=== PATIENT | female | born 1970 | race Caucasian/White ===

== ENCOUNTER 2020-05-27 07:18 | Emergency (ER) | payer MEDICAID, SELFPAY ==
[2020-05-27 08:58] VITALS: BP 121/86; PULSE 76; RESP 18; TEMP 37; O2SAT 100; BMI 20.1
--- NOTE | 2020-05-27 09:01 | CT_ITS ---
EXAMINATION: CT ABDOMEN AND PELVIS WITH CONTRAST CLINICAL INFORMATION: Abdominal pain COMPARISON: Previous CT of the abdomen and pelvis most recent August 2019 abdominal ultrasound November 2017 TECHNIQUE: Multidetector volumetric images were obtained from the superior aspect of the liver through the pubic symphysis following administration 85 mL of Omnipaque 350 intravenous contrast. Sagittal and coronal reformatted images were obtained on the technologist's workstation. Oral contrast: No This CT examination was performed using dose optimization techniques as appropriate, variously including the following: *Automated exposure control *Adjustment of mA and/or kV according to patient size (this includes techniques or standardized protocols for targeted exams where dose is matched to indication/reason for exam; i.e. extremities or head) *Use of iterative reconstruction technique DLP: 371 mGy-cm FINDINGS: LUNG BASES: The visualized lung bases are unremarkable. LIVER, GALLBLADDER, AND BILIARY TREE: The liver is normal in size, shape, and attenuation. No focal hepatic lesion or biliary ductal dilatation is present. There are gallstones in the gallbladder. PANCREAS: Unremarkable. SPLEEN: Unremarkable. ADRENAL GLANDS: Unremarkable. KIDNEYS AND URETERS: The kidneys are normal in size, shape, and attenuation. No hydronephrosis, hydroureter, or calculi seen. No perinephric stranding. BLADDER: Unremarkable. GASTROINTESTINAL TRACT: There is diverticulosis of the colon. There is mild wall thickening of the splenic flexure and descending colon. This involves a long segment and is questionable for mild colitis or diverticulitis. Small and large bowel is otherwise normal. The appendix is unremarkable. ABDOMINAL WALL: No significant hernia is appreciated. LYMPH NODES: Normal. VASCULAR: There is ectasia of the splenic artery measuring up to 1.3 cm. This does not appear appreciably changed. PELVIC VISCERA: There are prominent left pelvic vessels questionable for pelvic congestion. OSSEOUS STRUCTURES: Unremarkable. CT/CT abdomen pelvis w con IMPRESSION: Diverticulosis of the colon. Wall thickening of the splenic flexure and left colon questionable for mild colitis or diverticulitis. Gallstones. Slightly dilated splenic artery measuring 1.3 cm.
--- NOTE | 2020-05-27 09:06 | ED_ITS ---
HPI - Abdominal Pain General Chief Complaint: Abdominal Pain Stated Complaint: diverticulitis Time Seen by Provider: 05/27/20 08:55 Source: patient Mode of arrival: ambulatory History of Present Illness HPI narrative: 50-year-old female with a past medical history of diverticulitis, tubal ligation, presenting to the ED complaining of left upper and lower abdominal pain since last night with associated nausea, vomiting, and bloody/mucousy stool. Admits symptoms feel similar to prior diverticulitis in August which she was admitted to [facility]. Denies fever, chills, constipation, dysuria/hematuria, urinary frequency Related Data Home Medications Medication Instructions Recorded Confirmed levothyroxine 05/27/20 Previous Rx's Medication Instructions Recorded ciprofloxacin HCl 500 mg PO Q12H 7 Days #14 tab 05/27/20 metronidazole [Flagyl] 500 mg PO Q8H 7 Days #21 tab 05/27/20 Allergies Allergy/AdvReac Type Severity Reaction Status Date / Time tramadol [TRAMADOL] Allergy Intermediate VOMITING, Unverified 01/11/20 17:04 ? nausea Review of Systems Review of Systems Constitutional: No Weight loss, No Fever, No Chills Cardiovascular: No Chest Pain, No SOB, No Dyspnea on Exertion Respiratory: No Cough, No Dyspnea Gastrointestinal: + Nausea, + Vomiting, No Diarrhea, No Constipation, + Abdominal pain,+bloody stools Genitourinary: No irregular bleeding, No Dysuria, No Urinary Frequency, No Hematuria, No Flank Pain, No Urinary Flow Changes, No Hesitancy Musculoskeletal: No joint pain, No Myalgias, No Joint Swelling Skin: No Skin Lesions, No rash Yes all other systems are reviewed and are negative Physical Exam Vital Signs: Vital Signs: Last Vital Signs Temp 98.6 F 05/27/20 08:58 Pulse 76 05/27/20 08:58 Resp 18 05/27/20 08:58 BP 121/86 05/27/20 08:58 Pulse Ox 100 05/27/20 08:58 Body Mass Index 20.1 Const: General: cooperative, healthy appearing and comfortable Orientation/consciousness: patient oriented x3 Limitations: no limitations HENMT: Head: Yes normal to inspection Ears: hearing grossly normal bilaterally General nose exam: Normal external nose present Face and s inus: Yes normal facial exam Eyes: General: appearance normal, both eyes and all related structures EOM: EOMs intact bilaterally Neck: Neck: Yes normal visual inspection Resp: Effort & Inspection: normal respiratory effort Cardio: Rate: regular rate GI: Inspection: Yes normal to inspection Palpation (GI): Soft to palpation, Tenderness to palpation present (GI) in the LLQ, in the LUQ and suprapubicly, no guarding and not rigid Rectal Exam - Female: hemorrhoids : General: Yes no CVA tenderness Back/Spine/Pelvis: Back: no CVA tenderness Skin: Rashes: no rashes Wounds: no wounds Neuro: General: patient oriented x3 Gait exam (Neuro): Normal gait present Extrem: General: Yes normal to inspection Course Course Course Narrative: * labs unremarkable CT abdomen pelvis w con IMPRESSION: Diverticulosis of the colon. Wall thickening of the splenic flexure and left colon questionable for mild colitis or diverticulitis. Gallstones. Slightly dilated splenic artery measuring 1.3 cm. >> results discussed with patient including worrisome signs and symptoms and strict return precautions. She verbalized understanding feel safe for discharge home MDM - Abdominal Pain MDM Narrative Medical decision making narrative: 50-year-old female with a past medical history of diverticulitis, tubal ligation, presenting to the ED complaining of left upper and lower abdominal pain since last night with associated nausea, vomiting, and bloody/mucousy stool. On exam VSS, NAD/nontoxic, abdomen soft diffusely tender, no rebound or guarding, no CVAT. Concern for diverticulitis vs appendicitis vs pancreatitis/gastroenteritis. Lower concern for cholecystitis/renal stone. Low concern for severe sepsis Plan: Labs, UA, CT AP, IVF/symptomatic therapy/reassess Lab Data Result diagrams: 05/27/20 09:34 05/27/20 09:34 Labs: Lab Results 05/27/20 05/27/20 05/27/20 Range/Units 09:34 09:34 09:34 WBC 10.6 (4.8-10.8) X10*3/uL RBC 4.81 (4.20-5.50) X10*6/uL Hgb 14.5 (12.0-16.0) g/dl Hct 41.9 (37-47) % MCV 87.1 (80-98) fL MCH 30.1 (27.0-33.0) pg MCHC 34.6 (31.0-35.0) g/dl RDW 12.0 (11.0-16.0) % Plt Count 396 (160-400) X10*3/uL MPV 9.3 L (9.4-12.3) fL Immature Gran % (Auto) 0.3 (0.0-0.4) % Neut % (Auto) 83.4 H (45-73) % Lymph % (Auto) 12.5 L (20-40) % [place] % (Auto) 3.5 (2-11) % Eos % (Auto) 0.1 (0-4) % Baso % (Auto) 0.2 (0-2) % Lymph # (Auto) 1.3 (1.2-4.9) X10*3/uL [place] # (Auto) 0.4 (0.1-1.2) X10*3/uL Eos # (Auto) 0.0 (0.0-0.4) X10*3/uL Baso # (Auto) 0.0 (0.0-0.2) X10*3/uL Abs Immat Gran (auto) 0.03 (0.00-0.03) X10*3/uL Absolute Neuts (auto) 8.9 H (2.0-8.3) X10*3/uL Absolute Nucleated RBC 0.000 (0.0-0.012) X10*3/uL Nucleated RBC % (auto) 0.0 (0.0-0.2) /100WBC Hold Blue Top SEE NOTE Sodium 139 (135-145) mmol/L Potassium 4.3 (3.3-5.1) mmol/L Chloride 103 (96-108) mmol/L Carbon Dioxide 28 (22-29) mmol/L Anion Gap 12 (12-20) BUN 10 (9-16) mg/dL Creatinine 0.84 (0.5-1.4) mg/dL Estim Creat Clear Calc 63.8 Estimated GFR > 60 Random Glucose 109 (60-115) mg/dL Lactic Acid (0.5-2.0) mmol/L Calcium 9.6 (8.4-10.2) mg/dL Magnesium 2.1 (1.6-2.6) mg/dL Total Bilirubin 1.3 H (0.0-1.0) mg/dL Direct Bilirubin 0.4 (0.0-0.5) mg/dL AST 14 (5-31) U/L ALT 13 (0-31) U/L Alkaline Phosphatase 46 (39-117) U/L Total Protein 7.5 (6.5-8.0) g/dL Albumin 4.4 (3.5-5.0) g/dL Lipase (8-78) U/L Stool Occult Blood (NEG) 05/27/20 05/27/20 05/27/20 Range/Units 09:34 09:35 09:36 WBC (4.8-10.8) X10*3/uL RBC (4.20-5.50) X10*6/uL Hgb (12.0-16.0) g/dl Hct (37-47) % MCV (80-98) fL MCH (27.0-33.0) pg MCHC (31.0-35.0) g/dl RDW (11.0-16.0) % Plt Count (160-400) X10*3/uL MPV (9.4-12.3) fL Immature Gran % (Auto) (0.0-0.4) % Neut % (Auto) (45-73) % Lymph % (Auto) (20-40) % [place] % (Auto) (2-11) % Eos % (Auto) (0-4) % Baso % (Auto) (0-2) % Lymph # (Auto) (1.2-4.9) X10*3/uL [place] # (Auto) (0.1-1.2) X10*3/uL Eos # (Auto) (0.0-0.4) X10*3/uL Baso # (Auto) (0.0-0.2) X10*3/uL Abs Immat Gran (auto) (0.00-0.03) X10*3/uL Absolute Neuts (auto) (2.0-8.3) X10*3/uL Absolute Nucleated RBC (0.0-0.012) X10*3/uL Nucleated RBC % (auto) (0.0-0.2) /100WBC Hold Blue Top Sodium (135-145) mmol/L Potassium (3.3-5.1) mmol/L Chloride (96-108) mmol/L Carbon Dioxide (22-29) mmol/L Anion Gap (12-20) BUN (9-16) mg/dL Creatinine (0.5-1.4) mg/dL Estim Creat Clear Calc Estimated GFR Random Glucose (60-115) mg/dL Lactic Acid 1.1 (0.5-2.0) mmol/L Calcium (8.4-10.2) mg/dL Magnesium (1.6-2.6) mg/dL Total Bilirubin (0.0-1.0) mg/dL Direct Bilirubin (0.0-0.5) mg/dL AST (5-31) U/L ALT (0-31) U/L Alkaline Phosphatase (39-117) U/L Total Protein (6.5-8.0) g/dL Albumin (3.5-5.0) g/dL Lipase 10 (8-78) U/L Stool Occult Blood NEG (NEG) Discharge Plan Discharge Clinical Impression: Diverticulitis Patient Disposition: Home, Self-Care Instructions: Diverticulitis (ED) Additional Instructions: YOUR BLOOD WORK WAS REASSURING TODAY. YOUR CT SCAN SHOWED MILD COLITIS OR DIVERTICULITIS. CIPROFLOXACIN AND FLAGYL ARE ANTIBIOTICS, TAKE PRESCRIBED. PRACTICE A CLEAR LIQUID DIET FOR THE NEXT 2-3 DAYS. THEN SLOWLY TRANSITION TO NORMAL, AVOIDING SWEET, SPICY, CAFFEINE, CHOCOLATE INITIALLY. MAKE SURE YOU ARE DRINKING PLENTY OF FLUIDS. IF HER SYMPTOMS PERSIST OR WORSEN, PAIN BECOMES UNBEARABLE, YOU ARE UNABLE TO EAT OR DRINK, OR HAVE FEVERS RETURN TO THE ED. FOLLOW UP WITH HER PRIMARY CARE DOCTOR AND GI DOCTOR Prescriptions: New ciprofloxacin HCl 500 mg tablet 500 mg PO Q12H 7 Days Qty: 14 RF: 0 metronidazole [Flagyl] 500 mg tablet 500 mg PO Q8H 7 Days Qty: 21 RF: 0 No Action levothyroxine RF: 0 Referrals: Thee Cardozo MD [Physician] - 5 days [facility] Past Medical History Attestation statement: The following information was validated with the patient. Medical History (Updated 05/27/20 @ 11:43 by HANSA Slater) Diverticulitis Hypothyroidism Surgical History (Updated 05/27/20 @ 09:05 by Travis Oreilly) H/O tubal ligation Social History Social History Advance Directives: Yes Advance Directives Information Provided: Yes Advance Directives on File: No
[2020-05-27] MEDS: 0.9 % Sodium Chloride 1,000 ML 999 ML IVCONT (09:34)
[2020-05-27 09:42] LABS: MANUAL DIFF FLAG NO
[2020-05-27 09:46] LABS: OBS Int Ctl Valid YES; OBS1 NEG (NEG)
[2020-05-27 09:47] LABS: Basophils Percent Auto 0.2 % (0-2); Eosinophils Percent Auto 0.1 % (0-4); Hematocrit 41.9 % (37-47); Hemoglobin 14.5 g/dl (12.0-16.0); Imm Gran Abs Auto 0.03 X10*3/uL (0.00-0.03); Imm Gran Pct Auto 0.3 % (0.0-0.4); Lymphocytes Absolute Auto 1.3 X10*3/uL (1.2-4.9); Lymphocytes Percent Auto 12.5 % (20-40); Mean Corpuscular HGB Conc 34.6 g/dl (31.0-35.0); Mean Corpuscular Hemoglobin 30.1 pg (27.0-33.0); Mean Corpuscular Volume 87.1 fL (80-98); Mean Platelet Volume 9.3 fL (9.4-12.3); Monocytes Absolute Auto 0.4 X10*3/uL (0.1-1.2); Monocytes Percent Auto 3.5 % (2-11); Neutrophils Absolute Auto 8.9 X10*3/uL (2.0-8.3); Neutrophils Percent Auto 83.4 % (45-73); Platelet Count 396 X10*3/uL (160-400); Red Blood Count 4.81 X10*6/uL (4.20-5.50); White Blood Count 10.6 X10*3/uL (4.8-10.8)
[2020-05-27 10:06] LABS: Lactic Acid 1.1 mmol/L (0.5-2.0)
[2020-05-27 10:11] LABS: Lipase 10 U/L (8-78)
[2020-05-27 10:12] LABS: Alanine Aminotransferase 13 U/L (0-31); Albumin Level 4.4 g/dL (3.5-5.0); Alkaline Phosphatase 46 U/L (39-117); Anion Gap 12 (12-20); Aspartate Amino Transferase 14 U/L (5-31); Bilirubin Direct 0.4 mg/dL (0.0-0.5); Bilirubin Total 1.3 mg/dL (0.0-1.0); Blood Urea Nitrogen 10 mg/dL (9-16); Calcium 9.6 mg/dL (8.4-10.2); Carbon Dioxide 28 mmol/L (22-29); Chloride 103 mmol/L (96-108); Creatinine Clr Calc Pharmacy 63.8; Estimated Glomerular Filt Rate > 60; Glucose Random 109 mg/dL (60-115); Magnesium 2.1 mg/dL (1.6-2.6); Potassium 4.3 mmol/L (3.3-5.1); Sodium 139 mmol/L (135-145); Total Protein 7.5 g/dL (6.5-8.0)
[2020-05-27] MEDS: metroNIDAZOLE 500 MG TABLET PO (11:46)
== END 2020-05-27 11:52 | disposition home or self-care (01) ==
PROVIDERS: Physician Assistant; Emergency Provider Emergency Medicine; PCP Family Medicine
DX: K57.32 Diverticulitis of large intestine without perforation or abscess without bleeding (principal)
CPT/HCPCS: 36415; 74177; 80048; 80076; 82272; 83605; 83690; 83735; 85025; 87040; 96360; 99283; 99284

== ENCOUNTER → 2020-08-05 08:16 | Outpatient (BNVA) | payer MEDICAID, SELFPAY | PROVIDERS: PCP Family Medicine; Visit Provider Nurse Practitioner Gerontology | DX: E03.8 Other specified hypothyroidism (principal); E06.3 Autoimmune thyroiditis; E04.2 Nontoxic multinodular goiter | CPT/HCPCS: 99212 ==

== ENCOUNTER 2020-11-11 07:10 | Outpatient (REF) | payer MEDICAID, SELFPAY ==
[2020-11-11 10:58] LABS: Thyroid Stimulating Hormone 0.19 uIU/mL (0.32-4.0)
== END 2020-11-11 07:11 | disposition home or self-care (01) ==
LOC: HO.10HDL 07:10
PROVIDERS: PCP Family Medicine; Visit Provider Nurse Practitioner Gerontology
DX: E03.9 Hypothyroidism, unspecified (principal); E06.3 Autoimmune thyroiditis; Z87.891 Personal history of nicotine dependence
CPT/HCPCS: 36415; 84443; 99212

== ENCOUNTER 2020-12-05 08:08 | Outpatient (REF) | payer MEDICAID, SELFPAY ==
--- NOTE | ~2020-12-05 | MM_ITS ---
EXAMINATION: MM SCREENING DIGITAL BREAST TOMOSYNTHESIS, BILATERAL CLINICAL INFORMATION: Screening. Asymptomatic. The lifetime risk of breast cancer based on the Tyrer-Cuzick Model is 10%. COMPARISON: Mammography: 12/10/2017, 03/09/2016, 02/19/2015 TECHNIQUE: Digital breast tomosynthesis is performed in both the craniocaudal and mediolateral oblique views along with computer-aided detection (CAD). Synthesized 2D images are generated from the tomosynthesis. FINDINGS: There are scattered areas of fibroglandular density (ACR BI-RADS breast composition Category b). There are no significant masses, abnormal calcifications, or other abnormalities. Parenchymal pattern is similar to prior studies. No developing density. No significant changes. MM/MM tomosynthesis screening BI IMPRESSION: No mammographic evidence of malignancy. ASSESSMENT: BI-RADS 1: Negative RECOMMENDATION: Routine annual mammography screening. This patient's information was entered into a reminder system with a target due date for their next mammogram.
== END 2020-12-05 08:09 | disposition home or self-care (01) ==
LOC: HO.MAMMO 08:08
PROVIDERS: Visit Provider Family Medicine
DX: Z12.31 Encounter for screening mammogram for malignant neoplasm of breast (principal)
CPT/HCPCS: 77063; 77067

== ENCOUNTER 2020-12-18 07:37 | Outpatient (REF) | payer MEDICAID, SELFPAY ==
[2020-12-18 11:38] LABS: Free T4 (Free Thyroxine) 0.64 ng/dL (0.71-1.85); Vitamin D 25-OH Total 16.4 ng/mL (>30)
== END 2020-12-18 07:38 | disposition home or self-care (01) ==
LOC: HO.10HDL 07:37
PROVIDERS: PCP Family Medicine; Visit Provider Internal Medicine
DX: E03.8 Other specified hypothyroidism (principal); E06.3 Autoimmune thyroiditis; E55.9 Vitamin D deficiency, unspecified; Z79.899 Other long term (current) drug therapy
CPT/HCPCS: 36415; 82306; 84439; 84443; 99212

== ENCOUNTER 2021-02-14 11:34 | Outpatient (REF) | payer MEDICAID, SELFPAY ==
[2021-02-14 14:44] LABS: Free T4 (Free Thyroxine) 1.11 ng/dL (0.71-1.85); Thyroid Stimulating Hormone 0.26 uIU/mL (0.32-4.0)
== END 2021-02-14 11:35 | disposition home or self-care (01) ==
LOC: HO.10HDL 11:34
PROVIDERS: Visit Provider Internal Medicine
DX: E03.8 Other specified hypothyroidism (principal); E06.3 Autoimmune thyroiditis
CPT/HCPCS: 36415; 84439; 84443

== ENCOUNTER → 2021-06-18 08:22 | Outpatient (BNVA) | payer MEDICAID, SELFPAY | PROVIDERS: PCP Family Medicine; Visit Provider Internal Medicine ==

== ENCOUNTER 2021-06-19 10:01 | Outpatient (REF) | payer MEDICAID, SELFPAY ==
[2021-06-19 11:54] LABS: Free T4 (Free Thyroxine) 1.04 ng/dL (0.71-1.85); Thyroid Stimulating Hormone 20.28 uIU/mL (0.32-4.0); Vitamin D 25-OH Total 11.1 ng/mL (>30)
== END 2021-06-19 10:02 | disposition home or self-care (01) ==
LOC: HO.10HDL 10:01
PROVIDERS: Visit Provider Internal Medicine
DX: E03.8 Other specified hypothyroidism (principal); E06.3 Autoimmune thyroiditis; E55.9 Vitamin D deficiency, unspecified
CPT/HCPCS: 36415; 82306; 84439; 84443

== ENCOUNTER 2021-08-20 07:43 | Outpatient (REF) | payer MEDICAID, SELFPAY ==
[2021-08-20 11:12] LABS: Free T4 (Free Thyroxine) 0.66 ng/dL (0.71-1.85); Thyroid Stimulating Hormone 23.55 uIU/mL (0.32-4.0)
== END 2021-08-20 07:44 | disposition home or self-care (01) ==
LOC: HO.10HDL 07:43
PROVIDERS: Visit Provider Internal Medicine
DX: E03.8 Other specified hypothyroidism (principal); E06.3 Autoimmune thyroiditis
CPT/HCPCS: 36415; 84439; 84443

== ENCOUNTER → 2021-08-25 07:46 | Outpatient (BNVA) | payer MEDICAID, SELFPAY | PROVIDERS: PCP Family Medicine; Visit Provider Internal Medicine | DX: Z13.89 Encounter for screening for other disorder (principal) ==

== ENCOUNTER → 2021-08-28 12:54 | Outpatient (BNVA) | payer MEDICAID, SELFPAY | PROVIDERS: PCP Family Medicine; Referring Provider Family Medicine; Visit Provider Nurse Practitioner | DX: K29.80 Duodenitis without bleeding (principal); K21.9 Gastro-esophageal reflux disease without esophagitis; K59.04 Chronic idiopathic constipation; B96.81 Helicobacter pylori [H. pylori] as the cause of diseases classified elsewhere | CPT/HCPCS: 99212 ==

== ENCOUNTER 2021-09-19 11:33 | Outpatient (REF) | payer MEDICAID, SELFPAY | END 2021-09-19 11:34 | disposition home or self-care (01) | LOC: HO.LNP 11:33 | PROVIDERS: Visit Provider Nurse Practitioner | DX: B96.81 Helicobacter pylori [H. pylori] as the cause of diseases classified elsewhere (principal); K29.80 Duodenitis without bleeding | CPT/HCPCS: 87338 ==

== ENCOUNTER → 2021-10-17 07:17 | Outpatient (BNVA) | payer MEDICAID, SELFPAY | PROVIDERS: PCP Family Medicine; Visit Provider Nurse Practitioner | DX: K59.04 Chronic idiopathic constipation (principal); K21.9 Gastro-esophageal reflux disease without esophagitis; K29.80 Duodenitis without bleeding; B96.81 Helicobacter pylori [H. pylori] as the cause of diseases classified elsewhere; Z79.899 Other long term (current) drug therapy | CPT/HCPCS: 99212 ==

== ENCOUNTER 2021-11-24 12:40 | Emergency (ER) | payer MEDICAID, SELFPAY ==
[2021-11-24 14:15] VITALS: BP 141/86; PULSE 79; RESP 14; TEMP 37.1; O2SAT 97; BMI 26.5
[2021-11-24 14:22] LABS: MANUAL DIFF FLAG NO
[2021-11-24 14:29] LABS: Basophils Percent Auto 0.2 % (0-2); Eosinophils Absolute Auto 0.2 X10*3/uL (0.0-0.4); Eosinophils Percent Auto 1.2 % (0-4); Hematocrit 41.5 % (37.0-47.0); Imm Gran Abs Auto 0.06 X10*3/uL (0.00-0.03); Imm Gran Pct Auto 0.4 % (0.0-0.4); Lymphocytes Absolute Auto 2.6 X10*3/uL (1.2-4.9); Lymphocytes Percent Auto 16.2 % (20-40); Mean Corpuscular HGB Conc 33.7 g/dl (31.0-35.0); Mean Corpuscular Hemoglobin 29.4 pg (27.0-33.0); Mean Platelet Volume 9.8 fL (9.4-12.3); Monocytes Absolute Auto 0.8 X10*3/uL (0.1-1.2); Monocytes Percent Auto 5.2 % (2-11); Neutrophils Absolute Auto 12.3 x10*3/uL (2.0-8.3); Neutrophils Percent Auto 76.8 % (45-73); Platelet Count 297 X10*3/uL (160-400); Red Blood Count 4.77 X10*6/uL (4.20-5.50); Red Cell Distribution Width 13.1 % (11.0-16.0)
[2021-11-24 14:37] LABS: Anion Gap 14 (12-20); Blood Urea Nitrogen 8 mg/dL (9-16); Calcium 9.2 mg/dL (8.4-10.2); Carbon Dioxide 25 mmol/L (22-29); Chloride 106 mmol/L (96-108); Creatinine Clr Calc Pharmacy 77.8; Estimated Glomerular Filt Rate > 60; Glucose Random 98 mg/dL (60-115); Potassium 4.4 mmol/L (3.3-5.1); Sodium 141 mmol/L (135-145)
== END 2021-11-24 20:46 | disposition left against medical advice (07) ==
LOC: HO.ED 20:41
PROVIDERS: Emergency Provider Emergency Medicine; PCP Family Medicine
DX: R11.10 Vomiting, unspecified (principal); R10.9 Unspecified abdominal pain; Z79.899 Other long term (current) drug therapy
CPT/HCPCS: 36415; 80048; 85025; 99281; 99283

== ENCOUNTER 2021-12-01 10:00 | Outpatient (REF) | payer MEDICAID, SELFPAY ==
[2021-12-01 11:24] LABS: Free T4 (Free Thyroxine) 1.73 ng/dL (0.71-1.85); Thyroid Stimulating Hormone 0.02 uIU/mL (0.32-4.0)
== END 2021-12-01 10:01 | disposition home or self-care (01) ==
LOC: HO.10HDL 10:00
PROVIDERS: Visit Provider Internal Medicine
DX: E06.3 Autoimmune thyroiditis (principal); E55.9 Vitamin D deficiency, unspecified; E03.9 Hypothyroidism, unspecified
CPT/HCPCS: 36415; 82306; 84439; 84443

== ENCOUNTER 2021-12-09 07:57 | Outpatient (REF) | payer MEDICAID, SELFPAY ==
--- NOTE | ~2021-12-09 | MM_ITS ---
EXAMINATION: MM SCREENING DIGITAL BREAST TOMOSYNTHESIS, BILATERAL CLINICAL INFORMATION: Screening. Asymptomatic. Status post previous right breast biopsy. The lifetime risk of breast cancer based on the Tyrer-Cuzick Model is 12%. COMPARISON: Mammography: December 05, 2020 and studies dating back to November 07, 2013 TECHNIQUE: Digital breast tomosynthesis is performed in both the craniocaudal and mediolateral oblique views along with computer-aided detection (CAD). Synthesized 2D images are generated from the tomosynthesis. FINDINGS: The breasts are heterogeneously dense, which may obscure small masses (ACR BI-RADS breast composition Category c). There are no significant masses, abnormal calcifications, or other abnormalities. Stable area of postsurgical changes seen about the upper outer aspect of the right breast. MM/MM tomosynthesis screening BI IMPRESSION: No mammographic evidence of malignancy. ASSESSMENT: BI-RADS 2: Benign RECOMMENDATION: Routine annual mammography screening. This patient's information was entered into a reminder system with a target due date for their next mammogram.
== END 2021-12-09 07:58 | disposition home or self-care (01) ==
LOC: HO.MAMMO 07:57
PROVIDERS: PCP Family Medicine; Visit Provider Family Medicine
DX: Z12.31 Encounter for screening mammogram for malignant neoplasm of breast (principal)
CPT/HCPCS: 77063; 77067

== ENCOUNTER → 2022-03-17 11:52 | Outpatient (BNVA) | payer MEDICAID, SELFPAY | PROVIDERS: PCP Family Medicine; Referring Provider Family Medicine; Visit Provider Nurse Practitioner | DX: K21.9 Gastro-esophageal reflux disease without esophagitis (principal); K59.04 Chronic idiopathic constipation; Z83.71 Family history of colonic polyps | CPT/HCPCS: 99212 ==

== ENCOUNTER 2022-04-24 10:39 | Emergency (ER) | payer MEDICAID, SELFPAY ==
--- NOTE | ~2022-04-24 | CT_ITS ---
EXAMINATION: CT ABDOMEN AND PELVIS WITH CONTRAST CLINICAL INFORMATION: Right upper and left lower quadrant abdominal pain with nausea vomiting and history of diverticulitis. COMPARISON: CT abdomen and pelvis 05/27/2020 TECHNIQUE: Multidetector volumetric images were obtained from the superior aspect of the liver through the pubic symphysis following administration 85 mL of Omnipaque 350 intravenous contrast. Sagittal and coronal reformatted images were obtained on the technologist's workstation. Oral contrast: No This CT examination was performed using dose optimization techniques as appropriate, variously including the following: *Automated exposure control *Adjustment of mA and/or kV according to patient size (this includes techniques or standardized protocols for targeted exams where dose is matched to indication/reason for exam; i.e. extremities or head) *Use of iterative reconstruction technique DLP: 382 mGy-cm FINDINGS: LUNG BASES: The visualized lung bases are unremarkable. LIVER, GALLBLADDER, AND BILIARY TREE: The liver is normal in size, shape, and attenuation. No focal hepatic lesion or biliary ductal dilatation is present. No calcified gallstones. No gallbladder wall thickening or pericholecystic inflammatory change. PANCREAS: Unremarkable. SPLEEN: Unremarkable. ADRENAL GLANDS: Unremarkable. KIDNEYS AND URETERS: The kidneys are normal in size, shape, and attenuation. No hydronephrosis, hydroureter, or calculi seen. No perinephric stranding. BLADDER: Unremarkable. GASTROINTESTINAL TRACT: No dilated bowel loops. No bowel wall thickening. Colonic diverticulosis. No evidence of acute diverticulitis. Normal appendix. No free air or ascites. ABDOMINAL WALL: Small fat-containing umbilical hernia. LYMPH NODES: No lymphadenopathy. VASCULAR: Normal caliber abdominal aorta. Small 0.8 cm distal splenic artery aneurysm at the splenic hilum with some peripheral calcification, unchanged. PELVIC VISCERA: Uterus is retroverted and retroflexed. Dilated left gonadal and periuterine veins. Gynecologic structures otherwise unremarkable. OSSEOUS STRUCTURES: No acute fracture or suspicious osseous lesion. CT/CT abdomen pelvis w IV con IMPRESSION: 1. Colonic diverticulosis. No evidence of acute diverticulitis or other acute intra-abdominal process. 2. Dilated left gonadal and periuterine veins. Correlate clinically with signs or symptoms of pelvic congestion syndrome.
[2022-04-24 10:41] VITALS: BP 143/101; PULSE 97; TEMP 36.3; O2SAT 98; BMI 23.8
[2022-04-24 10:55] LABS: MANUAL DIFF FLAG NO
[2022-04-24 10:56] LABS: Basophils Percent Auto 0.4 % (0-2); Eosinophils Percent Auto 0.8 % (0-4); Hematocrit 38.9 % (37.0-47.0); Hemoglobin 13.4 g/dl (12.0-16.0); Imm Gran Abs Auto 0.01 X10*3/uL (0.00-0.03); Imm Gran Pct Auto 0.2 % (0.0-0.4); Lymphocytes Absolute Auto 1.2 X10*3/uL (1.2-4.9); Lymphocytes Percent Auto 22.7 % (20-40); Mean Corpuscular HGB Conc 34.4 g/dl (31.0-35.0); Mean Corpuscular Hemoglobin 29.1 pg (27.0-33.0); Mean Corpuscular Volume 84.4 fL (80.0-98.0); Mean Platelet Volume 9.2 fL (9.4-12.3); Monocytes Absolute Auto 0.6 X10*3/uL (0.1-1.2); Monocytes Percent Auto 11.5 % (2-11); Neutrophils Absolute Auto 3.3 x10*3/uL (2.0-8.3); Neutrophils Percent Auto 64.4 % (45-73); Platelet Count 243 X10*3/uL (160-400); Red Blood Count 4.61 X10*6/uL (4.20-5.50); Red Cell Distribution Width 12.6 % (11.0-16.0); White Blood Count 5.1 X10*3/uL (4.8-10.8)
[2022-04-24 10:58] LABS: Appearance Urine Clear; Color Urine Yellow; Glucose Urine UA Negative (Negative); Leukocyte Esterase Urine Negative (Negative); Nitrite Urine Negative (Negative); Urine Blood Negative (Negative); Urine Ketones Trace mg/dL (Negative); Urine Protein Negative (Neg-Trace)
[2022-04-24 10:59] LABS: UPreg QC Valid YES; Urine Pregnancy NEGATIVE (NEGATIVE)
--- NOTE | 2022-04-24 11:26 | ED_ITS ---
HPI - Abdominal Pain General Chief Complaint: Abdominal Pain Stated Complaint: Intestinal Flu Time Seen by Provider: 04/24/22 11:18 Source: patient Mode of arrival: ambulatory Limitations: no limitations History of Present Illness HPI narrative: 52 yo female with history of GERD, diverticulitis, H. pylori, constipation, Jeevan's disease presenting to the ER with chronic right sided middle abdominal pain since December and new left sided abdominal pain for the last few days. She reports nausea but no vomiting. No fevers, no urinary symptoms. She reports history of diverticulitis that never goes away. MD elicited complaint: abdominal pain Pertinent past history: diverticulitis Onset (ago): day(s) Pain Consistency: intermittent Location: LLQ and L flank Severity: moderate Quality: stabbing and aching Radiation: none Migration to: no migration Exacerbating factors: nothing Relieving factors: nothing Context: history of similar episodes Associated symptoms: nausea Related Data Home Medications Medication Instructions Recorded Confirmed magnesium oxide 500 mg tablet 500 mg PO DAILY 08/28/21 10/09/21 nabumetone 500 mg tablet 500 mg PO BID PRN pain 08/28/21 10/09/21 ondansetron HCl 4 mg tablet 4 mg PO Q8H PRN nausea 08/28/21 10/09/21 magnesium hydroxide 400 mg/5 mL ml PO 03/17/22 oral suspension (Milk of Magnesia) topiramate 25 mg tablet 25 mg PO BEDTIME 03/17/22 Previous Rx's Medication Instructions Recorded cholecalciferol (vitamin D3) 50 50 mcg PO DAILY 30 days #30 caps 08/25/21 mcg (2,000 unit) capsule linaclotide 145 mcg capsule 145 mcg PO QAM #30 caps 10/17/21 (Linzess) Tirosint 88 mcg capsule 88 mcg PO DAILY 30 days #30 caps 12/01/21 (levothyroxine) linaclotide 72 mcg capsule 72 mcg PO QAM #30 caps 03/17/22 (Linzess) pantoprazole 40 mg tablet,delayed 40 mg PO BID 30 days #60 tabs 03/17/22 release (Protonix) ondansetron 4 mg disintegrating 4 mg PO Q8H PRN nausea and 04/24/22 tablet vomiting #7 tabs Allergies Allergy/AdvReac Type Severity Reaction Status Date / Time tramadol [TRAMADOL] Allergy Intermediate VOMITING, Verified 03/17/22 11:59 ? nausea Review of Systems Review of Systems Constitutional: No Fever, No Chills ENT/Mouth: No sore throat, No Rhinorrhea, No Swallowing Difficulty Eyes: No Eye Pain, No Swelling, No Redness Cardiovascular: No Chest Pain, No SOB, No Orthopnea, No Edema Respiratory: No Cough, No Sputum, No Wheezing, No dyspnea Gastrointestinal: + Nausea, No Vomiting, No Diarrhea, + abdominal Pain Genitourinary: No Dysuria, No Urinary Frequency, No Hematuria Musculoskeletal: No joint pain, No Myalgias Skin: No Skin Lesions, No rash Neuro: No Weakness, No Numbness, No Dizziness, No Headache Psych: No Anxiety/Panic, No Depression Heme/Lymph: No Bruising, No Lymphadenopathy PMFSH Past Medical History Medical History (Updated 04/24/22 @ 14:48 by HANSA Linda) Diverticulitis Jeevan's disease Hypothyroidism Multinodular goiter Vitamin D deficiency Surgical History (Updated 03/17/22 @ 12:31 by GEE Marshall) H/O colonoscopy H/O tubal ligation Hx of hemorrhoidectomy Hx of lumpectomy Family History Family History Father Heart disease Mother Diabetes mellitus HTN (hypertension) Brother Diabetes mellitus Sister High cholesterol Sister Jeevan's disease Social History Social History Household Members: Spouse and Children Alcohol intake: never Patient Tobacco Use Status: Former Tobacco user Tobacco use type: Cigarette Cigarettes Per Day: 3 Smoked in Last 30 Days: No Use of substances other than those prescribed or required for medical reasons: No Advance Directives: No Advance Directives Information Provided: Yes Patient : No Physical Exam ED Vital Signs: Vital Signs - 24 hr 04/24/22 14:09 04/24/22 10:41 Temperature 98.1 F 97.3 F Pulse Rate 85 97 Respiratory Rate 18 Blood Pressure 135/74 143/101 H Pulse Oximetry 98 98 Oxygen Delivery Method Room Air Room Air BMI result Body Mass Index 23.8 Appearance: Alert. Oriented X3. No acute distress. Eyes: Pupils equal, round and reactive to light. ENT: Pharynx normal. Neck: Normal inspection. Neck supple. CVS: Normal heart rate and rhythm. Pulses normal. Respiratory: No respiratory distress. Breath sounds normal. Abdomen: Soft with tenderness of the LUQ and right flank. +BS x4. No CVA tenderness Skin: Skin warm and dry. Normal skin color. Normal skin turgor. No rashes. Extremities: No lower extremity edema. Neuro: Oriented X 3. No motor deficit. No sensory deficit. Course Course Course Narrative: 52 yo female with history of GERD, constipation, hypothyroidism, diverticulitis who presents to the ER for evaluation of acute on chronic abdominal pain. Chronic abdominal pain in the right side with new left-sided upper abdominal pain and tenderness. Nauseous but not vomiting. Vital signs are stable. She does have tenderness on examination in the left abdomen and right flank. Will get CT scan for further evaluation. Labs are unremarkable, urinalysis is negative. Reevaluation(s) Reevaluation #1: CT scan showing diverticulosis without evidence diverticulitis. Patient tolerating p.o.. Pain is improved. Stable for discharge home. She will follow-up with her GI provider for further management. Return precautions discussed. Medical Decision Making Lab Data Result Diagrams: 04/24/22 10:50 04/24/22 10:50 Labs: Lab Results 04/24/22 04/24/22 04/24/22 Range/Units 10:50 10:50 10:50 WBC 5.1 (4.8-10.8) X10*3/uL RBC 4.61 (4.20-5.50) X10*6/uL Hgb 13.4 (12.0-16.0) g/dl Hct 38.9 (37.0-47.0) % MCV 84.4 (80.0-98.0) fL MCH 29.1 (27.0-33.0) pg MCHC 34.4 (31.0-35.0) g/dl RDW 12.6 (11.0-16.0) % Plt Count 243 (160-400) X10*3/uL MPV 9.2 L (9.4-12.3) fL Immature Gran % (Auto) 0.2 (0.0-0.4) % Neut % (Auto) 64.4 (45-73) % Lymph % (Auto) 22.7 (20-40) % [place] % (Auto) 11.5 H (2-11) % Eos % (Auto) 0.8 (0-4) % Baso % (Auto) 0.4 (0-2) % Lymph # (Auto) 1.2 (1.2-4.9) X10*3/uL [place] # (Auto) 0.6 (0.1-1.2) X10*3/uL Eos # (Auto) 0.0 (0.0-0.4) X10*3/uL Baso # (Auto) 0.0 (0.0-0.2) X10*3/uL Abs Immat Gran (auto) 0.01 (0.00-0.03) X10*3/uL Absolute Neuts (auto) 3.3 (2.0-8.3) x10*3/uL Absolute Nucleated RBC 0.000 (0.0-0.012) X10*3/uL Nucleated RBC % (auto) 0.0 (0.0-0.2) /100WBC Sodium 140 (135-145) mmol/L Potassium 3.3 D (3.3-5.1) mmol/L Chloride 104 (96-108) mmol/L Carbon Dioxide 27 (22-29) mmol/L Anion Gap 12 (12-20) BUN 9 (9-16) mg/dL Creatinine 0.94 (0.5-1.4) mg/dL Estim Creat Clear Calc 55.9 Estimated GFR > 60 Random Glucose 85 (60-115) mg/dL Calcium 8.9 (8.4-10.2) mg/dL Total Bilirubin 0.6 (0.0-1.0) mg/dL Direct Bilirubin 0.2 (0.0-0.5) mg/dL AST 19 (5-31) U/L ALT 13 (0-31) U/L Alkaline Phosphatase 59 D (39-117) U/L Total Protein 7.4 (6.5-8.0) g/dL Albumin 4.3 (3.5-5.0) g/dL Lipase 18 (8-78) U/L Urine Color Urine Appearance Urine pH (5.0-9.0) Ur Specific [place] (1.005-1.025) Urine Protein (Neg-Trace) mg/dL Urine Glucose (UA) (Negative) mg/dL Urine Ketones (Negative) mg/dL Urine Blood (Negative) Urine Nitrite (Negative) Ur Leukocyte Esterase (Negative) Urine Test NEGATIVE (NEGATIVE) 04/24/22 Range/Units 10:50 WBC (4.8-10.8) X10*3/uL RBC (4.20-5.50) X10*6/uL Hgb (12.0-16.0) g/dl Hct (37.0-47.0) % MCV (80.0-98.0) fL MCH (27.0-33.0) pg MCHC (31.0-35.0) g/dl RDW (11.0-16.0) % Plt Count (160-400) X10*3/uL MPV (9.4-12.3) fL Immature Gran % (Auto) (0.0-0.4) % Neut % (Auto) (45-73) % Lymph % (Auto) (20-40) % [place] % (Auto) (2-11) % Eos % (Auto) (0-4) % Baso % (Auto) (0-2) % Lymph # (Auto) (1.2-4.9) X10*3/uL [place] # (Auto) (0.1-1.2) X10*3/uL Eos # (Auto) (0.0-0.4) X10*3/uL Baso # (Auto) (0.0-0.2) X10*3/uL Abs Immat Gran (auto) (0.00-0.03) X10*3/uL Absolute Neuts (auto) (2.0-8.3) x10*3/uL Absolute Nucleated RBC (0.0-0.012) X10*3/uL Nucleated RBC % (auto) (0.0-0.2) /100WBC Sodium (135-145) mmol/L Potassium (3.3-5.1) mmol/L Chloride (96-108) mmol/L Carbon Dioxide (22-29) mmol/L Anion Gap (12-20) BUN (9-16) mg/dL Creatinine (0.5-1.4) mg/dL Estim Creat Clear Calc Estimated GFR Random Glucose (60-115) mg/dL Calcium (8.4-10.2) mg/dL Total Bilirubin (0.0-1.0) mg/dL Direct Bilirubin (0.0-0.5) mg/dL AST (5-31) U/L ALT (0-31) U/L Alkaline Phosphatase (39-117) U/L Total Protein (6.5-8.0) g/dL Albumin (3.5-5.0) g/dL Lipase (8-78) U/L Urine Color Yellow Urine Appearance Clear Urine pH 6.0 (5.0-9.0) Ur Specific [place] 1.020 (1.005-1.025) Urine Protein Negative (Neg-Trace) mg/dL Urine Glucose (UA) Negative (Negative) mg/dL Urine Ketones Trace (Negative) mg/dL Urine Blood Negative (Negative) Urine Nitrite Negative (Negative) Ur Leukocyte Esterase Negative (Negative) Urine Test (NEGATIVE) Medications Administered Discontinued Medications Generic Name Dose Route Start Last Admin Trade Name Freq PRN Reason Stop Dose Admin Iohexol 100 ml 04/24/22 12:11 04/24/22 12:11 Iohexol 350 Mg/Ml 100 Ml Infus..Btl IV 04/24/22 12:12 85 ml ONCE ONE Administration Morphine Sulfate 4 mg 04/24/22 11:29 04/24/22 11:40 Morphine Sulfate 4 Mg/Ml Cartridge IVPUSH 04/24/22 11:30 4 mg ONCE ONE Administration Protocol Ondansetron HCl 4 mg 04/24/22 11:29 04/24/22 11:40 Ondansetron Hcl 4 Mg/2 Ml Vial IVPUSH 04/24/22 11:30 4 mg ONCE ONE Administration Discharge Plan Discharge Clinical Impression: Abdominal pain Patient Disposition: Home, Self-Care Instructions: Abdominal Pain (ED) Additional Instructions: Your CT scan today was normal. Your lab workup was unremarkable. Your urine test is negative for infection. Stick to a bland diet where not feeling well. Take the prescribed nausea medication as needed. Recommend following up with your GI doctor. Follow-up with PCP as well. If you develop new or worsening symptoms call 911 or come back to the ER for further evaluation. Prescriptions: New ondansetron 4 mg tablet,disintegrating 4 mg PO Q8H PRN (Reason: nausea and vomiting) Qty: 7 0RF No Action levothyroxine [Tirosint] 88 mcg capsule 88 mcg PO DAILY 30 Days Qty: 30 3RF cholecalciferol (vitamin D3) 50 mcg (2,000 unit) capsule 50 mcg PO DAILY 30 Days Qty: 30 11RF magnesium oxide 500 mg tablet 500 mg PO DAILY ondansetron HCl 4 mg tablet 4 mg PO Q8H PRN (Reason: nausea) nabumetone 500 mg tablet 500 mg PO BID PRN (Reason: pain) Linzess 145 mcg capsule 145 mcg PO QAM Qty: 30 6RF Hold Instructions: Doctor's Order magnesium hydroxide [Milk of Magnesia] 400 mg/5 mL suspension PO topiramate 25 mg tablet 25 mg PO BEDTIME Linzess 72 mcg capsule 72 mcg PO QAM Qty: 30 3RF Hold Instructions: Doctor's Order pantoprazole [Protonix] 40 mg tablet,delayed release (DR/EC) 40 mg PO BID 30 Days Qty: 60 6RF Referrals: [facility] [facility] [Provider Group] Interventions: ED Discharge Assessment Last Done: 04/24/22 15:05 Discharge Date/Time: 04/24/22 15:08
[2022-04-24 11:32] LABS: Alanine Aminotransferase 13 U/L (0-31); Albumin Level 4.3 g/dL (3.5-5.0); Alkaline Phosphatase 59 U/L (39-117); Anion Gap 12 (12-20); Aspartate Amino Transferase 19 U/L (5-31); Bilirubin Direct 0.2 mg/dL (0.0-0.5); Bilirubin Total 0.6 mg/dL (0.0-1.0); Blood Urea Nitrogen 9 mg/dL (9-16); Calcium 8.9 mg/dL (8.4-10.2); Carbon Dioxide 27 mmol/L (22-29); Chloride 104 mmol/L (96-108); Creatinine Clr Calc Pharmacy 55.9; Estimated Glomerular Filt Rate > 60; Glucose Random 85 mg/dL (60-115); Lipase 18 U/L (8-78); Potassium 3.3 mmol/L (3.3-5.1); Sodium 140 mmol/L (135-145); Total Protein 7.4 g/dL (6.5-8.0)
[2022-04-24] MEDS: Morphine Sulfate 4 MG/ML CARTRIDGE IVPUSH (11:40)
[2022-04-24] MEDS: ondansetron HCL 4 MG/2 ML VIAL IVPUSH (11:40)
[2022-04-24] MEDS: iohexoL 350 MG/ML 100 ML INFUS..BTL IV (12:11)
[2022-04-24 14:09] VITALS: BP 135/74; PULSE 85; RESP 18; TEMP 36.7; O2SAT 98
== END 2022-04-24 15:08 | disposition home or self-care (01) ==
PROVIDERS: Emergency Provider Student in an Organized Health Care Education/Training Program; PCP Family Medicine
DX: R10.32 Left lower quadrant pain (principal); R10.13 Epigastric pain; R11.0 Nausea; Z87.891 Personal history of nicotine dependence; Z79.899 Other long term (current) drug therapy
CPT/HCPCS: 36415; 74177; 80048; 80076; 81003; 81025; 83690; 85025; 96374; 96375; 99284; J2270; J2405; Q9967

== ENCOUNTER → 2022-05-06 14:33 | Outpatient (BNVA) | payer MEDICAID, SELFPAY | PROVIDERS: PCP Family Medicine; Visit Provider Nurse Practitioner | DX: K59.04 Chronic idiopathic constipation (principal); K21.9 Gastro-esophageal reflux disease without esophagitis | CPT/HCPCS: 99212 ==

== ENCOUNTER → 2022-05-20 07:39 | Outpatient (BNVA) | payer MEDICAID, SELFPAY | PROVIDERS: PCP Family Medicine; Referring Provider Family Medicine; Visit Provider Nurse Practitioner | DX: K59.04 Chronic idiopathic constipation (principal); K21.9 Gastro-esophageal reflux disease without esophagitis | CPT/HCPCS: 99212 ==

== ENCOUNTER → 2022-08-18 07:49 | Outpatient (BNVA) | payer MEDICAID, SELFPAY | PROVIDERS: PCP Family Medicine; Referring Provider Family Medicine; Visit Provider Nurse Practitioner | DX: Z01.818 Encounter for other preprocedural examination (principal); K59.04 Chronic idiopathic constipation; K64.9 Unspecified hemorrhoids; K21.9 Gastro-esophageal reflux disease without esophagitis; Z83.71 Family history of colonic polyps | CPT/HCPCS: 99212 ==

== ENCOUNTER 2022-08-31 11:25 | Outpatient (REF) | payer MEDICAID, SELFPAY ==
[2022-08-31 13:37] LABS: MANUAL DIFF FLAG NO
[2022-08-31 13:41] LABS: Basophils Percent Auto 0.5 % (0-2); Eosinophils Absolute Auto 0.2 X10*3/uL (0.0-0.4); Eosinophils Percent Auto 2.3 % (0-4); Hematocrit 34.1 % (37.0-47.0); Hemoglobin 11.3 g/dl (12.0-16.0); Imm Gran Abs Auto 0.02 X10*3/uL (0.00-0.03); Imm Gran Pct Auto 0.3 % (0.0-0.4); Lymphocytes Percent Auto 47.1 % (20-40); Mean Corpuscular HGB Conc 33.1 g/dl (31.0-35.0); Mean Corpuscular Hemoglobin 29.2 pg (27.0-33.0); Mean Corpuscular Volume 88.1 fL (80.0-98.0); Mean Platelet Volume 9.5 fL (9.4-12.3); Monocytes Absolute Auto 0.3 X10*3/uL (0.1-1.2); Monocytes Percent Auto 4.8 % (2-11); Neutrophils Absolute Auto 2.9 x10*3/uL (2.0-8.3); Platelet Count 298 X10*3/uL (160-400); Red Blood Count 3.87 X10*6/uL (4.20-5.50); Red Cell Distribution Width 13.1 % (11.0-16.0); White Blood Count 6.4 X10*3/uL (4.8-10.8)
[2022-08-31 13:53] LABS: Alanine Aminotransferase 31 U/L (0-31); Albumin Level 4.1 g/dL (3.5-5.0); Alkaline Phosphatase 44 U/L (39-117); Anion Gap 13 (12-20); Aspartate Amino Transferase 49 U/L (5-31); Bilirubin Total 0.5 mg/dL (0.0-1.0); Blood Urea Nitrogen 12 mg/dL (9-16); Calcium 8.7 mg/dL (8.4-10.2); Carbon Dioxide 26 mmol/L (22-29); Chloride 105 mmol/L (96-108); Estimated Glomerular Filt Rate 44; Glucose Random 66 mg/dL (60-115); Sodium 140 mmol/L (135-145); Total Protein 7.1 g/dL (6.5-8.0)
== END 2022-08-31 11:26 | disposition home or self-care (01) ==
LOC: HO.10HDL 11:25
PROVIDERS: Visit Provider Nurse Practitioner
DX: Z01.818 Encounter for other preprocedural examination (principal)
CPT/HCPCS: 36415; 80053; 85025

== ENCOUNTER 2023-01-20 08:44 | Outpatient (REF) | payer MEDICAID, SELFPAY ==
[2023-01-20 10:51] LABS: Free T4 (Free Thyroxine) 0.46 ng/dL (0.71-1.85); Thyroid Stimulating Hormone > 100.00 uIU/mL (0.32-4.0)
== END 2023-01-20 08:45 | disposition home or self-care (01) ==
LOC: HO.10HDL 08:44
PROVIDERS: Visit Provider Internal Medicine Endocrinology, Diabetes & Metabolism
DX: E03.8 Other specified hypothyroidism (principal); E06.3 Autoimmune thyroiditis
CPT/HCPCS: 36415; 84439; 84443; 99212

== ENCOUNTER 2023-01-20 14:05 | Outpatient (AMB) | payer MEDICAID, SELFPAY ==
--- NOTE | 2023-01-20 14:06 | A.OFFVIS_ITS ---
Intake Vital Signs 01/20/23 14:07 Height 5 ft 2 in Weight 173 lb 15.115 oz BMI 31.8 BP 132/86 Blood Pressure Location Lt brachial Position Sitting Pulse 89 Pulse Source Pulse Oximeter Intake Visit Reasons: F/Up hypothyroidism Intake Note: Patient present today for Hypothyroidism follow up visit. 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 She was previously followed [facility] on 10/09/2021 She has a history of Jeevan's disease based on TG antibodies being elevated in the past. She remains on Tirosint 88 mcg PO daily and takes this correctly. She has consistently been poorly compliant with her medication and has wavered from overreplaced with suppressed TSH to underreplaced with elevated TSH. Most recent TSH was 23.55 08/20/2021. She does admit to poor compliance at this time. She does report fatigue, hair loss and dry skin. She had an US of the thyroid completed 09/07/2019 which revealed multiple subcentimeter nodules within the L lobe. Images of this US were independently reviewed and these represent pseudonodules and area of heterogeneity, consistent with Jeevan's disease. No true nodules identified. Thyroid US: 09/07/2019 Right Thyroid Lobe: 1.3 x 0.7 x 0.5 cm, volume 0.2 mL. Previously 1.8 x 0.3 x 0.4 cm, volume 0.1 mL. Parenchyma: The gland echotexture is homogeneous. Thyroid vascularity is normal. Left Thyroid Lobe: 2.6 x 0.6 x 1.0 cm, volume 0.8 mL. Previously 1.4 x 0.4 x 0.3 cm, volume 0.9 mL. Parenchyma: The gland echotexture is homogeneous. Thyroid vascularity is normal. Isthmus: 0.2 cm in maximum AP dimension. Previously 0.1 cm. RIGHT THYROID LOBE: No nodules. ISTHMUS: No nodules. LEFT THYROID LOBE: There are 2 tiny nodules seen. 1. Location: Upper pole medial. Size: 0.3 x 0.1 x 0.2 cm. Previous: Not documented. Nodule characteristics: Cyst 2. Location: Upper pole central. Size: 0.3 x 0.2 x 0.4 cm. Previous: Not documented. Nodule characteristics: Circumscribed, mild hypoechoic, no calcifications or color flow. NODES: No lymphadenopathy is seen in the tissue surrounding the thyroid gland. Labs: Laboratory Tests 06/19/21 08/20/21 10:05 07:45 25-OH Vitamin D To cyndi 11.1 TSH 23.55 H Free T4 0.66 L She admits to noncompliance with Tirosint for 1 year [facility] Medical History Diverticulitis Jeevan's disease Hypothyroidism Multinodular goiter Vitamin D deficiency Surgical History H/O colonoscopy Hx of hemorrhoidectomy Hx of lumpectomy H/O tubal ligation Family History Father Heart disease Mother Diabetes mellitus HTN (hypertension) Brother Diabetes mellitus Sister High cholesterol Sister Jeevan's disease Social History Household Members: Spouse and Children Alcohol intake: never Patient Tobacco Use Status: Former Tobacco user Tobacco use type: Cigarette Cigarettes Per Day: 3 Physical Exam Vital Signs: Last Vital Signs Pulse 89 01/20/23 14:07 BP 132/86 01/20/23 14:07 BMI result Body Mass Index 31.8 Const Other: Thyroid gland is normal size weighs about 15 g. There are no thyroid nodules palpated. Reflexes are slow and delayed Assessment & Plan Assessment & Plan (1) Hypothyroidism: Code(s): E03.9 - Hypothyroidism, unspecified Qualifiers: Hypothyroidism type: due to Jeevan's thyroiditis Qualified Code(s): E03.8 - Other specified hypothyroidism; E06.3 - Autoimmune thyroiditis Plan: This is a 52-year-old female followed by endocrinology for management hypothyroidism due to Jeevan's thyroiditis. She is currently on Tirosint 88 mcg appears to be clinically and biochemically hypothyroid Plan is to stress compliance with the Tirosint. Explained to patient that not taking the Tirosint can lead to myxedema coma and . Recheck TSH and free T4 in 6 weeks time. Orders: Orders Free T4 (Free Thyroxine) 6 Weeks E03.9 - Hypothyroidism, unspecified Thyroid Stimulating Hormone 6 Weeks E03.9 - Hypothyroidism, unspecified Coding Level of Care Code Est Pt Level 3 (04276) Diagnoses Hypothyroidism due to Jeevan's thyroiditis E03.8; E06.3 Hypothyroidism type: due to Jeevan's thyroiditis
[2023-01-20 14:07] VITALS: BP 132/86; PULSE 89; BMI 31.8
== END 2023-01-20 16:23 | disposition home or self-care (01) ==
PROVIDERS: PCP Family Medicine; Visit Provider Internal Medicine Endocrinology, Diabetes & Metabolism
DX: E03.8 Other specified hypothyroidism (principal); E06.3 Autoimmune thyroiditis
CPT/HCPCS: 99213

== ENCOUNTER 2023-02-17 07:53 | Outpatient (AMB) | payer MEDICAID, SELFPAY ==
--- NOTE | 2023-02-17 07:56 | MHC.OFFVIS ---
Intake Vital Signs 02/17/23 08:00 Pulse 96 Intake Visit Reasons: 6 months follow up Intake Note: Patient follow up for Diverticulosis. Patient cc: acid reflex come and go. Denies any other GI issues. 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 nausea HPI 6 months follow up HPI Details Assessment & Plan (1) Chronic idiopathic constipation: Code(s): K59.04 - Chronic idiopathic constipation Plan: She is doing well on the Linzess 290 and not taking magnesium or fiber as not needed. Having RB on the TT, no pain except occasional left sided pain/cramping. No rectal itching or pain. We will treat with hemorrhoid cream and since she is due for repeat colonoscopy in 2023; will order now. Her gerd is well controlled on pantoprazole and she only occasionally uses the zofran. There are no prior problems with anesthesia or sedation. She has seasonal asthma that well controlled and no cardiac problems. NO ID problems. FHX of colon polyps in her mother. (2) Pre-op examination: Code(s): Z01.818 - Encounter for other preprocedural examination (3) Bleeding hemorrhoids: Code(s): K64.9 - Unspecified hemorrhoids (4) Family history of polyps in the colon: Comment: mother Code(s): Z83.71 - Family history of colonic polyps (5) GERD (gastroesophageal reflux disease): Code(s): K21.9 - Gastro-esophageal reflux disease without esophagitis Orders: Orders Complete Blood Cou nt Auto Diff Today Z01.818 - Encounte r for other prepro cedural examinatio n Comprehensive Met. Panel Today Z01.818 - Encounte r for other prepro cedural examinatio n Medications: New hydrocortisone 2.5 % (Proctosol HC) BE SURE TO INCLU DE RECTAL APPICATO R!! 1 appl AR BID 30 grams 6RF hemorrho ids K64.9 - Unspecifie d hemorrhoids peg 3350-electroly susan 236-22.74-6.74 -5.86 gram (Golyt margret) until feca l effluent is anabela r; do not exceed a total volume of 2 ,000 mL 240 mL PO Q10M 1 day 4,000 mL 0RF Z12.11 - Encounter for screening for malignant neoplas m of colon Refilled linaclotide (Linze ss) 290 mcg PO QAM 30 days 30 caps 6RF K59.04 - Chronic i diopathic constipa tion pantoprazole (Prot benny) 40 mg PO BID 30 d ays 60 tabs 6RF K21.9 - Gastro-eso phageal reflux dis ease without esoph agitis s LABS: Laboratory Tests 08/31/22 08/31/22 01/20/23 11:27 11:27 08:50 WBC 6.4 Hgb 11.3 L Hct 34.1 L MCV 88.1 MCH 29.2 Plt Count 298 Estimated GFR 44 Total Bilirubin 0.5 AST 49 H ALT 31 Alkaline Phosphata se 44 TSH > 100.00 H Free T4 0.46 L Colonoscopy BIOPSY TODAYS VISIT Consider repeating renal studies if she has not seen kidney specialist. She tells me that she decided to stop taking her thyroid med and had severe swelling and was only urinating once a day. This probably explains a decreased GFR but we will repeat the labs to make sure. I did emphasize for her not to stop taking her thyroid medication as this will cause so many problems. She understands this well now. I encouraged her that if she is thinking about stopping a medication and can not get in touch with her primary she can run it by me and I can give her a better general medical opinion. Certainly if she had the time I with told her not to stop that medication under any circumstances. I understand that sometimes patients get overwhelmed with her pill birds. She says that the Linzess is working perfectly. She does have occasional episodes of tenesmus and I tell her that if this becomes more of a problem to tell me as we can fix this. We may be occasionally over driving her bowels. She is having a lot of breakthrough GERD when she eats foods like spaghetti pizza and sugar E donuts. I read educate her that these of the foods we usually tell people to avoid as they are expected to cause problems. She is try taking 3 pantoprazole when she has the trouble and has not helped. I educate her that this is because pantoprazole has a long onset of action and really will work when your in the now. Instead I will give her some famotidine to use as that takes affect within 15 minutes. After all, we are human and sometimes we adult in things that we should not in her diet. She was never contacted for the colonoscopy so I will send a note to the schedulers about this. Her hemorrhoids blood for about a week after last time she saw me but then it stopped with Proctosol cream in she has had absolutely no trouble with that since then. There are no prior problems with anesthesia or sedation. She has seasonal asthma that well controlled and no cardiac problems. NO ID problems. FHX of colon polyps in her mother. ROV 6 mos. And of course after the colonoscopy. [facility] Medical History Diverticulitis Jeevan's disease Hypothyroidism Multinodular goiter Vitamin D deficiency Surgical History H/O colonoscopy Hx of hemorrhoidectomy Hx of lumpectomy H/O tubal ligation Family History Father Heart disease Mother Diabetes mellitus HTN (hypertension) Brother Diabetes mellitus Sister High cholesterol Sister Jeevan's disease Social History Household Members: Spouse and Children Alcohol intake: never Patient Tobacco Use Status: Former Tobacco user Tobacco use type: Cigarette Cigarettes Per Day: 3 Review of Systems Const Reports fatigue, Denies fever(s), Denies night sweats, Denies poor appetite and Denies weight loss ENT Reports Normal hearing present, Denies dental pain, Denies dysphagia, Denies hearing loss, Denies mouth pain, Denies odynophagia, Denies throat swelling, Denies tongue swelling and Reports other (Dentition adequate) Card Reports no additional complaints Resp Reports no additional complaints GI Denies abdominal pain, Denies melena, Denies bloating, Reports hematochezia, Reports constipation, Denies GI cramping, Denies dysphagia, Denies excessive flatus, Denies early satiety, Reports heartburn, Denies diarrhea, Denies nausea, Denies odynophagia, Denies vomiting and Denies hematemesis Details: Decreased urination Musc Reports myalgias Skin/Breast Denies pruritus, Denies lesions, Denies rash and Denies jaundice Neuro Reports Normal hearing present and Denies Abnormal speech present Endo Details: Generalized edema Reports fatigue Aller/Immun Denies throat swelling and Denies tongue swelling Physical Exam Vital Signs: Last Vital Signs Pulse 96 02/17/23 08:00 Const General: cooperative, no acute distress, well developed and well groomed Nutritional Appearance: well nourished and overweight Orientation/consciousness: oriented to person, oriented to place and oriented to time Limitations: No language barrier HEENT Head: Yes normocephalic and Yes atraumatic Eyes General: appearance normal, both eyes and all related structures Pupils: Equal, round and reactive pupils present Neck Neck: Yes normal visual inspection and Yes no lymphadenopathy Thyroid: Thyroid normal Resp Effort & Inspection: normal respiratory effort and able to speak in complete sentences Auscultation: clear to auscultation bilaterally Cardio Rate: regular rate Rhythm: regular rhythm Heart sounds: Normal, physiologic split S2 sound present Peripheral pulses: radial pulses present and posterior tibial pulses present GI Inspection: No distended, No Abdominal panniculus present and Yes obesity Palpation (GI): Soft to palpation, nontender, no guarding, not rigid and No hepatosplenomegaly present Percussion: Yes normal to percussion Auscultation: normal bowel sounds Rectal Exam - Female: deferred Skin General skin exam: no rashes or lesions noted, turgor normal, skin not dry, no jaundice, No spider nevi and no striae Rashes: no rashes Nails: normal Neuro General: oriented to person, oriented to place and oriented to time Cranial nerves: Yes Equal, round and reactive pupils present and Yes Normal hearing present Speech: No Abnormal speech present Extrem General: Yes normal to inspection, No clubbing, No cyanosis and No edema Psych Appearance: grossly normal and well kempt Mental Status: mental status grossly normal Speech and movement: Normal speech and movement present Affect: normal affect Attitude: cooperative Thought process: Normal thought process present and not confabulating Thought content: Normal thought content present Insight: Limited insight present (Psych) Judgement: Limited judgement present (Psych) Assessment & Plan Assessment & Plan (1) Chronic idiopathic constipation: Code(s): K59.04 - Chronic idiopathic constipation Plan: Colonoscopy BIOPSY TODAYS VISIT Consider repeating renal studies if she has not seen kidney specialist. She tells me that she decided to stop taking her thyroid med and had severe swelling and was only urinating once a day. This probably explains a decreased GFR but we will repeat the labs to make sure. I did emphasize for her not to stop taking her thyroid medication as this will cause so many problems. She understands this well now. I encouraged her that if she is thinking about stopping a medication and can not get in touch with her primary she can run it by me and I can give her a better general medical opinion. Certainly if she had the time I with told her not to stop that medication under any circumstances. I understand that sometimes patients get overwhelmed with her pill birds. She says that the Linzess is working perfectly. She does have occasional episodes of tenesmus and I tell her that if this becomes more of a problem to tell me as we can fix this. We may be occasionally over driving her bowels. She is having a lot of breakthrough GERD when she eats foods like spaghetti pizza and sugar E donuts. I read educate her that these of the foods we usually tell people to avoid as they are expected to cause problems. She is try taking 3 pantoprazole when she has the trouble and has not helped. I educate her that this is because pantoprazole has a long onset of action and really will work when your in the now. Instead I will give her some famotidine to use as that takes affect within 15 minutes. After all, we are human and sometimes we adult in things that we should not in her diet. She was never contacted for the colonoscopy so I will send a note to the schedulers about this. Her hemorrhoids blood for about a week after last time she saw me but then it stopped with Proctosol cream in she has had absolutely no trouble with that since then. There are no prior problems with anesthesia or sedation. She has seasonal asthma that well controlled and no cardiac problems. NO ID problems. FHX of colon polyps in her mother. ROV 6 mos. And of course after the colonoscopy. (2) GERD (gastroesophageal reflux disease): Code(s): K21.9 - Gastro-esophageal reflux disease without esophagitis (3) Family history of polyps in the colon: Comment: mother Code(s): Z83.71 - Family history of colonic polyps (4) Decreased calculated GFR: Code(s): R94.4 - Abnormal results of kidney function studies (5) Pre-op examination: Code(s): Z01.818 - Encounter for other preprocedural examination Orders: Orders Comprehensive Met. Panel Today Z01.818 - Encounter for other preprocedural examination, Z83.71 - Family history of colonic polyps Medications: New famotidine (Pepcid) 40 mg PO DAILY PRN 30 tabs 3RF heartburn K21.9 - Gastro-esophageal reflux disease without esophagitis Refilled linaclotide (Linzess) 290 mcg PO QAM 30 days 30 caps 6RF K59.04 - Chronic idiopathic constipation pantoprazole (Protonix) 40 mg PO BID 30 days 60 tabs 6RF K21.9 - Gastro-esophageal reflux disease without esophagitis Coding Level of Care Code Est Pt Level 4 (62776) Diagnoses Chronic idiopathic constipation K59.04 GERD (gastroesophageal reflux disease) K21.9 Family history of polyps in the colon Z83.71 Decreased calculated GFR R94.4 Pre-op examination Z01.818
[2023-02-17 08:00] VITALS: PULSE 96
== END 2023-02-17 08:13 | disposition home or self-care (01) ==
PROVIDERS: Visit Provider Nurse Practitioner
DX: K59.04 Chronic idiopathic constipation (principal); K21.9 Gastro-esophageal reflux disease without esophagitis; Z83.71 Family history of colonic polyps; R94.4 Abnormal results of kidney function studies; Z01.818 Encounter for other preprocedural examination
CPT/HCPCS: 99214

== ENCOUNTER → 2023-02-17 07:53 | Outpatient (BNVA) | payer MEDICAID, SELFPAY | PROVIDERS: Visit Provider Nurse Practitioner | DX: Z01.818 Encounter for other preprocedural examination (principal); K59.04 Chronic idiopathic constipation; K21.9 Gastro-esophageal reflux disease without esophagitis; R94.4 Abnormal results of kidney function studies; Z83.719 Family history of colon polyps, unspecified | CPT/HCPCS: 36415; 80053; 99212 ==

== ENCOUNTER 2023-02-17 08:49 | Outpatient (REF) | payer MEDICAID, SELFPAY ==
[2023-02-17 10:03] LABS: Alanine Aminotransferase 44 U/L (0-31); Alkaline Phosphatase 46 U/L (39-117); Anion Gap 12 (12-20); Aspartate Amino Transferase 28 U/L (5-31); Bilirubin Total 0.5 mg/dL (0.0-1.0); Blood Urea Nitrogen 13 mg/dL (9-16); Calcium 9.1 mg/dL (8.4-10.2); Carbon Dioxide 25 mmol/L (22-29); Chloride 107 mmol/L (96-108); Estimated Glomerular Filt Rate > 60; Glucose Random 77 mg/dL (60-115); Potassium 4.4 mmol/L (3.3-5.1); Sodium 140 mmol/L (135-145); Total Protein 7.3 g/dL (6.5-8.0)
== END 2023-02-17 08:50 | disposition home or self-care (01) ==
LOC: HO.10HDL 08:49
PROVIDERS: Visit Provider Nurse Practitioner
DX: Z01.818 Encounter for other preprocedural examination (principal); Z83.719 Family history of colon polyps, unspecified
CPT/HCPCS: 36415; 80053

== ENCOUNTER 2023-04-27 09:24 | Day surgery (SDC) | payer MEDICAID, SELFPAY ==
[2023-04-22 11:36] VITALS: BMI 31.8
--- NOTE | 2023-04-23 10:20 | HO.ANESPROP2 ---
Documented by User: Ivett Holland NP 04/23/23 10:21 HPI - Anesthesia Eval Consult details Narrative: 53yo F for Colonoscopy PMFSH Active Problems Active Problems: All Active Problems (Updated 04/22/23 @ 11:30 by Melony Berry RN) Decreased calculated GFR (Acute) Bleeding hemorrhoids (Acute) Pre-op examination (Acute) Family history of polyps in the colon (Acute) Chronic idiopathic constipation (Acute) GERD (gastroesophageal reflux disease) (Acute) H. pylori duodenitis (Acute) Vitamin D deficiency (Acute) Hypothyroidism (Acute) Jeevan's disease (Acute) Multinodular goiter (Acute) Past Medical History Medical History GERD (gastroesophageal reflux disease) Vitamin D deficiency Multinodular goiter Jeevan's disease Hypothyroidism Diverticulitis Family History Family History Father Heart disease Mother Diabetes mellitus HTN (hypertension) Brother Diabetes mellitus Sister High cholesterol Sister Jeevan's disease Surgical History Surgical History History of esophagogastroduodenoscopy (EGD) H/O colonoscopy Hx of hemorrhoidectomy Hx of lumpectomy H/O tubal ligation Social History Social History Household Members: Spouse and Children Alcohol intake: never Patient Tobacco Use Status: Former Tobacco user Tobacco use type: Cigarette Cigarettes Per Day: 3 Advance Directives: No Advance Directives Information Provided: Yes Meds Allergies Allergy/AdvReac Type Severity Reaction Status Date / Time tramadol [TRAMADOL] Allergy Intermediate VOMITING, Verified 02/17/23 07:57 ? nausea Home Medications Medication Instructions Recorded Confirmed Last Taken Type nabumetone 500 mg tablet 500 mg PO BID PRN pain 08/28/21 04/22/23 Unknown History topiramate 25 mg tablet 25 mg PO BEDTIME 03/17/22 04/22/23 Unknown History valacyclovir 1 gram tablet 1,000 mg PO DAILY 05/06/22 04/22/23 Unknown History Exam Height,Weight and Vital Signs: Height 5 ft 2 in Weight 78.925 kg Pertinent Lab Results Pertinent Lab Results: Laboratory Tests 08/31/22 02/17/23 11:27 08:55 WBC 6.4 Hgb 11.3 L Hct 34.1 L Plt Count 298 Sodium 140 Potassium 4.4 Chloride 107 Carbon Dioxide 25 BUN 13 Creatinine 0.83 Assessment and Plan Assessment Anesthesia Assessment: Chart Reviewed Documented by User: Betty Taveras MD 04/27/23 09:58 [facility] Past Medical History Medical History GERD (gastroesophageal reflux disease) Vitamin D deficiency Multinodular goiter Jeevan's disease Hypothyroidism Diverticulitis Family History Family History Father Heart disease Mother Diabetes mellitus HTN (hypertension) Brother Diabetes mellitus Sister High cholesterol Sister Jeevan's disease Family history of problems with anesthesia: No Surgical History Surgical History History of esophagogastroduodenoscopy (EGD) H/O colonoscopy Hx of hemorrhoidectomy Hx of lumpectomy H/O tubal ligation History of Problems with Anesthesia: No Social History Social History Household Members: Spouse and Children Alcohol intake: never Patient Tobacco Use Status: Former Tobacco user Tobacco use type: Cigarette Cigarettes Per Day: 3 Advance Directives: No Advance Directives Information Provided: Yes Meds Allergies Allergy/AdvReac Type Severity Reaction Status Date / Time tramadol [TRAMADOL] Allergy Intermediate VOMITING, Verified 02/17/23 07:57 ? nausea Home Medications Medication Instructions Recorded Confirmed Last Taken Type nabumetone 500 mg tablet 500 mg PO BID PRN pain 08/28/21 04/22/23 Unknown History topiramate 25 mg tablet 25 mg PO BEDTIME 03/17/22 04/22/23 Unknown History valacyclovir 1 gram tablet 1,000 mg PO DAILY 05/06/22 04/22/23 Unknown History Exam Airway Mallampati Class: II TM Dist: >3cm Neck ROM: Full Heart: rrr Lungs: cta Assessment and Plan Assessment Anesthesia Assessment: Anesthesia Plan Discussed Final Anesthetic Review Family History of Problems with Anesthesia: No History of Problems with Anesthesia: No NPO: Yes ASA Class: II Final Preanesthetic Review: No Changes in Pt Med Stat, Meds/Allgs Chart Reviewed, Consent Obtained/Reviewed and Anes Risks/Benef Reviewed Patient Risk: Low Procedure Risk: Low Anesthetic Plan Anesthetic Plan: MAC: Disposition: Standard PACU
[2023-04-27 09:39] VITALS: BMI 31.5
--- NOTE | 2023-04-27 09:41 | P.HPSUR_ITS ---
Pre-Procedural Eval Section A Date of Service: 04/27/23 Section B Chief Complaint: Chronic idiopathic constipation Relevant Family History (Specify if Yes): No Relevant Social History: None Present Medications: see Short Stay Collaborative assessment Medical History: Significant History (GERD (gastroesophageal reflux disease) Vitamin D deficiency Multinodular goiter Jeevan's disease Hypothyroidism D iverticulitis) History of Previous Operations: Relevant previous surgery/procedure and date(s) (History of esophagogastroduodenoscopy (EGD) H/O colonoscopy Hx of hemorrhoidectomy Hx of lumpectomy H/O tubal ligation) Allergies: Allergies Allergy/AdvReac Type Severity Reaction Status Date / Time tramadol [TRAMADOL] Allergy Intermediate VOMITING, Verified 02/17/23 07:57 ? nausea Review of Systems Sugical H&P ROS: Negative: Constitution, Cardiovascular, Respiratory, Neurological, Psychiatric, Hem-Onc, Allergic/Immunologic, Gastrointestinal, Genitourinary, Musculoskeletal, Integumentary, Endocrine and Eyes/Ears/Nose/Throat Exam Surgical H&P Exam: Normal: HEENT, Normal: Heart, Normal: Lungs, Normal: Extremities, Normal: Abdomen, Normal: Skin and Normal: Neurological Plan Diagnosis/Plan: Unchanged I have reviewed the history and physical and performed a pertinent physical examination on my patient. No changes have occurred unless specified. Time Spent With Patient Time: Total time managing care of this patient today ____ minutes.
[2023-04-27 09:43] VITALS: BP 143/95; PULSE 82; RESP 16; TEMP 36.1; O2SAT 98
[2023-04-27] MEDS: Lactated Ringers 1,000 ML 100 ML IVCONT (09:53)
--- NOTE | 2023-04-27 10:02 | P.OP_ITS ---
Operative Note Operative Note Date of Service: 04/27/23 Narrative: Operative Information Procedure Description: Colonoscopy Indication: screening Anesthesia: MAC COLONOSCOPY Instrument: Olympus variable stiffness pediatric scope 190L Colonoscopy Monitoring: Vital signs and clinical assessment, continuous EKG monitoring, Pulse oximetry, Carbon Dioxide monitoring and blood pressure monitoring were done throughout the procedure. Colon withdrawal time was 15 minutes. Procedure: The patient was placed in the left lateral decubitis position and pre-procedure medications were administered. After a digital rectal examination of the ano-rectum, the video colonoscope was inserted into the rectum and advanced through the colon to the cecum/TI. The colonoscope was slowly withdrawn in a retrograde panoramic fashion and the colon mucosa was carefully examined including a retroflexed view of the rectum. Findings and interventions are described below. Procedure Difficulty: easy Findings: Terminal Ileum-normal Cecum:normal Ascending Colon: 4-5 mm sessile polyp removed with cold snare, not retrieved, moderate diverticulosis noted Transverse Colon -normal Descending Colon:normal Sigmoid Colon: 10-12 mm sessile polyp removed with cold snare and x 2 ultra clips applied for hemostasis, moderate diverticulosis noted Rectum: Retroflexion with small internal hemorrhoids, grade I Anorectum - normal Colon preparation: [place] Bowel Preparation Scale Right colon; 3 Transverse colon: 3 Left colon; 3 (0 = Unprepared colon segment with mucosa not seen due to solid stool that cannot be cleared. 1 = Portion of mucosa of the colon segment seen, but other areas of the colon segment not well seen due to staining, residual stool and/or opaque liquid. 2 = Minor amount of residual staining, small fragments of stool and/or opaque liquid, but mucosa of colon segment seen well. 3 = Entire mucosa of colon segment seen well with no residual staining, small fragments of stool or opaque liquid) Impression and Post Procedure Diagnosis: polyps internal hemorrhoids diverticular disease Plan: High fiber diet leaflet Avoid straining at stool, epsom salts and sitz bath, anusol supps or cream Repeat Colonoscopy in 5 years due to polyps or earlier if clinically indicated Above findings were reviewed with the patient and relevant handouts were provided if indicated.
[2023-04-27 10:35] VITALS: BP 103/65; PULSE 91; RESP 16; TEMP 36.4; O2SAT 100
[2023-04-27 10:50] VITALS: BP 125/83; PULSE 69; RESP 18; TEMP 36.1; O2SAT 99
== END 2023-04-27 11:10 | disposition home or self-care (01) ==
PROVIDERS: PCP Family Medicine; Visit Provider Internal Medicine Gastroenterology
PROC: 0DJD8ZZ Inspection of Lower Intestinal Tract, Via Natural or Artificial Opening Endoscopic (ICD-10-PCS; CPT 45378; principal; 2023-04-27 11:00)
DX: Z12.11 Encounter for screening for malignant neoplasm of colon (principal); Z83.719 Family history of colon polyps, unspecified; K63.5 Polyp of colon; K57.30 Diverticulosis of large intestine without perforation or abscess without bleeding; K64.0 First degree hemorrhoids; K59.04 Chronic idiopathic constipation; K21.9 Gastro-esophageal reflux disease without esophagitis; E06.3 Autoimmune thyroiditis; E03.9 Hypothyroidism, unspecified; E04.2 Nontoxic multinodular goiter; E55.9 Vitamin D deficiency, unspecified; J45.909 Unspecified asthma, uncomplicated; R94.4 Abnormal results of kidney function studies; Z88.8 Allergy status to other drugs, medicaments and biological substances; Z79.899 Other long term (current) drug therapy; Z87.891 Personal history of nicotine dependence
CPT/HCPCS: 45385; 88305; J2704

== ENCOUNTER → 2023-04-27 09:24 | Outpatient (BNV) | payer MEDICAID, SELFPAY | PROVIDERS: PCP Family Medicine; Visit Provider Internal Medicine Gastroenterology | DX: Z12.11 Encounter for screening for malignant neoplasm of colon (principal); K63.5 Polyp of colon; K57.90 Diverticulosis of intestine, part unspecified, without perforation or abscess without bleeding; K64.8 Other hemorrhoids | CPT/HCPCS: 45385 ==

== ENCOUNTER 2023-05-19 07:52 | Outpatient (REF) | payer MEDICAID, SELFPAY ==
[2023-05-19 12:17] LABS: Free T4 (Free Thyroxine) 0.54 ng/dL (0.71-1.85); Thyroid Stimulating Hormone > 100.00 uIU/mL (0.32-4.0)
== END 2023-05-19 07:53 | disposition home or self-care (01) ==
LOC: HO.10HDL 07:52
PROVIDERS: Visit Provider Internal Medicine Endocrinology, Diabetes & Metabolism
DX: E06.3 Autoimmune thyroiditis (principal); E03.8 Other specified hypothyroidism; Z79.899 Other long term (current) drug therapy
CPT/HCPCS: 36415; 84439; 84443; 99212

== ENCOUNTER 2023-05-19 15:03 | Outpatient (AMB) | payer MEDICAID, SELFPAY ==
[2023-05-19 15:05] VITALS: BP 132/84; PULSE 73; BMI 33.5
--- NOTE | 2023-05-19 15:05 | MHC.OFFVIS ---
Intake Vital Signs 05/19/23 15:05 Height 5 ft 2 in Weight 182 lb 15.739 oz BMI 33.5 BP 132/84 Blood Pressure Location Lt brachial Position Sitting Pulse 73 Pulse Source Pulse Oximeter Intake Visit Reasons: f/u hypothyroidism-lvm Intake Note: Patient present today for Hypothyroidism follow up visit. 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 nausea Medication List - Last Reconciled 05/19/23 by Valerio Shah MD cholecalciferol (vitamin D3) 50 mcg PO DAILY 30 days famotidine 40 mg PO DAILY PRN hydrocortisone 2.5% (Proctosol HC) 1 appl [place] BID linaclotide (Linzess) 290 mcg PO QAM 30 days nabumetone 500 mg PO BID PRN ondansetron 4 mg PO Q8H PRN pantoprazole (Protonix) 40 mg PO BID 30 days peg 3350-electrolytes 236-22.74-6.74 -5.86 gram (Golytely) 240 mL PO Q10M 1 day Tirosint (levothyroxine) 88 mcg PO DAILY NS topiramate 25 mg PO BEDTIME valacyclovir 1,000 mg PO DAILY HPI HPI Comments History of Present Illness Details 53 YO Female with a PMHx 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 She has a history of Jeevan's disease based on TG antibodies being elevated in the past. She remains on Tirosint 88 mcg PO daily and takes this correctly. She has consistently been poorly compliant with her medication and has wavered from overreplaced with suppressed TSH to underreplaced with elevated TSH. Most recent TSH was 23.55 08/20/2021. She does admit to poor compliance at this time. She does report fatigue, hair loss and dry skin. She had an US of the thyroid completed 09/07/2019 which revealed multiple subcentimeter nodules within the L lobe. Images of this US were independently reviewed and these represent pseudonodules and area of heterogeneity, consistent with Jeevan's disease. No true nodules identified. Thyroid US: 09/07/2019 Right Thyroid Lobe: 1.3 x 0.7 x 0.5 cm, volume 0.2 mL. Previously 1.8 x 0.3 x 0.4 cm, volume 0.1 mL. Parenchyma: The gland echotexture is homogeneous. Thyroid vascularity is normal. Left Thyroid Lobe: 2.6 x 0.6 x 1.0 cm, volume 0.8 mL. Previously 1.4 x 0.4 x 0.3 cm, volume 0.9 mL. Parenchyma: The gland echotexture is homogeneous. Thyroid vascularity is normal. Isthmus: 0.2 cm in maximum AP dimension. Previously 0.1 cm. RIGHT THYROID LOBE: No nodules. ISTHMUS: No nodules. LEFT THYROID LOBE: There are 2 tiny nodules seen. 1. Location: Upper pole medial. Size: 0.3 x 0.1 x 0.2 cm. Previous: Not documented. Nodule characteristics: Cyst 2. Location: Upper pole central. Size: 0.3 x 0.2 x 0.4 cm. Previous: Not documented. Nodule characteristics: Circumscribed, mild hypoechoic, no calcifications or color flow. NODES: No lymphadenopathy is seen in the tissue surrounding the thyroid gland. Labs: Laboratory Tests 06/19/21 08/20/21 10:05 07:45 25-OH Vitamin D To cyndi 11.1 TSH 23.55 H Free T4 0.66 L She admits to noncompliance with Tirosint for 2 wks . Back on for 1 wk [facility] Medical History GERD (gastroesophageal reflux disease) Vitamin D deficiency Multinodular goiter Jeevan's disease Hypothyroidism Diverticulitis Surgical History History of esophagogastroduodenoscopy (EGD) H/O colonoscopy Hx of hemorrhoidectomy Hx of lumpectomy H/O tubal ligation Family History Father Heart disease Mother Diabetes mellitus HTN (hypertension) Brother Diabetes mellitus Sister High cholesterol Sister Jeevan's disease Social History Household Members: Spouse and Children Alcohol intake: never Patient Tobacco Use Status: Former Tobacco user Tobacco use type: Cigarette Cigarettes Per Day: 3 Physical Exam Vital Signs: Last Vital Signs Pulse 73 05/19/23 15:05 BP 132/84 05/19/23 15:05 BMI result Body Mass Index 33.5 Const Other: Thyroid gland is normal size weighs about 15 g. There are no thyroid nodules palpated. Reflexes are slow and delayed Assessment & Plan Assessment & Plan (1) Hypothyroidism: Code(s): E03.9 - Hypothyroidism, unspecified Qualifiers: Hypothyroidism type: due to Jeevan's thyroiditis Qualified Code(s): E03.8 - Other specified hypothyroidism; E06.3 - Autoimmune thyroiditis Plan: This is a 53-year-old female followed by endocrinology for management hypothyroidism due to Jeevan's thyroiditis. She is currently on Tirosint 88 mcg and has a very elevated TSH Plan is to stress compliance with the Tirosint. Explained to patient that not taking the Tirosint can lead to myxedema coma and . Recheck TSH and free T4 in 6 weeks time. 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
== END 2023-05-19 16:32 | disposition home or self-care (01) ==
PROVIDERS: PCP Family Medicine; Referring Provider Family Medicine; Visit Provider Internal Medicine Endocrinology, Diabetes & Metabolism
DX: E03.8 Other specified hypothyroidism (principal); E06.3 Autoimmune thyroiditis
CPT/HCPCS: 99213

== ENCOUNTER 2023-06-18 09:37 | Emergency (ER) | payer MEDICAID, SELFPAY ==
--- NOTE | ~2023-06-18 | CT_ITS ---
EXAMINATION: CT ABDOMEN AND PELVIS WITH CONTRAST CLINICAL INFORMATION: Left-sided abdominal pain. COMPARISON: 04/24/2022 TECHNIQUE: Multidetector volumetric images were obtained from the superior aspect of the liver through the pubic symphysis following administration 85 mL of Omnipaque 350 intravenous contrast. Sagittal and coronal reformatted images were obtained on the technologist's workstation. Oral contrast: No This CT examination was performed using dose optimization techniques as appropriate, variously including the following: *Automated exposure control *Adjustment of mA and/or kV according to patient size (this includes techniques or standardized protocols for targeted exams where dose is matched to indication/reason for exam; i.e. extremities or head) *Use of iterative reconstruction technique DLP: 506 mGy-cm FINDINGS: LUNG BASES: The visualized lung bases are unremarkable. LIVER, GALLBLADDER, AND BILIARY TREE: The liver is enlarged and decreased in attenuation. No biliary ductal dilatation is present. Gallstones. PANCREAS: Unremarkable. SPLEEN: Unremarkable. ADRENAL GLANDS: Unremarkable. KIDNEYS AND URETERS: The kidneys are normal in size, shape, and attenuation. No hydronephrosis, hydroureter, or calculi seen. No perinephric stranding. BLADDER: Unremarkable. GASTROINTESTINAL TRACT: Stomach is underdistended. Wall thickening of the descending colon with an inflamed diverticulum. There is extensive underlying colonic diverticulosis. No small bowel obstruction. Appendix is within normal ABDOMINAL WALL: No significant hernia is appreciated. LYMPH NODES: No bulky lymphadenopathy. VASCULAR: 1.2 cm splenic artery aneurysm. No abdominal aortic aneurysm. PELVIC VISCERA: Retroverted uterus. Dilated left parametrial veins. OSSEOUS STRUCTURES: No destructive bone lesions. CT/CT abdomen pelvis w IV con IMPRESSION: Acute diverticulitis of the descending colon. Follow-up imaging after treatment is advised. Hepatomegaly and hepatic steatosis. Cholelithiasis. Left pelvic venous congestion. 1.2 cm splenic artery aneurysm.
[2023-06-18 09:39] VITALS: BP 152/98; PULSE 102; RESP 17; TEMP 36.6; O2SAT 97; BMI 32.4
[2023-06-18 09:54] LABS: MANUAL DIFF FLAG NO
[2023-06-18 09:57] LABS: Basophils Percent Auto 0.4 % (0-2); Eosinophils Absolute Auto 0.1 X10*3/uL (0.0-0.4); Eosinophils Percent Auto 0.8 % (0-4); Hematocrit 38.2 % (37.0-47.0); Hemoglobin 12.5 g/dl (12.0-16.0); Imm Gran Abs Auto 0.03 X10*3/uL (0.00-0.03); Imm Gran Pct Auto 0.3 % (0.0-0.4); Lymphocytes Absolute Auto 1.7 X10*3/uL (1.2-4.9); Lymphocytes Percent Auto 14.9 % (20-40); Mean Corpuscular HGB Conc 32.7 g/dl (31.0-35.0); Mean Corpuscular Hemoglobin 26.8 pg (27.0-33.0); Mean Platelet Volume 9.1 fL (9.4-12.3); Monocytes Absolute Auto 0.8 X10*3/uL (0.1-1.2); Monocytes Percent Auto 6.8 % (2-11); Neutrophils Absolute Auto 8.6 x10*3/uL (2.0-8.3); Neutrophils Percent Auto 76.8 % (45-73); Platelet Count 384 X10*3/uL (160-400); Red Blood Count 4.66 X10*6/uL (4.20-5.50); Red Cell Distribution Width 15.5 % (11.0-16.0); White Blood Count 11.1 X10*3/uL (4.8-10.8)
[2023-06-18 10:11] LABS: Alanine Aminotransferase 98 U/L (0-31); Alkaline Phosphatase 72 U/L (39-117); Anion Gap 17 (12-20); Bilirubin Direct 0.3 mg/dL (0.0-0.5); Bilirubin Total 0.5 mg/dL (0.0-1.0); Blood Urea Nitrogen 13 mg/dL (9-16); Calcium 9.9 mg/dL (8.4-10.2); Carbon Dioxide 24 mmol/L (22-29); Chloride 104 mmol/L (96-108); Creatinine Clr Calc Pharmacy 84.9; Estimated Glomerular Filt Rate > 60; Glucose Random 113 mg/dL (60-115); Lipase 21 U/L (8-78); Potassium 4.2 mmol/L (3.3-5.1); Sodium 141 mmol/L (135-145)
[2023-06-18 10:55] LABS: Aspartate Amino Transferase 61 U/L (5-31)
--- NOTE | 2023-06-18 16:13 | ED_ITS ---
HPI - General Adult General Chief complaint: Abdominal Pain Stated complaint: L Side Pain Down To Abdomen Time Seen by Provider: 06/18/23 16:07 History of Present Illness HPI narrative: 53 y/o F patient; PMH chronic idiopathic constipation, GERD, h. pylori duodenitis, hypothyroidism, deanna's disease; presents from home with report of three weeks of worsening LLQ abdominal pain associated with nausea and constipation. The patient states her last bowel movement was this morning and did have a small amount of bright red blood noted. She denies any recent other bloody bowel movements. The patient denies any vomiting, fever or chills, chest pain, SOB, cough/congestion. She states her last colonoscopy was 04/27/2023 which noted internal hemorrhoids and diverticulosis. Patient is followed by GI. Related Data Home Medications Medication Instructions Recorded Confirmed nabumetone 500 mg tablet 500 mg PO BID PRN pain 08/28/21 04/22/23 topiramate 25 mg tablet 25 mg PO BEDTIME 03/17/22 04/22/23 valacyclovir 1 gram tablet 1,000 mg PO DAILY 05/06/22 04/22/23 Previous Rx's Medication Instructions Recorded cholecalciferol (vitamin D3) 50 50 mcg PO DAILY 30 days #30 caps 08/25/21 mcg (2,000 unit) capsule ondansetron 4 mg disintegrating 4 mg PO Q8H PRN nausea and 04/24/22 tablet vomiting #7 tabs hydrocortisone 2.5 % topical cream 1 appl MA BID hemorrhoids #30 grams 08/18/22 with perineal applicator (Proctosol HC) peg 3350-electrolytes 236 240 ml PO Q10M 1 day #4,000 mL 08/18/22 gram-22.74 gram-6.74 gram-5.86 gram solution (Golytely) linaclotide 290 mcg capsule 290 mcg PO QAM 30 days #30 caps 02/17/23 (Linzess) pantoprazole 40 mg tablet,delayed 40 mg PO BID 30 days #60 tabs 02/17/23 release (Protonix) famotidine 40 mg tablet 40 mg PO DAILY PRN for heartburn 05/11/23 #30 tabs Tirosint 88 mcg capsule 88 mcg PO DAILY #30 caps 05/19/23 (levothyroxine) amoxicillin 875 mg-potassium 1 tab PO BID 10 days #20 tabs 06/18/23 clavulanate 125 mg tablet Allergies Allergy/AdvReac Type Severity Reaction Status Date / Time tramadol [TRAMADOL] Allergy Intermediate VOMITING, Verified 06/18/23 09:39 ? nausea Review of Systems 2 Review of Systems: Yes all other systems are reviewed and are negative [facility] Past Medical History Attestation statement: The following information was validated with the patient. Source: old records reviewed Medical History GERD (gastroesophageal reflux disease) Vitamin D deficiency Multinodular goiter Deanna's disease Hypothyroidism Diverticulitis Surgical History History of esophagogastroduodenoscopy (EGD) H/O colonoscopy Hx of hemorrhoidectomy Hx of lumpectomy H/O tubal ligation Family History Family History Father Heart disease Mother Diabetes mellitus HTN (hypertension) Brother Diabetes mellitus Sister High cholesterol Sister Deanna's disease Social History Social History Household Members: Spouse and Children Alcohol intake: never Patient Tobacco Use Status: Former Tobacco user Tobacco use type: Cigarette Cigarettes Per Day: 3 Advance Directives: No Advance Directives Information Provided: Yes Physical Exam ED Vital Signs: Vital Signs - 24 hr 06/18/23 09:39 06/18/23 16:21 Temperature 98 F 98.6 F Pulse Rate 102 H 102 H Respiratory Rate 17 16 Blood Pressure 152/98 H 141/88 H Pulse Oximetry 97 98 Oxygen Delivery Method Room Air Room Air BMI result Body Mass Index 32.4 Patient is afebrile, tachycardic, mildly hypertensive. Const General: cooperative HENMT Head: Yes atraumatic Eyes General: appearance normal, both eyes and all related structures Pupils: Equal, round and reactive pupils present EOM: EOMs intact bilaterally Neck Neck: Yes normal visual inspection, Yes full ROM, Yes supple and No tender Chest Chest palpation & inspection: normal inspection of the chest and normal palpation of entire chest wall Resp Effort & Inspection: normal respiratory effort, able to speak in complete sentences and no respiratory distress Auscultation: clear to auscultation bilaterally Cardio Rate: regular rate Rhythm: regular rhythm Peripheral pulses: Peripheral pulses 2+ throughout GI Other: LLQ abdominal tenderness Inspection: Yes normal to inspection, No Abdominal wall edema and No distended Palpation (GI): Soft to palpation, not firm, no guarding and not rigid General: Yes no CVA tenderness Back/Spine/Pelvis Back: no CVA tenderness Neuro Cranial nerves: Yes Equal, round and reactive pupils present Course Course Course Narrative: Patient is afebrile, tachycardic, hypertensive. Pertinent issues: 1) Abdominal pain with nausea and constipation: -Will obtain CT Abdomen/Pelvis W IV Contrast -Ordered laboratory studies including abdominal labs -Provided 1L IVF, morphine 4mg IV, Zofran 4mg IV. Reevaluation(s) Reevaluation #1: Laboratory studies notable for: Leukocytosis Normal electrolytes Mild transaminitis Negative UA Abdomen/Pelvis with evidence of acute uncomplicated diverticulitis of the descending colon. Will start the patient on Augmentin. Patient tolerating PO without difficulty. Pain well controlled. Plan: Discharge to home to follow up with PCP and GI Condition: Stable Time: 17:59 Medications Administered Generic Name Dose Route Start Last Admin Trade Name Freq PRN Reason Stop Dose Admin Sodium Chloride 1,000 mls @ 999 mls/hr 06/18/23 17:00 06/18/23 17:22 Ns IV 06/18/23 18:00 999 mls/hr .Q1H1M AGUILA Administration Discontinued Medications Generic Name Dose Route Start Last Admin Trade Name Freq PRN Reason Stop Dose Admin Iohexol 100 ml 06/18/23 17:32 06/18/23 17:32 Iohexol 350 Mg/Ml 100 Ml Infus..Btl IV 06/18/23 17:33 85 ml ONCE ONE Administration Morphine Sulfate 4 mg 06/18/23 16:47 06/18/23 17:25 Morphine Sulfate 4 Mg/Ml Cartridge IVPUSH 06/18/23 16:48 4 mg ONCE ONE Administration Protocol Ondansetron HCl 4 mg 06/18/23 16:47 06/18/23 17:25 Ondansetron Hcl 4 Mg/2 Ml Vial IVPUSH 06/18/23 16:48 4 mg ONCE ONE Administration Medical Decision Making Lab Data 06/18/23 09:50 06/18/23 09:51 Labs: Lab Results 02/06/18/23 06/18/23 Range/Units 09:50 09:51 16:46 WBC 11.1 H (4.8-10.8) X10*3/uL RBC 4.66 D (4.20-5.50) X10*6/uL Hgb 12.5 (12.0-16.0) g/dl Hct 38.2 (37.0-47.0) % MCV 82.0 (80.0-98.0) fL MCH 26.8 L (27.0-33.0) pg MCHC 32.7 (31.0-35.0) g/dl RDW 15.5 (11.0-16.0) % Plt Count 384 D (160-400) X10*3/uL MPV 9.1 L (9.4-12.3) fL Immature Gran % (Auto) 0.3 (0.0-0.4) % Neut % (Auto) 76.8 H (45-73) % Lymph % (Auto) 14.9 L (20-40) % [place] % (Auto) 6.8 (2-11) % Eos % (Auto) 0.8 (0-4) % Baso % (Auto) 0.4 (0-2) % Lymph # (Auto) 1.7 (1.2-4.9) X10*3/uL [place] # (Auto) 0.8 (0.1-1.2) X10*3/uL Eos # (Auto) 0.1 (0.0-0.4) X10*3/uL Baso # (Auto) 0.0 (0.0-0.2) X10*3/uL Abs Immat Gran (auto) 0.03 (0.00-0.03) X10*3/uL Absolute Neuts (auto) 8.6 H (2.0-8.3) x10*3/uL Absolute Nucleated RBC 0.000 (0.0-0.012) X10*3/uL Nucleated RBC % (auto) 0.0 (0.0-0.2) /100WBC Sodium 141 (135-145) mmol/L Potassium 4.2 (3.3-5.1) mmol/L Chloride 104 (96-108) mmol/L Carbon Dioxide 24 (22-29) mmol/L Anion Gap 17 (12-20) BUN 13 (9-16) mg/dL Creatinine 0.76 (0.5-1.4) mg/dL Estim Creat Clear Calc 84.9 Estimated GFR > 60 Random Glucose 113 (60-115) mg/dL Calcium 9.9 D (8.4-10.2) mg/dL Total Bilirubin 0.5 (0.0-1.0) mg/dL Direct Bilirubin 0.3 (0.0-0.5) mg/dL AST 61 H (5-31) U/L ALT 98 H (0-31) U/L Alkaline Phosphatase 72 (39-117) U/L Total Protein 8.0 (6.5-8.0) g/dL Albumin 4.0 (3.5-5.0) g/dL Lipase 21 (8-78) U/L Urine Color Yellow Urine Appearance Clear Urine pH 5.5 (5.0-9.0) Ur Specific [place] 1.015 (1.005-1.025) Urine Protein Negative (Neg-Trace) mg/dL Urine Glucose (UA) Negative (Negative) mg/dL Urine Ketones Trace (Negative) mg/dL Urine Blood Negative (Negative) Urine Nitrite Negative (Negative) Ur Leukocyte Esterase Negative (Negative) Urine Test NEGATIVE (NEGATIVE) Radiology Impression Discussion of test interpretation with radiology: I have reviewed the radiologist's reading. Radiologist Impression: EXAMINATION: CT ABDOMEN AND PELVIS WITH CONTRAST CLINICAL INFORMATION: Left-sided abdominal pain. COMPARISON: 04/24/2022 TECHNIQUE: Multidetector volumetric images were obtained from the superior aspect of the liver through the pubic symphysis following administration 85 mL of Omnipaque 350 intravenous contrast. Sagittal and coronal reformatted images were obtained on the technologist's workstation. Oral contrast: No This CT examination was performed using dose optimization techniques as appropriate, variously including the following: *Automated exposure control *Adjustment of mA and/or kV according to patient size (this includes techniques or standardized protocols for targeted exams where dose is matched to indication/reason for exam; i.e. extremities or head) *Use of iterative reconstruction technique DLP: 506 mGy-cm FINDINGS: LUNG BASES: The visualized lung bases are unremarkable. LIVER, GALLBLADDER, AND BILIARY TREE: The liver is enlarged and decreased in attenuation. No biliary ductal dilatation is present. Gallstones. PANCREAS: Unremarkable. SPLEEN: Unremarkable. ADRENAL GLANDS: Unremarkable. KIDNEYS AND URETERS: The kidneys are normal in size, shape, and attenuation. No hydronephrosis, hydroureter, or calculi seen. No perinephric stranding. BLADDER: Unremarkable. GASTROINTESTINAL TRACT: Stomach is underdistended. Wall thickening of the descending colon with an inflamed diverticulum. There is extensive underlying colonic diverticulosis. No small bowel obstruction. Appendix is within normal ABDOMINAL WALL: No significant hernia is appreciated. LYMPH NODES: No bulky lymphadenopathy. VASCULAR: 1.2 cm splenic artery aneurysm. No abdominal aortic aneurysm. PELVIC VISCERA: Retroverted uterus. Dilated left parametrial veins. OSSEOUS STRUCTURES: No destructive bone lesions. CT/CT abdomen pelvis w IV con IMPRESSION: Acute diverticulitis of the descending colon. Follow-up imaging after treatment is advised. Hepatomegaly and hepatic steatosis. Cholelithiasis. Left pelvic venous congestion. 1.2 cm splenic artery aneurysm. Discharge Plan Discharge Clinical Impression: Diverticulitis Patient Disposition: Home, Self-Care Instructions: Diverticulitis (ED), Diverticulitis Diet (ED) Additional Instructions: As we discussed, you were seen today for abdominal pain. Your CT scan showed uncomplicated diverticulitis. You will need to take an antibiotic twice a day for 10 days. You should follow up with your PCP and GI doctor within the next 1 week for re- evaluation. Return to the emergency department for: Worsening abdominal pain, not being able to eat or drink, passing out, fever Prescriptions: New amoxicillin-pot clavulanate 875-125 mg tablet 1 tab PO BID 10 Days Qty: 20 0RF No Action famotidine 40 mg tablet 40 mg PO DAILY PRN (Reason: for heartburn) Qty: 30 3RF ondansetron 4 mg tablet,disintegrating 4 mg PO Q8H PRN (Reason: nausea and vomiting) Qty: 7 0RF cholecalciferol (vitamin D3) 50 mcg (2,000 unit) capsule 50 mcg PO DAILY 30 Days Qty: 30 11RF hydrocortisone [Proctosol HC] 2.5 % cream with perineal applicator 1 appl MA BID Qty: 30 6RF Rx Instructions: BE SURE TO INCLUDE RECTAL APPICATOR!! peg 3350-electrolytes [Golytely] 236-22.74-6.74 -5.86 gram recon soln 240 ml PO Q10M 1 Days Qty: 4000 0RF Rx Instructions: until fecal effluent is clear; do not exceed a total volume of 2,000 mL nabumetone 500 mg tablet 500 mg PO BID PRN (Reason: pain) topiramate 25 mg tablet 25 mg PO BEDTIME valacyclovir 1 gram tablet 1,000 mg PO DAILY Linzess 290 mcg capsule 290 mcg PO QAM 30 Days Qty: 30 6RF pantoprazole [Protonix] 40 mg tablet,delayed release (DR/EC) 40 mg PO BID 30 Days Qty: 60 6RF levothyroxine [Tirosint] 88 mcg capsule 88 mcg PO DAILY Qty: 30 6RF Referrals: Bhargavi Llanes MD [Primary Care Provider] - 1 week
[2023-06-18 16:21] VITALS: BP 141/88; PULSE 102; RESP 16; TEMP 37; O2SAT 98
[2023-06-18 16:54] LABS: Appearance Urine Clear; Color Urine Yellow; Glucose Urine UA Negative (Negative); Leukocyte Esterase Urine Negative (Negative); Nitrite Urine Negative (Negative); PH 5.5 (5.0-9.0); Specific Gravity - Urine 1.015 (1.005-1.025); Urine Blood Negative (Negative); Urine Ketones Trace mg/dL (Negative); Urine Protein Negative (Neg-Trace)
[2023-06-18 16:55] LABS: UPreg QC Valid YES; Urine Pregnancy NEGATIVE (NEGATIVE)
[2023-06-18] MEDS: 0.9 % Sodium Chloride 1,000 ML 999 ML IV (17:22)
[2023-06-18] MEDS: ondansetron HCL 4 MG/2 ML VIAL IVPUSH (17:25)
[2023-06-18] MEDS: Morphine Sulfate 4 MG/ML CARTRIDGE IVPUSH (17:25)
--- NOTE | 2023-06-18 17:28 | PC.NURSE ---
IV established, medicated per the MAR. fluids infusing at this time. patient off to ct scan
[2023-06-18] MEDS: iohexoL 350 MG/ML 100 ML INFUS..BTL IV (17:32)
[2023-06-18] MEDS: Amoxicillin/Potassium Clav 875 MG TABLET PO (18:51)
== END 2023-06-18 18:55 | disposition home or self-care (01) ==
PROVIDERS: Emergency Provider Emergency Medicine; PCP Family Medicine
DX: K57.92 Diverticulitis of intestine, part unspecified, without perforation or abscess without bleeding (principal); R10.32 Left lower quadrant pain; R11.0 Nausea; E03.9 Hypothyroidism, unspecified; K59.00 Constipation, unspecified; Z79.899 Other long term (current) drug therapy; D72.829 Elevated white blood cell count, unspecified; R74.01 Elevation of levels of liver transaminase levels
CPT/HCPCS: 36415; 74177; 80048; 80076; 81003; 81025; 83690; 85025; 96361; 96374; 96375; 99284; J2270; J2405; Q9967

== ENCOUNTER 2023-07-08 09:43 | Outpatient (AMB) | payer MEDICAID, SELFPAY ==
--- NOTE | 2023-07-08 09:45 | A.OFFVIS_ITS ---
Intake Vital Signs 07/08/23 10:00 Height 5 ft 2 in Weight 170 lb 10.205 oz BMI 31.2 BP 158/91 H Blood Pressure Location Rt brachial Position Sitting Pulse 73 Intake Visit Reasons: Follow up CIC, GERD-pt RSD from 08/18 Intake Note: Patient in follow up of diverticulitis. CC: Patient reports she was seen in the ER on 06/18 with c/o worsening LLQ abdominal pain associated with nausea and constipation. The patient stated that her last bowel movement did have a small amount of bright red blood noted. She was placed on Abx and d/c'd. She states she was having abdominal pain until last week. She states she gets intestinal pain' every time she eats now. 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 nausea HPI Follow up CIC, GERD-pt RSD from 08/18 HPI Details Assessment & Plan (1) Chronic idiopathic constipation: Code(s): K59.04 - Chronic idiopathic constipation Plan: Consider repeating renal studies if she has not seen kidney specialist. She tells me that she decided to stop taking her thyroid med and had severe swelling and was only urinating once a day. This probably explains a decreased GFR but we will repeat the labs to make sure. I did emphasize for her not to stop taking her thyroid medication as this will cause so many problems. She understands this well now. I encouraged her that if she is thinking about stopping a medication and can not get in touch with her primary she can run it by me and I can give her a better general medical opinion. Certainly if she had the time I with told her not to stop that medication under any circumstances. I understand that sometimes patients get overwhelmed with her pill birds. She says that the Chirplys is working perfectly. She does have occasional episodes of tenesmus and I tell her that if this becomes more of a problem to tell me as we can fix this. We may be occasionally over driving her bowels. She is having a lot of breakthrough GERD when she eats foods like spaghetti pizza and sugar E donuts. I read educate her that these of the foods we usually tell people to avoid as they are expected to cause problems. She is try taking 3 pantoprazole when she has the trouble and has not helped. I educate her that this is because pantoprazole has a long onset of action and really will work when your in the now. Instead I will give her some famotidine to use as that takes affect within 15 minutes. After all, we are human and sometimes we adult in things that we should not in her diet. She was never contacted for the colonoscopy so I will send a note to the schedulers about this. Her hemorrhoids blood for about a week after last time she saw me but then it stopped with Proctosol cream in she has had absolutely no trouble with that since then. There are no prior problems with anesthesia or sedation. She has seasonal asthma that well controlled and no cardiac problems. NO ID problems. FHX of colon polyps in her mother. ROV 6 mos. And of course after the colonoscopy. (2) GERD (gastroesophageal reflux diseas e): Code(s): K21.9 - Gastro-esophageal reflux disease without esophagitis (3) Family history of polyps in the colo n: Comment: mother Code(s): Z83.71 - Family history of colonic polyps (4) Decreased calculated GFR: Code(s): R94.4 - Abnormal results of kidney function studies (5) Pre-op examination: Code(s): Z01.818 - Encounter for other preprocedural examination Orders: Orders Comprehensive Met. Panel Today Z01.818 - Encounte r for other prepro cedural examinatio n, Z83.71 - Family history of coloni c polyps Medications: New famotidine (Pepcid ) 40 mg PO DAILY WV N 30 tabs 3RF hear tburn K21.9 - Gastro-eso phageal reflux dis ease without esoph agitis Refilled linaclotide (Linze ss) 290 mcg PO QAM 30 days 30 caps 6RF K59.04 - Chronic i diopathic constipa tion pantoprazole (Prot benny) 40 mg PO BID 30 d ays 60 tabs 6RF K21.9 - Gastro-eso phageal reflux dis ease without esoph agitis LABS: Laboratory Tests 02/17/23 05/19/23 08:55 07:56 Estimated GFR > 60 AST 28 ALT 44 H Alkaline Phosphata se 46 TSH > 100.00 H Free T4 0.54 L Colonoscopy 04/27/23 Findings: Terminal Ileum-normal Cecum:normal Ascending Colon: 4-5 mm sessile polyp removed with cold snare, not retrieved, moderate diverticulosis noted Transverse Colon -normal Descending Colon:normal Sigmoid Colon: 10-12 mm sessile polyp removed with cold snare and x 2 ultra clips applied for hemostasis, moderate diverticulosis noted Rectum: Retroflexion with small internal hemorrhoids, grade I Anorectum - normal Impression and Post Procedure Diagnosis: polyps internal hemorrhoids diverticular disease Plan: High fiber diet leaflet Avoid straining at stool, epsom salts and sitz bath, anusol supps or cream Repeat Colonoscopy in 5 years due to polyps or earlier if clinically indicated BIOPSY Received: 04/27/23 Diagnosis Colon, sigmoid, polypectomy: Hyperplastic mucosal polyp TODAYS VISIT She is agreeable to a 5 year follow-up. The procedure was well tolerated. The results were explained and the patient is agreeable to the follow-up interval as stated. The bowel pattern has returned to normal. Education was provided to tell any 1st degree relatives about their findings to be sure that they are screened by age 45. Educated that they will be put on a recall list when it is time for their repeat scope but should they move out of state or away from the hospital they will need to remember along with their primary to repeat the procedure in a timely fashion to avoid any adverse complications. She developed left-sided abdominal pain with rectal bleeding shortly after the procedure. She presented to the ER and they did find an inflamed diverticulum on CT scan she was treated with Augmentin for diverticulitis. However, the pain did not immediately subside and persisted for almost a month! She was only treated with the 1 course of antibiotics. Now she is having pain postprandially in the left lower quadrant. I will re treat with flagyl/leva and write out for her to also take a probiotic and a fiber supplement. She continues on her Linzess 290 micro g, pantoprazole 40 mg twice a day and famotidine as needed for breakthrough. ROV 3 weeks. [facility] Medical History (Updated 07/08/23 @ 10:17 by GEE Marshall) GERD (gastroesophageal reflux disease) Vitamin D deficiency Multinodular goiter Jeevan's disease Hypothyroidism Diverticulitis Surgical History History of esophagogastroduodenoscopy (EGD) H/O colonoscopy Hx of hemorrhoidectomy Hx of lumpectomy H/O tubal ligation Family History Father Heart disease Mother Diabetes mellitus HTN (hypertension) Brother Diabetes mellitus Sister High cholesterol Sister Jeevan's disease Social History Household Members: Spouse and Children Alcohol intake: never Patient Tobacco Use Status: Former Tobacco user Tobacco use type: Cigarette Cigarettes Per Day: 3 Review of Systems Const Denies fatigue, Denies fever(s), Denies night sweats, Denies poor appetite and Denies weight loss ENT Reports Normal hearing present, Denies dental pain, Denies dysphagia, Denies hearing loss, Denies mouth pain, Denies odynophagia, Denies throat swelling, Denies tongue swelling and Reports other (Dentition adequate) Card Reports no additional complaints Resp Reports no additional complaints GI Details: Reports abdominal pain, Denies melena, Denies bloating, Reports hematochezia, Reports constipation, Denies GI cramping, Denies dysphagia, Denies excessive flatus, Denies early satiety, Reports heartburn, Denies diarrhea, Reports nausea, Denies odynophagia, Reports vomiting and Denies hematemesis Skin/Breast Denies pruritus, Denies lesions, Denies rash and Denies jaundice Neuro Reports Normal hearing present and Denies Abnormal speech present Endo Denies fatigue Aller/Immun Denies throat swelling and Denies tongue swelling Physical Exam Vital Signs: Last Vital Signs Pulse 73 07/08/23 10:00 BP 158/91 H 07/08/23 10:00 BMI result Body Mass Index 31.2 Const General: cooperative, no acute distress, well developed and well groomed Nutritional Appearance: well nourished and obese Orientation/consciousness: oriented to person, oriented to place and oriented to time Limitations: language barrier HEENT Head: Yes normocephalic and Yes atraumatic Eyes General: appearance normal, both eyes and all related structures Pupils: Equal, round and reactive pupils present Neck Neck: Yes normal visual inspection and Yes no lymphadenopathy Thyroid: Thyroid normal Resp Effort & Inspection: normal respiratory effort and able to speak in complete sentences Auscultation: clear to auscultation bilaterally Cardio Rate: regular rate Rhythm: regular rhythm Heart sounds: Normal, physiologic split S2 sound present Peripheral pulses: radial pulses present and posterior tibial pulses present GI Inspection: No distended, No Abdominal panniculus present and Yes obesity Palpation (GI): Soft to palpation, Tenderness to palpation present (GI) in the LLQ, no guarding, not rigid and No hepatosplenomegaly present Percussion: Yes normal to percussion Auscultation: normal bowel sounds Rectal Exam - Female: deferred Skin General skin exam: no rashes or lesions noted, turgor normal, skin not dry, no jaundice, No spider nevi and no striae Rashes: no rashes Nails: normal Neuro General: oriented to person, oriented to place and oriented to time Cranial nerves: Yes Equal, round and reactive pupils present and Yes Normal hearing present Speech: No Abnormal speech present Extrem General: Yes normal to inspection, No clubbing, No cyanosis and No edema Psych Appearance: grossly normal and well kempt Mental Status: mental status grossly normal Speech and movement: Normal speech and movement present Affect: normal affect Attitude: cooperative Thought process: Normal thought process present and not confabulating Thought content: Normal thought content present Insight: Fair insight present (Psych) Judgement: Fair judgement present (Psych) Results Reviewed Results Reviewed: Laboratory Tests 02/17/23 05/19/23 08:55 07:56 Estimated GFR > 60 AST 28 ALT 44 H Alkaline Phosphatase 46 TSH > 100.00 H Free T4 0.54 L Colonoscopy 04/27/23 Findings: Terminal Ileum-normal Cecum:normal Ascending Colon: 4-5 mm sessile polyp removed with cold snare, not retrieved, moderate diverticulosis noted Transverse Colon -normal Descending Colon:normal Sigmoid Colon: 10-12 mm sessile polyp removed with cold snare and x 2 ultra clips applied for hemostasis, moderate diverticulosis noted Rectum: Retroflexion with small internal hemorrhoids, grade I Anorectum - normal Impression and Post Procedure Diagnosis: polyps internal hemorrhoids diverticular disease Plan: High fiber diet leaflet Avoid straining at stool, epsom salts and sitz bath, anusol supps or cream Repeat Colonoscopy in 5 years due to polyps or earlier if clinically indicated BIOPSY Received: 04/27/23 Diagnosis Colon, sigmoid, polypectomy: Hyperplastic mucosal polyp Assessment & Plan Assessment & Plan (1) Family history of polyps in the colon: Comment: mother Code(s): Z83.71 - Family history of colonic polyps (2) Chronic idiopathic constipation: Code(s): K59.04 - Chronic idiopathic constipation (3) GERD (gastroesophageal reflux disease): Code(s): K21.9 - Gastro-esophageal reflux disease without esophagitis (4) Bleeding hemorrhoids: Code(s): K64.9 - Unspecified hemorrhoids (5) Diverticulitis: Code(s): K57.92 - Diverticulitis of intestine, part unspecified, without perforation or abscess without bleeding Plan She is agreeable to a 5 year follow-up. The procedure was well tolerated. The results were explained and the patient is agreeable to the follow-up interval as stated. The bowel pattern has returned to normal. Education was provided to tell any 1st degree relatives about their findings to be sure that they are screened by age 45. Educated that they will be put on a recall list when it is time for their repeat scope but should they move out of state or away from the hospital they will need to remember along with their primary to repeat the procedure in a timely fashion to avoid any adverse complications. She developed left-sided abdominal pain with rectal bleeding shortly after the procedure. She presented to the ER and they did find an inflamed diverticulum on CT scan she was treated with Augmentin for diverticulitis. However, the pain did not immediately subside and persisted for almost a month! She was only treated with the 1 course of antibiotics. Now she is having pain postprandially in the left lower quadrant. I will re treat with flagyl/leva and write out for her to also take a probiotic and a fiber supplement. She continues on her Linzess 290 micro g, pantoprazole 40 mg twice a day and famotidine as needed for breakthrough. ROV 3 weeks. Medications: New metronidazole 500 mg PO TID 14 days 42 tabs 0RF levofloxacin 500 mg PO DAILY 14 tabs 0RF K57.92 - Diverticulitis of intestine, part unspecified, without perforation or abscess without bleeding Refilled pantoprazole (Protonix) 40 mg PO BID 30 days 60 tabs 6RF K21.9 - Gastro- esophageal reflux disease without esophagitis linaclotide (Linzess) 290 mcg PO QAM 30 days 30 caps 6RF K59.04 - Chronic idiopathic constipation famotidine 40 mg PO DAILY PRN 30 tabs 3RF for heartburn K21.9 - Gastro- esophageal reflux disease without esophagitis Coding Level of Care Code Est Pt Level 4 (03942) Diagnoses Family history of polyps in the colon Z83.71 Chronic idiopathic constipation K59.04 GERD (gastroesophageal reflux disease) K21.9 Bleeding hemorrhoids K64.9 Diverticulitis K57.92
[2023-07-08 10:00] VITALS: BP 158/91; PULSE 73; BMI 31.2
== END 2023-07-08 10:21 | disposition home or self-care (01) ==
PROVIDERS: PCP Family Medicine; Visit Provider Nurse Practitioner
DX: K59.04 Chronic idiopathic constipation (principal); Z83.719 Family history of colon polyps, unspecified; K21.9 Gastro-esophageal reflux disease without esophagitis; K64.9 Unspecified hemorrhoids; K57.92 Diverticulitis of intestine, part unspecified, without perforation or abscess without bleeding
CPT/HCPCS: 99214

== ENCOUNTER → 2023-07-08 09:43 | Outpatient (BNVA) | payer MEDICAID, SELFPAY | PROVIDERS: PCP Family Medicine; Visit Provider Nurse Practitioner | DX: K21.9 Gastro-esophageal reflux disease without esophagitis (principal); K64.9 Unspecified hemorrhoids; R10.32 Left lower quadrant pain; R11.0 Nausea; R94.4 Abnormal results of kidney function studies; Z83.718 Family history of other colon polyps | CPT/HCPCS: 99212 ==

== ENCOUNTER 2024-02-01 | Outpatient (REF) | payer MEDICAID, SELFPAY | END 2024-02-01 00:01 | disposition home or self-care (01) | LOC: HO.HHCLNP | PROVIDERS: Visit Provider Family Medicine | DX: N39.0 Urinary tract infection, site not specified (principal) | CPT/HCPCS: 87086; 87088; 87186 ==

== ENCOUNTER 2024-05-30 18:08 | Outpatient (REF) | payer MEDICAID, SELFPAY ==
--- OUTSIDE RECORDS SUMMARY | 2024-05-30 18:10 | XMS_ITS | Encounter Summary ---
Author Organization [employer] Address [address] [place] [address] [address] [place] [address] Care Team Providers Care Basket Sorter Name Role Phone Bhargavi Llanes MD Primary Care Provider [phone] Reason for Referral * Imaging (Routine) - Closed Specialty Diagnoses / Procedures Referred By Contac t Referred To Contact Radiology Diagnoses Breast cancer screening by mammogram Procedures BI Mammogram Screening Tomosynthesis Bilateral Melinda Kennedy CNM [address] [place] [address] Phone: tel: fax: [address] Phone: tel: fax: Referral ID Status Reason Start Date Expiration Date Visits Re quested Visits Authorized [id number] Closed 05/30/2024 05/30/2025 1 1 * Imaging (Urgent) - Authorized Specialty Diagnoses / Procedures Referred By Contac t Referred To Contact Radiology Diagnoses Abnormal uterine bleeding (AUB) Procedures Us Pelvis complete Melinda Kennedy CNM [address] [place] [address] Phone: tel: fax: [address] Phone: tel: fax: Referral ID Status Reason Start Date Expiration Date V isits Requested Visits Authorized [id number] Authorized 05/30/2024 05/30/2025 1 1 * Imaging (Urgent) - Authorized Specialty Diagnoses / Procedures Referred By Lucie salinas Referred To Contact Radiology Diagnoses Abnormal uterine bleeding (AUB) Procedures US Pelvis Transvaginal Melinda Kennedy CNM [address] [place] [address] Phone: tel: fax: [address] Phone: tel: fax: Referral ID Status Reason Start Date Expiration Date V isits Requested Visits Authorized [id number] Authorized 05/30/2024 05/30/2025 1 1 Reason for Visit * Reason Comments Gynecologic Exam Encounter Details Date Type Department Care Team (Late st Contact Info) Description 05/30/2024 10:00 AM EST Office Visit [facility] [address] [place], [place] [phone] Melinda Kennedy CNM [address] [place], [place] [phone] Abnormal uterine bleeding (AUB) (Primary Dx); Routine cervical smear; Screening examination for venereal disease; Mixed incontinence; Cystocele, unspecified; Breast cancer screening by mammogram Social History Tobacco Use Types Packs/Day Years Used Date Smoking Tobacco: Former Tobacco Cessation:Counseling Given: Not Answered Alcohol Use Standard Drinks/Week Comments Never 0 (1 standard drink = 0.6 oz pur e alcohol) Comments No Sex and Gender Information Value Date Recorded Sex Assigned at Female 02/23/2022 10:16 AM EDT Legal Sex Female 10:16 AM EDT Gender Identity Female 02/23/2022 10:16 AM EDT Sexual Orientation Straight 02/23/2022 10 :16 AM EDT documented as of this encounter Last Filed Vital Signs Vital Sign Reading Time Taken Comments Blood Pressure 137/93 05/30/2024 10:04 AM EST Pulse 80 05/30/2024 10:04 AM EST Temperature 36.4 ??C (97.6 ??F) 05/30/2024 1 0:04 AM EST Respiratory Rate 20 05/30/2024 10:0 4 AM EST Oxygen Saturation 98% 05/30/2024 10: 04 AM EST Inhaled Oxygen Concentration - - Weight 81.1 kg (178 lb 12.8 oz) 025 10:04 AM EST Height 157.5 cm (5' 2 ) 05/30/2024 10:0 4 AM EST Body Mass Index 32.7 05/30/2024 10:04 AM EST documented in this encounter Progress Notes * Melinda Kennedy, JAMARI - 05/30/2024 10:00 AM EST Subjective Patient ID: Zari Aleman is a 54 y.o. female who presents for INFORMATION BROKER visit Notes intermittent pelvic pain and AUB for past few months. CT from 2023 with left pelvic congestion syndrome, diverticulitis, hepatomegaly and hepatic steatosis, cholelithiasis and 1.2 cm splenic artery aneurysm. Menses monthly until mid 2023, skipped 3-4 months then bled for all of 01/2024 and 03/2024. Occasional spotting since then. No other vaginal symptoms. No vasomotor symptoms. Chronic mixed incontinence, which has worsened in past few years. No other urinary symptoms. SVB x 7. 1 intermediate AMAB partner, no safety concerns. Has tubal ligation. Last pap 03/2018, HPV neg, unable to see pap result. She thinks she had one in 2020 as well, no prior abnormal. Known thyroid disease, followed by [facility] endocrinology. Was off treatment for a while after her brother in 2020. Now taking consistently. Coping okay, has support. Due for mammogram. Would like full INFORMATION BROKER exam today. Review of Systems Genitourinary: Positive for pelvic pain. Negative for dyspareunia, dysuria, frequency, genital sores, hematuria, menstrual problem, urgency, vaginal bleeding, vaginal discharge and vaginal pain. No abnormal pap, no breast pain, no breast mass, no nipple discharge Objective BP (!) 137/93 (BP Location: Left arm, Patient Position: Sitting, BP Cuff Size: Adult) Pulse 80 Temp 97.6 ??F (36.4 ??C) (Temporal) Resp 20 Ht 5' 2 (1.575 m) Wt 178 lb 12.8 oz (81.1 kg) SpO2 98% BMI 32.70 kg/m?? Physical Exam Constitutional: Appearance: Normal appearance. Chest: Breasts: Right: Normal. No swelling, bleeding, inverted nipple, mass, nipple discharge, skin change or tenderness. Left: Normal. No swelling, bleeding, inverted nipple, mass, nipple discharge, skin change or tenderness. Genitourinary: General: Normal vulva. Labia: Right: No rash, tenderness, lesion or injury. Left: No rash, tenderness, lesion or injury. Vagina: Normal. No signs of injury and foreign body. No vaginal discharge, erythema, tenderness, bleeding or lesions. Cervix: No cervical motion tenderness, discharge, friability, lesion, erythema, cervical bleeding or eversion. Uterus: Normal. Not enlarged and not tender. Adnexa: Right adnexa normal and left adnexa normal. Right: No mass, tenderness or fullness. Left: No mass, tenderness or fullness. Comments: Poor tone with Kegels, cystocele and incontinence noted with Valsalva. Lymphadenopathy: Upper Body: Right upper body: No supraclavicular or axillary adenopathy. Left upper body: No supraclavicular or axillary adenopathy. Neurological: Mental Status: She is alert. Psychiatric: Mood and Affect: Mood normal. Behavior: Behavior normal. Assessment/Plan Diagnoses and all orders for this visit: Abnormal uterine bleeding (AUB) - Pap Smear - STI testing add on (NG, CT, Trich) - US Pelvis Transvaginal; Future - Us Pelvis complete; Future Benign pelvic exam today. Pap/STI and ultrasound ordered. Will contact with results. Reviewed that she will likely need referral for Endometrial biopsy after results in. Reviewed normal vs abnormal perimenopausal bleeding. Report prolonged, frequent or heavy bleeding. Report bleeding after a year of no bleeding. Will see if recent TSH on file with outside endo. Routine cervical smear - Pap Smear Cotest today. Will contact with results. Cotest 5 years if normal/HPV negative. Screening examination for venereal disease - STI testing add on (NG, CT, Trich) Pap based STI testing send in light of AUB. Mixed incontinence Kegels taught for mixed incontinence. Let me know if not helpful in next 1-2m and I will refer to urogyn. Cystocele, unspecified Kegels taught. Let me know if not helpful in next 1-2m and I will refer to urogyn. Breast cancer screening by mammogram - BI Mammogram Screening Tomosynthesis Bilateral; Future Mammogram ordered. documented in this encounter Plan of Treatment Upcoming Encounters Date Type Department Care Team (Late st Contact Info) Description 06/20/2024 2:15 PM EST Office Visit [facility] [address] [place] [phone] Bhargavi Llanes MD [address] [place] [address] [phone] Scheduled Orders Name Type Priority Associated Diagnoses Orde r Schedule Pap Smear Pathology and Cytology Routine Abnormal uterine bleeding (AUB) Routine cervical smear Ordered: 05/30/2024 STI testing add on (NG, CT, Trich) Pathology and Cytology Routine Abnormal uterine bleeding (AUB) Screening examination for venereal disease Ordered: 05/30/2024 US Pelvis Transvaginal Imaging Urgent Abnormal uterine bleeding (AUB) Expected: 05/30/2024, Expires: 05/30/2025 Us Pelvis complete Imaging Urgent Abnormal uterine bleeding (AUB) Expected: 05/30/2024, Expires: 05/30/2025 BI Mammogram Screening Tomosynthesis Bilateral Imaging Routine Breast cancer screening by mammogram Expected: 05/30/2024, Expires: 07/28/2025 documented as of this encounter Visit Diagnoses Diagnosis Abnormal uterine bleeding (AUB)- Primary Routine cervical smear Screening for malignant neoplasm of the cervix Screening examination for venereal disease Mixed incontinence Mixed incontinence urge and stress (male)(female) Cystocele, unspecified Breast cancer screening by mammogram documented in this encounter Care Teams Basket Sorter Relationship Specialty Start Date End Date Bhargavi Llanes MD [address] [place] [address] [phone] PCP - General Family Medicine 11/21/18 documented as of this encounter
--- OUTSIDE RECORDS SUMMARY | 2024-05-30 18:10 | XMS_ITS | Encounter Summary ---
Author Organization [employer] Address [address] [place] [address] [address] [place] [address] Care Team Providers Care Liability Claims Manager Name Role Phone Bhargavi Llanes MD Primary Care Provider [phone] Encounter Details Date Type Department Care Team (Latest Contact Info) Description 05/30/2024 Travel Social History Tobacco Use Types Packs/Day Years Used Date Smoking Tobacco: Former Alcohol Use Standard Drinks/Week Comments Never 0 (1 standard drink = 0.6 oz pur e alcohol) Comments No Sex and Gender Information Value Date Recorded Sex Assigned at Female 02/23/2022 10:16 AM EDT Legal Sex Female 10:16 AM EDT Gender Identity Female 02/23/2022 10:16 AM EDT Sexual Orientation Straight 02/23/2022 10 :16 AM EDT documented as of this encounter Plan of Treatment Upcoming Encounters Date Type Department Care Team (Late st Contact Info) Description 06/20/2024 2:15 PM EST Office Visit [facility] [address] [place] [address] Bhargavi Llanes MD [address] [place] [address] documented as of this encounter Visit Diagnoses Not on filedocumented in this encounter Care Teams Liability Claims Manager Relationship Specialty Start Date End Date Bhargavi Llanes MD [address] [place] [address] PCP - General Family Medicine 11/21/18 documented as of this encounter
--- OUTSIDE RECORDS SUMMARY | 2024-05-30 18:10 | XMS_ITS | Encounter Summary ---
Author Organization [employer] [facility] Address [address] [place] [address] [address] [place] [address] Care Team Providers Care Platinumsmith Name Role Phone Bhargavi Llanes MD Primary Care Provider [phone] Encounter Details Date Type Department Care Team (Latest Contact Info) Description 05/25/2024 Travel Social History Tobacco Use Types Packs/Day Years Used Date Smoking Tobacco: Former Cigarettes 0.5 30 1 2021 Comments Unknown Sex and Gender Information Value Date Recorded Sex Assigned at Female 02/23/2022 10:16 AM EDT Legal Sex Female 10:16 AM EDT Gender Identity Female 02/23/2022 10:16 AM EDT Sexual Orientation Straight 02/23/2022 10 :16 AM EDT documented as of this encounter Plan of Treatment Upcoming Encounters Date Type Department Care Team (Late st Contact Info) Description 06/20/2024 2:15 PM EST Office Visit [facility] [address] [place] [address] Bhargavi Llanes MD [address] [place] [address] documented as of this encounter Visit Diagnoses Not on filedocumented in this encounter Care Teams Platinumsmith Relationship Specialty Start Date End Date Bhargavi Llanes MD [address] [place] [address] PCP - General Family Medicine 11/21/18 documented as of this encounter
--- OUTSIDE RECORDS SUMMARY | 2024-05-30 18:10 | XMS_ITS | Clinical Summary ---
Author Organization [employer] Address [address] [facility] 7t [place] [address] Care Team Providers Care Upsetter Name Role Phone Bhargavi Llanes MD Primary Care Provider Allergies Active Allergy Reactions Criticality Noted Date Comments Levofloxacin Low 07/22/2023 insomnia Metronidazole Nausea Medium 07/22/2023 Tramadol 05/30/2024 Medications D3 Super Strength 50 MCG (1999 UT) capsule Take 50 mcg by mouth in the morning. 06/10/19 23 Active folic acid (Folvite) 800 MCG tablet Take 1 tablet by mouth at bed time. 05/03/19 21 Active hydrocortisone (Anusol-HC) 2.5 % rectal cream APPLY RECTALLY DIRECTED TWICE DAILY FOR HEMORRHOIDS 08/19/19 23 Active Tirosint 88 MCG capsule Take 88 mcg by mouth in the morning. 06/10/19 23 Active Linzess 290 MCG capsule Take 290 mcg by mouth in the morning. 08/19/19 23 Active pantoprazole (ProtoNix) 40 MG EC tablet Take 40 mg by mouth 2 times daily. 06/10/19 23 Active albuterol 108 (90 Base) MCG/ACT inhaler Inhale 2 puffs every 4 (four) hours if needed for wheezing or shortness of breath. Maximum 8 puffs per day 18 g 3 07/22/19 24 025 Active hydrocortisone (Anusol-HC) 25 MG suppository Insert 1 suppository (25 mg) into the rectum 2 times daily. 24 suppository 07/22/19 24 Active Mometasone Furoate (Asmanex HFA) 100 MCG/ACT aerosol Inhale 1 puff 2 times daily. 13 g 11 07/22/19 24 Active Active Problems Problem Noted Date Diagnosed Date Acute UTI (urinary tract infection) 02/01/2024 Assessment & Plan (02/01/2024 6:39 PM EDT): -Urinalysis showed positive blood and nitrites with moderate leukocytes. Urine culture sent to the lab. -Empiric antibiotics started, Bactrim. -Potential adverse effects of the medication reviewed -Discussed strategies to prevent future infections: Increase fluids. Urinate after sex. Avoid bladder irritants. -Report fever, chills, worsening symptoms or abdominal/flank pain -Advised to seek medical attention if no improvement or worsening of symptoms -ER precautions reviewed. GERD (gastroesophageal reflux disease) Assessment & Plan (07/22/2023 7:23 PM EDT): - continue pantoprazole 40 mg bid and famotidine 40 mg daily prn IBS (irritable bowel syndrome) 07/22/2023 Assessment & Plan (07/22/2023 7:23 PM EDT): - following with [facility] - s/p colonoscopy in April 2023 hyperplastic polyp - continue linaclotide 290 mcg daily - low FODMAP diet Hemorrhoids 07/22/2023 Assessment & Plan (07/22/2023 7:21 PM EDT): - h/o hemorrhoidectomy - avoid prolonged sitting - prevent constipation - trial of hydrocortisone suppository Family history of coronary artery disease 2023 Assessment & Plan (07/22/2023 7:26 PM EDT): - focus on risk factor management - patient quit smoking; encouraged to continue - check lipid profile - continue working on lifestyle modifications Diverticulitis 10/28/2022 Migraine 10/28/2022 Acquired hypothyroidism 01/06/2018 Assessment & Plan (07/22/2023 7:24 PM EDT): - current replacement levothyroxine 88 mcg daily - emphasized the importance of adherence Asthma 09/16/2011 Assessment & Plan (07/22/2023 7:21 PM EDT): - switch fluticasone (Flovent) to mometasone (Asmanex) - continue albuterol HFA prn - continue remaining non-smoker Depression 09/16/2011 Resolved Problems Problem Noted Date Diagnosed Date Resolved Date Breast lump 10/28/2022 07/22/2023 Anterior cervical lymphadenopathy 01/06/2018 07/22/2023 Encounters Date Type Department Care Team Description 05/30/2024 10:00 AM EST Office Visit [facility] [address] [place] [phone] Melinda Kennedy CNM Abnormal uterine bleeding (AUB) (Primary Dx); Routine cervical smear; Screening examination for venereal disease; Mixed incontinence; Cystocele, unspecified; Breast cancer screening by mammogram 05/30/2024 Travel 05/27/2024 Telephone [facility] [address] [place] [address] [phone] Melinda Kennedy CNM Provider Out 05/25/2024 Travel 05/24/2024 Telephone [facility] [address] [place] [phone] Bhargavi Llanes MD Referral from Last 3 Months Immunizations Name Administration Dates Next Due Hep A, Adult 11/26/2017 Hep A, ped/adol, 2 dose 07/29/2004 Hep B, Adolescent or Pediatric 09/02/2004,2004 Hep B, adult 11/26/2017 Influenza injectable quadriv alent IIV4 with preservative 03/09/2016,02/13/2015 Influenza injectable quadrivalent preservative f ree 03/02/2019 Influenza, IIV3, injectable 02/08/2014, 1 Influenza, Split (incl. purified surface antigen ) 01/06/2012 Pneumococcal Conjugate PCV 20 07/22/2023 Pneumococcal Polysaccharide PPSV23 08/06/2014 TD (adult), 2 Lf tetanus tox oid, preservative free, adsorbed 07/22/2004 Tdap 08/23/2018,10/06/2011 Family History Medical History Relation Name Comments Coronary artery disease Brother Diabetes type II Brother Hypertension Brother Coronary artery disease Father Diabetes type II Maternal Grandmother Endometrial cancer Maternal Grandmother Asthma Mother Diabetes type II Mother Hypertension Mother Stroke Mother Uterine cancer Mother's Sister Endometrial cancer Sister 1 dyslipidemia Sister 1 Hyperlipidemia Sister 2 Hyperlipidemia Sister 3 Diabetes type I Son 1 Autism Son 2 Relation Name Status Comments Brother Father Maternal Grandmother Mother Mother's Sister Unknown Sister 1 Sister 2 Alive Sister 3 Alive Son 1 Son 2 Alive Social History Tobacco Use Types Packs/Day Years [...] Orientation Straight 02/23/2022 10 :16 AM EDT Last Filed Vital Signs Vital Sign Reading [...] Mass Index 32.7 05/30/2024 10:04 AM EST Plan of Treatment Upcoming Encounters Date Type Department Care Team (Late st Contact Info) Description 06/20/2024 2:15 PM EST Office Visit [facility] [address] [place] [address] Bhargavi Llanes MD [address] [place] [address] Health Maintenance Due Date Last Done Comments CT Colonography 1971 Colonoscopy 1971 Colorectal Cancer Screening 1971 Depression Screening 1971 FIT DNA/Cologuard 1971 FIT 1971 FOBT 1971 Lipid Panel 1971 SDOH Screening 1971 Sigmoidoscopy 1971 Alcohol/Substance Use Screening 1983 Pap Smear 1992 Hepatitis B Vaccines (2 of 3 - 19+ 3-dose series) 12/24/2017 11/26/2017, 09/02/2004, 07/29/2004 Zoster Vaccines (1 of 2) 2021 Cervical Cancer Screening 03/30/2023 HPV/Cotest 03/30/2023 03/30/2018 Mammogram 12/10/2023 12/09/2021, 11/24, 12/13/2017 COVID-19 Vaccine ( season) 2023 Influenza Vaccine (#1) 2023 9, 03/09/2016, 02/13/2015, Additional history exists Tobacco Screening 05/30/2025 05/30/2024 DTaP/Tdap/Td Vaccines (3 - Td or Tdap) 08/23/2028 08/23/2018, 10/06/2011, 07/22/2004 RSV Patients and Patients Aged 60 years or older (1 - 1-dose 75+ series) 2046 Hepatitis A Vaccines Aged Out 11/26/2017, 07/30/19 05 No longer eligible based on patient's age to complete this topic HIV Screening Completed 05/02/2020 Hepatitis C Screening Completed 05/02/2020 Pneumococcal Vaccine: 50+ Years Completed 07/22/2023, 08/06/2014 HIB Vaccines Aged Out No longer eligi ble based on patient's age to complete this topic HPV Vaccines Aged Out No longer eligi ble based on patient's age to complete this topic IPV Vaccines Aged Out No longer eligi ble based on patient's age to complete this topic Meningococcal Vaccine Aged Out No ruby yissel eligible based on patient's age to complete this topic RSV under 20 months Aged Out No longe r eligible based on patient's age to complete this topic Rotavirus Vaccines Aged Out No longer eligible based on patient's age to complete this topic Procedures Procedure Name Priority Date/Time Associated Diagnosis Comments MAMMOGRAM GENERIC Routine 12/09/2021 8:2 0 AM EDT [facility] HISTORICAL HEPATITIS C AB W/REFL TO HCV RNA, QN, PCR Routine 05/02/2020 9:36 AM EST HIV 1/2 ANTIGEN/ANTIBODY, FOURTH GENERATION W/RFL Routine 05/02/2020 9:36 AM EST [facility] HISTORICAL HPV MRNA E6/E7 Routine 03/30/2018 9:00 AM EST from Last 3 Months or Most Recently Relevant to Health Maintenance Results * Mammography Report 1 (12/09/2021 8:20 AM EDT) Anatomical Region Laterality Modality Breast Bilateral Mammography 12/09/2021 8:20 AM EDT Narrative 12/10/2021 9:49 AM EDT Refer to the Notes tab for result details [facility] Procedure: Mammography Report 1 Procedure Note ProviderBrooke MD - 07/19/2022 Refer to the Notes tab for result details [facility] Procedure: Mammography Report 1 Bhargavi Llanes MD IMG BI PROCEDURES Final Result * HEPATITIS C AB W/REFL TO HCV RNA, QN, PCR (05/02/2020 9:36 AM EST) HEPATITIS C ANTIBODY NON-REACT STEVE NON-REACT STEVE [facility] INDEX 0.01 <1.00 [facility] Comment: ?? HCV antibody was non-reactive. There is no laboratory ?? evidence of HCV infection. ?? In most cases, no further action is required. However, if recent HCV exposure is suspected, a test for HCV RNA (test code 95740) is suggested. ?? For additional information please refer to http://education.[employer].fflick/faq/RJK13a3 (This link is being provided for informational/ educational purposes only.) ?? 05/02/2020 9:36 AM EST Bhargavi Llanes MD HISTORICAL/NON ORDERABLE LABS Fi nal Result [facility] [address] [place] [address], * HIV 1/2 ANTIGEN/ANTIBODY,FOURTH GENERATION W/RFL (05/02/2020 9:36 AM EST) Pathologist [facility] HIV-1/2 ANTIGEN AND ANTIBODIES, 4TH GENERATION W/ REFLEX NON-REACT STEVE NON-REACT STEVE [facility] Comment: HIV-1 antigen and HIV-1/HIV-2 antibodies were not detected. There is no laboratory evidence of HIV infection. ?? PLEASE NOTE: This information has been disclosed to you from records whose confidentiality may be protected by state law. ??If your state requires such protection, then the state law prohibits you from making any further disclosure of the information without the specific written consent of the person to whom it pertains, or as otherwise permitted by law. A general authorization for the release of medical or other information is NOT sufficient for this purpose. ? For additional information please refer to http://[employer].H-art ([employer])/faq/FLP412 (This link is being provided for informational/ educational purposes only.) ? The performance of this assay has not been clinically validated in patients less than 2 years old. ?? 05/02/2020 9:36 AM EST Bhargavi Llanes MD LAB BLOOD ORDERABLES Final Resul t [facility] [address] [place] [address], * HPV mRNA E6/E7 (03/30/2018 9:00 AM EST) Pathologist [facility] HPV mRNA E6/E7 Not Detected NOT DETECTED [facility] Comment: This test was performed using the APTIMA(R) HPV Assay ([employer] This assay detects E6/E7 viral messenger RNA (mRNA) from 14 high-risk HPV types (16,18,31,33,35,39,45,51, 52,56,58,59,66,68). For additional information please refer to: http://HealthyRoad.H-art (WPP)/faq/BSD661s7 (This link is being provided for informational/ educational purposes only.) The analytical performance characteristics of this assay have been determined by [facility] [place], [place]. The modifications have not been cleared or approved by the FDA. This assay has been validated pursuant to the CLIA regulations and is used for clinical purposes. Test Performed by [facility], [facility] [place], [address] [place] [address] Diony Vargas M.D., Ph.D., Director of Laboratories , CLIA [id number] Please note: ??Effective 01/06/2016, HPV testing will be performed using [employer]'s APTIMA test which targets mRNA. Detecting mRNA instead of DNA, as in older methods, offers significant improvements in specificity. 03/30/2018 9:00 AM EST Melinda Kennedy CNM HISTORICAL/NON ORDERABLE LABS Final Result [facility] [address] from Last 3 Months or Most Recently Relevant to Health Maintenance Insurance Care Teams Upsetter Relationship Specialty Start Date End Date Bhargavi Llanes MD [address] [facility] [place] [address] PCP - General Family Medicine 11/21/18
--- OUTSIDE RECORDS SUMMARY | 2024-05-30 18:10 | XMS_ITS | Encounter Summary ---
Author Organization [employer] Address [address] [facility] 7t [place] [address] Care Team Providers Care Data Analysis Manager Name Role Phone Bhargavi Llanes MD Primary Care Provider [phone] Reason for Visit * Reason Onset Date Comments Provider Out 05/27/2024 Encounter Details Date Type Department Care Team (Late st Contact Info) Description 05/27/2024 Telephone [facility] [address] [place] [address] Melinda Kennedy CN [address] [place] [address] Provider Out Social History Tobacco Use Types Packs/Day Years Used Date Smoking Tobacco: Former Cigarettes 0.5 30 1 2021 Comments Unknown Sex and Gender Information Value Date Recorded Sex Assigned at Female 02/23/2022 10:16 AM EDT Legal Sex Female 10:16 AM EDT Gender Identity Female 02/23/2022 10:16 AM EDT Sexual Orientation Straight 02/23/2022 10 :16 AM EDT documented as of this encounter Miscellaneous Notes * Telephone Encounter - Hudson Wetzel - 05/27/2024 12:45 PM EST Pt needs appointment r/s from 05/29/24 due to PCP being out. documented in this encounter Plan of Treatment Upcoming Encounters Date Type Department Care Team (Late st Contact Info) Description 06/20/2024 2:15 PM EST Office Visit [facility] [address] [place] [address] Bhargavi Llanes MD [address] [place] [address] documented as of this encounter Visit Diagnoses Not on filedocumented in this encounter Care Teams Data Analysis Manager Relationship Specialty Start Date End Date Bhargavi Llanes MD [address] [place] [address] PCP - General Family Medicine 11/21/18 documented as of this encounter
--- OUTSIDE RECORDS SUMMARY | 2024-05-30 18:10 | XMS_ITS | Encounter Summary ---
Author Organization [employer] [facility] Address [address] [place] [address] [address] [place] [address] Care Team Providers Care Table Cut Off Saw Operator Name Role Phone Bhargavi Llanes MD Primary Care Provider [phone] Encounter Details Date Type Department Care Team (Late st Contact Info) Description 07/28/2023 Orders Only [facility] [address] [place] [address] Bhargavi Llanes MD [address] [place] [address] [phone] Social History Tobacco Use Types Packs/Day Years [...] Description 06/20/2024 2:15 PM EST Office Visit [facility] [address] [place] [phone] Bhargavi Llanes MD [address] [place] [address] [phone] documented as of this encounter Visit Diagnoses Not on filedocumented in this encounter Care Teams Table Cut Off Saw Operator Relationship Specialty Start Date End Date Bhargavi Llanes MD [address] [place] [phone] PCP - General Family Medicine 11/21/18 documented as of this encounter
[2024-06-04 20:03] LABS: C. trachomatis RNA TMA Not Detected (Not Detected); N. gonorrhoeae RNA TMA Not Detected (Not Detected); Trichomonas (NAAT) Not Detected (Not Detected)
[2024-06-12 08:58] LABS: HPV Genotype 16 Negative (Negative); HPV Genotype 18 Negative (Negative); HPV High Risk Negative (Negative)
== END 2024-05-30 18:09 | disposition home or self-care (01) ==
LOC: HO.HHCLNP 18:08
PROVIDERS: Visit Provider Advanced Practice Midwife
DX: N93.9 Abnormal uterine and vaginal bleeding, unspecified (principal); Z12.4 Encounter for screening for malignant neoplasm of cervix; Z11.3 Encounter for screening for infections with a predominantly sexual mode of transmission
CPT/HCPCS: 87491; 87591; 87626; 87661; 88175

== ENCOUNTER 2024-06-27 15:22 | Outpatient (REF) | payer MEDICAID, SELFPAY ==
--- NOTE | ~2024-06-27 | US_ITS ---
EXAMINATION: US PELVIS CLINICAL INFORMATION: AUB. COMPARISON: CT abdomen pelvis 06/15/2023 TECHNIQUE: Ultrasound of the pelvis is performed using both transabdominal and transvaginal transducers along with Doppler. Transvaginal imaging is performed due to inadequate visualization transabdominally. FINDINGS: Uterus: The uterus is retroverted, retroflexed and measures 8.9 x 4.9 x 5.4 cm. The double wall endometrial is heterogenous with cystic areas within. The thickness measures 1.4 cm. The uterus is smooth in contour and has normal myometrial echogenicity. No visible fibroid. There are small nabothian cysts visualized in the cervix. Adnexa: Both ovaries are visualized. There is normal color flow to the adnexa. There is no ovarian torsion. There is no pelvic ascites or fluid collection. Right ovary measures 2.1 x 1.9 x 1.9 cm and volume 1.3 mL. There are small follicles with a dominant follicle noted. Small calcifications are noted. Left ovary measures 2.7 x 1.9 x 1.7 cm in volume 4.5 mL. There is 2 anechoic cysts adjacent to each other versus on cyst with septation or hydrosalpinx. The lesions measure 1.2 x 1.1 x 1.0 cm and 1.3 x 1.3 x 1.1 cm. There is adjacent calcification. Prominent vasculature seen in the left adnexa question pelvic venous congestion. There is no free fluid in the cul-de-sac. US/US pelvic and transvaginal IMPRESSION: Small nabothian cysts. The uterus is unremarkable. The endometrium is slightly heterogeneous with cystic areas within. Bilateral ovarian calcifications with left ovarian to cyst versus one cyst with septation or hydrosalpinx. Suspect left pelvic venous congestion. Electronically signed by: Jose Schwartz MD 06/27/2024 04:27 PM EST
--- OUTSIDE RECORDS SUMMARY | 2024-06-27 19:28 | XMS_ITS | Encounter Summary ---
Author Organization [employer] Address [address] [facility] 7t [place] [address] Care Team Providers Care Marketing Performance Analyst Name Role Phone Bhargavi Llanes MD Primary Care Provider [phone] Reason for Visit * Reason Onset Date Comments Chart Prep 06/14/2024 Encounter Details Date Type Department Care Team ([facility] st Contact Info) Description 06/14/2024 Telephone [facility] [address] [place] [address] Bhargavi Llanes MD [address] [place] [address] Chart Prep Social History Tobacco Use Types Packs/Day Years Used Date Smoking Tobacco: Former Alcohol Use Standard Drinks/Week Comments Never 0 (1 standard drink = 0.6 oz pur e alcohol) Housing Stability Answer Date Recorded What is your housing situation today? I have yasmin zhong 06/07/[address] you li ve. Do you have problems with any of the following? None of the above 06/07/2024 Food Insecurity Answer Date Recorded Within the past 12 months, y ou worried that your food would run out before you got money to buy more: Never True 06/07/2024 Within the past 12 months,th e food you bought just didn't last and you didn't have enough money to get more: Never True 03/2025 Transportation Answer Date Recorded In the past 12 months, has l ack of transportation kept you from medical appts, meetings, work or from getting things needed for daily living? No 06/07/2024 Utilities Answer Date Recorded In the past 12 months, has t he [employer], [employer], oil or water company threatened to shut off services in your home? No 06/07/2024 Internet Access Answer Date Recorded Internet Access Q1 Yes 06/07/2024 Internet Access Q2 Not on file 06/07/2024 Comments No Sex and Gender Information Value Date Recorded Sex Assigned at Female 02/23/2022 10:16 AM EDT Legal Sex Female 10:16 AM EDT Gender Identity Female 02/23/2022 10:16 AM EDT Sexual Orientation Straight 02/23/2022 10 :16 AM EDT documented as of this encounter Miscellaneous Notes * Telephone Encounter - Natalya Wiley MA - 06/14/2024 1:03 PM EST Chart Prep Labs: not done Images: not applicable ; US Pelvis Transvaginal appt was r/s to 06/27/2024 @4PM and Mammo was scheduled for 07/13/2024 @11:15AM Vaccines due: Covid Due, Flu Due, and Shingles in pharmacy Due Referrals: Optometry Pending appointment on n/a Screenings: Colonoscopy Overdue care gaps: Sbirt and PHQ-9 documented in this encounter Plan of Treatment Upcoming Encounters Date Type Department Care Team (Late st Contact Info) Description 07/24/2024 3:00 PM EDT Office Visit [facility] [address] [place] [address] Bhargavi Llanes MD [address] [place] [address] 10/19/2024 1:30 PM EDT Office Visit [facility] OPTOMETRY [address] [place] [address] Marlene Oconnor, OD [address] [place] [address] documented as of this encounter Visit Diagnoses Not on filedocumented in this encounter Care Teams Marketing Performance Analyst Relationship Specialty Start Date End Date Bhargavi Llanes MD [address] [place] [address] PCP - General Family Medicine 11/21/18 documented as of this encounter
--- OUTSIDE RECORDS SUMMARY | 2024-06-27 19:28 | XMS_ITS | Encounter Summary ---
Author Organization [employer] Address [address] [facility] 7t [place] [address] Care Team Providers Care Mobile Home Servicer Name Role Phone Bhargavi Llanes MD Primary Care Provider [phone] Reason for Visit * Reason Comments Pre-visit Planning SDOH Screening negat jimmy and Tobacco screening negative Encounter Details Date Type Department Care Team ([facility] st Contact Info) Description 06/07/2024 Patient Outreach [facility] [address] [place] [address] Bhargavi Llanes MD [address] [place] [address] Pre-visit Planning (SDOH Screening negative and Tobacco screening negative) Social History Tobacco Use Types Packs/Day Years [...] the past 12 months, has t he electric, gas, oil or water company threatened to shut [...] AM EDT documented as of this encounter Progress Notes * Marilee Garcia - 06/07/2024 12:09 PM EST CELENA Kay placed successful outbound call to patient for pre-visit planning. Patient name and confirmed. Patient confirms appt date and time, and has transportation arrangements. Biggest concern for appointment at this time is no concerns. Patient advised to bring to appointment a photo id and insurance card. Appropriate screenings completed in anticipation of appointment. documented in this encounter Plan of Treatment Upcoming Encounters Date Type Department Care Team (Late st Contact Info) Description 07/24/2024 3:00 PM EDT Office Visit [facility] [address] [place] [address] Bhargavi Llanes MD [address] [place] [address] 10/19/2024 1:30 PM EDT Office Visit [facility] OPTOMETRY [address] [place] [address] Elvin, Marlene, OD [address] [place] [address] documented as of this encounter Visit Diagnoses Not on filedocumented in this encounter Care Teams Mobile Home Servicer Relationship Specialty Start Date End Date Bhargavi Llanes MD [address] [place] [address] PCP - General Family Medicine 11/21/18 documented as of this encounter
--- OUTSIDE RECORDS SUMMARY | 2024-06-27 19:28 | XMS_ITS | Clinical Summary ---
Author Organization [employer] Address [address] [facility] 7t [place] [address] Care Team Providers Care Ambulance Mechanic Name Role Phone Bhargavi Llanes MD Primary Care Provider [phone] Allergies Active Allergy Reactions Criticality Noted Date [...] (07/22/2023 7:23 PM EDT): - following with [facility] - s/p colonoscopy in April 2023 [...] Encounters Date Type Department Care Team Description 06/27/2024 Orders Only [address] [address] Natasha Horowitz CNM Abnormal endometrial ultrasound (Primary Dx); Abnormal uterine bleeding (AUB); Cyst of left ovary 06/14/[address] [address] Bhargavi Llanes MD Chart Prep 06/13/2024 Travel 06/08/2024 Orders Only [address] [address] Natasha Horowitz CNM Abnormal uterine bleeding (AUB) (Primary Dx); Acquired hypothyroidism 06/07/2024 Patient Outreach [address] [address] Bhargavi Llanes MD Pre-visit Planning (SDOH Screening negative and Tobacco screening negative) 05/30/2024 10:00 AM EST Office Visit [address] [address] Natasha Horowitz CNM Abnormal uterine bleeding (AUB) (Primary Dx); Routine cervical smear; Screening examination for venereal disease; Mixed incontinence; Cystocele, unspecified; Breast cancer screening by mammogram 05/30/2024 Orders Only [address] [address] Natasha Horowitz CNM 05/30/2024 Travel 05/27/2024 Telephone [facility] [address] [place] [address] Natasha Horowitz CNM Provider Out 05/25/2024 Travel 05/24/[address] [address] Bhargavi Llanes MD Referral from Last 3 Months Immunizations Name Administration Dates Next Due Hep A, Adult 11/26/2017,07/29/2004 Hep B, adult 11/26/2017,09/02/2004,07/29/2004 Influenza injectable quadriv alent IIV4 with preservative 03/09/2016,02/13/2015 Influenza injectable quadriv alent preservative free 03/02/2019 Influenza, IIV3, injectable 02/08/2014, 1 Influenza, Split (incl. jonah fied surface antigen) 01/06/2012 Pneumococcal Conjugate PCV 20 07/22/2023 Pneumococcal [...] Description 07/24/2024 3:00 PM EDT Office Visit [facility] [address] [place] [address] Bhargavi Llanes MD [address] [place] [address] 10/19/2024 1:30 PM EDT Office Visit [facility] [address] [place] [address] Marlene Oconnor, OD [address] [place] [address] Health Maintenance Due Date Last Done Comments CT Colonography 1971 Colonoscopy 1971 Colorectal Cancer Screening 1971 Depression Screening 1971 FIT DNA/Cologuard 1971 FIT 1971 FOBT 1971 Lipid Panel 1971 Sigmoidoscopy 1971 Alcohol/Substance Use Screening 1983 Zoster Vaccines (1 of 2) 2021 Mammogram 12/10/2023 12/09/2021, 11/24, 12/13/2017 COVID-19 Vaccine (1 - season) 2023 Influenza Vaccine (#1) 2023 9, 03/09/2016, 02/13/2015, Additional history exists Tobacco Screening 05/30/2025 05/30/2024 SDOH Screening 06/07/2025 06/07/2024 DTaP/Tdap/Td Vaccines (3 - Td or Tdap) 08/23/2028 08/23/2018, 10/06/2011, 07/22/2004 Cervical Cancer Screening 05/30/2029 HPV/Cotest 05/30/2029 05/30/2024, 03/30/2018 Pap Smear 05/30/2029 05/30/2024 RSV Patients and Patients Aged 60 years or older (1 - 1-dose 75+ series) 2046 Hepatitis A Vaccines Aged Out 11/26/2017, 07/30/19 05 No longer eligible based on patient's age to complete this topic Hepatitis B Vaccines Completed 11/26/2017, 09/02/2004, 07/29/2004 HIV Screening Completed 05/02/2020 Hepatitis C Screening [...] topic Meningococcal Vaccine Aged Out No ruby iyssel eligible based on patient's age to complete this topic RSV under 20 months Aged Out No longe r eligible based on patient's age to complete this topic Rotavirus Vaccines Aged Out No longer eligible based on patient's age to complete this topic Procedures Procedure Name Priority Date/Time Associated Diagnosis Comments US PELVIS TRANSVAGINAL Urgent 06/27/2024 3:38 PM EST Abnormal uterine bleeding (AUB) CHLAMYDIA/N. GONORRHOEAE AND T. VAGINALIS RNA, QUAL,TMA Routine 05/30/2024 10:25 AM EST Abnormal uterine bleeding (AUB) Screening examination for venereal disease PAP SMEAR Routine 05/30/2024 10:25 AM EST Abnormal uterine bleeding (AUB) Routine cervical smear HPV DNA, LOW/HIGH RISK Routine 05/30/2024 10:25 AM EST MAMMOGRAM GENERIC Routine 12/09/2021 8:2 0 AM EDT ZZZ HISTORICAL HEPATITIS C AB W/REFL TO HCV RNA, QN, PCR Routine 05/02/2020 9:36 AM EST HIV 1/2 ANTIGEN/ANTIBODY, FOURTH GENERATION W/RFL Routine 05/02/2020 9:36 AM EST from Last 3 Months or Most Recently Relevant to Health Maintenance Results * US Pelvis Transvaginal (06/27/2024 3:38 PM EST) Anatomical Region Laterality Modality Pelvis Ultrasound 06/27/2024 3:38 PM EST Narrative 06/27/2024 4:30 PM EST ? [facility] ?[address] ?[place] [address] ? Ultrasound Report ? Signed ? Patient: Love,Zari ?MR#: [id number] ?? [id number] ? : 1970 ?Acct:[id number] ? Age/Sex: 54 / F ?ADM Date: 03/04/25 ? Loc: HO.US ? Attending Dr: Natasha Horowitz CNM ? Ordering Physician: NATASHA HOROWITZ CNM ?? Date of Service: 06/27/24 ?? Procedure(s): US pelvic and transvaginal ?? Accession Number(s): [id number] ? cc: NATASHA HOROWITZ CNM; Bhargavi Llanes MD ? EXAMINATION: ? US PELVIS ? CLINICAL INFORMATION: ? AUB. ? COMPARISON: ?? CT abdomen pelvis 06/15/2023 ? TECHNIQUE: ?? Ultrasound of the pelvis is performed using both transabdominal and ?? transvaginal transducers along with Doppler. Transvaginal imaging is ?? performed due to inadequate visualization transabdominally. ? FINDINGS: ?? Uterus: The ??uterus is retroverted, retroflexed and measures 8.9 x 4.9 ?? x 5.4 cm. ? The double wall endometrial is heterogenous with cystic areas within. ?? The thickness ??measures 1.4 cm. ? The uterus is smooth in contour and has normal myometrial echogenicity. ?No visible fibroid. ? There are small nabothian cysts visualized in the cervix. ? Adnexa: ?? Both ovaries are visualized. There is normal color flow to the adnexa. ?? There is no ovarian torsion. ??There is no pelvic ascites or fluid ?? collection. ? Right ovary measures 2.1 x 1.9 x 1.9 cm and volume 1.3 mL. There are ?? small follicles with a dominant follicle noted. Small calcifications ?? are noted. ? Left ovary measures 2.7 x 1.9 x 1.7 cm in volume 4.5 mL. There is 2 ?? anechoic cysts adjacent to each other versus on cyst with septation or ?? hydrosalpinx. The lesions measure 1.2 x 1.1 x 1.0 cm and 1.3 x 1.3 x ?? 1.1 cm. There is adjacent calcification. ? Prominent vasculature seen in the left adnexa question pelvic venous ?? congestion. ? There is no free fluid in the cul-de-sac. ? US/US pelvic and transvaginal ?? IMPRESSION: ?? Small nabothian cysts. The uterus is unremarkable. ? The endometrium is slightly heterogeneous with cystic areas within. ? Bilateral ovarian calcifications with left ovarian to cyst versus one ?? cyst with septation or hydrosalpinx. ? Suspect left pelvic venous congestion. ? Electronically signed by: ??Jose Schwartz MD ??06/27/2024 04:27 PM EST RP ? Dictated By: ?Lana,Jose Wood MD ? Signed By: ?<Electronically signed by Jose Schwartz MD in OV> ?06/27/24 1627 ? DD/ 1538 ? TD/TT: 06/27/24 1556 ? Kettle Hand: MSM ? Procedure Note Donbritton, Image - 06/27/[address] [address] Ultrasound Report Signed Patient: Zari AlemanMR#: [id number] : 1970Acct:[id number] Age/Sex: 54 / FADM Date: 06/27/24 Loc: HO.US Attending Dr: Natasha Horowitz CNM Ordering Physician: NATASHA HOROWITZ CNM Date of Service: 06/27/24 Procedure(s): US pelvic and transvaginal Accession Number(s): [id number] cc: NATASHA HOROWITZ CNM; Bhargavi Llanes MD EXAMINATION: US PELVIS CLINICAL INFORMATION: AUB. COMPARISON: CT abdomen pelvis 06/15/2023 TECHNIQUE: Ultrasound of the pelvis is performed using both transabdominal and transvaginal transducers along with Doppler. Transvaginal imaging is performed due to inadequate visualization transabdominally. FINDINGS: Uterus: The uterus is retroverted, retroflexed and measures 8.9 x 4.9 x 5.4 cm. The double wall endometrial is heterogenous with cystic areas within. The thickness measures 1.4 cm. The uterus is smooth in contour and has normal myometrial echogenicity. No visible fibroid. There are small nabothian cysts visualized in the cervix. Adnexa: Both ovaries are visualized. There is normal color flow to the adnexa. There is no ovarian torsion. There is no pelvic ascites or fluid collection. Right ovary measures 2.1 x 1.9 x 1.9 cm and volume 1.3 mL. There are small follicles with a dominant follicle noted. Small calcifications are noted. Left ovary measures 2.7 x 1.9 x 1.7 cm in volume 4.5 mL. There is 2 anechoic cysts adjacent to each other versus on cyst with septation or hydrosalpinx. The lesions measure 1.2 x 1.1 x 1.0 cm and 1.3 x 1.3 x 1.1 cm. There is adjacent calcification. Prominent vasculature seen in the left adnexa question pelvic venous congestion. There is no free fluid in the cul-de-sac. US/US pelvic and transvaginal IMPRESSION: Small nabothian cysts. The uterus is unremarkable. The endometrium is slightly heterogeneous with cystic areas within. Bilateral ovarian calcifications with left ovarian to cyst versus one cyst with septation or hydrosalpinx. Suspect left pelvic venous congestion. Electronically signed by: Jose Schwartz MD 06/27/2024 04:27 PM EST RP Dictated By: Jose Schwartz MD Signed By: <Electronically signed by Jose Schwartz MD in OV> 06/27/24 1627 DD/ 1538 TD/TT: 06/27/24 1556 Kettle Hand: [facility] us Natasha Horowitz [facility] IMG US PROCEDURES Final R esult * STI testing add on (NG, CT, Trich) (05/30/2024 10:25 AM EST) Trichomonas (NAAT) Not Detected Not Detected [facility] Comment:Methodology: Transcr iption Mediated Amplification(TMA)The analytical performance characteristics of thisassay have been determined by [employer], [place], [place]. The modificationshave not been cleared or approved by the FDA. Thisassay has been validated pursuant to the CLIAregulations and is used for clinical purposes.For additional information, please refer tohttp://education.Schmoozer/faq/Trichomonastma (This link is being providedfor information/educational purposes only).THIS TEST WAS PERFORMED AT:[employer]/[id number] [place] [address]IDZJAJJANNA HUITRON MD,PHD CTNG Ref Lab Not Detected Not Detected [facility] NG Ref Lab Not Detected Not Detected [facility] Comment:Methodology: Transcr iption Mediated Amplification(TMA) to detect RNA.The analytical performance characteristics of thisassay, when used to test [facility] specimens havebeen determined by [employer]. The modificationshave not been cleared or approved by the FDA.This assay has been validated pursuant to the CLIAregulations and is used for clinical purposes.For additional information, please refer tohttps://education.Schmoozer/faq/SQE749(This link is being provided for information/educational purposes only).THIS TEST WAS PERFORMED AT:[employer] [id number] [place] [address]FHVLRQPANNA HUITRON MD,PHD ThinPrep?? vial Cervix uteri structure / Unknown 05/30/2024 10:25 AM EST 05/31/2024 9:15 AM EST Narrative [facility] - 06/04/2024 8:03 PM EST Collection Date: [id number] by: LORRIE Orona: Cervix us Natasha Horowitz [facility] LAB CYTOLOGY ORDERABLES F inal Result [facility] [address] [place] [phone] * HPV DNA, Low/High Risk (05/30/2024 10:25 AM EST) HPV High Risk Negative Negative [facility] HPV Genotype 16 Negative Negative [facility] HPV Genotype 18 Negative Negative [facility] Comment:HPV testing performe d at [facility] (CLIA#[id number]), [address] [place] [address].Testing for HPV was performed using the Bill GERI 6800system. The presence of HPV in the female genital tract isassociated with a number of diseases, including cervicalcarcinoma. The HPV DNA high risk pool tests for HPV 31, 33,35, 39, 45, 51, 52, 56, 58, 59, 66 and 68. The testing forHPV 16 and 18 genotypes has also been performed. A positiveresult indicates detection of nucleic acid sequences fromone or more subtypes, whereas a negative result indicatessuch sequences were not detected. 05/30/2024 10:2 5 AM EST 05/31/2024 9:15 AM EST us Natasha Horowitz CNM LAB BLOOD ORDERABLES Lidya letha Result [facility] [address] [place] [phone] * Pap Smear (05/30/2024 10:25 AM EST) Swab Cervix uteri structure / Unknown 05/30/2024 10:25 AM EST 05/31/2024 9:15 AM EST Narrative [facility] - 06/08/2024 1:10 PM EST ----- ------- Name: Zari Aleman ?Age/Sex: 54/F ? : 1970 Unit#: [id number] ?? Attend Dr: NATASHA HOROWITZ CNM ?Re05/30/24 ?Status: DEP REF ? Location: HO[facility] ? Disch: ? ----- ------- SPEC : [id number] ? RECD: 05/31/24 ? STATUS: ??SOUT ? REQ NUM: [id number] ? MUNIRA: 05/30/24 ? SUBM DR: NATASHA HOROWITZ CNM ? ENTERED: ??05/31/24 ?SP TYPE: Pap Smr ?OTHR : ? ORDERED: ??Pap Smear ? Interpretation ?? Satisfactory for evaluation. ?? Negative for intraepithelial lesion or malignancy. ?? No endocervical cells seen. ? HPV High Risk: ??Negative ? HPV Genotyping 16: ??Negative ?? HPV Genotyping 18: ??Negative ?Clinical Information LMP: Unknown date Previous PAP test: 2018, Unknown findings ? Material Received ?? ThinPrep-Cervical ----- ------- Signed (signature on file) ABDIRAHMAN Vaughan ([facility]) 06/08/24 1310 ? ----- ------- ? END OF REPORT ? us Natasha Horowitz [facility] LAB CYTOLOGY ORDERABLES F inal Result [facility] [address] [place] [phone] * Mammography Report 1 (12/09/2021 8:20 AM EDT) Anatomical Region Laterality Modality Breast Bilateral Mammography 12/09/2021 8:20 AM EDT Narrative 12/10/2021 9:49 AM EDT Refer to the Notes tab for result details [facility] Procedure: Mammography Report 1 Procedure Note Provider, MD Brooke - 07/19/2022 Refer to the Notes tab for result details [facility] Procedure: Mammography Report 1 Bhargavi Llanes MD IMG BI PROCEDURES Final Result * HEPATITIS C AB W/REFL TO HCV RNA, QN, PCR (05/02/2020 9:36 AM EST) HEPATITIS C ANTIBODY NON-REACT STEVE NON-REACT STEVE [facility] INDEX 0.01 <1.00 [facility] Comment: ?? HCV antibody was non-reactive. There is no laboratory ?? evidence of HCV infection. ?? In most cases, no further action is required. However, if recent HCV exposure is suspected, a test for HCV RNA (test code 32101) is suggested. ?? For additional information please refer to http://Salezeo.Schmoozer/faq/MPL42k6 (This link is being provided for informational/ educational purposes only.) ?? 05/02/2020 9:36 AM EST Bhargavi Llanes MD HISTORICAL/NON ORDERABLE LABS Fi nal Result Performing Organization Address [facility] Phone Number [facility] [address] * HIV 1/2 ANTIGEN/ANTIBODY,FOURTH GENERATION W/RFL (05/02/2020 9:36 AM EST) [facility] HIV-1/2 ANTIGEN AND ANTIBODIES, 4TH GENERATION W/ REFLEX NON-REACT STEVE NON-REACT STEVE [facility] Comment: HIV-1 antigen and HIV-1/HIV-2 [...] ? For additional information please refer to http://Salezeo.Schmoozer/faq/ACR691 (This link is being provided for informational/ educational purposes only.) ? The performance of this assay has not been clinically validated in patients less than 2 years old. ?? 05/02/2020 9:36 AM EST us Bhargavi Llanes MD LAB BLOOD ORDERABLES Final Resul t Performing Organization Address [facility] Phone [facility] [address] from Last 3 Months or Most Recently Relevant to Health Maintenance Insurance [address] [place] Care Teams Ambulance Mechanic Relationship Specialty Start Date End Date Bhargavi Llanes MD [address] [place] [phone] PCP - General Family Medicine 11/21/18
--- OUTSIDE RECORDS SUMMARY | 2024-06-27 19:28 | XMS_ITS | Encounter Summary ---
Author Organization [employer] [facility] Address [address] [facility] [address] [place] [address] Care Team Providers Care Out Patient Therapist Name Role Phone Bhargavi Llanes MD Primary Care Provider [phone] Encounter Details Date Type Department Care Team [...] Description 07/24/2024 3:00 PM EDT Office Visit [facility] [address] [place] [address] Bhargavi Llanes MD 230 [place] [address] 10/19/2024 1:30 PM EDT Office Visit [facility] OPT[facility] [address] [place] [address] Marlene Oconnor OD [address] [place] [address] documented as of this encounter Visit Diagnoses Not on filedocumented in this encounter Care Teams Out Patient Therapist Relationship Specialty Start Date End Date Bhargavi Llanes MD [address] [place] [phone] PCP - General Family Medicine 11/21/18 documented as of this encounter
--- OUTSIDE RECORDS SUMMARY | 2024-06-27 19:28 | XMS_ITS | Encounter Summary ---
Author Organization [employer] Address [address] [facility] 7t [place] [address] Care Team Providers Care Laboratory Worker Name Role Phone Bhargavi Llanes MD Primary Care Provider [phone] Reason for Referral * Consultation (Routine) - Pending Review Specialty Diagnoses / Procedures Referred By Lucie salinas Referred To Contact Obstetrics and Gynecology Diagnoses Abnormal endometrial ultrasound Abnormal uterine bleeding (AUB) Cyst of left ovary Melinda Kennedy CNM [address] [place] [address] Phone: tel: fax: Referral ID Status Reason Start Date Expiration Date Visits Requested Visits Authorized [id number] Pending Review Specialty Services Required 06/27/2024 06/27/2025 1 1 Encounter Details Date Type Department Care Team (Late st Contact Info) Description 06/27/2024 Orders Only [facility] [address] [place], [place] [phone] Melinda Kennedy CNM [address] [place], [place] [phone] Abnormal endometrial ultrasound (Primary Dx); Abnormal uterine bleeding (AUB); Cyst of left ovary Social History Tobacco Use Types Packs/Day Years [...] Description 07/24/2024 3:00 PM EDT Office Visit [facility] [address] [place] [address] Bhargavi Llanes MD [address] [place] [address] 10/19/2024 1:30 PM EDT Office Visit [facility] OPT[facility]ETRY [address] [place] [address] Marlene Oconnor, OD [address] [place] [address] Scheduled Referrals Name Type Priority Associated Diagnoses Orde r Schedule Referral to Obstetrics / Gynecology Outpatient Referral Routine Abnormal endometrial ultrasound Abnormal uterine bleeding (AUB) Cyst of left ovary Expected: 06/27/2024 (Approximate), Expires: 06/27/2025 documented as of this encounter Visit Diagnoses Diagnosis Abnormal endometrial ultrasound- Primary Abnormal uterine bleeding (AUB) Cyst of left ovary Other and unspecified ovarian cyst documented in this encounter Care Teams Laboratory Worker Relationship Specialty Start Date End Date Bhargavi Llanes MD [address] [place] [phone] PCP - General Family Medicine 11/21/18 documented as of this encounter
--- OUTSIDE RECORDS SUMMARY | 2024-06-27 19:28 | XMS_ITS | Encounter Summary ---
Author Organization [employer] Address [address] [facility] [address] 7t [place] [address] Care Team Providers Care Orchestra Musician Name Role Phone Bhargavi Llanes MD Primary Care Provider Encounter Details Date Type Department Care Team (Latest Contact Info) Description 06/13/2024 Travel Social History Tobacco Use Types Packs/Day [...] Office Visit [facility] [address] [place] [address] Bhargavi Llanes MD [address] [place] [address] 10/19/2024 1:30 PM EDT Office Visit [facility] OPT[facility]ETRY [address] [place] [address] Marlene Oconnor, OD [address] [place] [address] documented as of this encounter Visit Diagnoses Not on filedocumented in this encounter Care Teams Orchestra Musician Relationship Specialty Start Date End Date Bhargavi Llanes MD [address] [place] [address] PCP - General Family Medicine 11/21/18 documented as of this encounter
--- OUTSIDE RECORDS SUMMARY | 2024-06-27 19:28 | XMS_ITS | Encounter Summary ---
Author Organization [employer] Address [address] [place] [address] [address] [place] [address] Care Team Providers Care Dobie Man Name Role Phone Bhargavi Llanes MD Primary Care Provider [phone] Encounter Details Date Type Department Care Team (Late st Contact Info) Description 07/28/2023 Orders Only [facility] [address] [place] [address] Bhargavi Llanes MD [address] [place] [address] Social History Tobacco Use Types Packs/Day Years [...] Description 07/24/2024 3:00 PM EDT Office Visit [facility] MED[facility] [address] [place] [address] Bhargavi Llanes MD [address] [place] [address] 10/19/2024 1:30 PM EDT Office Visit [facility] OPTOMETRY [address] [place] [address] Marlene Oconnor, OD [address] [place] [address] documented as of this encounter Visit Diagnoses Not on filedocumented in this encounter Care Teams Dobie Man Relationship Specialty Start Date End Date Bhargavi Llanes MD [address] [place] [address] PCP - General Family Medicine 11/21/18 documented as of this encounter
--- OUTSIDE RECORDS SUMMARY | 2024-06-27 19:28 | XMS_ITS | Encounter Summary ---
Author Organization [employer] Address [address] [facility] 7t [place] [address] Care Team Providers Care Concrete Products Machine Operator Name Role Phone Bhargavi Llanes MD Primary Care Provider Encounter Details Date Type Department Care Team (Late st Contact Info) Description 06/08/2024 Orders Only [facility] MED[facility]INE [address] [place] [address] Melinda Kennedy CN [address] [place] [address] Abnormal uterine bleeding (AUB) (Primary Dx); Acquired hypothyroidism Social History Tobacco Use Types Packs/Day Years [...] the past 12 months, has t he enosiX, gas, oil or water [employer] threatened to shut off services in your [...] Description 07/24/2024 3:00 PM EDT Office Visit [facility] MED[facility]INE [address] [place] [address] Bhargavi Llanes MD [address] [place] [address] 10/19/2024 1:30 PM EDT Office Visit [facility] OPTOMETRY [address] [place] [address] Elvin, Marlene, OD [address] [place] [address] Scheduled Orders Name Type Priority Associated Diagnoses Orde r Schedule TSH W/Reflex to FT4 Lab Routine Abnormal uterine bleeding (AUB) Acquired hypothyroidism Expected: 06/08/2024 (Approximate), Expires: 06/08/2025 documented as of this encounter Visit Diagnoses Diagnosis Abnormal uterine bleeding (AUB)- Primary Acquired hypothyroidism Unspecified hypothyroidism documented in this encounter Care Teams Concrete Products Machine Operator Relationship Specialty Start Date End Date Bhargavi Llanes MD [address] [place] [address] PCP - General Family Medicine 11/21/18 documented as of this encounter
--- OUTSIDE RECORDS SUMMARY | 2024-06-27 19:28 | XMS_ITS | Encounter Summary ---
Author Organization [employer] Address [address] [place] [address] 7t [place] [address] Care Team Providers Care Crepe Maker Name Role Phone Bhargavi Llanes MD Primary Care Provider [phone] Reason for Referral * Imaging (Routine) - Closed Specialty Diagnoses / Procedures Referred By Contac t Referred To Contact Radiology Diagnoses Breast cancer screening by mammogram Procedures BI Mammogram Screening Tomosynthesis Bilateral Melinda Horowitz CNM [address] [place] [address] Phone: tel: fax: [address] Phone: tel: fax: Referral ID Status Reason Start Date Expiration Date Visits Re quested Visits Authorized [id number] Closed 05/30/2024 05/30/2025 1 1 * Imaging (Urgent) - Authorized Specialty Diagnoses / Procedures Referred By Contac t Referred To Contact Radiology Diagnoses Abnormal uterine bleeding (AUB) Procedures Us Pelvis complete Melinda Horowitz CNM [address] [place] [address] Phone: tel: fax: [address] Phone: tel: fax: Referral ID Status Reason Start Date Expiration Date V isits Requested Visits Authorized [id number] Authorized 05/30/2024 05/30/2025 1 1 * Imaging (Urgent) - Authorized Specialty Diagnoses / Procedures Referred By Lucie salinas Referred To Contact Radiology Diagnoses Abnormal uterine bleeding (AUB) Procedures US Pelvis Transvaginal Melinda Horowitz CNM [address] [place] [address] Phone: tel: fax: [address] Phone: tel: fax: Referral ID Status Reason Start Date Expiration Date V isits Requested Visits Authorized [id number] Authorized 05/30/2024 05/30/2025 1 1 Reason for Visit * Reason Comments Gynecologic Exam Encounter Details Date Type Department Care Team (Late st Contact Info) Description 05/30/2024 10:00 AM EST Office Visit [facility] [address] [place], [place] [phone] Melinda Horowitz CNM [address] [place], [place] [phone] Abnormal uterine bleeding (AUB) (Primary Dx); Routine [...] in this encounter Progress Notes * Melinda Horowitz, JAMARI - 05/30/2024 10:00 AM EST Subjective Patient ID: Zari Aleman is a 54 y.o. 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 SVB x 7. 1 fci AMAB partner, no safety concerns. Has tubal ligation. Last pap 03/2018, HPV neg, unable to see pap result. She thinks she had one in 2020 as well, no prior abnormal. Known thyroid disease, followed by [facility] endocrinology. Was off treatment for a while after her brother in 2020. Now taking consistently. Coping okay, has support. Due for mammogram. Would like full ASSISTANT FOOD SERVICE DIRECTOR exam today. Review of Systems Genitourinary: Positive [...] Description 07/24/2024 3:00 PM EDT Office Visit [facility] [address] [place] [address] Bhargavi Llanes MD [address] [place] [address] 10/19/2024 1:30 PM EDT Office Visit [facility] [address] [place] [address] Elvin, Marlene, OD [address] [place] [address] Scheduled Orders Name Type Priority Associated Diagnoses Orde r Schedule Us Pelvis complete Imaging Urgent Abnormal uterine bleeding (AUB) Expected: 05/30/2024, Expires: 05/30/2025 BI Mammogram Screening Tomosynthesis Bilateral Imaging Routine Breast cancer screening by mammogram Expected: 05/30/2024, Expires: 07/28/2025 documented as of this encounter Procedures Procedure Name Priority Date/Time Associated Diagnosis Comments US PELVIS TRANSVAGINAL Urgent 06/27/2024 3:38 PM EST Abnormal uterine bleeding (AUB) CHLAMYDIA/N. GONORRHOEAE AND T. VAGINALIS RNA, QUAL,TMA Routine 05/30/2024 10:25 AM EST Abnormal uterine bleeding (AUB) Screening examination for venereal disease PAP SMEAR Routine 05/30/2024 10:25 AM EST Abnormal uterine bleeding (AUB) Routine cervical smear documented in this encounter Results * US Pelvis Transvaginal (06/27/2024 3:38 PM EST) Anatomical Region Laterality Modality Pelvis Ultrasound 06/27/2024 3:38 PM EST Narrative 06/27/2024 4:30 PM EST ? [facility] ?[address] ?[place] [address] ? Ultrasound Report ? Signed ? Patient: Love,Zari ?MR#: [id number] ?? [id number] ? : 1970 ?Acct:[id number] ? Age/Sex: 54 / F ?ADM Date: 06/27/24 ? Loc: HO.US ? Attending Dr: Melinda Horowitz CNM ? Ordering Physician: MELINDA HOROWITZ CNM ?? Date of Service: 06/27/24 ?? Procedure(s): US pelvic and transvaginal ?? Accession Number(s): [id number] ? cc: MELINDA HOROWITZ CNM; Bhargavi Llanes MD ? EXAMINATION: [...] 04:27 PM EST RP ? Dictated By: ?Jose Schwartz MD ? Signed By: ?<Electronically signed by Jose Schwartz MD in OV> ?06/27/24 1627 ? DD/ 1538 ? TD/TT: 06/27/24 1556 ? Test Deck Supervisor: MSM ? Procedure Note Geni, Image - 06/27/2024 [place] [address] Ultrasound Report Signed Patient: Zari AlemanMR#: [id number] : 1970Acct:[id number] Age/Sex: 54 / FADM Date: 06/27/24 Loc: HO.US Attending Dr: Melinda Horowitz CNM Ordering Physician: MELINDA HOROWITZ CNM Date of Service: 06/27/24 Procedure(s): US pelvic and transvaginal Accession Number(s): [id number] cc: MELINDA HOROWITZ CNM; Bhargavi Llanes MD EXAMINATION: US [...] Jose Schwartz MD 06/27/2024 04:27 PM EST Dictated By: Jose Schwartz MD Signed By: <Electronically signed by Jose Schwartz MD in OV> 06/27/24 1627 DD/ 1538 TD/TT: 06/27/24 1556 Test Deck Supervisor: MSM us Melinda Horowitz CNM IMG US PROCEDURES Final R esult * STI testing add on (NG, CT, Trich) (05/30/2024 10:25 AM EST) Trichomonas (NAAT) Not Detected Not Detected [facility] Comment:Methodology: Transcr iption Mediated Amplification(TMA)The analytical performance characteristics of thisassay have been determined by [employer]. The modificationshave not been cleared or approved by the FDA. Thisassay has been validated pursuant to the CLIAregulations and is used for clinical purposes.For additional information, please refer tohttp://education.[employer]/faq/Trichomonastma (This link is being providedfor information/educational purposes only).THIS TEST WAS PERFORMED AT:[employer] [address] [id number] HUITRON MD,PHD CTNG Ref Lab Not Detected Not Detected [facility] NG Ref Lab Not Detected Not Detected [facility] Comment:Methodology: Transcr iption Mediated Amplification(TMA) to detect RNA.The analytical performance characteristics of thisassay, when used to test SurePath specimens havebeen determined by [employer]. The modificationshave not been cleared or approved by the FDA.This assay has been validated pursuant to the CLIAregulations and is used for clinical purposes.For additional information, please refer tohttps://education.[employer]/faq/NMG071(This link is being provided for information/educational purposes only).THIS TEST WAS PERFORMED AT:[employer] [address] [place] [id number] HUITRON MD,PHD ThinPrep?? vial Cervix uteri structure / Unknown 05/30/2024 10:25 AM EST 05/31/2024 9:15 AM EST Narrative [facility] - 06/04/2024 8:03 PM EST Collection Date: [id number] by: LORRIE Oron[place]: Cervix Melinda Horowitz [facility] CYTOLOGY ORDERABLES F inal Result [facility] [address] [place] [address] [phone] * Pap Smear (05/30/2024 10:25 AM EST) Swab Cervix uteri structure / Unknown 05/30/2024 10:25 AM EST 05/31/2024 9:15 AM EST Narrative [facility] - 06/08/2024 1:10 PM EST ----- ------- Name: Zari Aleman ?Age/Sex: 54/F ? : 1970 Unit#: [id number] ?? Attend Dr: MELINDA HOROWITZ ?Re05/30/24 ?Status: DEP REF ? Location: HO.HHCLNP ? Disch: ? ----- ------- SPEC : [id number] ? RECD: 05/31/24-914 ? STATUS: ??SOUT ? REQ NUM: [id number] ? MUNIRA: 05/30/24-1024 ? SUBM DR: MELINDA HOROWITZ CNM ? ENTERED: ??05/31/24 ?SP TYPE: [...] ------- Signed (signature on file) ABDIRAHMAN Vaughan (ASCP) 06/08/24 1310 ? ----- ------- ? END OF REPORT ? us Melinda Horowitz [facility] CYTOLOGY ORDERABLES F inal Result Performing Organization Address City/State/[facility] Co de Phone Number [facility] [address] [place] [address] [phone] documented in this encounter Visit Diagnoses Diagnosis Abnormal uterine bleeding (AUB)- Primary Routine cervical smear Screening for malignant neoplasm of the cervix Screening examination for venereal disease Mixed incontinence Mixed incontinence urge and stress (male)(female) Cystocele, unspecified Breast cancer screening by mammogram documented in this encounter Care Teams Crepe Maker Relationship Specialty Start Date End Date Bhargavi Llanes MD [address] [place] [phone] PCP - General Family Medicine 11/21/18 documented as of this encounter
--- OUTSIDE RECORDS SUMMARY | 2024-06-27 19:28 | XMS_ITS | Encounter Summary ---
Author Organization [employer] Address [address] [facility] 7t [place] [address] Care Team Providers Care Inside Sales Account Representative Name Role Phone Bhargavi Llanes MD Primary Care Provider [phone] Encounter Details Date Type Department Care Team (Late st Contact Info) Description 05/30/2024 Orders Only [facility] [address] [place] [address] Melinda Kennedy CN [address] [place] [address] Social History Tobacco Use Types Packs/Day Years [...] Description 07/24/2024 3:00 PM EDT Office Visit [facility] [address] [place] [address] Bhargavi Llanes MD [address] [place] [address] 10/19/2024 1:30 PM EDT Office Visit [facility]OM[facility] [address] [place] [address] Marlene Oconnor, OD [address] [place] [address] documented as of this encounter Procedures Procedure Name Priority Date/Time Associated Diagnosis Comments HPV DNA, LOW/HIGH RISK Routine 05/30/2024 10:25 AM EST documented in this encounter Results * HPV DNA, Low/High Risk (05/30/2024 10:25 AM EST) HPV High Risk Negative Negative [facility] HPV Genotype 16 Negative Negative [facility] HPV Genotype 18 Negative Negative [facility] Comment:HPV testing performe d at [facility] (CLIA#[id number]), [address] [place] [address].Testing for HPV was performed using the [employer] GERI 6800system. The presence of HPV in [...] AM EST 05/31/2024 9:15 AM EST us Melinda Kennedy CNM LAB BLOOD ORDERABLES Lidya l Result [facility] [address] [place] [address] [phone] documented in this encounter Visit Diagnoses Not on filedocumented in this encounter Care Teams Inside Sales Account Representative Relationship Specialty Start Date End Date Bhargavi Llanes MD [address] [place] [phone] PCP - General Family Medicine 11/21/18 documented as of this encounter
== END 2024-06-27 15:23 | disposition home or self-care (01) ==
LOC: HO.US 15:22
PROVIDERS: PCP Family Medicine; Visit Provider Advanced Practice Midwife
DX: N93.9 Abnormal uterine and vaginal bleeding, unspecified (principal)
CPT/HCPCS: 76830; 76856

== ENCOUNTER → 2024-06-27 15:25 | Outpatient (BNV) | payer MEDICAID, SELFPAY | PROVIDERS: PCP Family Medicine; Visit Provider Radiology Diagnostic Radiology | DX: N93.9 Abnormal uterine and vaginal bleeding, unspecified (principal) | CPT/HCPCS: 76830; 76856 ==

== ENCOUNTER 2024-07-10 09:59 | Outpatient (REF) | payer MEDICAID, SELFPAY ==
[2024-07-10 14:04] LABS: Free T4 (Free Thyroxine) < 0.42 ng/dL (0.71-1.85); TSH reflex Free T4 71.73 uIU/mL (0.32-4.0); Thyroid Stimulating Hormone 70.15 uIU/mL (0.32-4.0)
== END 2024-07-10 10:00 | disposition home or self-care (01) ==
LOC: HO.10HDL 09:59
PROVIDERS: Advanced Practice Midwife; Visit Provider Internal Medicine Endocrinology, Diabetes & Metabolism
DX: E03.8 Other specified hypothyroidism (principal); E06.3 Autoimmune thyroiditis; N93.9 Abnormal uterine and vaginal bleeding, unspecified; E03.9 Hypothyroidism, unspecified
CPT/HCPCS: 36415; 84439; 84443

== ENCOUNTER 2024-07-11 07:50 | Outpatient (AMB) | payer MEDICAID, SELFPAY ==
--- OUTSIDE RECORDS SUMMARY | 2024-07-11 07:54 | XMS_ITS | Encounter Summary ---
Author Organization [employer] Address [address] [facility] 7t [place] [address] Care Team Providers Care Insulator Cutter And Former Name Role Phone Bhargavi Llanes MD Primary Care Provider [phone] Encounter Details Date Type Department Care Team [...] Visit [facility] [address] [place] [address] Bhargavi Llanes MD [address] [place] [address] 10/19/2024 1:30 PM EDT Office Visit [facility] [address] [place] [address] Marlene Oconnor, OD [address] [place] [address] documented as of this encounter Visit Diagnoses Not on filedocumented in this encounter Care Teams Insulator Cutter And Former Relationship Specialty Start Date End Date Bhargavi Llanes MD [address] [place] [address] PCP - General Family Medicine 11/21/18 documented as of this encounter
--- OUTSIDE RECORDS SUMMARY | 2024-07-11 07:54 | XMS_ITS | Encounter Summary ---
Author Organization [employer] Address [address] [facility] 7t [place] [address] Care Team Providers Care Silvering Department Supervisor Name Role Phone Bhargavi Llanes MD Primary Care Provider Reason for Referral * Consultation (Routine) - Authorized Specialty Diagnoses / Procedures Referred By Lucie salinas Referred To Contact Obstetrics and Gynecology Diagnoses Abnormal endometrial ultrasound Abnormal uterine bleeding (AUB) Cyst of left ovary Melinda Kennedy CNM [address] [place] [address] Phone: tel: fax: [facility] [address] 5[address] (Main Hospital Entrance) [place], [place] Phone: tel: fax: Referral ID Status Reason Start Date Expiration Date Visits Requested Visits Authorized [id number] Authorized Specialty Services Required 06/29/2024 06/29/2025 9 9 Encounter Details Date Type Department Care Team (Late st Contact Info) Description 06/27/2024 Orders Only [facility] [address] [place], [place] [phone] Melinda Kennedy CNM [address] [place], [place] [phone] Abnormal endometrial ultrasound (Primary Dx); Abnormal uterine [...] Description 07/24/2024 3:00 PM EDT Office Visit [facility] [address] [place] [address] Bhargavi Llanes MD [address] [place] [address] 10/19/2024 1:30 PM EDT Office Visit [facility] OPT[facility] [address] [place] [address] Marlene Oconnor, OD [address] [place] [address] Scheduled Referrals Name Type Priority Associated Diagnoses [...] cyst documented in this encounter Care Teams Silvering Department Supervisor Relationship Specialty Start Date End Date Bhargavi Llanes MD [address] [place] [address] PCP - General Family Medicine 11/21/18 documented as of this encounter
--- OUTSIDE RECORDS SUMMARY | 2024-07-11 07:54 | XMS_ITS | Encounter Summary ---
Author Organization [employer] Address [address] [facility] 7t [place] [address] Care Team Providers Care Legal Librarian Name Role Phone Bhargavi Llanes MD Primary Care Provider [phone] Encounter Details Date Type Department Care Team (Late st Contact Info) Description 05/30/2024 Orders Only [facility] [address] [place] [address] Melinda Kennedy CN [address] [place] [address] Social History Tobacco Use Types Packs/Day Years [...] Description 07/24/2024 3:00 PM EDT Office Visit [facility] [address] [place] [address] Bhargavi Llanes MD [address] [place] [address] 10/19/2024 1:30 PM EDT Office Visit [facility] OPTOMETRY [address] [place] [address] Marlene Oconnor, OD [address] [place] [address] documented as of this encounter Procedures Procedure Name Priority Date/Time Associated Diagnosis Comments HPV DNA, LOW/HIGH RISK Routine 05/30/2024 10:25 AM EST documented in this encounter Results * HPV DNA, Low/High Risk (05/30/2024 10:25 AM EST) HPV High Risk Negative Negative [facility] HPV Genotype 16 Negative Negative [facility] HPV Genotype 18 Negative Negative [facility] Comment:HPV testing performe d at [facility] (CLIA#[id number]), [address] [place] [address].Testing for HPV was performed using the [employer] GERI 6800system. The presence of HPV in [...] CNM LAB BLOOD ORDERABLES Lidya l Result [facility] [address] [place] [address] [phone] documented in this encounter Visit Diagnoses Not on filedocumented in this encounter Care Teams Legal Librarian Relationship Specialty Start Date End Date Bhargavi Llanes MD [address] [place] [address] PCP - General Family Medicine 11/21/18 documented as of this encounter
--- OUTSIDE RECORDS SUMMARY | 2024-07-11 07:54 | XMS_ITS | Encounter Summary ---
Author Organization [employer] Address [address] [facility] 7t [place] [address] Care Team Providers Care Gas Plant Operator Name Role Phone Bhargavi Llanes MD Primary Care Provider [phone] Reason for Visit * Reason Onset Date Comments Chart Prep 06/14/2024 Encounter Details Date Type Department Care Team ([facility] st Contact Info) Description 06/14/2024 Telephone [facility] [address] [place] [address] Bhargavi Llanes MD [address] [place] [address] Chart Prep Social History Tobacco Use Types [...] the past 12 months, has t he [employer] oil or [employer] company threatened to shut [...] Miscellaneous Notes * Telephone Encounter - Natalya iWley [place] - 06/14/2024 1:03 PM EST Chart [...] Description 07/24/2024 3:00 PM EDT Office Visit [facility] [address] [place] [address] Bhargavi Llanes MD [address] [place] [address] 10/19/2024 1:30 PM EDT Office Visit [facility] [address] [place] [address] Marlene Oconnor, OD [address] [place] [address] documented as of this encounter Visit Diagnoses Not on filedocumented in this encounter Care Teams Gas Plant Operator Relationship Specialty Start Date End Date Bhargavi Llanes MD [address] [place] [address] PCP - General Family Medicine 11/21/18 documented as of this encounter
--- OUTSIDE RECORDS SUMMARY | 2024-07-11 07:54 | XMS_ITS | Encounter Summary ---
Author Organization [employer] Address [address] [facility] [address] [address] 7t [place] [address] Care Team Providers Care Stereotype Caster Name Role Phone Bhargavi Llanes MD Primary Care Provider Encounter Details Date Type Department Care Team (Late st Contact Info) Description 07/07/2024 Orders Only [facility] [address] [place], [place] [phone] Provider, MD Brooke Social History Tobacco Use Types Packs/Day Years [...] Description 07/24/2024 3:00 PM EDT Office Visit [facility] [address] [place] [address] Bhargavi Llanes MD [address] [place] [address] 10/19/2024 1:30 PM EDT Office Visit [facility] OPTOMETRY [address] [place] [address] Elvin, Marlene, OD [address] [place] [address] documented as of this encounter Procedures Procedure Name Priority Date/Time Associated Diagnosis Comments COLONOSCOPY Routine 04/27/2023 10:30 AM EST documented in this encounter Results * Colonoscopy (04/27/2023 10:30 AM EST) Colonoscopy Normal Normal Narrative Ana Burgess - 04/27/2023 10:30 AM EST See external hospital admission note on 04/27/2023 Historical Provider HEALTH MAINTENANCE Edited Result - Final documented in this encounter Visit Diagnoses Not on filedocumented in this encounter Care Teams Stereotype Caster Relationship Specialty Start Date End Date Bhargavi Llanes MD [address] [place], [place] [phone] PCP - General Family Medicine 11/21/18 documented as of this encounter
--- OUTSIDE RECORDS SUMMARY | 2024-07-11 07:54 | XMS_ITS | Encounter Summary ---
Author Organization [employer] Address [address] [facility] 7t [place] [address] Care Team Providers Care Tamale Maker Name Role Phone Bhargavi Llanes MD Primary Care Provider [phone] Encounter Details Date Type Department Care Team ([facility] st Contact Info) Description 07/07/2024 Population Health Risk Score [facility] (C3) Department [address] [facility] [address] [place] [phone] Provider, Population Health Generic Social History Tobacco Use Types Packs/Day Years [...] Description 07/24/2024 3:00 PM EDT Office Visit [facility] [address] [place] [address] Bhargavi Llanes MD [address] [place] [address] 10/19/2024 1:30 PM EDT Office Visit [facility] OPT[facility] [address] [place] [address] Elvin, Marlene, OD [address] [place] [address] documented as of this encounter Visit Diagnoses Not on filedocumented in this encounter Care Teams Tamale Maker Relationship Specialty Start Date End Date Bhargavi Llanes MD [address] [place] [address] PCP - General Family Medicine 11/21/18 documented as of this encounter
--- OUTSIDE RECORDS SUMMARY | 2024-07-11 07:54 | XMS_ITS | Encounter Summary ---
Author Organization [employer] Address [address] [place] [address] [address] [place] [address] Care Team Providers Care Dermatologist And Dermatopathologist Name Role Phone Bhargavi Llanes MD Primary Care Provider [phone] Encounter Details Date Type Department Care Team (Late st Contact Info) Description 07/28/2023 Orders Only [facility] [address] [place] [address] Bhargavi Llanes MD [address] [place] [address] Social History Tobacco Use Types Packs/Day Years [...] Description 07/24/2024 3:00 PM EDT Office Visit [facility] [address] [place] [address] Bhargavi Llanes MD [address] [place] [address] 10/19/2024 1:30 PM EDT Office Visit [facility] OPTOMETRY [address] [place] [address] Marlene Oconnor, OD [address] [place] [address] documented as of this encounter Visit Diagnoses Not on filedocumented in this encounter Care Teams Dermatologist And Dermatopathologist Relationship Specialty Start Date End Date Bhargavi Llanes MD [address] [place] [address] PCP - General Family Medicine 11/21/18 documented as of this encounter
--- OUTSIDE RECORDS SUMMARY | 2024-07-11 07:54 | XMS_ITS | Clinical Summary ---
Author Organization [employer] Address [address] [facility] [address] [place] [address] Care Team Providers Care Automatic Operator Name Role Phone Bhargavi Llanes MD Primary Care Provider [phone] Allergies Active Allergy Reactions Criticality Noted Date [...] (07/22/2023 7:23 PM EDT): - following with [facility] - s/p colonoscopy in April 2023 [...] Encounters Date Type Department Care Team Description 07/07/2024 Orders Only [facility] [address] [place] [address] Provider, MD Brooke 07/07/2024 Population Health Risk Score [facility] () Department [address] [phone] Provider, Population Health Generic 06/27/2024 Orders Only [address] [address] Natasha Horowitz CNM Abnormal endometrial ultrasound (Primary Dx); Abnormal uterine bleeding (AUB); Cyst of left ovary 06/14/[address] [address] Bhargavi Llanes MD Chart Prep 06/13/2024 Travel 06/08/2024 Orders Only [address] [address] Natasha Horowitz CNM Abnormal uterine bleeding (AUB) (Primary Dx); Acquired hypothyroidism 06/07/2024 Patient Outreach [address] [address] Bhargavi Llanes MD Pre-visit Planning (SDOH Screening negative and Tobacco screening negative) 05/30/2024 10:00 AM EST Office Visit [address] [address] Natasha Horowitz CNM Abnormal uterine bleeding (AUB) (Primary Dx); Routine cervical smear; Screening examination for venereal disease; Mixed incontinence; Cystocele, unspecified; Breast cancer screening by mammogram 05/30/2024 Orders Only [address] [address] Natasha Horowitz CNM 05/30/2024 Travel 05/27/2024 Telephone [facility] [address] [place] [address] Natasha Horowitz CNM Provider Out 05/25/2024 Travel 05/24/2024 Telephone [facility] [address] [place] [address] Bhargavi Llanes MD Referral from Last 3 [...] Description 07/24/2024 3:00 PM EDT Office Visit [facility] [address] [place] [address] Bhargavi Llanes MD [address] [place] [address] 10/19/2024 1:30 PM EDT Office Visit [facility] [address] [place] [address] Marlene Oconnor, OD [address] [place] [address] Health Maintenance Due Date Last Done Comments CT Colonography 1970 Depression Screening 1971 FIT DNA/Cologuard 1971 FIT 1970 FOBT 1970 Lipid Panel 1970 Sigmoidoscopy 1971 Alcohol/Substance Use Screening 1983 Zoster Vaccines (1 of 2) 2021 Mammogram 12/10/2023 12/09/2021, 11/24, 12/13/2017 COVID-19 Vaccine ( season) 2023 Influenza Vaccine (#1) 2023 9, 03/09/2016, 02/13/2015, Additional history exists Tobacco Screening 05/30/2025 05/30/2024 SDOH Screening 06/07/2025 06/07/2024 Colonoscopy 04/27/2028 04/27/2023 Colorectal Cancer Screening 04/27/2028 DTaP/Tdap/Td Vaccines (3 - Td or Tdap) [...] Procedure Name Priority Date/Time Associated Diagnosis Comments TSH W/REFLEX TO FT4 Routine 07/10/2024 1 0:10 AM EDT Abnormal uterine bleeding (AUB) Acquired hypothyroidism US PELVIS TRANSVAGINAL Urgent 06/27/2024 3:38 PM EST Abnormal uterine bleeding (AUB) CHLAMYDIA/N. GONORRHOEAE AND T. VAGINALIS RNA, QUAL,TMA Routine 05/30/2024 10:25 AM EST Abnormal uterine bleeding (AUB) Screening examination for venereal disease PAP SMEAR Routine 05/30/2024 10:25 AM EST Abnormal uterine bleeding (AUB) Routine cervical smear HPV DNA, LOW/HIGH RISK Routine 05/30/2024 10:25 AM EST HM COLONOSCOPY Routine 04/27/2023 10:30 AM EST MAMMOGRAM GENERIC Routine 12/09/2021 8:2 0 AM EDT ZZZ HISTORICAL HEPATITIS C AB W/REFL TO HCV RNA, QN, PCR Routine 05/02/2020 9:36 AM EST HIV 1/2 ANTIGEN/ANTIBODY, FOURTH GENERATION W/RFL Routine 05/02/2020 9:36 AM EST from Last 3 Months or Most Recently Relevant to Health Maintenance Results * (ABNORMAL) TSH W/Reflex to FT4 (07/10/2024 10:10 AM EDT) TSH reflex Free T4 71.73(H) 0.32 - 4.0 uIU/mL [facility] Blood Venous blood specimen / Unknown 07/10/2024 10:10 AM EDT 07/10/2024 12:59 PM EDT us Natasha Dangeloquincydar CNM LAB BLOOD ORDERABLES Lidya l Result [facility] [address] [place] [address] [phone] * US Pelvis Transvaginal (06/27/2024 3:38 PM EST) Anatomical Region Laterality Modality Pelvis Ultrasound 06/27/2024 3:38 PM EST Narrative 06/27/2024 4:30 PM EST ? [facility] ?[address] ?[place] [address] ? Ultrasound Report ? Signed ? Patient: Love,Zari ?MR#: [id number] ?? [id number] ? : 1970 ?Acct:[id number] ? Age/Sex: 54 / F ?ADM Date: 06/27/24 ? Loc: HO.US ? Attending Dr: Natasha Horowitz CNM ? Ordering Physician: NATASHA HOROWITZ CNM ?? Date of Service: 06/27/24 ?? Procedure(s): US pelvic and transvaginal ?? Accession Number(s): [id number] ? cc: NATASHA HOROWITZ CNM; Bhargavi Llanes [...] PM EST RP ? Dictated By: ?Lana,Jose S MD ? Signed By: ?<Electronically signed by Jose S Lana, MD in OV> ?06/27/24 1627 ? DD/ 1538 ? TD/TT: 06/27/24 1556 ? Disease Intervention Specialist: MSM ? Procedure Note Meryl Arechiga - 06/27/[address] [address] Ultrasound Report Signed Patient: Zari AlemanMR#: [id number] : 1970Acct:[id number] Age/Sex: 54 / FADM Date: 06/27/24 Loc: HO.US Attending Dr: Natasha Horowitz CNM Ordering Physician: NATASHA HOROWITZ CNM Date of Service: 06/27/24 Procedure(s): US pelvic and transvaginal Accession Number(s): [id number] cc: NATASHA HOROWITZ CNM; Bhargavi Llanes MD [...] 06/27/24 1627 DD/ 1538 TD/TT: 06/27/24 1556 Disease Intervention Specialist: MSM us Natasha Horowitz [facility] US PROCEDURES Final R esult * STI testing add on (NG, CT, Trich) (05/30/2024 10:25 AM EST) Trichomonas (NAAT) Not Detected Not Detected [facility] Comment:Methodology: Transcr iption Mediated Amplification(TMA)The analytical performance characteristics of thisassay have been determined by [place]. The modificationshave not been cleared or approved by the FDA. Thisassay has been validated pursuant to the CLIAregulations and is used for clinical purposes.For additional information, please refer tohttp://Mocapay.FoxyP2/faq/Trichomonastma (This link is being providedfor information/educational purposes only).THIS TEST WAS PERFORMED AT:[employer] [id number] [place] [address]ZRQOYVLANNA HUITRON MD,PHD CTNG Ref Lab Not Detected Not Detected [facility] NG Ref Lab Not Detected Not Detected [facility] Comment:Methodology: Transcr iption Mediated Amplification(TMA) to detect RNA.The analytical performance characteristics of thisassay, when used to test [facility] specimens havebeen determined by [employer]. The modificationshave not been cleared or approved by the FDA.This assay has been validated pursuant to the CLIAregulations and is used for clinical purposes.For additional information, please refer tohttps://Mocapay.FoxyP2/faq/IJA565(This link is being provided for information/educational purposes only).THIS TEST WAS PERFORMED AT:[employer] [id number] [place] [address]NFHOVNHANNA HUITRON MD,PHD ThinPrep?? vial Cervix uteri structure / Unknown 05/30/2024 10:25 AM EST 05/31/2024 9:15 AM EST Narrative [facility] - 06/04/2024 8:03 PM EST Collection Date: [id number] by: LORRIE FRANCISClarijoviyosef: Cervix Natasha Horowitz [facility] CYTOLOGY ORDERABLES F inal Result Performing Organization Address [facility] Co de Phone Number [facility] [address] [place] [phone] * HPV DNA, Low/High Risk (05/30/2024 10:25 AM EST) HPV High Risk Negative Negative [facility] HPV Genotype 16 Negative Negative [facility] HPV Genotype 18 Negative Negative [facility] Comment:HPV testing performe d at [facility] (CLIA#[id number]), [address] [place] [address].Testing for HPV was performed using the Bill [...] 5 AM EST 05/31/2024 9:15 AM EST Natasha Horowitz [facility] LAB BLOOD ORDERABLES Lidya l Result Performing Organization Address [facility]/ZIP Co de Phone Number [facility] [address] [place] [phone] * Pap Smear (05/30/2024 10:25 AM EST) Swab Cervix uteri structure / Unknown 05/30/2024 10:25 AM EST 05/31/2024 9:15 AM EST Narrative [facility] - 06/08/2024 1:10 PM EST ----- ------- Name: LoveZari ?Age/Sex: 54/F ? : 1970 Unit#: [id number] ?? Attend Dr: NATASHA HOROWITZ CNM ?Re05/30/24 ?Status: DEP REF ? [facility] ? Disch: ? ----- ------- SPEC : [id number] ? RECD: 05/31/24-914 ? STATUS: ??SOUT ? REQ NUM: [id number] ? MUNIRA: 05/30/24-1024 ? SUBM DR: NATASHA HOROWITZ CNM ? [...] ----- ------- ? END OF REPORT ? Natasha Horowitz CNM LAB CYTOLOGY ORDERABLES F inal Result [facility] [address] [place] [address] [phone] * Hm Colonoscopy (04/27/2023 10:30 AM EST) Colonoscopy Normal Normal Narrative Ana Burgess - 04/27/2023 10:30 AM EST See external hospital admission note on 04/27/2023 Historical Provider [facility] Edited Result - Final * Mammography Report 1 (12/09/2021 8:20 AM EDT) Anatomical Region Laterality Modality Breast Bilateral Mammography 12/09/2021 8:20 AM EDT Narrative 12/10/2021 9:49 AM EDT Refer to the Notes tab for result details [facility] Procedure: Mammography Report 1 Procedure Note Provider, Brooke, - 07/19/2022 Refer to the Notes tab for result details [facility] Procedure: Mammography Report 1 Bhargavi Llanes MD IMG BI PROCEDURES Final Result * HEPATITIS C AB W/REFL TO HCV RNA, QN, PCR (05/02/2020 9:36 AM EST) HEPATITIS C ANTIBODY NON-REACT STEVE NON-REACT STEVE [facility] INDEX 0.01 <1.00 [facility] Comment: ?? HCV antibody was non-reactive. There is no laboratory ?? evidence of HCV infection. ?? In most cases, no further action is required. However, if recent HCV exposure is suspected, a test for HCV RNA (test code 92389) is suggested. ?? For additional information please refer to http://education.FoxyP2/faq/WJR43d5 (This link is being provided for informational/ educational purposes only.) ?? 05/02/2020 9:36 AM EST Bhargavi Llanes MD HISTORICAL/NON ORDERABLE LABS Fi nal Result Performing Organization Address [facility] Phone Number [facility] [address] * HIV 1/2 ANTIGEN/ANTIBODY,FOURTH GENERATION W/RFL (05/02/2020 9:36 AM EST) HIV-1/2 ANTIGEN AND ANTIBODIES, 4TH GENERATION W/ REFLEX NON-REACT STEVE NON-REACT STEVE [facility] Comment: HIV-1 antigen and HIV-1/HIV-2 [...] ? For additional information please refer to http://education.Bionomics.Ubitexx/faq/RLL697 (This link is being provided for informational/ educational purposes only.) ? The performance of this assay has not been clinically validated in patients less than 2 years old. ?? 05/02/2020 9:36 AM EST Bhargavi Llanes MD LAB BLOOD ORDERABLES Final Resul t Performing Organization Address [facility] Phone Number [facility] [address] from Last 3 Months or Most Recently Relevant to Health Maintenance Insurance [facility] C3 Care Teams Automatic Operator Relationship Specialty Start Date End Date Bhargavi Llanes MD [address] [place] [phone] PCP - General Family Medicine 11/21/18
--- NOTE | 2024-07-11 07:55 | MHC.OFFVIS ---
Vital Signs 07/11/24 07:56 Height 5 ft 2 in Weight 182 lb 12.211 oz BMI 33.4 BP 110/74 Blood Pressure Location Rt brachial Position Sitting Pulse 79 Pulse Source Pulse Oximeter Pulse Oximetry (%) 96 Oxygen Delivery Method Room Air Intake Visit Reasons: hyperthyroidism Intake Note: Patient present today for Hypothyroidism follow up visit. 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 nausea Medication List - Last Reconciled 07/11/24 by Valerio Shah MD albuterol sulfate 90 mcg/actuation (Ventolin HFA) 2 puffs inhalation Q4H PRN cholecalciferol (vitamin D3) 50 mcg PO DAILY 30 days famotidine 40 mg PO DAILY PRN hydrocortisone 2.5% (Proctosol HC) 1 appl SC BID levofloxacin 500 mg PO DAILY linaclotide (Linzess) 290 mcg PO QAM 30 days metronidazole 500 mg PO TID 14 days nabumetone 500 mg PO BID PRN ondansetron 4 mg PO Q8H PRN pantoprazole (Protonix) 40 mg PO BID 30 days Tirosint (levothyroxine) 88 mcg PO DAILY NS topiramate 25 mg PO BEDTIME valacyclovir 1,000 mg PO DAILY HPI Comments Details: 54 YO Female with a PMHx 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 She has a history of Jeevan's disease based on TG antibodies being elevated in the past. She remains on Tirosint 88 mcg PO daily and takes this correctly. She has consistently been poorly compliant with her medication and has wavered from overreplaced with suppressed TSH to underreplaced with elevated TSH. Most recent TSH was 23.55 08/20/2021. She does admit to poor compliance at this time. She does report fatigue, hair loss and dry skin. She had an US of the thyroid completed 09/07/2019 which revealed multiple subcentimeter nodules within the L lobe. Images of this US were independently reviewed and these represent pseudonodules and area of heterogeneity, consistent with Jeevan's disease. No true nodules identified. Thyroid US: 09/07/2019 Right Thyroid Lobe: 1.3 x 0.7 x 0.5 cm, volume 0.2 mL. Previously 1.8 x 0.3 x 0.4 cm, volume 0.1 mL. Parenchyma: The gland echotexture is homogeneous. Thyroid vascularity is normal. Left Thyroid Lobe: 2.6 x 0.6 x 1.0 cm, volume 0.8 mL. Previously 1.4 x 0.4 x 0.3 cm, volume 0.9 mL. Parenchyma: The gland echotexture is homogeneous. Thyroid vascularity is normal. Isthmus: 0.2 cm in maximum AP dimension. Previously 0.1 cm. RIGHT THYROID LOBE: No nodules. ISTHMUS: No nodules. LEFT THYROID LOBE: There are 2 tiny nodules seen. 1. Location: Upper pole medial. Size: 0.3 x 0.1 x 0.2 cm. Previous: Not documented. Nodule characteristics: Cyst 2. Location: Upper pole central. Size: 0.3 x 0.2 x 0.4 cm. Previous: Not documented. Nodule characteristics: Circumscribed, mild hypoechoic, no calcifications or color flow. NODES: No lymphadenopathy is seen in the tissue surrounding the thyroid gland. Labs: Laboratory Tests 06/19/21 08/20/21 10:05 07:45 25-OH Vitamin D Total 11.1 TSH 23.55 H Free T4 0.66 L The patient is a 54-year-old female presenting with hypothyroidism. She has a history of elevated TSH levels, previously recorded as greater than 100 mU/L, and currently at 71 mU/L, indicative of poorly controlled hypothyroidism. Symptoms include chronic fatigue, weight gain, and constipation. The patient has experienced issues with medication compliance, contributing to her current state of poorly managed hypothyroidism. The elevation in TSH levels puts her at risk for serious complications, underscoring the importance of regular medication adherence. She is supposed to be on Tirosint 88 ug but has not taken the medication for 2 weeks. [facility] Medical History (Updated 07/08/23 @ 10:17 by GEE Marshall) GERD (gastroesophageal reflux disease) Vitamin D deficiency Multinodular goiter Jeevan's disease Hypothyroidism Diverticulitis Surgical History History of esophagogastroduodenoscopy (EGD) H/O colonoscopy Hx of hemorrhoidectomy Hx of lumpectomy H/O tubal ligation Family History Father Heart disease Mother Diabetes mellitus HTN (hypertension) Brother Diabetes mellitus Sister High cholesterol Sister Jeevan's disease Social History Household Members: Spouse and Children Alcohol intake: never Patient Tobacco Use Status: Former Tobacco user Tobacco use type: Cigarette Cigarettes Per Day: 3 Physical Exam Vital Signs: Last Vital Signs Pulse 79 07/11/24 07:56 BP 110/74 07/11/24 07:56 Pulse Ox 96 07/11/24 07:56 Oxygen Delivery Method Room Air 07/11/24 07:56 BMI result Body Mass Index 33.4 Const Other: Thyroid gland is normal size weighs about 15 g. There are no thyroid nodules palpated. Reflexes are slow and delayed Assessment & Plan Assessment & Plan (1) Hypothyroidism: Code(s): E03.9 - Hypothyroidism, unspecified Category: Medical Qualifiers: Hypothyroidism type: due to Jeevan's thyroiditis Qualified Code(s): E03.8 - Other specified hypothyroidism; E06.3 - Autoimmune thyroiditis Plan: This is a 53-year-old female followed by endocrinology for management hypothyroidism due to Jeevan's thyroiditis. She is currently on Tirosint 88 mcg and has a very elevated TSH due to noncompliance for 2 months .1. Hypothyroidism: The patient's TSH level remains elevated due to non-compliance with levothyroxine. Resuming consistent use of levothyroxine 88 mcg is imperative to prevent serious outcomes such as myxedema coma. TSH levels will be re-evaluated in six weeks to monitor response to resumed therapy. The patient has been advised on proper medication intake routine. The patient had an opportunity to ask questions regarding treatment plan. The patient expressed understanding and agreement with the above treatment plan. Patient was informed and verbally consented to the use of an ambient scribe for clinic note documentation during this visit. Recheck TSH and free T4 in 6 weeks time. Orders: Orders Thyroid Stimulating Hormone 6 Weeks E03.8 - Other specified hypothyroidism, E06.3 - Autoimmune thyroiditis Free T4 (Free Thyroxine) 6 Weeks E03.8 - Other specified hypothyroidism, E06.3 - Autoimmune thyroiditis Medications: Refilled Tirosint (levothyroxine) 88 mcg PO DAILY 30 caps 6RF NS Coding Level of Care Code Est Pt Level 3 (41084) Diagnoses Hypothyroidism due to Jeevan's thyroiditis E03.8; E06.3 Hypothyroidism type: due to Jeevan's thyroiditis
[2024-07-11 07:56] VITALS: BP 110/74; PULSE 79; O2SAT 96; BMI 33.4
== END 2024-07-11 08:23 | disposition home or self-care (01) ==
LOC: HO.ENCR 07:51
PROVIDERS: PCP Family Medicine; Visit Provider Internal Medicine Endocrinology, Diabetes & Metabolism
DX: E03.8 Other specified hypothyroidism (principal); E06.3 Autoimmune thyroiditis
CPT/HCPCS: 99213

== ENCOUNTER → 2024-07-11 07:50 | Outpatient (BNVA) | payer MEDICAID, SELFPAY | PROVIDERS: PCP Family Medicine; Visit Provider Internal Medicine Endocrinology, Diabetes & Metabolism | DX: E06.3 Autoimmune thyroiditis (principal); E03.8 Other specified hypothyroidism | CPT/HCPCS: 99212 ==

== ENCOUNTER 2024-08-04 08:33 | Emergency (ER) | payer MEDICAID, SELFPAY ==
--- NOTE | ~2024-08-04 | CT_ITS ---
EXAMINATION: CT ABDOMEN AND PELVIS WITH CONTRAST CLINICAL INFORMATION: Right lower quadrant pain, right upper quadrant pain. COMPARISON: Numerous prior CTs, most recently 06/18/2023. TECHNIQUE: Multidetector volumetric images were obtained from the superior aspect of the liver through the pubic symphysis following administration 85 mL of Omnipaque 350 intravenous contrast. Sagittal and coronal reformatted images were obtained on the technologist's workstation. Oral contrast: No This CT examination was performed using dose optimization techniques as appropriate, variously including the following: *Automated exposure control *Adjustment of mA and/or kV according to patient size (this includes techniques or standardized protocols for targeted exams where dose is matched to indication/reason for exam; i.e. extremities or head) *Use of iterative reconstruction technique FINDINGS: LUNG BASES: Lung bases are clear. The heart size is normal. Normal GE junction. LIVER, GALLBLADDER, AND BILIARY TREE: The liver is enlarged, and there is diffuse fatty infiltration. Normal contour. No suspicious focal lesion identified. The gallbladder is distended, with dependent calcified intraluminal gallstones. No wall thickening, pericholecystic fluid, or pericholecystic inflammatory change. PANCREAS: Unremarkable. SPLEEN: Unremarkable. ADRENAL GLANDS: Unremarkable. KIDNEYS AND URETERS: The kidneys are normal in size, shape, and attenuation. No hydronephrosis, hydroureter, or calculi seen. No perinephric stranding. BLADDER: Unremarkable. GASTROINTESTINAL TRACT: There is inflammation and short segment colonic wall thickening of the proximal transverse colon just subjacent to the liver in the hepatic flexure region. There is an enhancing prominent diverticulum. Findings are consistent with acute diverticulitis. There is no complication. There is extensive diverticulosis of the entire colon. No additional regions of inflammation or wall thickening. No rectal abnormality. Normal appendix is visualized. Small bowel is normal in caliber and course. No small bowel abnormalities. Stomach, and duodenum have a normal appearance. ABDOMINAL WALL: No significant hernia is appreciated. LYMPH NODES: Normal. VASCULAR: 1.2 x 1.2 cm peripherally calcified splenic artery aneurysm in the hilum of the spleen, stable. There is a smaller abutting 1.0 cm splenic artery aneurysm. Mild calcific atheromatous disease without additional aneurysm seen. No evidence of venous thrombosis. PELVIC VISCERA: Retroverted uterus. Thickening of the endometrium, measuring up to 2.1 cm, abnormal in a postmenopausal patient. There are small bilateral ovarian cysts, larger on the right measuring 2.3 cm. There are cervical nabothian cysts. OSSEOUS STRUCTURES: Unremarkable. CT/CT abdomen pelvis w IV con IMPRESSION: 1. Acute uncomplicated diverticulitis of the proximal transverse colon at the level of the splenic flexure. 2. Cholelithiasis. 3. Enlargement diffuse fatty infiltration of the liver. No suspicious liver lesion. 4. Thickened endometrial stripe at 2.1 cm, abnormal in a postmenopausal patient. 5. Stable 1.2 cm splenic artery aneurysm. 6. Additional ancillary findings as discussed in the body of the report. Electronically signed by: Roger Galeana MD 08/04/2024 12:57 PM EDT
[2024-08-04 08:34] VITALS: BP 139/81; PULSE 124; RESP 18; TEMP 37; O2SAT 98; BMI 27.0
[2024-08-04 08:48] LABS: MANUAL DIFF FLAG NO
[2024-08-04 08:55] LABS: Basophils Percent Auto 0.2 % (0-2); Eosinophils Absolute Auto 0.1 X10*3/uL (0.0-0.4); Eosinophils Percent Auto 0.4 % (0-4); Hematocrit 37.8 % (37.0-47.0); Hemoglobin 12.7 g/dl (12.0-16.0); Imm Gran Abs Auto 0.04 X10*3/uL (0.00-0.03); Imm Gran Pct Auto 0.3 % (0.0-0.4); Lymphocytes Absolute Auto 2.3 X10*3/uL (1.2-4.9); Lymphocytes Percent Auto 19.3 % (20-40); Mean Corpuscular HGB Conc 33.6 g/dl (31.0-35.0); Mean Corpuscular Hemoglobin 27.3 pg (27.0-33.0); Mean Corpuscular Volume 81.1 fL (80.0-98.0); Mean Platelet Volume 9.5 fL (9.4-12.3); Monocytes Absolute Auto 0.6 X10*3/uL (0.1-1.2); Monocytes Percent Auto 4.7 % (2-11); Neutrophils Absolute Auto 9.1 x10*3/uL (2.0-8.3); Neutrophils Percent Auto 75.1 % (45-73); Platelet Count 308 X10*3/uL (160-400); Red Blood Count 4.66 X10*6/uL (4.20-5.50); Red Cell Distribution Width 15.2 % (11.0-16.0); White Blood Count 12.1 X10*3/uL (4.8-10.8)
[2024-08-04 09:03] LABS: Alanine Aminotransferase 79 U/L (0-31); Albumin Level 4.1 g/dL (3.5-5.0); Alkaline Phosphatase 93 U/L (39-117); Anion Gap 11 (12-20); Aspartate Amino Transferase 40 U/L (5-31); Bilirubin Total 1.2 mg/dL (0.0-1.0); Blood Urea Nitrogen 12 mg/dL (9-16); Calcium 9.7 mg/dL (8.4-10.2); Carbon Dioxide 25 mmol/L (22-29); Chloride 106 mmol/L (96-108); Creatinine Clr Calc Pharmacy 91.6; Estimated Glomerular Filt Rate > 60; Glucose Random 175 mg/dL (60-115); Lipase 20 U/L (8-78); Potassium 3.7 mmol/L (3.3-5.1); Sodium 138 mmol/L (135-145)
--- NOTE | 2024-08-04 11:00 | PC.NURSE ---
Recieved report from LUCY Ramirez. Taken over care at this time.
--- NOTE | 2024-08-04 11:05 | ED_ITS ---
HPI - Abdominal Pain General Chief Complaint: Abdominal Pain Stated Complaint: r side pain Time Seen by Provider: 08/04/24 11:04 Source: patient Mode of arrival: ambulatory Limitations: no limitations History of Present Illness ED Provider: Dr. Adeel Olmos HPI narrative: 54-year-old female with a history of GERD, diverticulitis/diverticulosis, hypothyroidism, bilateral tubal ligation 2014 who presents emergency department for evaluation of right-sided abdominal pain times 2-3 days. Patient states that the day before her pain started (3 days prior) she felt bloated and took a naproxen with no relief for pain. She states that 2 days prior to arrival she woke up at around midnight with right-sided pain. The patient states the pain is located in her right upper quadrant and right lower quadrant area. She had difficulty describing the character the pain but the pain has been constant, worse with movement in his 8/10 at its worst. This is a 1st episode of this type of pain. She states that her diverticulitis pain usually usually located in the left lower quadrant. Patient states that she was had no appetite and has had no food to eat since 18:00. She states she was only drinking minimal amounts of fluid. At the time my evaluation she states that her pain is 8/10. Related Data Home Medications ?Medication ?Instructions ?Recorded ?Confirmed nabumetone 500 mg tablet 500 mg PO BID PRN pain 08/28/21 04/22/23 topiramate 25 mg tablet 25 mg PO BEDTIME 03/17/22 04/22/23 valacyclovir 1 gram tablet 1,000 mg PO DAILY 05/06/22 07/11/24 albuterol sulfate 90 mcg/actuation 2 puff inhalation Q4H PRN wheezing 07/11/24 07/11/24 aerosol inhaler (Ventolin HFA) Previous Rx's ?Medication ?Instructions ?Recorded cholecalciferol (vitamin D3) 50 50 mcg PO DAILY 30 days #30 caps 08/25/21 mcg (2,000 unit) capsule ondansetron 4 mg disintegrating 4 mg PO Q8H PRN nausea and 04/24/22 tablet vomiting #7 tabs hydrocortisone 2.5 % topical cream 1 appl DE BID hemorrhoids #30 grams 08/18/22 with perineal applicator (Proctosol HC) levofloxacin 500 mg tablet 500 mg PO DAILY #14 tabs 07/08/23 metronidazole 500 mg tablet 500 mg PO TID 14 days #42 tabs 07/08/23 pantoprazole 40 mg tablet,delayed 40 mg PO BID 30 days #60 tabs 07/08/23 release (Protonix) famotidine 40 mg tablet 40 mg PO DAILY PRN for heartburn 05/29/24 #30 tabs levothyroxine 88 mcg tablet 88 mcg PO DAILY #30 tabs 07/12/24 linaclotide 290 mcg capsule 290 mcg PO QAM #30 caps 07/12/24 (Linzess) acetaminophen 500 mg tablet 1,000 mg (2 x 500 mg) PO Q6H PRN 08/04/24 (Tylenol Extra Strength) fever or pain #20 tabs ibuprofen 400 mg tablet 400 mg PO TID PRN fever or pain 08/04/24 #30 tabs levofloxacin 500 mg tablet 500 mg PO DAILY 7 days #7 tabs 08/04/24 metronidazole 500 mg tablet 500 mg PO TID 7 days #21 tabs 08/04/24 morphine 15 mg immediate release 15 mg PO Q8H PRN pain #10 tabs 08/04/24 tablet ondansetron 4 mg disintegrating 4 mg PO Q6-8H PRN nausea and 08/04/24 tablet vomiting #14 tabs Allergies Allergy/AdvReac Type Severity Reaction Status Date / Time tramadol [TRAMADOL] Allergy Intermediate VOMITING, Verified 08/04/24 08:38 ? nausea Review of Systems Review of Systems Yes all other systems are reviewed and are negative [facility] Past Medical History [facility] Narrative: Social history: Patient denies tobacco, alcohol and drug use. Medical History (Updated 08/04/24 @ 14:08 by Adeel Olmos MD) GERD (gastroesophageal reflux disease) Vitamin D deficiency Multinodular goiter Jeevan's disease Hypothyroidism Diverticulitis Surgical History History of esophagogastroduodenoscopy (EGD) H/O colonoscopy Hx of hemorrhoidectomy Hx of lumpectomy H/O tubal ligation Family History Family History Father Heart disease Mother Diabetes mellitus HTN (hypertension) Brother Diabetes mellitus Sister High cholesterol Sister Jeevan's disease Social History Social History Household Members: Spouse and Children Alcohol intake: never Patient Tobacco Use Status: Former Tobacco user Tobacco use type: Cigarette Cigarettes Per Day: 3 Smoked in Last 30 Days: No Use of substances other than those prescribed or required for medical reasons: No Advance Directives: No Advance Directives Information Provided: Yes Patient : No Physical Exam ED Vital Signs: Vital Signs - 24 hr 08/04/24 08:34 08/04/24 11:56 08/04/24 12:47 Temperature 98.6 F Pulse Rate 124 H 93 941 H Respiratory Rate 18 18 18 Blood Pressure 139/81 136/81 117/78 Pulse Oximetry 98 97 100 Oxygen Delivery Method Room Air Room Air Room Air 08/04/24 14:00 08/04/24 14:59 Temperature Pulse Rate 87 Respiratory Rate 18 18 Blood Pressure 139/80 Pulse Oximetry 98 Oxygen Delivery Method Room Air BMI result Body Mass Index 27.0 Initial vital signs revealed elevated heart rate of 124 and elevated blood pressure 139/81 Exam: General: Awake, alert in no distress Head: Normocephalic, atraumatic EENT: PERRL, Lids normal, sclera normal, conjunctiva normal, nose normal , ears normal, throat without erythema or exudates Neck: Supple, no adenopathy Lung: breath sounds symmetric, no wheezing, rales or rhonchi Chest: symmetric movement, nontender Heart: regular rate and rhythm, normal S1, S2 no murmurs or rubs Abdomen: soft, mild to moderate right upper quadrant tenderness with negative Navarro sign, moderate to severe left lower quadrant tenderness, nondistended, normal bowel sounds Back: no vertebral tenderness, no CVAT Extremities: no deformities, moves all extremities symmetrically Neuro: Awake, alert, oriented, normal speech, cranial nerves intact, moves all extremities symmetrically Psych: Pleasant, cooperative Medical Decision Making Medical Decision Making MDM Narrative: 54-year-old female with a history of GERD, diverticulitis/diverticulosis, hypothyroidism, bilateral tubal ligation 2014 who presents emergency department for evaluation of right-sided abdominal pain times 2-3 days associated with nausea, loss of appetite decreased oral food and fluid intake. Pain was 8/10 and different from her diverticulitis pain. Vital signs revealed an elevated heart rate and an elevated blood pressure. Physical exam revealed moderate to severe right lower quadrant tenderness and mild to moderate left upper quadrant tenderness with a negative Navarro sign. Differential diagnosis: ?Includes but is not limited to biliary disease appendicitis pancreatitis, diverticulitis, ovarian torsion Course: 11:35 My independent interpretation of the patient's laboratory evaluation is as follows: WBC elevated 12,100. Glucose elevated 175. Bilirubin elevated 1.2 13:[address] scan of the abdomen pelvis with IV contrast is consistent with proximal transverse colon diverticulitis. Patient had several incidental findings and I did discuss with the patient as well. Patient was treated with levofloxacin 500 mg IV, metronidazole 50 mg orally. The patient states that her pain did improve but she was still having significant pain is well as right upper quadrant tenderness. The patient was right lower quadrant tenderness has resolved. Patient was given morphine 4 mg IV. Patient will be discharged home with prescriptions for levofloxacin 500 mg once a day for 7 days, metronidazole 500 mg 3 times a day for 7 days, ibuprofen, Tylenol and for pain not relieved by these medications morphine. She was also given prescription for ondansetron 4 mg ODT every 6-8 hours as needed. Patient was given printed and verbal instructions and discharged home. Patient states that she does have a follow-up appointment with her business risk analyst on 08/29/2024 for abnormalities seen on an ultrasound. I did tell her to call her business risk analyst provider to inform them that she has uterine wall thickening and that she may need an endometrial biopsy for possible endometrial cancer. Admission/Observation Consideration of admission/observation: Escalation of care including admission/observation considered (Yes) Lab Data MDM Lab Attestation statement: I reviewed the patient's lab results. 08/04/24 08:43 08/04/24 08:43 Labs: Lab Results 08/04/24 Range/Units 08:43 WBC 12.1 H (4.8-10.8) X10*3/uL RBC 4.66 (4.20-5.50) X10*6/uL Hgb 12.7 (12.0-16.0) g/dl Hct 37.8 (37.0-47.0) % MCV 81.1 (80.0-98.0) fL MCH 27.3 (27.0-33.0) pg MCHC 33.6 (31.0-35.0) g/dl RDW 15.2 (11.0-16.0) % Plt Count 308 (160-400) X10*3/uL MPV 9.5 (9.4-12.3) fL Immature Gran % (Auto) 0.3 (0.0-0.4) % Neut % (Auto) 75.1 H (45-73) % Lymph % (Auto) 19.3 L (20-40) % [place] % (Auto) 4.7 (2-11) % Eos % (Auto) 0.4 (0-4) % Baso % (Auto) 0.2 (0-2) % Lymph # (Auto) 2.3 (1.2-4.9) X10*3/uL [place] # (Auto) 0.6 (0.1-1.2) X10*3/uL Eos # (Auto) 0.1 (0.0-0.4) X10*3/uL Baso # (Auto) 0.0 (0.0-0.2) X10*3/uL Abs Immat Gran (auto) 0.04 H (0.00-0.03) X10*3/uL Absolute Neuts (auto) 9.1 H (2.0-8.3) x10*3/uL Absolute Nucleated RBC 0.000 (0.0-0.012) X10*3/uL Nucleated RBC % (auto) 0.0 (0.0-0.2) /100WBC Sodium 138 (135-145) mmol/L Potassium 3.7 (3.3-5.1) mmol/L Chloride 106 (96-108) mmol/L Carbon Dioxide 25 (22-29) mmol/L Anion Gap 11 L (12-20) BUN 12 (9-16) mg/dL Creatinine 0.79 (0.5-1.4) mg/dL Estim Creat Clear Calc 91.6 Estimated GFR > 60 Random Glucose 175 H (60-115) mg/dL Calcium 9.7 (8.4-10.2) mg/dL Total Bilirubin 1.2 H (0.0-1.0) mg/dL Direct Bilirubin 0.3 (0.0-0.5) mg/dL AST 40 H (5-31) U/L ALT 79 H (0-31) U/L Alkaline Phosphatase 93 (39-117) U/L Total Protein 8.0 (6.5-8.0) g/dL Albumin 4.1 (3.5-5.0) g/dL Lipase 20 (8-78) U/L TSH 11.92 H (0.32-4.0) uIU/mL Free T4 0.96 (0.71-1.85) ng/dL Beta HCG, Quant < 2 mIU/mL Radiology Impression Discussion of test interpretation with radiology: I have reviewed the radiologist's reading. Radiologist Impression: CT abdomen pelvis w IV con IMPRESSION: 1. Acute uncomplicated diverticulitis of the proximal transverse colon at the level of the splenic flexure. 2. Cholelithiasis. 3. Enlargement diffuse fatty infiltration of the liver. No suspicious liver lesion. 4. Thickened endometrial stripe at 2.1 cm, abnormal in a postmenopausal patient. 5. Stable 1.2 cm splenic artery aneurysm. 6. Additional ancillary findings as discussed in the body of the report. Electronically signed by: Roger Galeana MD 08/04/2024 12:57 PM EDT Prescription Management I considered prescription management with: Pain Medication (Ibuprofen, Tylenol, morphine), Antibiotic (Levofloxacin, metronidazole) and Other (Antiemetic: Ondansetron ODT) Chronic Conditions Patient?s care impacted by: Other (Diverticulitis) Medications Administered Discontinued Medications Generic Name Dose Route Start Last Admin Trade Name Freq PRN Reason Stop Dose Admin Sodium Chloride 1,000 mls @ 999 mls/hr 08/04/24 11:19 08/04/24 13:40 Ns IV 08/04/24 12:19 Infused .Q1H1M STA Infusion Levofloxacin 500 mg in 100 mls @ 100 mls/hr 08/04/24 14:00 08/04/24 14:43 Levaquin IV 08/04/24 14:59 100 mls/hr ONCE ONE Administration Iohexol 85 ml 08/04/24 12:31 08/04/24 12:35 Iohexol 350 Mg/Ml 100 Ml Infus..Btl IV 08/04/24 12:32 85 ml ONCE ONE Administration Ketorolac Tromethamine 15 mg 08/04/24 11:19 08/04/24 11:56 Ketorolac Tromethamine 15 Mg/Ml Vial IVPUSH 08/04/24 11:20 15 mg ONCE STA Administration Metronidazole 500 mg 08/04/24 14:00 08/04/24 14:25 Metronidazole 500 Mg Tablet PO 08/04/24 14:01 500 mg ONCE ONE Administration Morphine Sulfate 4 mg 08/04/24 14:51 08/04/24 14:59 Morphine Sulfate 4 Mg/Ml Cartridge IVPUSH 08/04/24 14:52 4 mg ONCE STA Administration Protocol Ondansetron HCl 4 mg 08/04/24 11:19 08/04/24 11:56 Ondansetron Hcl 4 Mg/2 Ml Vial IVPUSH 08/04/24 11:20 4 mg ONCE ONE Administration Discharge Plan Discharge Clinical Impression: Diverticulitis large intestine, Thickened endometrium, Gallstones Patient Disposition: Home, Self-Care Additional Instructions: The CT scan of your abdomen revealed diverticulitis of the transverse colon (the large intestine that goes across the top of your belly). This explains your pain. You were given levofloxacin 500 mg IV and metronidazole 500 mg orally here in the emergency department. Take levofloxacin 500 mg once a day for 7 days. Take your next dose tomorrow morning and then once a day in the morning to you complete the prescription Take metronidazole 500 mg pills, 1 pill 3 times a day for 7 days. Take 1 more dose before you go to bed tonight and then take a 3 times a day starting tomorrow morning. Take ibuprofen 400 mg pills, 1 pills every 6 hours as needed for pain. Take Tylenol (acetaminophen) 2 pills every 6 hours as needed for pain. For pain not relieved by ibuprofen or Tylenol take morphine 15 mg pills, 1 pill every 6 hours as needed for pain. This medication will make you sleepy, do not drive or work while taking this medication. Morphine is a narcotic medication and can be addicting. If you are concerned about addiction you can ask the pharmacist for less pills or do not get this prescription filled. Follow-up with your doctor in 5 days. Please return to the emergency department if your symptoms get worse or if you develop any symptoms that are concerning to you. The CAT scan of your abdomen pelvis with IV contrast did reveal several incidental findings. Please see the radiologist's impression below. The most significant finding is thickening of the endometrium (the lining of the uterus/womb). This is concerning and could be caused by uterine cancer. I want you to call your safety engineer pressure vessels tomorrow and tell them about this finding and make sure that when you follow up with them and may they address this issue. If uterine cancer is caught early it is curable. CT abdomen pelvis w IV con IMPRESSION: 1. Acute uncomplicated diverticulitis of the proximal transverse colon at the level of the splenic flexure. 2. Cholelithiasis. 3. Enlargement diffuse fatty infiltration of the liver. No suspicious liver lesion. 4. Thickened endometrial stripe at 2.1 cm, abnormal in a postmenopausal patient. 5. Stable 1.2 cm splenic artery aneurysm. 6. Additional ancillary findings as discussed in the body of the report. Electronically signed by: Roger Galeana MD 08/04/2024 12:57 PM EDT Prescriptions: New acetaminophen [Tylenol Extra Strength] 500 mg tablet 1,000 mg PO Q6H PRN (Reason: fever or pain) Qty: 20 0RF ibuprofen 400 mg tablet 400 mg PO TID PRN (Reason: fever or pain) Qty: 30 0RF morphine 15 mg tablet 15 mg PO Q8H PRN (Reason: pain) Qty: 10 0RF Rx Instructions: Partial Fill upon patient request. ondansetron 4 mg tablet,disintegrating 4 mg PO Q6-8H PRN (Reason: nausea and vomiting) Qty: 14 0RF levofloxacin 500 mg tablet 500 mg PO DAILY 7 Days Qty: 7 0RF metronidazole 500 mg tablet 500 mg PO TID 7 Days Qty: 21 0RF No Action famotidine 40 mg tablet 40 mg PO DAILY PRN (Reason: for heartburn) Qty: 30 3RF levothyroxine 88 mcg tablet 88 mcg PO DAILY Qty: 30 5RF Linzess 290 mcg capsule 290 mcg PO QAM Qty: 30 6RF ondansetron 4 mg tablet,disintegrating 4 mg PO Q8H PRN (Reason: nausea and vomiting) Qty: 7 0RF cholecalciferol (vitamin D3) 50 mcg (2,000 unit) capsule 50 mcg PO DAILY 30 Days Qty: 30 11RF hydrocortisone [Proctosol HC] 2.5 % cream with perineal applicator 1 appl DE BID Qty: 30 6RF Rx Instructions: BE SURE TO INCLUDE RECTAL APPICATOR!! nabumetone 500 mg tablet 500 mg PO BID PRN (Reason: pain) topiramate 25 mg tablet 25 mg PO BEDTIME valacyclovir 1 gram tablet 1,000 mg PO DAILY metronidazole 500 mg tablet 500 mg PO TID 14 Days Qty: 42 0RF levofloxacin 500 mg tablet 500 mg PO DAILY Qty: 14 0RF pantoprazole [Protonix] 40 mg tablet,delayed release (DR/EC) 40 mg PO BID 30 Days Qty: 60 6RF albuterol sulfate [Ventolin HFA] 90 mcg/actuation HFA aerosol inhaler 2 puff inhalation Q4H PRN (Reason: wheezing) Print Language: Setswana
[2024-08-04 11:52] LABS: Bilirubin Direct 0.3 mg/dL (0.0-0.5)
[2024-08-04 11:56] VITALS: BP 136/81; PULSE 93; RESP 18; O2SAT 97
[2024-08-04] MEDS: 0.9 % Sodium Chloride 1,000 ML 999 ML IV (11:56)
[2024-08-04] MEDS: Ketorolac Tromethamine 15 MG/ML VIAL IVPUSH (11:56)
[2024-08-04] MEDS: ondansetron HCL 4 MG/2 ML VIAL IVPUSH (11:56)
[2024-08-04 12:07] LABS: HCG Quantitative < 2 mIU/mL; TSH reflex Free T4 11.92 uIU/mL (0.32-4.0)
[2024-08-04] MEDS: iohexoL 350 MG/ML 100 ML INFUS..BTL 85 ML IV (12:35)
[2024-08-04 12:47] VITALS: BP 117/78; PULSE 941; RESP 18; O2SAT 100
[2024-08-04 12:47] LABS: Free T4 (Free Thyroxine) 0.96 ng/dL (0.71-1.85)
[2024-08-04 14:00] VITALS: BP 139/80; PULSE 87; RESP 18; O2SAT 98
--- NOTE | 2024-08-04 14:23 | PC.NURSE ---
Pharm to send medication IV abx.
[2024-08-04] MEDS: metroNIDAZOLE 500 MG TABLET PO (14:25)
[2024-08-04] MEDS: levoFLOXacin/D5W 500 MG/100 ML PIGGYBACK 100 MG IV (14:43)
[2024-08-04 14:59] VITALS: RESP 18
[2024-08-04] MEDS: Morphine Sulfate 4 MG/ML CARTRIDGE IVPUSH (14:59)
[2024-08-04 15:47] VITALS: BP 124/70; PULSE 80; RESP 18; TEMP 36.8; O2SAT 96
== END 2024-08-04 15:49 | disposition home or self-care (01) ==
PROVIDERS: Emergency Provider Emergency Medicine Emergency Medical Services; PCP Family Medicine
DX: K57.32 Diverticulitis of large intestine without perforation or abscess without bleeding (principal); K80.20 Calculus of gallbladder without cholecystitis without obstruction; R11.2 Nausea with vomiting, unspecified; R10.31 Right lower quadrant pain; Z79.899 Other long term (current) drug therapy
CPT/HCPCS: 36415; 74177; 80053; 82248; 83690; 84439; 84443; 84702; 85025; 96361; 96365; 96375; 99285; J1885; J1956; J2270; J2405; Q9967

== ENCOUNTER → 2024-08-04 11:21 | Outpatient (BNV) | payer MEDICAID, SELFPAY | PROVIDERS: Emergency Provider Emergency Medicine Emergency Medical Services; PCP Family Medicine; Visit Provider Radiology Diagnostic Radiology | DX: K80.20 Calculus of gallbladder without cholecystitis without obstruction (principal); K57.32 Diverticulitis of large intestine without perforation or abscess without bleeding; K76.0 Fatty (change of) liver, not elsewhere classified; I72.8 Aneurysm of other specified arteries | CPT/HCPCS: 74177 ==

== ENCOUNTER 2024-08-29 10:08 | Outpatient (REF) | payer MEDICAID, SELFPAY ==
--- OUTSIDE RECORDS SUMMARY | 2024-08-29 13:11 | XMS_ITS | Encounter Summary ---
Author Organization [employer] Address 75 [facility] 7t [place] [address] Care Team Providers Care Billing Clinician Name Role Phone Bhargavi Llanes MD Primary Care Provider [phone] Encounter Details Date Type Department Care Team (Late st Contact Info) Description 07/28/2023 Orders Only [facility] MEDICINE [address] [place] [phone] Bhargavi Llanes MD [address] [place] [address] [phone] Social History Tobacco Use Types Packs/Day Years [...] 11:15 AM EDT Office Visit [facility] MEDICINE [address] [place] [address] [phone] Bhargavi Llanes MD [address] [place], [place] [phone] 10/19/2024 1:30 PM EDT Office Visit [facility] OPTOMETRY [address] [place], [place] [phone] Marlene Oconnor, OD [address] [place] [address] documented as of this encounter Visit Diagnoses Not on filedocumented in this encounter Care Teams Billing Clinician Relationship Specialty Start Date End Date Bhargavi Llanes MD [address] [place] [phone] PCP - General Family Medicine 11/21/18 documented as of this encounter
--- OUTSIDE RECORDS SUMMARY | 2024-08-29 13:11 | XMS_ITS | Clinical Summary ---
Author Organization [employer] Address [address] [facility] [address] 7t [place] [address] Care Team Providers Care Tail Dogger Name Role Phone Bhargavi Llanes MD Primary Care Provider [phone] Allergies Active Allergy Reactions Criticality Noted Date [...] (07/22/2023 7:23 PM EDT): - following with [facility] - s/p colonoscopy in April 2023 [...] Care Team Description 08/24/2024 Travel 08/07/[address] [address] Louise Carrero RN Pt status Check 08/04/2024 Orders Only GENERIC EXTERNAL DATA DEPARTMENT Provider, [facility] External Data 07/23/2024 Travel 07/19/[address] [address] Bhargavi Llanes MD chart prep 07/17/2024 Patient Outreach [address] [address] Bhargavi Llanes MD Pre-visit Planning (SDOH screening was completed on 06/07/2024) 07/07/2024 Orders Only [facility] [address] [place] [address] ProviderBrooke MD 07/07/2024 Population Health Risk Score [facility] (C3) Department [address] [place] [phone] Provider, Population Health Generic 06/27/2024 Orders Only [address] [address] Natasha Horowitz CNM Abnormal endometrial ultrasound (Primary Dx); Abnormal uterine bleeding (AUB); Cyst of left ovary 06/14/[address] [address] Bhargavi Llanes MD Chart Prep 06/13/2024 Travel 06/08/2024 Orders Only [address] [address] Natasha Horowitz CNM Abnormal uterine bleeding (AUB) (Primary Dx); Acquired hypothyroidism 06/07/2024 Patient Outreach [facility] MEDICINE [address] [place] [phone] Bhargavi Llanes MD Pre-visit Planning (SDOH Screening [...] Description 08/31/2024 11:15 AM EDT Office Visit [facility] MEDICINE [address] [place] [address] Bhargavi Llanes MD 230 [place] [address] 10/19/2024 1:30 PM EDT Office Visit [facility] OPTOMETRY [address] [place] [address] Marlene Oconnor, OD [address] [place] [address] Health Maintenance Due Date Last Done Comments [...] EDT Narrative 08/04/2024 1:00 PM EDT ? [facility] ?[address] ?[place], [place] [address] ? CT Scan Report ? Signed ? Patient: Love,Zari ?MR#: [id number] ?? [id number] ? : 1970 ?Acct:[id number] ? Age/Sex: 54 / F ?ADM Date: 08/04/24 ? Loc: HO.ED ? Attending Dr: ? Ordering Physician: Adeel Olmos MD ?? Date of Service: 08/04/24 ?? Procedure(s): CT abdomen pelvis w IV con ?? Accession Number(s): [id number] ? cc: Bhargavi Llanes MD; Adeel Olmos MD ? Report Number: ?? [id number]: Total DLP = ??546.00 mGy-cm ?? EXAMINATION: [...] DD/ 1227 ? TD/TT: 08/04/24 1240 ? Field Application Engineer: ? Procedure Note Don[place]itton, Image - 08/04/[address] [address] [address] Scan Report Signed Patient: Zari AlemanMR#: [id number] : 1970Acct:[id number] Age/Sex: 54 / FADM Date: 08/04/24 Loc: HO.ED Attending Dr: Ordering Physician: Adeel Olmos MD Date of Service: 08/04/24 Procedure(s): CT abdomen pelvis w IV con Accession Number(s): [id number] cc: Bhargavi Llanes MD; Adeel Olmos MD Report Number: [id number]: Total DLP = 546.00 mGy-cm EXAMINATION: CT [...] 08/04/24 1257 DD/ 1227 TD/TT: 08/04/24 1240 Field Application Engineer: [facility] External Provider IMG CT PROCEDURES Final Result * (ABNORMAL) CBC auto differential (08/04/2024 8:43 AM EDT) White Blood Count 12.1(H) 4.8 - 10.8 X10*3/uL [facility] Red Blood Count 4.66 4.20 - 5.50 X10*6/uL [facility] Hemoglobin 12.7 12.0 - 16.0 g/dl [facility] Hematocrit 37.8 37.0 - 47.0 % [facility] Mean Corpuscular Volume 81.1 80.0 - 98.0 fL [facility] Mean Corpuscular Hemoglobin 27.3 27.0 - 33.0 pg [facility] Mean Corpuscular HGB Conc 33.6 31.0 - 35.0 g/dl [facility] Red Cell Distribution Width 15.2 11.0 - 16.0 % [facility] Platelet Count 308 160 - 400 X10*3/uL [facility] Mean Platelet Volume 9.5 9.4 - 12.3 fL [facility] Neutrophils Percent Auto 75.1(H) 45 - 73 % [facility] Imm Gran Pct Auto 0.3 0.0 - 0.4 % [facility] Lymphocytes Percent Auto 19.3(L) 20 - 40 % [facility] Monocytes Percent Auto 4.7 2 - 11 % [facility] Eosinophils Percent Auto 0.4 0 - 4 % [facility] Basophils Percent Auto 0.2 0 - 2 % [facility] NRBC Pct Auto 0.0 0.0 - 0.2 /100WBC [facility] Neutrophils Absolute Auto 9.1(H) 2.0 - 8.3 x10*3/uL [facility] Imm Gran Abs Auto 0.04(H) 0.00 - 0.03 X10*3/uL [facility] Lymphocytes Absolute Auto 2.3 1.2 - 4.9 X10*3/uL [facility] Monocytes Absolute Auto 0.6 0.1 - 1.2 X10*3/uL [facility] Eosinophils Absolute Auto 0.1 0.0 - 0.4 X10*3/uL [facility] Basophils Absolute Auto 0.0 0.0 - 0.2 X10*3/uL [facility] NRBC Abs Auto 0.000 0.0 - 0.012 X10*3/uL [facility] 08/04/2024 8:43 AM EDT 08/04/2024 8:47 AM EDT us Generic External Data Provider LAB BLOOD ORDERAB LES Final Result Performing Organization Address [facility]/ZIP Co de Phone Number [facility] [address] [place] [phone] * Lipase (08/04/2024 8:43 AM EDT) Pathologist [facility] Lipase 20 8 - 78 U/L [facility] 08/04/2024 8:43 AM EDT 08/04/2024 8:47 AM EDT Generic External Data Provider LAB BLOOD ORDERAB LES Final Result Performing Organization Address [facility] de Phone Number [facility] [address] [place] [phone] * (ABNORMAL) Comprehensive Metabolic Panel (08/04/2024 8:43 AM EDT) Sodium 138 135 - 145 mmol/L [facility] Potassium 3.7 3.3 - 5.1 mmol/L [facility] Chloride 106 96 - 108 mmol/L [facility] Carbon Dioxide 25 22 - 29 mmol/L [facility] Anion Gap 11(L) 12 - 20 [facility] Urea Nitrogen (BUN) 12 9 - 16 mg/dL [facility] Creatinine, Serum 0.79 0.5 - 1.4 mg/dL [facility] Creatinine Clr Calc Pharmacy 91.6 [facility] Comment:Provided height and weight: 172.72 cm,80.5 kg.eGFR (calculated from the MDRD study equation) and eCrCl(calculated from the Cockcroft-Gault equation) are based ondifferent parameters and may not yield comparable results.If eCrCl result is absurd, please check patient'sheight/weight. Estimated Glomerular Filt Rate >60 [facility] Comment:Chronic Kidney Disea se: Estimated GFR < 60 mL/min/1.34e6Ofhbil Kidney Disease: Estimated GFR < 15 mL/min/1.73m2 Glucose 175(H) 60 - 115 mg/dL [facility] Calcium 9.7 8.4 - 10.2 mg/dL [facility] Bilirubin, Total 1.2(H) 0.0 - 1.0 mg/dL [facility] Aspartate Amino Transferase 40(H) 5 - 31 U/L [facility] Alanine Aminotransferase 79(H) 0 - 31 U/L [facility] Total Protein 8.0 6.5 - 8.0 g/dL [facility] Albumin Level 4.1 3.5 - 5.0 g/dL [facility] Alkaline Phosphatase 93 39 - 117 U/L [facility] 08/04/2024 8:43 AM EDT 08/04/2024 8:47 AM EDT us Generic External Data Provider LAB BLOOD ORDERAB LES Final Result [facility] [address] [place] [address] [phone] * (ABNORMAL) TSH W/Reflex to FT4 (07/10/2024 10:10 AM EDT) TSH reflex Free T4 71.73(H) 0.32 - 4.0 uIU/mL [facility] Blood Venous blood specimen / Unknown 07/10/2024 10:10 AM EDT 07/10/2024 12:59 PM EDT us Natasha Dangeloquincydar CNM LAB BLOOD ORDERABLES Lidya l Result [facility] [address] [facility] [address] [phone] * US Pelvis Transvaginal (06/27/2024 3:38 PM EST) Anatomical Region Laterality Modality Pelvis Ultrasound 06/27/2024 3:38 PM EST Narrative 06/27/2024 4:30 PM EST ? [facility] ?[address] ?[place] [address] ? Ultrasound Report ? Signed ? Patient: Love,Zari ?MR#: [id number] ?? [id number] ? : 1970 ?Acct:[id number] ? Age/Sex: 54 / F ?ADM Date: 06/27/24 ? Loc: HO.US ? Attending Dr: Natasha Horowitz CNM ? Ordering Physician: NATASHA HOROWITZ CNM ?? Date of Service: 06/27/24 ?? Procedure(s): US pelvic and transvaginal ?? Accession Number(s): [id number] ? cc: NATASHA HOROWITZ CNM; Bhargavi Llanes [...] DD/ 1538 ? TD/TT: 06/27/24 1556 ? Field Application Engineer: MSM ? Procedure Note Meryl Arechiga - 06/27/[address] [address] Ultrasound Report Signed Patient: Zari AlemanMR#: [id number] : 1970Acct:[id number] Age/Sex: 54 / FADM Date: 06/27/24 Loc: HO.US Attending Dr: Natasha Horowitz CNM Ordering Physician: NATASHA HOROWITZ CNM Date of Service: 06/27/24 Procedure(s): US pelvic and transvaginal Accession Number(s): [id number] cc: NATASHA HOROWITZ CNM; Bhargavi Llanes MD [...] 06/27/24 1627 DD/ 1538 TD/TT: 06/27/24 1556 Field Application Engineer: MIKE Natasha Horowitz CNM IMG US PROCEDURES Final R esult * HPV DNA, Low/High Risk (05/30/2024 10:25 AM EST) HPV High Risk Negative Negative [facility] HPV Genotype 16 Negative Negative [facility] HPV Genotype 18 Negative Negative [facility] Comment:HPV testing performe d at [facility] (CLIA#[id number]), [address] [place] [address].Testing for HPV was performed using the Bill [...] CNM LAB BLOOD ORDERABLES Lidya l Result [facility] [address] [place] [phone] * Pap Smear (05/30/2024 10:25 AM EST) Swab Cervix uteri structure / Unknown 05/30/2024 10:25 AM EST 05/31/2024 9:15 AM EST Narrative [facility] - 06/08/2024 1:10 PM EST ----- ------- Name: Love,Zari ?Age/Sex: 54/F ? : 1970 Unit#: [id number] ?? Attend Dr: NATASHA HOROWITZ CNM ?Re05/30/24 ?Status: DEP REF ? Location: [facility] ? Disch: ? ----- ------- SPEC : [id number] ? RECD: 05/31/24 ? STATUS: ??SOUT ? REQ NUM: [id number] ? MUNIRA: 05/30/24-1024 ? SUBM DR: NATASHA [...] CNM LAB CYTOLOGY ORDERABLES F inal Result [facility] [address] [place] [address] [phone] * Hm Colonoscopy (04/27/2023 10:30 AM EST) Colonoscopy Normal Normal Narrative Ana Burgess - 04/27/2023 10:30 AM EST See external hospital admission note on 04/27/2023 Historical Provider [facility] Edited Result - Final * [...] [facility] INDEX 0.01 <1.00 [facility] Comment: ?? HCV antibody was non-reactive. There is no laboratory ?? evidence of HCV infection. ?? In most cases, no further action is required. However, if recent HCV exposure is suspected, a test for HCV RNA (test code 85271) is suggested. ?? For additional information please refer to http://education.[employer]/faq/LXI09h6 (This link is being provided for informational/ educational purposes only.) ?? 05/02/2020 9:36 AM EST Bhargavi Llanes MD HISTORICAL/NON ORDERABLE LABS Fi nal Result [facility] [address] * HIV 1/2 ANTIGEN/ANTIBODY,FOURTH GENERATION W/RFL (05/02/2020 9:36 AM EST) HIV-1/2 ANTIGEN AND ANTIBODIES, 4TH GENERATION W/ REFLEX NON-REACT STEVE NON-REACT STEVE [facility] Comment: HIV-1 antigen and HIV-1/HIV-2 [...] ? For additional information please refer to http://education.[employer]/faq/ZNZ302 (This link is being provided for informational/ educational purposes only.) ? The performance of this assay has not been clinically validated in patients less than 2 years old. ?? 05/02/2020 9:36 AM EST us Bhargavi Llanes MD LAB BLOOD ORDERABLES Final Resul t [facility] [address] from Last 3 Months or Most Recently Relevant to Health Maintenance Insurance [facility] C3 Care Teams Tail Dogger Relationship Specialty Start Date End Date Bhargavi Llanes MD [address] [place] [address] [place] [address] PCP - General Family Medicine 11/21/18
--- OUTSIDE RECORDS SUMMARY | 2024-08-29 13:11 | XMS_ITS | Encounter Summary ---
Author Organization [employer] Address [address] [facility] [address] 7t [place] [address] Care Team Providers Care Stove Mechanic Name Role Phone Bhargavi Llanes MD Primary Care Provider [phone] Encounter Details Date Type Department Care Team [...] Description 08/31/2024 11:15 AM EDT Office Visit [facility] MEDICINE [address] [place] [address] Bhargavi Llanes MD [address] [place] [address] 10/19/2024 1:30 PM EDT Office Visit [facility] OPTOMETRY [address] [place] [address] Marlene Oconnor, OD [address] [place] [address] documented as of this encounter Visit Diagnoses Not on filedocumented in this encounter Care Teams Stove Mechanic Relationship Specialty Start Date End Date Bhargavi Llanes MD [address] [place] [address] PCP - General Family Medicine 11/21/18 documented as of this encounter
--- OUTSIDE RECORDS SUMMARY | 2024-08-29 13:11 | XMS_ITS | Encounter Summary ---
Author Organization [employer] Address [address] [facility] [address] [place] [address] Care Team Providers Care Insurance Account Manager Name Role Phone Bhargavi Llanes MD Primary Care Provider [phone] Encounter Details Date Type Department Care Team (Late st Contact Info) Description 07/07/2024 Orders Only [facility] [address] [place], [place] [phone] Provider, MD Brooke Social History Tobacco Use [...] Description 08/31/2024 11:15 AM EDT Office Visit [facility] MEDICINE [address] [place] [address] Bhargavi Llanes MD [address] [place] [address] 10/19/2024 1:30 PM EDT Office Visit [facility] OPTOMETRY [address] [place], [place] [phone] Elvin, Marlene, OD [address] [place] [address] documented as of this encounter Procedures Procedure Name Priority Date/Time Associated Diagnosis Comments COLONOSCOPY Routine 04/27/2023 10:30 AM EST documented in this encounter Results * Colonoscopy (04/27/2023 10:30 AM EST) Colonoscopy Normal Normal Narrative Ana Burgess - 04/27/2023 10:30 AM EST See external hospital admission note on 04/27/2023 Historical Provider [facility] Edited Result - Final documented in this encounter Visit Diagnoses Not on filedocumented in this encounter Care Teams Insurance Account Manager Relationship Specialty Start Date End Date Bhargavi Llanes MD [address] [place], [place] [phone] PCP - General Family Medicine 11/21/18 documented as of this encounter
[2024-08-29 16:33] LABS: CT PCR NOT DETECTED (Not Detect.); NG PCR NOT DETECTED (Not Detect.)
== END 2024-08-29 10:09 | disposition home or self-care (01) ==
LOC: HO.LNP 10:08
PROVIDERS: PCP Family Medicine; Visit Provider Obstetrics & Gynecology
DX: N83.299 Other ovarian cyst, unspecified side (principal); N93.9 Abnormal uterine and vaginal bleeding, unspecified
CPT/HCPCS: 58100; 81025; 87491; 87591; 88305; 99202

== ENCOUNTER 2024-08-29 10:08 | Outpatient (AMB) | payer MEDICAID, SELFPAY ==
--- NOTE | 2024-08-29 10:31 | A.OFFVIS_ITS ---
Vital Signs 08/29/24 10:32 Height 5 ft 2 in Weight 175 lb BMI 32.0 BP 126/70 Intake Visit Reasons: Abnormal ultrasound Insurance Claim Representative Required: No Information Interpreted: non-clinical & clinical Accompanied by: Self / Same As Patient Allergies tramadol [TRAMADOL] Allergy (Intermediate, Verified 08/29/24 10:43) VOMITING, ? nausea Post menopausal: Yes HPI Comments Details: Presenting referred from [facility] regarding abnormal uterine bleeding and abnormal finding on pelvic ultrasound done in 07/18 which showed the following: Uterus: The uterus is retroverted, retroflexed and measures 8.9 x 4.9 x 5.4 cm. The double wall endometrial is heterogenous with cystic areas within. The thickness measures 1.4 cm. The uterus is smooth in contour and has normal myometrial echogenicity. No visible fibroid. There are small nabothian cysts visualized in the cervix. Adnexa: Both ovaries are visualized. There is normal color flow to the adnexa. There is no ovarian torsion. There is no pelvic ascites or fluid collection. Right ovary measures 2.1 x 1.9 x 1.9 cm and volume 1.3 mL. There are small follicles with a dominant follicle noted. Small calcifications are noted. Left ovary measures 2.7 x 1.9 x 1.7 cm in volume 4.5 mL. There is 2 anechoic cysts adjacent to each other versus on cyst with septation or hydrosalpinx. The lesions measure 1.2 x 1.1 x 1.0 cm and 1.3 x 1.3 x 1.1 cm. There is adjacent calcification. Prominent vasculature seen in the left adnexa question pelvic venous congestion. There is no free fluid in the cul-de-sac. The workup included the following: H&H 12.7/37.8 TSH elevated, the patient thyroid medication was increased and is scheduled for another TSH soon Last co testing in 06/20 was negative Mammogram is scheduled within few weeks [facility] Medical History (Updated 08/29/24 @ 11:02 by Nick Higgins MD) GERD (gastroesophageal reflux disease) Vitamin D deficiency Multinodular goiter Jeevan's disease Hypothyroidism Diverticulitis Surgical History History of esophagogastroduodenoscopy (EGD) H/O colonoscopy Hx of hemorrhoidectomy Hx of lumpectomy H/O tubal ligation Family History Father Heart disease Mother Diabetes mellitus HTN (hypertension) Brother Diabetes mellitus Sister High cholesterol Sister Jeevan's disease Social History Household Members: Spouse and Children Alcohol intake: never Patient Tobacco Use Status: Former Tobacco user Tobacco use type: Cigarette Cigarettes Per Day: 3 Review of Systems Const All systems reviewed & are unremarkable except as noted in HPI and below Physical Exam Vital Signs: Last Vital Signs BP 126/70 08/29/24 10:32 BMI result Body Mass Index 32.0 General: Yes no CVA tenderness External Female Exam: normal external appearance and normal appearance of the urethra Speculum Exam - Vagina: normal appearance of the vagina, normal palpation, no lesions and no masses Speculum Exam - Cervix: normal appearance of the cervix, normal palpation, no lesions, no masses and nontender Bimanual exam- vagina & uterus: normal bimanual exam, normal palpation, uterine size normal, normal palpation, uterine shape normal, No Cervical tenderness present and non-tender Bimanual Exam- Adnexa, other: normal adnexae Back/Spine/Pelvis Back: no CVA tenderness Office Procedures Endometrial Biopsy Details: The patient was counseled regarding the indication and benefits of endometrial sampling to rule out endometrial pathology including not limited to endometrial hyperplasia or endometrial cancer and others; The alternatives (Either do nothing vs. hysteroscopy D&C) & the risks were discussed with the patient including but not limited: pain, uterine perforation, bleeding, infection, possible injury to bladder, bowel, ureter, possible need for blood transfusion with all its possible risks. The patient verbalized understanding all questions answered and signed consent. Urine test done in the office was negative The patient was placed into the dorsal lithotomy position; a speculum was inserted in the vagina. Using aseptic technique for the procedure, the cervix was cleansed with Betadine. The anterior lip of the cervix was grasped with a single tooth tenaculum. The uterus was sounded to 7 cm with a 4 mm Pipelle was used. Tissues samples were obtained and placed in formalin, in a patient labeled container and sent to the pathology department. At the end of the procedure, there was minimal bleeding noted The patient tolerated the procedure well and was discharged in good condition with the following instructions: Nothing in the vagina until the bleeding stops. No sex until the bleeding stops, to call if any of the following occurs: fever (>100.4), flu-like symptoms, abdominal pain, heavy bleeding, four smelling vaginal discharge. The patient was instructed to schedule a Follow up appointment in 2 weeks to discuss pathology results of the biopsy and treatment options. This note was generated with a voice recognition program. Some errors may have been overlooked during the review of this note. Sometimes these errors may affect the content or meaning of a given sentence. [id number] Biopsy Results AMB Test Urine AMB Test Urine Negative Last Edit by Lexis Will CMA on 11:03 Assessment & Plan Assessment & Plan (1) Complex ovarian cyst: Code(s): N83.299 - Other ovarian cyst, unspecified side Category: Medical Plan: Discussed with the patient the complex ovarian cyst by ultrasound. Discussed with the patient the Ultrasound findings, the main limitation of transvaginal ultrasonography alone as a diagnostic tool to distinguish benign from malignant masses relates to its lack of specificity and low positive predictive value for cancer. The differential diagnosis discussed with the patient includes the following but not limited to: benign and malignant gynecological and non-gynecological causes. Since it has been 8 weeks since last ultrasound, recommended repeat pelvic ultrasound manuel. Instructions given the patient to schedule an ultrasound follow-up appointment within 1-2 weeks (2) Abnormal uterine bleeding (AUB): Comment: Abnormal endometrium by ultrasound Code(s): N93.9 - Abnormal uterine and vaginal bleeding, unspecified Category: Medical Plan: GC and chlamydia taken, and pelvic ultrasound ordered. Discussed with the patient the different causes of abnormal bleeding including thyroid disorders, uterine and ovarian pathology, endometrial hyperplasia, carcinoma and other potential causes. Recommended to the patient that the next step is an endomet rial sampling via hysteroscopy D&C possible polypectomy versus endometrial biopsy to r/o endometrial pathology including hyperplasia or cancer. All the pros and cons risks and benefits of each approach were discussed with the patient, endometrial biopsy being less invasive, office procedure with less sensitivity and inability diagnose a polyp and removal versus hysteroscopy done under anesthesia more invasive more sensitive to endometrial cancer and possibility of diagnosing and endometrial polyp with the possibility of polypectomy. All questions were answered pt verbalized understanding and decided to proceed with endometrial biopsy. EMB done, see procedure note Orders: Orders AMB HCG Urine Test Today Z32.02 - Encounter for test, result negative US pelvic and transvaginal Today N83.299 - Other ovarian cyst, unspecified side AMB Endometrial Biopsy Today N93.9 - Abnormal uterine and vaginal bleeding, unspecified US pelvic and transvaginal Today N83.299 - Other ovarian cyst, unspecified side Coding Level of Care Code New Pt Level 3 (88030) Procedure Only Diagnoses Complex ovarian cyst N83.299 Abnormal uterine bleeding (AUB) N93.9 CPT Codes Endometrial Biopsy - CPT: 04860-[id number] Biopsy ([id number])
[2024-08-29 10:32] VITALS: BP 126/70; BMI 32.0
--- OUTSIDE RECORDS SUMMARY | 2024-08-29 11:36 | XMS_ITS | Encounter Summary ---
Author Organization [employer] Address [address] [place] [address] Care Team Providers Care Quality Systems Engineer Name Role Phone Bhargavi Llanes MD Primary Care Provider [phone] Encounter Details Date Type Department Care Team (Late st Contact Info) Description 07/07/2024 Orders Only [facility] [address] [place], [place] [phone] Provider, MD Brooke Social History Tobacco Use Types Packs/Day Years Used Date Smoking Tobacco: Former Alcohol Use Standard Drinks/Week Comments Never 0 (1 standard drink = 0.6 oz pur e alcohol) Housing Stability Answer Date Recorded What is your housing situation today? I have yasminpina zhong 06/07/[address] you [...] Care Team (Late st Contact Info) Description 08/31/2024 11:15 AM EDT Office Visit [facility] [address] [place] [address] Bhargavi Llanes MD [address] [place] [address] 10/19/2024 1:30 PM EDT Office Visit [facility] OPTOM[facility]RY [address], [place] [id number] Elvin, Marlene, OD [address] [place] [address] documented as of this encounter Procedures Procedure Name Priority Date/Time Associated Diagnosis Comments COLONOSCOPY Routine 04/27/2023 10:30 AM EST documented in this encounter Results * Colonoscopy (04/27/2023 10:30 AM EST) Colonoscopy Normal Normal Narrative Ana Burgess - 04/27/2023 10:30 AM EST See external hospital admission note on 04/27/2023 Historical Provider [facility] Edited Result - Final documented in this encounter Visit Diagnoses Not on filedocumented in this encounter Care Teams Quality Systems Engineer Relationship Specialty Start Date End Date Bhargavi Llanes MD [address] [place], [place] [id number] PCP - General Family Medicine 11/21/18 documented as of this encounter
--- OUTSIDE RECORDS SUMMARY | 2024-08-29 11:36 | XMS_ITS | Clinical Summary ---
Author Organization [employer] Address [address] [place] [address] Care Team Providers Care Food Preservation Scientist Name Role Phone Bhargavi Llanes MD Primary Care Provider [phone] Allergies Active Allergy Reactions Criticality Noted Date [...] per day 18 g 3 07/22/19 24 Active hydrocortisone (Anusol-HC) 25 MG suppository Insert 1 suppository (25 mg) into the rectum 2 times daily. 24 suppository 07/22/19 24 Active Mometasone Furoate (Asmanex HFA) 100 MCG/ACT aerosol Inhale 1 puff 2 times daily. 13 g 11 07/22/19 24 Active Active Problems Problem Noted Date Diagnosed Date Prolapse of female pelvic organs 07/23/2024 Abnormal uterine bleeding (AUB) 07/23/2024 GERD (gastroesophageal reflux disease) Assessment & Plan (07/22/2023 7:23 PM EDT): - continue pantoprazole 40 mg bid and famotidine 40 mg daily prn IBS (irritable bowel syndrome) 07/22/2023 Assessment & Plan (07/22/2023 7:23 PM EDT): - following with [facility] - s/p colonoscopy in April 2023 [...] Problem Noted Date Diagnosed Date Resolved Date Acute UTI (urinary tract infection) 02/01/2024 07/23/2024 Assessment & Plan (02/01/2024 6:39 PM EDT): [...] or worsening of symptoms -ER precautions reviewed. Breast lump 10/28/2022 07/22/2023 Anterior cervical lymphadenopathy 01/06/2018 07/22/2023 Encounters Date Type Department Care Team Description 08/24/2024 Travel 08/07/[address] [address] Louise Carrero RN Pt status Check 08/04/2024 Orders Only GENERIC EXTERNAL DATA DEPARTMENT Provider, [facility] External Data 07/23/2024 Travel 07/19/[address] [address] Bhargavi Llanes MD chart prep 07/17/2024 Patient Outreach [address] [address] Bhargavi Llanes MD Pre-visit Planning (SDOH screening was completed on 06/07/2024) 07/07/2024 Orders Only [facility] [address] [place] [address] ProviderBrooke MD 07/07/2024 Population Health Risk Score [facility] (C3) Department [address] [place] [phone] Provider, Population Health Generic 06/27/2024 Orders Only [address] [address] Natasha Horowitz CNM Abnormal endometrial ultrasound (Primary Dx); Abnormal uterine bleeding (AUB); Cyst of left ovary 06/14/[address] [address] Bhragavi Llanes MD Chart Prep 06/13/2024 Travel 06/08/2024 Orders Only [address] [address] Natasha Horowitz CNM Abnormal uterine bleeding (AUB) (Primary Dx); Acquired hypothyroidism 06/07/2024 Patient Outreach [facility] [address] [place] [phone] Bhargavi Llanes MD Pre-visit Planning (SDOH Screening negative and Tobacco screening negative) from Last 3 Months Immunizations Name Administration [...] Description 08/31/2024 11:15 AM EDT Office Visit [facility] [address] [place] [address] Bhargavi Llanes MD [address] [place] [address] 10/19/2024 1:30 PM EDT Office Visit [facility] [address] [place] [address] Marlene Oconnor, OD [address] [place] [address] Health Maintenance Due Date Last Done Comments [...] Procedure Name Priority Date/Time Associated Diagnosis Comments CT ABDOMEN PELVIS W CONTRAST Routine 08/04/2024 12:27 PM EDT LIPASE Routine 08/04/2024 8:43 AM EDT COMPREHENSIVE METABOLIC PANEL Routine 08/04/2024 8:43 AM EDT CBC WITH AUTO DIFFERENTIAL Routine 08/04/2024 8:43 AM EDT TSH W/REFLEX TO FT4 Routine 07/10/2024 1 0:10 AM EDT Abnormal uterine bleeding (AUB) Acquired hypothyroidism US PELVIS TRANSVAGINAL Urgent 06/27/2024 3:38 PM EST Abnormal uterine bleeding (AUB) HPV DNA, LOW/HIGH RISK Routine 05/30/2024 10:25 AM EST PAP SMEAR Routine 05/30/2024 10:25 AM EST Abnormal uterine bleeding (AUB) Routine cervical smear HM COLONOSCOPY Routine 04/27/2023 10:30 AM EST MAMMOGRAM GENERIC Routine 12/09/2021 8:2 0 AM EDT ZZZ HISTORICAL HEPATITIS C AB W/REFL TO HCV RNA, QN, PCR Routine 05/02/2020 9:36 AM EST HIV 1/2 ANTIGEN/ANTIBODY, FOURTH GENERATION W/RFL Routine 05/02/2020 9:36 AM EST from Last 3 Months or Most Recently Relevant to Health Maintenance Results * CT Abdomen Pelvis w/ Contrast (08/04/2024 12:27 PM EDT) Anatomical Region Laterality Modality Body, Pelvis, Abdomen Computed T omography 08/04/2024 12:2 7 PM EDT Narrative 08/04/2024 1:00 PM EDT ? [facility] ?[address] ?[place], [place] [address] ? CT Scan Report ? Signed ? Patient: Love,Zari ?MR#: [id number] ?? [id number] ? : 1970 ?Acct:[id number] ? Age/Sex: 54 / F ?ADM Date: 08/04/24 ? Loc: HO.ED ? Attending Dr: ? Ordering Physician: Adeel Olmos MD ?? Date of Service: 08/04/24 ?? Procedure(s): CT abdomen pelvis w IV con ?? Accession Number(s): [id number] ? cc: Bhargavi Llanes MD; Adeel Olmos MD ? Report Number: ?? [id number]: Total DLP = ??546.00 mGy-cm ?? EXAMINATION: ?? CT ABDOMEN AND PELVIS WITH CONTRAST ? CLINICAL INFORMATION: ?? Right lower quadrant pain, right upper quadrant pain. ? COMPARISON: ?? Numerous prior CTs, most recently 06/18/2023. ? TECHNIQUE: ?? Multidetector volumetric images were obtained from the superior aspect ?? of the liver through the pubic symphysis following administration 85 mL ?? of Omnipaque 350 intravenous contrast. Sagittal and coronal reformatted ?? images were obtained on the technologist's workstation. ? Oral contrast: No ? This CT examination was performed using dose optimization techniques as ?? appropriate, variously including the following: ?? *Automated exposure control ?? *Adjustment of mA and/or kV according to patient size (this includes ?? techniques or standardized protocols for targeted exams where dose is ?? matched to indication/reason for exam; i.e. extremities or head) ?? *Use of iterative reconstruction technique ? FINDINGS: ?? LUNG BASES: ?? Lung bases are clear. The heart size is normal. ?? Normal GE junction. ? LIVER, GALLBLADDER, AND BILIARY TREE: The liver is enlarged, and there ?? is diffuse fatty infiltration. Normal contour. No suspicious focal ?? lesion identified. ?? The gallbladder is distended, with dependent calcified intraluminal ?? gallstones. No wall thickening, pericholecystic fluid, or ?? pericholecystic inflammatory change. ? PANCREAS: Unremarkable. ? SPLEEN: Unremarkable. ? ADRENAL GLANDS: Unremarkable. ? KIDNEYS AND URETERS: The kidneys are normal in size, shape, and ?? attenuation. No hydronephrosis, hydroureter, or calculi seen. No ?? perinephric stranding. ? BLADDER: Unremarkable. ? GASTROINTESTINAL TRACT: ?? There is inflammation and short segment colonic wall thickening of the ?? proximal transverse colon just subjacent to the liver in the hepatic ?? flexure region. There is an enhancing prominent diverticulum. Findings ?? are consistent with acute diverticulitis. There is no complication. ?? There is extensive diverticulosis of the entire colon. No additional ?? regions of inflammation or wall thickening. ?? No rectal abnormality. ?? Normal appendix is visualized. ?? Small bowel is normal in caliber and course. No small bowel ?? abnormalities. ?? Stomach, and duodenum have a normal appearance. ? ABDOMINAL WALL: No significant hernia is appreciated. ? LYMPH NODES: Normal. ? VASCULAR: ?? 1.2 x 1.2 cm peripherally calcified splenic artery aneurysm in the ?? hilum of the spleen, stable. There is a smaller abutting 1.0 cm splenic ?? artery aneurysm. ?? Mild calcific atheromatous disease without additional aneurysm seen. ?? No evidence of venous thrombosis. ? PELVIC VISCERA: Retroverted uterus. Thickening of the endometrium, ?? measuring up to 2.1 cm, abnormal in a postmenopausal patient. ?? There are small bilateral ovarian cysts, larger on the right measuring ?? 2.3 cm. There are cervical nabothian cysts. ? OSSEOUS STRUCTURES: Unremarkable. ? CT/CT abdomen pelvis w IV con ?? IMPRESSION: ?? 1. Acute uncomplicated diverticulitis of the proximal transverse colon ?? at the level of the splenic flexure. ?? 2. Cholelithiasis. ?? 3. Enlargement diffuse fatty infiltration of the liver. No suspicious ?? liver lesion. ?? 4. Thickened endometrial stripe at 2.1 cm, abnormal in a postmenopausal ?? patient. ?? 5. Stable 1.2 cm splenic artery aneurysm. ?? 6. Additional ancillary findings as discussed in the body of the report. ? Electronically signed by: ??Roger Galeana MD ??08/04/2024 12:57 PM EDT RP ? Dictated By: ?Roger Galeana MD ? Signed By: ?<Electronically signed by Roger Galeana MD in OV> ?08/04/24 1257 ? DD/ 1227 ? TD/TT: 08/04/24 1240 ? Pharmacist Technician: ? Procedure Note Donbritton, Image - 08/04/[address] [address] [address] Scan Report Signed Patient: Zari AlemanMR#: [id number] : 1970Acct:[id number] Age/Sex: 54 / FADM Date: 08/04/24 Loc: HO.ED Attending Dr: Ordering Physician: Adeel Olmos MD Date of Service: 08/04/24 Procedure(s): CT abdomen pelvis w IV con Accession Number(s): [id number] cc: Bhargavi Llanes MD; Adeel Olmos MD Report Number: [id number]: Total DLP = 546.00 mGy-cm EXAMINATION: CT ABDOMEN AND PELVIS WITH CONTRAST CLINICAL INFORMATION: Right lower quadrant pain, right upper quadrant pain. COMPARISON: Numerous prior CTs, most recently 06/18/2023. TECHNIQUE: Multidetector volumetric images were obtained from the superior aspect of the liver through the pubic symphysis following administration 85 mL of Omnipaque 350 intravenous contrast. Sagittal and coronal reformatted images were obtained on the technologist's workstation. Oral contrast: No This CT examination was performed using dose optimization techniques as appropriate, variously including the following: *Automated exposure control *Adjustment of mA and/or kV according to patient size (this includes techniques or standardized protocols for targeted exams where dose is matched to indication/reason for exam; i.e. extremities or head) *Use of iterative reconstruction technique FINDINGS: LUNG BASES: Lung bases are clear. The heart size is normal. Normal GE junction. LIVER, GALLBLADDER, AND BILIARY TREE: The liver is enlarged, and there is diffuse fatty infiltration. Normal contour. No suspicious focal lesion identified. The gallbladder is distended, with dependent calcified intraluminal gallstones. No wall thickening, pericholecystic fluid, or pericholecystic inflammatory change. PANCREAS: Unremarkable. SPLEEN: Unremarkable. ADRENAL GLANDS: Unremarkable. KIDNEYS AND URETERS: The kidneys are normal in size, shape, and attenuation. No hydronephrosis, hydroureter, or calculi seen. No perinephric stranding. BLADDER: Unremarkable. GASTROINTESTINAL TRACT: There is inflammation and short segment colonic wall thickening of the proximal transverse colon just subjacent to the liver in the hepatic flexure region. There is an enhancing prominent diverticulum. Findings are consistent with acute diverticulitis. There is no complication. There is extensive diverticulosis of the entire colon. No additional regions of inflammation or wall thickening. No rectal abnormality. Normal appendix is visualized. Small bowel is normal in caliber and course. No small bowel abnormalities. Stomach, and duodenum have a normal appearance. ABDOMINAL WALL: No significant hernia is appreciated. LYMPH NODES: Normal. VASCULAR: 1.2 x 1.2 cm peripherally calcified splenic artery aneurysm in the hilum of the spleen, stable. There is a smaller abutting 1.0 cm splenic artery aneurysm. Mild calcific atheromatous disease without additional aneurysm seen. No evidence of venous thrombosis. PELVIC VISCERA: Retroverted uterus. Thickening of the endometrium, measuring up to 2.1 cm, abnormal in a postmenopausal patient. There are small bilateral ovarian cysts, larger on the right measuring 2.3 cm. There are cervical nabothian cysts. OSSEOUS STRUCTURES: Unremarkable. CT/CT abdomen pelvis w IV con IMPRESSION: 1. Acute uncomplicated diverticulitis of the proximal transverse colon at the level of the splenic flexure. 2. Cholelithiasis. 3. Enlargement diffuse fatty infiltration of the liver. No suspicious liver lesion. 4. Thickened endometrial stripe at 2.1 cm, abnormal in a postmenopausal patient. 5. Stable 1.2 cm splenic artery aneurysm. 6. Additional ancillary findings as discussed in the body of the report. Electronically signed by: Roger Galeana MD 08/04/2024 12:57 PM EDT Dictated By: Roger Galeana MD Signed By: <Electronically signed by Roger Galeana MD in OV> 08/04/24 1257 DD/ 1227 TD/TT: 08/04/24 1240 Pharmacist Technician: [facility] External Provider IMG CT PROCEDURES Final Result * (ABNORMAL) CBC auto differential (08/04/2024 8:43 AM EDT) White Blood Count 12.1(H) 4.8 - 10.8 X10*3/uL [facility] Red Blood Count 4.66 4.20 - 5.50 X10*6/uL [facility] Hemoglobin 12.7 12.0 - 16.0 g/dl [facility] Hematocrit 37.8 37.0 - 47.0 % [facility] Mean Corpuscular Volume 81.1 80.0 - 98.0 fL [facility] Mean Corpuscular Hemoglobin 27.3 27.0 - 33.0 pg [facility] Mean Corpuscular HGB Conc 33.6 31.0 - 35.0 g/dl [facility] Red Cell Distribution Width 15.2 11.0 - 16.0 % [facility] Platelet Count 308 160 - 400 X10*3/uL [facility] Mean Platelet Volume 9.5 9.4 - 12.3 fL [facility] Neutrophils Percent Auto 75.1(H) 45 - 73 % [facility] Imm Gran Pct Auto 0.3 0.0 - 0.4 % [facility] Lymphocytes Percent Auto 19.3(L) 20 - 40 % [facility] Monocytes Percent Auto 4.7 2 - 11 % [facility] Eosinophils Percent Auto 0.4 0 - 4 % [facility] Basophils Percent Auto 0.2 0 - 2 % [facility] NRBC Pct Auto 0.0 0.0 - 0.2 /100WBC [facility] Neutrophils Absolute Auto 9.1(H) 2.0 - 8.3 x10*3/uL [facility] Imm Gran Abs Auto 0.04(H) 0.00 - 0.03 X10*3/uL [facility] Lymphocytes Absolute Auto 2.3 1.2 - 4.9 X10*3/uL [facility] Monocytes Absolute Auto 0.6 0.1 - 1.2 X10*3/uL [facility] Eosinophils Absolute Auto 0.1 0.0 - 0.4 X10*3/uL [facility] Basophils Absolute Auto 0.0 0.0 - 0.2 X10*3/uL [facility] NRBC Abs Auto 0.000 0.0 - 0.012 X10*3/uL [facility] 08/04/2024 8:43 AM EDT 08/04/2024 8:47 AM EDT us Generic External Data Provider LAB BLOOD ORDERAB LES Final Result Performing Organization Address [facility]/ZIP Co de Phone Number [facility] [address] [place] [phone] * Lipase (08/04/2024 8:43 AM EDT) Pathologist [facility] Lipase 20 8 - 78 U/L [facility] 08/04/2024 8:43 AM EDT 08/04/2024 8:47 AM EDT Generic External Data Provider LAB BLOOD ORDERAB LES Final Result Performing Organization Address [facility] de Phone Number [facility] [address] [place] [phone] * (ABNORMAL) Comprehensive Metabolic Panel (08/04/2024 8:43 AM EDT) Sodium 138 135 - 145 mmol/L [facility] Potassium 3.7 3.3 - 5.1 mmol/L [facility] Chloride 106 96 - 108 mmol/L [facility] Carbon Dioxide 25 22 - 29 mmol/L [facility] Anion Gap 11(L) 12 - 20 [facility] Urea Nitrogen (BUN) 12 9 - 16 mg/dL [facility] Creatinine, Serum 0.79 0.5 - 1.4 mg/dL [facility] Creatinine Clr Calc Pharmacy 91.6 [facility] Comment:Provided height and weight: 172.72 cm,80.5 kg.eGFR (calculated from the MDRD study equation) and eCrCl(calculated from the Cockcroft-Gault equation) are based ondifferent parameters and may not yield comparable results.If eCrCl result is absurd, please check patient'sheight/weight. Estimated Glomerular Filt Rate >60 [facility] Comment:Chronic Kidney Disea se: Estimated GFR < 60 mL/min/1.74j1Ayefyh Kidney Disease: Estimated GFR < 15 mL/min/1.73m2 Glucose 175(H) 60 - 115 mg/dL [facility] Calcium 9.7 8.4 - 10.2 mg/dL [facility] Bilirubin, Total 1.2(H) 0.0 - 1.0 mg/dL [facility] Aspartate Amino Transferase 40(H) 5 - 31 U/L [facility] Alanine Aminotransferase 79(H) 0 - 31 U/L [facility] Total Protein 8.0 6.5 - 8.0 g/dL [facility] Albumin Level 4.1 3.5 - 5.0 g/dL [facility] Alkaline Phosphatase 93 39 - 117 U/L [facility] 08/04/2024 8:43 AM EDT 08/04/2024 8:47 AM EDT us Generic External Data Provider LAB BLOOD ORDERAB LES Final Result [facility] [address] [place] [address] [phone] * (ABNORMAL) TSH W/Reflex to FT4 (07/10/2024 10:10 AM EDT) TSH reflex Free T4 71.73(H) 0.32 - 4.0 uIU/mL [facility] Blood Venous blood specimen / Unknown 07/10/2024 10:10 AM EDT 07/10/2024 12:59 PM EDT us Natasha Dangeloquincydar CNM LAB BLOOD ORDERABLES Lidya l Result [facility] [address] [facility] [place] [address] [phone] * US Pelvis Transvaginal (06/27/2024 3:38 PM EST) Anatomical Region Laterality Modality Pelvis Ultrasound 06/27/2024 3:38 PM EST Narrative 06/27/2024 4:30 PM EST ? [facility] ?[address] ?[place] [address] ? Ultrasound Report ? Signed ? Patient: Love,Zari ?MR#: [id number] ?? [id number] ? : 1970 ?Acct:[id number] ? Age/Sex: 54 / F ?ADM Date: 06/27/24 ? Loc: HO.US ? Attending Dr: Natasha Horowitz CNM ? Ordering Physician: NATASHA HOROWITZ CNM ?? Date of Service: 06/27/24 ?? Procedure(s): US pelvic and transvaginal ?? Accession Number(s): [id number] ? cc: NATASHA HOROWITZ CNM; Bhargavi Llanes [...] Signed By: ?<Electronically signed by Jose S MD Lana in OV> ?06/27/24 1627 ? DD/ 1538 ? TD/TT: 06/27/24 1556 ? Pharmacist Technician: MSM ? Procedure Note Meryl Arechiga - 06/27/[address] [address] Ultrasound Report Signed Patient: Zari AlemanMR#: [id number] : 1970Acct:[id number] Age/Sex: 54 / FADM Date: 06/27/24 Loc: HO.US Attending Dr: Natasha Horowitz CNM Ordering Physician: NATASHA HOROWITZ CNM Date of Service: 06/27/24 Procedure(s): US pelvic and transvaginal Accession Number(s): [id number] cc: NATASHA HOROWITZ CNM; Bhargavi Llanes MD [...] 06/27/24 1627 DD/ 1538 TD/TT: 06/27/24 1556 Pharmacist Technician: MIKE Natasha Horowitz CNM IMG US PROCEDURES Final R esult * HPV DNA, Low/High Risk (05/30/2024 10:25 AM EST) HPV High Risk Negative Negative [facility] HPV Genotype 16 Negative Negative [facility] HPV Genotype 18 Negative Negative [facility] Comment:HPV testing performe d at [facility] (CLIA#[id number]), [address] [place] [address].Testing for HPV was performed using the Bill [...] Natasha Horowitz CNM LAB BLOOD ORDERABLES Lidya l Result [facility] [address] [place] [phone] * Pap Smear (05/30/2024 10:25 AM EST) Swab Cervix uteri structure / Unknown 05/30/2024 10:25 AM EST 05/31/2024 9:15 AM EST Narrative [facility] - 06/08/2024 1:10 PM EST ----- ------- Name: Love,Zari ?Age/Sex: 54/F ? : 1970 Unit#: [id number] ?? Attend Dr: NATASHA HOROWITZ CNM ?Re05/30/24 ?Status: DEP REF ? Location: [facility] ? Disch: ? ----- ------- SPEC : [id number] ? RECD: 05/31/24 ? STATUS: ??SOUT ? REQ NUM: [id number] ? MUNIRA: 05/30/24-1024 ? SUBM DR: NATASHA HOROWITZ CNM ? ENTERED: ??05/31/24 ?SP TYPE: Pap Smr ?OTHR DR: ? ORDERED: ??Pap Smear ? Interpretation ?? [...] END OF REPORT ? us Natasha Horowitz CNM LAB CYTOLOGY ORDERABLES F inal Result [facility] [address] [place] [address] [phone] * Hm Colonoscopy (04/27/2023 10:30 AM EST) Colonoscopy Normal Normal Narrative Ana Burgess - 04/27/2023 10:30 AM EST See external hospital admission note on 04/27/2023 Historical Provider [facility] Edited Result - Final * [...] [facility] INDEX 0.01 <1.00 [facility] Comment: ?? HCV antibody was non-reactive. There is no laboratory ?? evidence of HCV infection. ?? In most cases, no further action is required. However, if recent HCV exposure is suspected, a test for HCV RNA (test code 38039) is suggested. ?? For additional information please refer to http://education.[employer]/faq/IZP31h0 (This link is being provided for informational/ educational purposes only.) ?? 05/02/2020 9:36 AM EST Bhargavi Llanes MD HISTORICAL/NON ORDERABLE LABS Fi nal Result [facility] [address] * HIV 1/2 ANTIGEN/ANTIBODY,FOURTH GENERATION W/RFL (05/02/2020 9:36 AM EST) HIV-1/2 ANTIGEN AND ANTIBODIES, 4TH GENERATION W/ REFLEX NON-REACT STEVE NON-REACT STEVE [facility] Comment: HIV-1 antigen and HIV-1/HIV-2 [...] ? For additional information please refer to http://education.[employer]/faq/JCV386 (This link is being provided for informational/ educational purposes only.) ? The performance of this assay has not been clinically validated in patients less than 2 years old. ?? 05/02/2020 9:36 AM EST us Bhargavi Llanes MD LAB BLOOD ORDERABLES Final Resul t [facility] [address] from Last 3 Months or Most Recently Relevant to Health Maintenance Insurance [facility] C3 Care Teams Food Preservation Scientist Relationship Specialty Start Date End Date Bhargavi Llanes MD [address] [place] [address] [place] [address] PCP - General Family Medicine 11/21/18
--- OUTSIDE RECORDS SUMMARY | 2024-08-29 11:36 | XMS_ITS | Encounter Summary ---
Author Organization [employer] Address [address] [place] [address] Care Team Providers Care Assembler Handbags Name Role Phone Bhargavi Llanes MD Primary Care Provider [phone] Encounter Details Date Type Department Care Team (Latest Contact Info) Description 08/24/2024 Travel Social History Tobacco Use Types Packs/Day [...] Description 08/31/2024 11:15 AM EDT Office Visit [facility] [address] [place] [address] Bhargavi Llanes MD [address] [place] [address] 10/19/2024 1:30 PM EDT Office Visit [facility] [address] [place] [address] Marlene Oconnor, OD [address] [place] [address] documented as of this encounter Visit Diagnoses Not on filedocumented in this encounter Care Teams Assembler Handbags Relationship Specialty Start Date End Date Bhargavi Llanes MD [address] [place] [address] PCP - General Family Medicine 11/21/18 documented as of this encounter
--- OUTSIDE RECORDS SUMMARY | 2024-08-29 11:36 | XMS_ITS | Encounter Summary ---
Author Organization [employer] Address 75 [facility] 7t [place] [address] Care Team Providers Care Batting Machine Operator Insulation Name Role Phone Bhargavi Llanes MD Primary Care Provider [phone] Encounter Details Date Type Department Care Team (Late st Contact Info) Description 07/28/2023 Orders Only [facility] MEDICINE [address] [place] [phone] Bhargavi Llanes MD [address] [place] [address] [phone] Social History Tobacco Use Types Packs/Day Years [...] Description 08/31/2024 11:15 AM EDT Office Visit [facility] MEDICINE [address] [place] [address] [phone] Bhargavi Llanes MD [address] [place], [place] [phone] 10/19/2024 1:30 PM EDT Office Visit [facility] OPTOMETRY [address] [place], [place] [phone] Marlene Oconnor, OD [address] [place] [address] documented as of this encounter Visit Diagnoses Not on filedocumented in this encounter Care Teams Batting Machine Operator Insulation Relationship Specialty Start Date End Date Bhargavi Llanes MD [address] [place] [phone] PCP - General Family Medicine 11/21/18 documented as of this encounter
== END 2024-08-29 11:47 | disposition home or self-care (01) ==
LOC: HO.HWS 10:08
PROVIDERS: PCP Family Medicine; Visit Provider Obstetrics & Gynecology
DX: N83.292 Other ovarian cyst, left side (principal); N93.9 Abnormal uterine and vaginal bleeding, unspecified; Z32.02 Encounter for pregnancy test, result negative
CPT/HCPCS: 58100; 99203

== ENCOUNTER 2024-08-31 07:07 | Outpatient (REF) | payer MEDICAID, SELFPAY ==
--- NOTE | ~2024-08-31 | US_ITS ---
CLINICAL HISTORY: N83.299 - Other ovarian cyst, unspecified side US pelvis transabdominal and transvaginal with color Doppler Comparison: US/SR - US PELVIC AND TRANSVAGINAL - 06/27/24 15:37 EST [place] - CT ABDOMEN PELVIS W IV CON - 06/18/23 17:27 EST Findings: Transabdominal scanning performed for overall anatomy. Transvaginal scanning performed for additional detail. LMP: Unknown Retroverted uterus, normal size and echotexture, measuring 8.6 x 4.3 x 6.3 cm. Well defined endometrium, measuring 16 mm in thickness. Abnormally thickened endometrium with cystic changes. The right ovary measures, 2.6 x 1.5 x 1.8 cm. Hypoechoic avascular lesion probable dermoid measuring 7 x 5 x 4 mm. The left ovary measures, 3.4 x 2.6 x 3.2 cm. Probable functional cyst measuring 2.7 x 1.7 x 1.5 No adnexal masses or fluid collections. Dilated left pelvic vessels consider pelvic venous congestion syndrome. No free fluid Impression: 1. Retroverted uterus . 2. Thickened endometrium with cystic changes differentials include endometrial polyp, hyperplasia or metaplasia/dysplasia 3. Suspect ovarian dermoid or atypical hemorrhagic cyst on the right and functional cyst on the left. 4. Consider pelvic venous congestion syndrome on the left in the appropriate clinical setting This document has been electronically signed by: Duc Chavira MD on 08/31/2024 16:00:39
--- OUTSIDE RECORDS SUMMARY | 2024-08-31 07:09 | XMS_ITS | Clinical Summary ---
Author Organization [employer] Address [address] 7t [place] [address] Care Team Providers Care Service Plumber Name Role Phone Bhargavi Llanes MD Primary Care Provider [phone] Allergies Active Allergy Reactions Criticality Noted Date [...] Active Problems Problem Noted Date Diagnosed Date Ovarian cyst 08/31/2024 Prolapse of female pelvic organs 07/23/2024 Abnormal uterine bleeding (AUB) 07/23/2024 GERD (gastroesophageal reflux disease) Assessment & Plan (07/22/2023 7:23 PM EDT): - continue pantoprazole 40 mg bid and famotidine 40 mg daily prn IBS (irritable bowel syndrome) 07/22/2023 Assessment & Plan (07/22/2023 7:23 PM EDT): - following with [facility] - s/p colonoscopy in April 2023 [...] Encounters Date Type Department Care Team Description 08/30/[address] [address] Bhargavi Llanes MD Chart Prep 08/29/2024 Orders Only [facility] EXTERNAL DATA DEPARTMENT Provider, [facility] Data 08/24/2024 Travel 08/07/[address] [address] Louise Carrero RN Pt status Check 08/04/2024 Orders Only [facility] EXTERNAL DATA DEPARTMENT Provider, [facility] Data 07/23/2024 Travel 07/19/[address] [address] Bhargavi Llanes MD chart prep 07/17/2024 Patient Outreach [address] [address] Bhargavi Llanes MD Pre-visit Planning (SDOH screening was completed on 06/07/2024) 07/07/2024 Orders Only [facility] [address] [place] [address] ProviderBrooke MD 07/07/2024 Population Health Risk Score Community Care [facility] (C3) Department [address] [phone] Provider, Population Health Generic 06/27/2024 Orders Only [address] [address] Natasha Horowitz CNM Abnormal endometrial ultrasound (Primary Dx); Abnormal uterine bleeding (AUB); Cyst of left ovary 06/14/[address] [address] Bhargavi Llanes MD Chart Prep 06/13/2024 Travel 06/08/2024 Orders Only [facility] [address] [place] [address] Natasha Horowitz CNM Abnormal uterine bleeding (AUB) (Primary Dx); Acquired hypothyroidism 06/07/2024 Patient Outreach [facility] [address] [place] [address] Bhargavi Llanes MD Pre-visit Planning (SDOH Screening [...] Description 08/31/2024 11:15 AM EDT Office Visit [facility] [address] [place] [address] Bhargavi Llanes MD [address] [place] [address] 10/19/2024 1:30 PM EDT Office Visit [facility] [address] [place] [address] Marlene Oconnor, OD [address] [place] [address] Health Maintenance Due Date Last Done Comments [...] Procedure Name Priority Date/Time Associated Diagnosis Comments HEMATOXYLIN AND EOSIN STAIN Routine 08/29/2024 11:16 AM EDT CHLAMYDIA/N. GONORRHOEAE RNA, TMA, UROGENITAL Routine 08/29/2024 10:[address] ABDOMEN PELVIS W CONTRAST Routine 08/04/2024 [...] GENERIC Routine 12/09/2021 8:2 0 AM EDT JUAN HISTORICAL HEPATITIS C AB W/REFL TO HCV RNA, QN, PCR Routine 05/02/2020 9:36 AM EST HIV 1/2 ANTIGEN/ANTIBODY, FOURTH GENERATION W/RFL Routine 05/02/2020 9:36 AM EST from Last 3 Months or Most Recently Relevant to Health Maintenance Results * Hematoxylin and Eosin Stain (08/29/2024 11:16 AM EDT) 08/29/2024 11:1 6 AM EDT 08/29/2024 1:52 PM EDT [facility] - 08/30/2024 12:24 PM EDT ----- ------- Name: Zari Aleman ?Age/Sex: 54/F ? : 1970 Unit#: [id number] ?? Attend Dr: Nick Higgins MD ?Re08/29/24 ?Status: DEP REF ? Location: HO.LNP ?Disch: ? ----- ------- SPEC : [id number] ? RECD: 08/29/24 ? STATUS: ??SOUT ? REQ NUM: [id number] ? MUNIRA: 08/29/246 ? SUBM DR: Nick Higgins MD ? ENTERED: ??08/29/24 ?SP TYPE: Surgical ? OTHR DR: Bhargavi Llanes MD ? ORDERED: ??HE Stain/2, Gross Micro L4 ? Diagnosis ?? Endometrium, biopsy: ??Benign disordered proliferative endometrium with ectatic vessels ?? and focal breakdown; no atypia or carcinoma. ?Clinical History AUB ?Microscopic Description Microscopic sections reviewed. ? Material Received ?? EMB ? Gross Description Received in formalin labeled ?EMB? is a 1.5 x 1.2 x 0.45 cm aggregate of multiple keys-pink irregular tissue fragments with scant mucus, submitted in toto in a cassette labeled A. CEDS Copies To: ?? Bhargavi Llanes MD ?? [facility] ?? [address] ?? [place] [address] ?? [phone] ?? Nick Higgins MD ?? [facility] Women's Services ?? [address] [facility] [address] ?? [place] [address] ?? [phone] ----- ------- Signed (signature on file) Sonal Leonore 08/30/24 1224 ? ----- ------- ? END OF REPORT ? us Generic External Data Provider LAB BLOOD ORDERAB LES Final Result [facility] [address] [place] [phone] * Chlamydia/N. Gonorrhoeae RNA, TMA, Urogenitial (08/29/2024 10:08 AM EDT) [facility] CT PCR NOT DETECTED Not Detect. [facility] Comment:A not detected test result does not exclude the possibilityof infection because test results can be affected byimproper specimen collection, concurrent antibiotic therapy,or the number of organisms in the specimen which may bebelow the sensitivity of the test. As with many diagnostictests, results from the Xpert CT/NG assay should beinterpreted in conjunction with other laboratory andclinical data available to the clinician.Xpert CT/NG performance has not been evaluated in patientsless than 14 years of age. The assay should not be used forthe evaluationof suspected sexual abuse or for other medico-legalindications. Additional testing is recommended in anycircumstance when false positive or false negative resultscould lead to adverse medical, social or psychologicalconsequences. NG PCR NOT DETECTED Not Detect. [facility] Comment:A not detected test result does not exclude the possibilityof infection because test results can be affected byimproper specimen collection, concurrent antibiotic therapy,or the number of organisms in the specimen which may bebelow the sensitivity of the test. As with many diagnostictests, results from the Xpert CT/NG assay should beinterpreted in conjunction with other laboratory andclinical data available to the clinician.Xpert CT/NG performance has not been evaluated in patientsless than 14 years of age. The assay should not be used forthe evaluationof suspected sexual abuse or for other medico-legalindications. Additional testing is recommended in anycircumstance when false positive or false negative resultscould lead to adverse medical, social or psychologicalconsequences. 08/29/2024 10:0 8 AM EDT 08/29/2024 2:07 PM EDT Narrative [facility] - 08/29/2024 4:33 PM EDT Vaginal us Generic External Data Provider LAB MICROBIOLOGY - GENERAL ORDERABLES Final Result Performing Organization Address City/State/[facility] Co de Phone Number [facility] [address] [place] [phone] * CT Abdomen Pelvis w/ Contrast (08/04/2024 12:27 PM EDT) Anatomical Region Laterality Modality Body, Pelvis, Abdomen Computed T omography 08/04/2024 12:2 7 PM EDT Narrative 08/04/2024 1:00 PM EDT ? [facility] ?[address] ?[place] [address] ? CT Scan Report ? Signed ? Patient: Love,Zari ?MR#: [id number] ?? [id number] ? : 1970 ?Acct:[id number] ? Age/Sex: 54 / F ?ADM Date: 04/11/25 ? Loc: HO.ED ? Attending Dr: ? Ordering Physician: Adeel Olmos MD ?? Date of Service: 08/04/24 ?? Procedure(s): CT abdomen pelvis w IV con ?? Accession Number(s): [id number] ? cc: Bhargavi Llanes MD; Adeel Olmos MD ? Report Number: ?? [id number]: Total DLP = ??546.00 mGy-cm ?? EXAMINATION: [...] DD/ 1227 ? TD/TT: 08/04/24 1240 ? Strike Warfare/Missile Systems Officer: ? Procedure Note Donotuseinterpreter, Image - 08/04/[address] [address] [address] Scan Report Signed Patient: Sheng Aleman#: [id number] : 1970Acct:[id number] Age/Sex: 54 / FADM Date: 08/04/24 Loc: HO.ED Attending Dr: Ordering Physician: Adeel Olmos MD Date of Service: 08/04/24 Procedure(s): CT abdomen pelvis w IV con Accession Number(s): [id number] cc: Bhargavi Llanes MD; Adeel lOmos MD Report Number: [id number]: Total DLP = 546.00 mGy-cm EXAMINATION: CT [...] 08/04/24 1257 DD/ 1227 TD/TT: 08/04/24 1240 Strike Warfare/Missile Systems Officer: [facility] External Provider IMG CT PROCEDURES Final Result * (ABNORMAL) CBC auto differential (08/04/2024 8:43 AM EDT) White Blood Count 12.1(H) 4.8 - 10.8 X10*3/uL [facility] Red Blood Count 4.66 4.20 - 5.50 X10*6/uL [facility] Hemoglobin 12.7 12.0 - 16.0 g/dl [facility] Hematocrit 37.8 37.0 - 47.0 % [facility] Mean Corpuscular Volume 81.1 80.0 - 98.0 fL [facility] Mean Corpuscular Hemoglobin 27.3 27.0 - 33.0 pg [facility] Mean Corpuscular HGB Conc 33.6 31.0 - 35.0 g/dl [facility] Red Cell Distribution Width 15.2 11.0 - 16.0 % [facility] Platelet Count 308 160 - 400 X10*3/uL [facility] Mean Platelet Volume 9.5 9.4 - 12.3 fL [facility] Neutrophils Percent Auto 75.1(H) 45 - 73 % [facility] Imm Gran Pct Auto 0.3 0.0 - 0.4 % [facility] Lymphocytes Percent Auto 19.3(L) 20 - 40 % [facility] Monocytes Percent Auto 4.7 2 - 11 % [facility] Eosinophils Percent Auto 0.4 0 - 4 % [facility] Basophils Percent Auto 0.2 0 - 2 % [facility] NRBC Pct Auto 0.0 0.0 - 0.2 /100WBC [facility] Neutrophils Absolute Auto 9.1(H) 2.0 - 8.3 x10*3/uL [facility] Imm Gran Abs Auto 0.04(H) 0.00 - 0.03 X10*3/uL [facility] Lymphocytes Absolute Auto 2.3 1.2 - 4.9 X10*3/uL [facility] Monocytes Absolute Auto 0.6 0.1 - 1.2 X10*3/uL [facility] Eosinophils Absolute Auto 0.1 0.0 - 0.4 X10*3/uL [facility] Basophils Absolute Auto 0.0 0.0 - 0.2 X10*3/uL [facility] NRBC Abs Auto 0.000 0.0 - 0.012 X10*3/uL [facility] 08/04/2024 8:43 AM EDT 08/04/2024 8:47 AM EDT us Generic External Data Provider LAB BLOOD ORDERAB LES Final Result [facility] [address] [place] [address] [phone] * Lipase (08/04/2024 8:43 AM EDT) Lipase 20 8 - 78 U/L [facility] 08/04/2024 8:43 AM EDT 08/04/2024 8:47 AM EDT us Generic External Data Provider LAB BLOOD ORDERAB LES Final Result Performing Organization Address City/[facility]/ZIP Co de Phone Number [facility] [address] [place] [address] [phone] * (ABNORMAL) Comprehensive Metabolic Panel (08/04/2024 8:43 AM EDT) Sodium 138 135 - 145 mmol/L [facility] Potassium 3.7 3.3 - 5.1 mmol/L [facility] Chloride 106 96 - 108 mmol/L [facility] Carbon Dioxide 25 22 - 29 mmol/L [facility] Anion Gap 11(L) 12 - 20 [facility] Urea Nitrogen (BUN) 12 9 - 16 mg/dL [facility] Creatinine, Serum 0.79 0.5 - 1.4 mg/dL [facility] Creatinine Clr Calc Pharmacy 91.6 [facility] Comment:Provided height and weight: 172.72 cm,80.5 kg.eGFR (calculated from the MDRD study equation) and eCrCl(calculated from the Cockcroft-Gault equation) are based ondifferent parameters and may not yield comparable results.If eCrCl result is absurd, please check patient'sheight/weight. Estimated Glomerular Filt Rate >60 [facility] Comment:Chronic Kidney Disea se: Estimated GFR < 60 mL/min/1.56q9Bkpmbc Kidney Disease: Estimated GFR < 15 mL/min/1.73m2 Glucose 175(H) 60 - 115 mg/dL [facility] Calcium 9.7 8.4 - 10.2 mg/dL [facility] Bilirubin, Total 1.2(H) 0.0 - 1.0 mg/dL [facility] Aspartate Amino Transferase 40(H) 5 - 31 U/L [facility] Alanine Aminotransferase 79(H) 0 - 31 U/L [facility] Total Protein 8.0 6.5 - 8.0 g/dL [facility] Albumin Level 4.1 3.5 - 5.0 g/dL [facility] Alkaline Phosphatase 93 39 - 117 U/L [facility] 08/04/2024 8:43 AM EDT 08/04/2024 8:47 AM EDT us Generic External Data Provider LAB BLOOD ORDERAB LES Final Result Performing Organization Address [facility]/ZIP Co de Phone Number [facility] [address] [place] [address] [phone] * (ABNORMAL) TSH W/Reflex to FT4 (07/10/2024 10:10 AM EDT) TSH reflex Free T4 71.73(H) 0.32 - 4.0 uIU/mL [facility] Blood Venous blood specimen / Unknown 07/10/2024 10:10 AM EDT 07/10/2024 12:59 PM EDT us Natasha STEVE LAB BLOOD ORDERABLES Lidya l Result Performing Organization Address City/[facility]/ZIP Co de Phone Number [facility] [address] [place] [phone] [phone] * US Pelvis Transvaginal (06/27/2024 3:38 PM EST) Anatomical Region Laterality Modality Pelvis Ultrasound 06/27/2024 3:38 PM EST Narrative 06/27/2024 4:30 PM EST ? [facility] ?[address] ?[place] [address] ? Ultrasound Report ? Signed ? Patient: Love,Zari ?MR#: [id number] ?? [id number] ? : 1970 ?Acct:[id number] ? Age/Sex: 54 / F ?ADM Date: 06/27/24 ? Loc: HO.US ? Attending Dr: Natasha Horowitz CNM ? Ordering Physician: NATASHA HOROWITZ CNM ?? Date of Service: 06/27/24 ?? Procedure(s): US pelvic and transvaginal ?? Accession Number(s): [id number] ? cc: NATASHA HOROWITZ CNM; Bhargavi Llanes [...] signed by Jose Schwartz MD in OV> ?06/27/247 ? DD/ 1538 ? TD/TT: 06/27/24 1556 ? Strike Warfare/Missile Systems Officer: MSM ? Procedure Note Meryl Arechiga - 06/27/2024 [place] [address] Ultrasound Report Signed Patient: Zari AlemanMR#: [id number] : 1970Acct:[id number] Age/Sex: 54 / FADM Date: 06/27/24 Loc: HO.US Attending Dr: Natasha Horowitz CNM Ordering Physician: NATASHA HOROWITZ CNM Date of Service: 06/27/24 Procedure(s): US pelvic and transvaginal Accession Number(s): [id number] cc: NATASHA HOORWITZ CNM; Bhargavi Llanes MD EXAMINATION: US PELVIS [...] 06/27/24 1627 DD/ 1538 TD/TT: 06/27/24 1556 Strike Warfare/Missile Systems Officer: MIKE Natasha STEVE IM US PROCEDURES Final R esult * HPV DNA, Low/High Risk (05/30/2024 10:25 AM EST) HPV High Risk Negative Negative [facility] HPV Genotype 16 Negative Negative [facility] HPV Genotype 18 Negative Negative [facility] Comment:HPV testing performe d at [facility] (CLIA#[id number]), [address] [place] [phone].Testing for HPV was performed using the Bill [...] 05/31/2024 9:15 AM EST us Natasha Horowitz [facility] LAB BLOOD ORDERABLES Lidya letha Result [facility] [address] [place] [phone] * Pap Smear (05/30/2024 10:25 AM EST) Swab Cervix uteri structure / Unknown 05/30/2024 10:25 AM EST 05/31/2024 9:15 AM EST Narrative [facility] - 06/08/2024 1:10 PM EST ----- ------- Name: Zari Aleman ?Age/Sex: 54/F ? : 1970 Unit#: [id number] ?? Attend Dr: NATASHA HOROWITZ CNM ?Re05/30/24 ?Status: DEP REF ? Location: HO.HHCLNP ? Disch: ? ----- ------- SPEC : [id number] ? RECD: 05/31/24 ? STATUS: ??SOUT ? REQ NUM: [id number] ? MUNIRA: 05/30/24 ? SUBM DR: NATASHA [...] ------- ? END OF REPORT ? Natasha STEVE LAB CYTOLOGY ORDERABLES F inal Result [facility] [address] [place] [phone] * Hm Colonoscopy (04/27/2023 10:30 AM EST) Colonoscopy Normal Normal Narrative Ana Burgess - 04/27/2023 10:30 AM EST See external hospital admission note on 04/27/2023 Historical Provider HEALTH MAINTENANCE Edited Result - Final * Mammography [...] HEPATITIS C ANTIBODY NON-REACT STEVE NON-REACT STEVE [facility] INDEX 0.01 <1.00 [facility] Comment: ?? HCV antibody was non-reactive. There is no laboratory ?? evidence of HCV infection. ?? In most cases, no further action is required. However, if recent HCV exposure is suspected, a test for HCV RNA (test code 79522) is suggested. ?? For additional information please refer to http://education.Plex/faq/JTS05z6 (This link is being provided for informational/ educational purposes only.) ?? 05/02/2020 9:36 AM EST Bhargavi Llanes MD HISTORICAL/NON ORDERABLE LABS Fi nal Result [facility] [address] * HIV 1/2 ANTIGEN/ANTIBODY,FOURTH GENERATION W/RFL (05/02/2020 9:36 AM EST) HIV-1/2 ANTIGEN AND ANTIBODIES, 4TH GENERATION W/ REFLEX NON-REACT STEVE NON-REACT STEVE [facility] Comment: HIV-1 antigen and HIV-1/HIV-2 [...] ? For additional information please refer to http://Moviecom.tv.Plex/faq/JBZ727 (This link is being provided for informational/ educational purposes only.) ? The performance of this assay has not been clinically validated in patients less than 2 years old. ?? 05/02/2020 9:36 AM EST us Bhargavi Llanes MD LAB BLOOD ORDERABLES Final Resul t Performing Organization Address City/State/ZIP Co ca Phone Number [facility] [address] from Last 3 Months or Most Recently Relevant to Health Maintenance Insurance [facility] STANDARD Care Teams Service Plumber Relationship Specialty Start Date End Date Bhargavi Llanes MD [address] [place] [address] PCP - General Family Medicine 11/21/18
--- OUTSIDE RECORDS SUMMARY | 2024-08-31 07:09 | XMS_ITS | Encounter Summary ---
Author Organization [employer] Address [address] [place] [address] Care Team Providers Care Semiconductor Wafers Tester Name Role Phone Bhargavi Llanes MD Primary Care Provider [phone] Encounter Details Date Type Department Care Team (Late st Contact Info) Description 08/29/2024 Orders Only GENERIC EXTERNAL DATA DEPARTMENT Provider, Generic External Data Social History Tobacco Use Types Packs/Day Years [...] Description 08/31/2024 11:15 AM EDT Office Visit [facility] [address] [place] [address] Bhargavi Llanes MD [address] [place] [address] 10/19/2024 1:30 PM EDT Office Visit [facility] [address] [place] [address] Marlene Oconnor, OD [address] [place] [address] documented as of this encounter Procedures Procedure Name Priority Date/Time Associated Diagnosis Comments HEMATOXYLIN AND EOSIN STAIN Routine 08/29/2024 11:16 AM EDT CHLAMYDIA/N. GONORRHOEAE RNA, TMA, UROGENITAL Routine 08/29/2024 10:08 AM EDT documented in this encounter Results * Hematoxylin and Eosin Stain (08/29/2024 11:16 AM EDT) 08/29/2024 11:1 6 AM EDT 08/29/2024 1:52 PM EDT [facility] - 08/30/2024 12:24 PM EDT ----- ------- Name: Zari Aleman ?Age/Sex: 54/F ? : 1970 Unit#: [id number] ?? Attend Dr: Nick Higgins MD ?Re08/29/24 ?Status: DEP REF ? Location: HO.LNP ?Disch: ? ----- ------- SPEC : [id number] ? RECD: 08/29/24 ? STATUS: ??SOUT ? REQ NUM: [id number] ? MUNIRA: 08/29/24-4992 ? SUBM DR: Nick Higgins MD ? [...] Copies To: ?? Bhargavi Llanes MD ?? [facility] ?? [address] ?? [place] [address] ?? [phone] ?? Nick Higgins MD ?? [facility] Women's Services ?? [address] [facility] [address] ?? [place] [address] ?? [phone] ----- ------- Signed (signature on file) Sonal Chung 08/30/24 1224 ? ----- ------- ? END OF REPORT ? us Generic External Data Provider LAB BLOOD ORDERAB LES Final Result [facility] [address] [place] [phone] * Chlamydia/N. Gonorrhoeae RNA, TMA, Urogenitial (08/29/2024 10:08 AM EDT) CT PCR NOT DETECTED Not Detect. [facility] Comment:A not detected test result does [...] psychologicalconsequences. NG PCR NOT DETECTED Not Detect. [facility] Comment:A not detected test result does [...] AM EDT 08/29/2024 2:07 PM EDT Narrative [facility] - 08/29/2024 4:33 PM EDT Vaginal us Generic External Data Provider LAB MICROBIOLOGY - GENERAL ORDERABLES Final Result [facility] [address] [place] [address] [phone] documented in this encounter Visit Diagnoses Not on filedocumented in this encounter Care Teams Semiconductor Wafers Tester Relationship Specialty Start Date End Date Bhargavi Llanes MD [address] [place] [address] PCP - General Family Medicine 11/21/18 documented as of this encounter
--- OUTSIDE RECORDS SUMMARY | 2024-08-31 07:09 | XMS_ITS | Encounter Summary ---
Author Organization [employer] Address [address] [facility] 7t [place] [address] Care Team Providers Care Esol Teacher Name Role Phone Bhargavi Llanes MD Primary Care Provider [phone] Encounter Details Date Type Department Care Team (Late st Contact Info) Description 07/28/2023 Orders Only [facility] [address] [place] [phone] Bhargavi Llanes MD [address] [place] [address] [phone] Social History Tobacco Use Types Packs/Day Years [...] Description 08/31/2024 11:15 AM EDT Office Visit [facility] [address] [place] [address] [phone] Bhargavi Llanes MD [address] [place], [place] [phone] 10/19/2024 1:30 PM EDT Office Visit [facility] OPTOMETRY [address] [place], [place] [phone] Marlene Oconnor, OD [address] [place] [address] documented as of this encounter Visit Diagnoses Not on filedocumented in this encounter Care Teams Esol Teacher Relationship Specialty Start Date End Date Bhargavi Llanes MD [address] [place] [phone] PCP - General Family Medicine 11/21/18 documented as of this encounter
--- OUTSIDE RECORDS SUMMARY | 2024-08-31 07:09 | XMS_ITS | Encounter Summary ---
Author Organization [employer] Address [address] 7[address] [place] [address] Care Team Providers Care Extractor Filler Name Role Phone Bhargavi Llanes MD Primary Care Provider [phone] Reason for Visit * Reason Onset Date Comments Chart Prep 08/30/2024 Encounter Details Date Type Department Care Team ([facility] st Contact Info) Description 08/30/2024 Telephone [facility] MEDICINE [address] [place], [place] [phone] Bhargavi Llanes MD [address] [place], [place] [phone] Chart Prep Social History Tobacco Use Types [...] t he electric, gas, oil or water [email or web address] threatened to shut off services in your [...] Telephone Encounter - Natalya Wiley MA - 08/30/2024 3:27 PM EDT Chart Prep Labs: not done Images: not applicable Vaccines due: Covid Due, Flu Due, and Shingles in pharmacy Due Referrals: Optometry Pending appointment on 10/19/2024 @1:30PM and Radiology Completed;except BI Mammo Screenings: Not Applicable Overdue care gaps: Sbirt, PQ9, GAD7, and Disability documented in this encounter Plan of Treatment Upcoming Encounters Date Type Department Care Team (Late st Contact Info) Description 08/31/2024 11:15 AM EDT Office Visit [facility] MEDICINE [address] [place] [address] Bhargavi Llanes MD [address] [place] [address] 10/19/2024 1:30 PM EDT Office Visit [facility] OPTOMETRY [address] [place] [address] Elvin, Marlene, OD [address] [place] [address] documented as of this encounter Visit Diagnoses Not on filedocumented in this encounter Care Teams Extractor Filler Relationship Specialty Start Date End Date Bhargavi Llanes MD [address] [place] [address] PCP - General Family Medicine 11/21/18 documented as of this encounter
== END 2024-08-31 07:08 | disposition home or self-care (01) ==
LOC: HO.US 07:07
PROVIDERS: PCP Family Medicine; Visit Provider Obstetrics & Gynecology
DX: N83.299 Other ovarian cyst, unspecified side (principal)
CPT/HCPCS: 76830; 76856

== ENCOUNTER → 2024-08-31 07:08 | Outpatient (BNV) | payer MEDICAID, SELFPAY | PROVIDERS: PCP Family Medicine; Visit Provider Radiology Diagnostic Radiology | DX: N85.00 Endometrial hyperplasia, unspecified (principal) | CPT/HCPCS: 76830; 76856 ==

== ENCOUNTER 2024-08-31 07:50 | Outpatient (REF) | payer MEDICAID, SELFPAY ==
--- OUTSIDE RECORDS SUMMARY | 2024-08-31 07:52 | XMS_ITS | Encounter Summary ---
Author Organization [employer] Address [address] 7t [place] [address] Care Team Providers Care Climatology Professor Name Role Phone Bhargavi Llanes MD Primary Care Provider [phone] Reason for Visit * Reason Onset Date Comments Chart Prep 08/30/2024 Encounter Details Date Type Department Care Team ([facility] st Contact Info) Description 08/30/2024 Telephone [facility] MEDICINE [address] [place], [place] [phone] Bhargavi Llanes MD [address] [place], [place] [phone] Chart Prep Social History Tobacco Use Types Packs/Day Years Used Date Smoking Tobacco: Former Alcohol Use Standard Drinks/Week Comments Never 0 (1 standard drink = 0.6 oz pur e alcohol) Housing Stability Answer Date Recorded What is your housing situation today? I have aysmin zhong 06/07/[address] you [...] t he electric, gas, oil or water [employer] threatened to shut off services in your [...] Description 08/31/2024 11:15 AM EDT Office Visit [facility] MEDICINE [address] [place] [address] Bhargavi Llanes MD [address] [place] [address] 10/19/2024 1:30 PM EDT Office Visit [facility] OPTOMETRY [address] [place] [address] Elvin, Marlene, OD [address] [place] [address] documented as of this encounter Visit Diagnoses Not on filedocumented in this encounter Care Teams Climatology Professor Relationship Specialty Start Date End Date Bhargavi Llanes MD [address] [place] [address] PCP - General Family Medicine 11/21/18 documented as of this encounter
--- OUTSIDE RECORDS SUMMARY | 2024-08-31 07:52 | XMS_ITS | Clinical Summary ---
Author Organization [employer] Address [address] 7t [place] [address] Care Team Providers Care Online Publisher Name Role Phone Bhargavi Llanes MD Primary Care Provider [phone] Allergies Active Allergy Reactions Criticality Noted Date [...] (07/22/2023 7:23 PM EDT): - [place] [facility] [place] s/p colonoscopy in April 2023 [...] Type Department Care Team Description 08/30/[address] [address] Bhargavi Llanes MD Chart Prep 08/29/2024 Orders Only [facility] EXTERNAL DATA DEPARTMENT Provider, [facility] [employer] 08/24/2024 Travel 08/07/[address] [address] Louise Carrero RN Pt status Check 08/04/2024 Orders Only [facility] EXTERNAL DATA DEPARTMENT Provider, [facility] [employer] 07/23/2024 Travel 07/19/[address] [address] Bhargavi Llanes MD chart prep 07/17/2024 Patient Outreach [address] [address] Bhargavi Llanes MD Pre-visit Planning (SDOH screening was completed on 06/07/2024) 07/07/2024 Orders Only [facility] MED & PEDS [address] [place] [address] ProviderBrooke MD 07/07/2024 Population Health Risk Score Community [facility] (C3) Department [address] [phone] Provider, Population Health Generic 06/27/2024 Orders Only [address] [address] Natasha Horowitz CNM Abnormal endometrial ultrasound (Primary Dx); Abnormal uterine bleeding (AUB); Cyst of left ovary 06/14/[address] [address] Bhargavi Llanes MD Chart Prep 06/13/2024 Travel 06/08/2024 Orders Only [facility] MEDICINE [address] [place] [address] Natasha Horowitz CNM Abnormal uterine bleeding (AUB) (Primary Dx); Acquired hypothyroidism 06/07/2024 Patient Outreach [facility] MEDICINE [address] [place] [address] Bhargavi Llanes MD Pre-visit Planning (SDOH Screening [...] Description 08/31/2024 11:15 AM EDT Office Visit [facility] MEDICINE [address] [place] [address] Bhargavi Llanes MD 230 [place] [address] 10/19/2024 1:30 PM EDT Office Visit [facility] OPTOMETRY [address] [place] [address] Marlene Oconnor, OD [address] [place] [address] Health Maintenance Due Date Last Done Comments [...] 6 AM EDT 08/29/2024 1:52 PM EDT [facility] LABS - 08/30/2024 12:24 PM EDT ----- ------- Name: Zari Aleman ?Age/Sex: 54/F ? : 1970 Unit#: [id number] ?? Attend Dr: Nick Higgins MD ?Re08/29/24 ?Status: DEP REF ? Location: HO.LNP ?Disch: ? ----- ------- SPEC : [id number] ? RECD: 08/29/24 ? STATUS: ??SOUT ? REQ NUM: [id number] ? MUNIRA: 08/29/246 ? SUBM DR: Nick [...] Copies To: ?? Bhargavi Llanes MD ?? [facility] ?? [address] ?? [place] [address] ?? [phone] ?? Nick Higgins MD ?? [facility] [place] [facility] ?? [address] ?? [place] [address] ?? [phone] ----- ------- Signed (signature on file) Sonal Bruce 08/30/24 1224 ? ----- ------- ? END OF REPORT ? us Generic External Data Provider LAB BLOOD ORDERAB LES Final Result [facility] [address] [place] [phone] * Chlamydia/N. Gonorrhoeae RNA, TMA, Urogenitial (08/29/2024 10:08 AM EDT) [facility] CT PCR NOT DETECTED Not Detect. [facility] Comment:A not detected test result [...] psychologicalconsequences. NG PCR NOT DETECTED Not Detect. [facility] Comment:A not detected test result [...] AM EDT 08/29/2024 2:07 PM EDT Narrative [facility] - 08/29/2024 4:33 PM EDT Vaginal us Generic External Data Provider LAB MICROBIOLOGY - GENERAL ORDERABLES Final Result Performing Organization Address City/State/[facility] Co de Phone Number [facility] [address] [place] [phone] * CT Abdomen Pelvis w/ Contrast (08/04/2024 12:27 PM EDT) Anatomical Region Laterality Modality Body, Pelvis, Abdomen Computed T omography 08/04/2024 12:2 7 PM EDT Narrative 08/04/2024 1:00 PM EDT ? [facility] ?[address] ?[place] [address] ? CT Scan Report ? Signed ? Patient: Love,Zari ?MR#: [id number] ?? [id number] ? : 1970 ?Acct:[id number] ? Age/Sex: 54 / F ?ADM Date: 04/11/25 ? Loc: HO.ED ? Attending Dr: ? Ordering Physician: Adeel Olmos MD ?? Date of Service: 08/04/24 ?? Procedure(s): CT abdomen pelvis w IV con ?? Accession Number(s): [id number] ? cc: Bhargavi Llanes MD; Adeel Olmos MD ? Report Number: ?? [id number]: Total DLP = ??546.00 mGy-cm ?? EXAMINATION: [...] DD/ 1227 ? TD/TT: 08/04/24 1240 ? Noc Technician: ? Procedure Note Donotuseinterpreter, Image - 08/04/[address] [address] [address] Scan Report Signed Patient: Sheng Aleman#: [id number] : 1970Acct:[id number] Age/Sex: 54 / FADM Date: 08/04/24 Loc: HO.ED Attending Dr: Ordering Physician: Adeel Olmos MD Date of Service: 08/04/24 Procedure(s): CT abdomen pelvis w IV con Accession Number(s): [id number] cc: Bhargavi Llanes MD; Adeel Olmos MD Report Number: [id number]: Total DLP = 546.00 mGy-cm EXAMINATION: CT [...] 08/04/24 1257 DD/ 1227 TD/TT: 08/04/24 1240 Noc Technician: [facility] External Provider IMG CT PROCEDURES Final Result * (ABNORMAL) CBC auto differential (08/04/2024 8:43 AM EDT) White Blood Count 12.1(H) 4.8 - 10.8 X10*3/uL [facility] Red Blood Count 4.66 4.20 - 5.50 X10*6/uL [facility] Hemoglobin 12.7 12.0 - 16.0 g/dl [facility] Hematocrit 37.8 37.0 - 47.0 % [facility] Mean Corpuscular Volume 81.1 80.0 - 98.0 fL [facility] Mean Corpuscular Hemoglobin 27.3 27.0 - 33.0 pg [facility] Mean Corpuscular HGB Conc 33.6 31.0 - 35.0 g/dl [facility] Red Cell Distribution Width 15.2 11.0 - 16.0 % [facility] Platelet Count 308 160 - 400 X10*3/uL [facility] Mean Platelet Volume 9.5 9.4 - 12.3 fL [facility] Neutrophils Percent Auto 75.1(H) 45 - 73 % [facility] Imm Gran Pct Auto 0.3 0.0 - 0.4 % [facility] Lymphocytes Percent Auto 19.3(L) 20 - 40 % [facility] Monocytes Percent Auto 4.7 2 - 11 % [facility] Eosinophils Percent Auto 0.4 0 - 4 % [facility] Basophils Percent Auto 0.2 0 - 2 % [facility] NRBC Pct Auto 0.0 0.0 - 0.2 /100WBC [facility] Neutrophils Absolute Auto 9.1(H) 2.0 - 8.3 x10*3/uL [facility] Imm Gran Abs Auto 0.04(H) 0.00 - 0.03 X10*3/uL [facility] Lymphocytes Absolute Auto 2.3 1.2 - 4.9 X10*3/uL [facility] Monocytes Absolute Auto 0.6 0.1 - 1.2 X10*3/uL [facility] Eosinophils Absolute Auto 0.1 0.0 - 0.4 X10*3/uL [facility] Basophils Absolute Auto 0.0 0.0 - 0.2 X10*3/uL [facility] NRBC Abs Auto 0.000 0.0 - 0.012 X10*3/uL [facility] 08/04/2024 8:43 AM EDT 08/04/2024 8:47 AM EDT us Generic External Data Provider LAB BLOOD ORDERAB LES Final Result [facility] [address] [place] [address] [phone] * Lipase (08/04/2024 8:43 AM EDT) Lipase 20 8 - 78 U/L [facility] 08/04/2024 8:43 AM EDT 08/04/2024 8:47 AM EDT us Generic External Data Provider LAB BLOOD ORDERAB LES Final Result Performing Organization Address City/[facility]/ZIP Co de Phone Number [facility] [address] [place] [address] [phone] * (ABNORMAL) Comprehensive Metabolic Panel (08/04/2024 8:43 AM EDT) Sodium 138 135 - 145 mmol/L [facility] Potassium 3.7 3.3 - 5.1 mmol/L [facility] Chloride 106 96 - 108 mmol/L [facility] Carbon Dioxide 25 22 - 29 mmol/L [facility] Anion Gap 11(L) 12 - 20 [facility] Urea Nitrogen (BUN) 12 9 - 16 mg/dL [facility] Creatinine, Serum 0.79 0.5 - 1.4 mg/dL [facility] Creatinine Clr Calc Pharmacy 91.6 [facility] Comment:Provided height and weight: 172.72 cm,80.5 kg.eGFR (calculated from the MDRD study equation) and eCrCl(calculated from the Cockcroft-Gault equation) are based ondifferent parameters and may not yield comparable results.If eCrCl result is absurd, please check patient'sheight/weight. Estimated Glomerular Filt Rate >60 [facility] Comment:Chronic Kidney Disea se: Estimated GFR < 60 mL/min/1.57b6Mpqlod Kidney Disease: Estimated GFR < 15 mL/min/1.73m2 Glucose 175(H) 60 - 115 mg/dL [facility] Calcium 9.7 8.4 - 10.2 mg/dL [facility] Bilirubin, Total 1.2(H) 0.0 - 1.0 mg/dL [facility] Aspartate Amino Transferase 40(H) 5 - 31 U/L [facility] Alanine Aminotransferase 79(H) 0 - 31 U/L [facility] Total Protein 8.0 6.5 - 8.0 g/dL [facility] Albumin Level 4.1 3.5 - 5.0 g/dL [facility] Alkaline Phosphatase 93 39 - 117 U/L [facility] 08/04/2024 8:43 AM EDT 08/04/2024 8:47 AM EDT us Generic External Data Provider LAB BLOOD ORDERAB LES Final Result Performing Organization Address [facility]/ZIP Co de Phone Number [facility] [address] [place] [phone] * (ABNORMAL) TSH W/Reflex to FT4 (07/10/2024 10:10 AM EDT) TSH reflex Free T4 71.73(H) 0.32 - 4.0 uIU/mL [facility] Blood Venous blood specimen / Unknown 07/10/2024 10:10 AM EDT 07/10/2024 12:59 PM EDT us Natasha STEVE LAB BLOOD ORDERABLES Lidya l Result Performing Organization Address City/[facility]/ZIP Co de Phone Number [facility] [address] [place] [address] [phone] * US Pelvis Transvaginal (06/27/2024 3:38 PM EST) Anatomical Region Laterality Modality Pelvis Ultrasound 06/27/2024 3:38 PM EST Narrative 06/27/2024 4:30 PM EST ? [facility] ?[address] ?[place] [address] ? Ultrasound Report ? Signed ? Patient: Love,Zari ?MR#: [id number] ?? [id number] ? : 1970 ?Acct:[id number] ? Age/Sex: 54 / F ?ADM Date: 06/27/24 ? Loc: HO.US ? Attending Dr: Natasha Horowitz CNM ? Ordering Physician: NATASHA HOROWITZ CNM ?? Date of Service: 06/27/24 ?? Procedure(s): US pelvic and transvaginal ?? Accession Number(s): [id number] ? cc: NATASHA HOROWITZ CNM; Bhargavi Llanes [...] DD/ 1538 ? TD/TT: 06/27/24 1556 ? Noc Technician: MSM ? Procedure Note Meryl Arechiga - 06/27/2024 [place] [address] Ultrasound Report Signed Patient: Zari AlemanMR#: [id number] : 1970Acct:[id number] Age/Sex: 54 / FADM Date: 06/27/24 Loc: HO.US Attending Dr: Natasha Horowitz CNM Ordering Physician: NATASHA HOROWITZ CNM Date of Service: 06/27/24 Procedure(s): US pelvic and transvaginal Accession Number(s): [id number] cc: NATASHA HOROWITZ CNM; Bhargavi Llanes MD [...] 06/27/24 1627 DD/ 1538 TD/TT: 06/27/24 1556 Noc Technician: MIKE Natasha STEVE IM US PROCEDURES Final R esult * HPV DNA, Low/High Risk (05/30/2024 10:25 AM EST) HPV High Risk Negative Negative [facility] HPV Genotype 16 Negative Negative [facility] HPV Genotype 18 Negative Negative [facility] Comment:HPV testing performe d at [facility] (CLIA#[id number]), [address] [place] [address].Testing for HPV was performed using the Bill [...] 05/31/2024 9:15 AM EST us Natasha Horowitz [facility] LAB BLOOD ORDERABLES Lidya letha Result [facility] [address] [place] [phone] * Pap Smear (05/30/2024 10:25 AM EST) Swab Cervix uteri structure / Unknown 05/30/2024 10:25 AM EST 05/31/2024 9:15 AM EST Narrative [facility] - 06/08/2024 1:10 PM EST ----- ------- Name: Zari Aleman ?Age/Sex: 54/F ? : 1970 Unit#: [id number] ?? Attend Dr: NATASHA HOROWITZ CNM ?Re05/30/24 ?Status: DEP REF ? Location: HO.HHCLNP ? Disch: ? ----- ------- SPEC : [id number] ? RECD: 05/31/24 ? STATUS: ??SOUT ? REQ NUM: [id number] ? MUNIRA: 05/30/24 ? SUBM DR: NATASHA [...] STEVE LAB CYTOLOGY ORDERABLES F inal Result [facility] [address] [place] [phone] * Hm Colonoscopy (04/27/2023 10:30 [...] HEPATITIS C ANTIBODY NON-REACT STEVE NON-REACT STEVE [facility] INDEX 0.01 <1.00 [facility] Comment: ?? HCV antibody was non-reactive. There is no laboratory ?? evidence of HCV infection. ?? In most cases, no further action is required. However, if recent HCV exposure is suspected, a test for HCV RNA (test code 44281) is suggested. ?? For additional information please refer to http://education.Synthego/faq/QBR10a4 (This link is being provided for informational/ educational purposes only.) ?? 05/02/2020 9:36 AM EST Bhargavi Llanes MD HISTORICAL/NON ORDERABLE LABS Fi nal Result [facility] [address] * HIV 1/2 ANTIGEN/ANTIBODY,FOURTH GENERATION W/RFL (05/02/2020 9:36 AM EST) HIV-1/2 ANTIGEN AND ANTIBODIES, 4TH GENERATION W/ REFLEX NON-REACT STEVE NON-REACT STEVE [facility] Comment: HIV-1 antigen and HIV-1/HIV-2 [...] ? For additional information please refer to http://TryLife.Synthego/faq/AYD820 (This link is being provided for informational/ educational purposes only.) ? The performance of this assay has not been clinically validated in patients less than 2 years old. ?? 05/02/2020 9:36 AM EST us Bhargavi Llanes MD LAB BLOOD ORDERABLES Final Resul t Performing Organization Address City/State/ZIP Co mt Phone Number [facility] Any[address] from Last 3 Months or Most Recently Relevant to Health Maintenance Insurance [facility] Care Teams Online Publisher Relationship Specialty Start Date End Date Bhargavi Llanes MD [address] [place] [address] PCP - General Family Medicine 11/21/18
--- OUTSIDE RECORDS SUMMARY | 2024-08-31 07:52 | XMS_ITS | Encounter Summary ---
Author Organization [employer] Address [address] [place] [address] Care Team Providers Care Fish Hatchery Supervisor Name Role Phone Bhargavi Llanes MD Primary Care Provider [phone] Encounter Details Date Type Department Care Team [...] Description 08/31/2024 11:15 AM EDT Office Visit [facility] MEDICINE [address] [place] [address] Bhargavi Llanes MD [address] [place] [address] 10/19/2024 1:30 PM EDT Office Visit [facility] OPTOMETRY [address] [place] [address] Marlene Oconnor, OD [address] [place] [address] documented as of this encounter Procedures Procedure Name Priority Date/Time Associated Diagnosis Comments HEMATOXYLIN AND EOSIN STAIN Routine 08/29/2024 11:16 AM EDT CHLAMYDIA/N. GONORRHOEAE RNA, TMA, UROGENITAL Routine 08/29/2024 10:08 AM EDT documented in this encounter Results * Hematoxylin and Eosin Stain (08/29/2024 11:16 AM EDT) 08/29/2024 11:1 6 AM EDT 08/29/2024 1:52 PM EDT [facility] - 08/30/2024 12:24 PM EDT ----- ------- Name: Zari Aleman ?Age/Sex: 54/F ? : 1970 Unit#: [id number] ?? Attend Dr: Nick Higgins MD ?Re08/29/24 ?Status: DEP REF ? Location: HO.LNP ?Disch: ? ----- ------- SPEC : [id number] ? RECD: 08/29/24 ? STATUS: ??SOUT ? REQ NUM: [id number] ? MUNIRA: 08/29/24-6570 ? SUBM DR: Nick Higgins MD ? [...] Copies To: ?? Bhargavi Llanes MD ?? [facility] ?? [address] [facility] [facility] ?? [place] [address] ?? [phone] ?? Nick Higgins MD ?? [facility] ?? [address] ?? [place] [address] ?? [phone] ----- ------- Signed (signature on file) Sonal Chung 08/30/24 1224 ? ----- ------- ? END OF REPORT ? us Generic External Data Provider LAB BLOOD ORDERAB LES Final Result [facility] [address] [place] [phone] * Chlamydia/N. Gonorrhoeae RNA, TMA, Urogenitial (08/29/2024 10:08 AM EDT) CT PCR NOT DETECTED Not Detect. [facility] Comment:A not detected test result does [...] psychologicalconsequences. NG PCR NOT DETECTED Not Detect. [facility] Comment:A not detected test result does [...] AM EDT 08/29/2024 2:07 PM EDT Narrative [facility] - 08/29/2024 4:33 PM EDT Vaginal us Generic External Data Provider LAB MICROBIOLOGY - GENERAL ORDERABLES Final Result [facility] [address] [place] [address] [phone] documented in this encounter Visit Diagnoses Not on filedocumented in this encounter Care Teams Fish Hatchery Supervisor Relationship Specialty Start Date End Date Bhargavi Llanes MD [address] [place] [address] PCP - General Family Medicine 11/21/18 documented as of this encounter
--- OUTSIDE RECORDS SUMMARY | 2024-08-31 07:52 | XMS_ITS | Encounter Summary ---
Author Organization [employer] Address [address] [place] [address] Care Team Providers Care Arch Cushion Press Operator Name Role Phone Bhargavi Llanes MD Primary Care Provider [phone] Encounter Details Date Type Department Care Team (Late st Contact Info) Description 07/07/2024 Orders Only [facility] PEDS [address] [place], [place] [phone] Provider, MD Brooke Social History Tobacco Use [...] 08/31/2024 11:15 AM EDT Office Visit [facility] MEDICINE [address] [place] [address] Bhargavi Llanes MD [address] [place] [address] 10/19/2024 1:30 PM EDT Office Visit [facility] OPTOMETRY [address] [place], [place] [phone] Elvin, Marlene, OD [address] [place] [address] documented as of this encounter Procedures Procedure Name Priority Date/Time Associated Diagnosis Comments COLONOSCOPY Routine 04/27/2023 10:30 AM EST documented in this encounter Results * Colonoscopy (04/27/2023 10:30 AM EST) Colonoscopy Normal Normal Narrative Ana Burgess - 04/27/2023 10:30 AM EST See external hospital admission note on 04/27/[address] [facility] Edited Result - Final documented in this encounter Visit Diagnoses Not on filedocumented in this encounter Care Teams Arch Cushion Press Operator Relationship Specialty Start Date End Date Bhargavi Llanes MD [address] [place], [place] [phone] PCP - General Family Medicine 11/21/18 documented as of this encounter
--- OUTSIDE RECORDS SUMMARY | 2024-08-31 07:52 | XMS_ITS | Encounter Summary ---
Author Organization [employer] Address [address] [facility] 7t [place] [address] Care Team Providers Care Breaster Name Role Phone Bhargavi Llanes MD Primary Care Provider Encounter Details Date Type Department Care Team (Late st Contact Info) Description 07/28/2023 Orders Only [facility] MED[facility] [address] [place] [phone] Bhargavi Llanes MD [address] [place] [address] [phone] Social History Tobacco Use Types Packs/Day Years [...] Description 08/31/2024 11:15 AM EDT Office Visit [facility] MED[facility] [address] [place] [address] [phone] Bhargavi Llanes MD [address] [place], [place] [phone] 10/19/2024 1:30 PM EDT Office Visit [facility] OPTOMETRY [address] [place], [place] [phone] Marlene Oconnor, OD [address] [place] [address] documented as of this encounter Visit Diagnoses Not on filedocumented in this encounter Care Teams Breaster Relationship Specialty Start Date End Date Bhargavi Llanes MD [address] [place] [phone] PCP - General Family Medicine 11/21/18 documented as of this encounter
[2024-08-31 10:48] LABS: Free T4 (Free Thyroxine) 1.15 ng/dL (0.71-1.85); Thyroid Stimulating Hormone 0.44 uIU/mL (0.32-4.0)
[2024-08-31 13:32] LABS: Estimated Average Glucose 114 mg/dL; Hemoglobin A1C 126.6506 umol/L; Hemoglobin A1c % 5.6 % (<6.0); Total Hemoglobin (HGBA1C) 3344.6533 umol/L
[2024-08-31 13:38] LABS: Alanine Aminotransferase 104 U/L (0-31); Alkaline Phosphatase 80 U/L (39-117); Anion Gap 14 (12-20); Aspartate Amino Transferase 95 U/L (5-31); Bilirubin Total 0.5 mg/dL (0.0-1.0); Blood Urea Nitrogen 12 mg/dL (9-16); Calcium 9.3 mg/dL (8.4-10.2); Carbon Dioxide 25 mmol/L (22-29); Chloride 105 mmol/L (96-108); Cholesterol 234 mg/dL (<200); Estimated Glomerular Filt Rate > 60; Glucose Random 77 mg/dL (60-115); HDL Cholesterol 43 mg/dL (>40); LDL Cholesterol Calculated 137 mg/dL (<100); Potassium 4.6 mmol/L (3.3-5.1); Sodium 139 mmol/L (135-145); Total Protein 7.4 g/dL (6.5-8.0); Triglycerides 271 mg/dL (<150)
[2024-08-31 14:09] LABS: Reflex LDLD? No
== END 2024-08-31 07:51 | disposition home or self-care (01) ==
LOC: HO.10HDL 07:50
PROVIDERS: Family Medicine; Visit Provider Internal Medicine Endocrinology, Diabetes & Metabolism
DX: E03.8 Other specified hypothyroidism (principal); E06.3 Autoimmune thyroiditis; Z13.220 Encounter for screening for lipoid disorders; Z13.1 Encounter for screening for diabetes mellitus
CPT/HCPCS: 36415; 80053; 80061; 83036; 84439; 84443

== ENCOUNTER 2024-08-31 12:18 | Outpatient (REF) | payer MEDICAID, SELFPAY ==
--- OUTSIDE RECORDS SUMMARY | 2024-08-31 13:38 | XMS_ITS | Encounter Summary ---
Author Organization [employer] Address [address] [facility] 7t [place] [address] Care Team Providers Care Operations Management Professionals Name Role Phone Bhargavi Llanes MD Primary Care Provider [phone] Encounter Details Date Type Department Care Team (Late st Contact Info) Description 07/28/2023 Orders Only [facility] [address] [place] [address] Bhargavi Llanes MD [address] [place] [address] Social History Tobacco Use Types Packs/Day Years [...] Care Team (Late st Contact Info) Description 10/19/2024 1:30 PM EDT Office Visit [facility] OPTOMETRY [address] [place] [address] Marlene Oconnor, OD [address] [place] [address] documented as of this encounter Visit Diagnoses Not on filedocumented in this encounter Care Teams Operations Management Professionals Relationship Specialty Start Date End Date Bhargavi Llanes MD [address] [place] [address] PCP - General Family Medicine 11/21/18 documented as of this encounter
--- OUTSIDE RECORDS SUMMARY | 2024-08-31 13:38 | XMS_ITS | Clinical Summary ---
Author Organization [employer] Address [address] [facility] [facility] [address] 7[address] [place] [address] Care Team Providers Care Health Information Tech Name Role Phone Bhargavi Llanes MD Primary Care Provider [phone] Allergies Active Allergy Reactions Criticality Noted Date [...] daily. 13 g 11 07/22/19 24 Active phentermine 15 MG capsule Take 1 capsule (15 mg) by mouth before breakfast. 30 capsule 09/01/19 25 025 Active Active Problems Problem Noted Date Diagnosed Date Ovarian cyst 08/31/2024 Assessment & Plan (08/31/2024 6:32 AM EDT): - left complex ovarian cyst - repeat US ordered by WORK OVER RIG OPERATOR Prolapse of female pelvic organs 07/23/2024 Abnormal uterine bleeding (AUB) 07/23/2024 GERD (gastroesophageal reflux disease) Assessment & Plan (07/22/2023 7:23 PM EDT): - continue pantoprazole 40 mg bid and famotidine 40 mg daily prn IBS (irritable bowel syndrome) 07/22/2023 Assessment & Plan (07/22/2023 7:23 PM EDT): - following with [facility] - s/p colonoscopy in April 2023 [...] Encounters Date Type Department Care Team Description 08/31/2024 11:15 AM EDT Office Visit [address] [address] Bhargavi Llanes MD Diverticulitis (Primary Dx); Abnormal uterine bleeding (AUB); Cyst of left ovary; Class 1 obesity due to excess calories with serious comorbidity and body mass index (BMI) of 32.0 to 32.9 in adult; Screening for lipid disorders; Screening for diabetes mellitus 08/31/2024 Travel 08/30/[address] [address] Bhargavi Llanes MD Chart Prep 08/29/2024 Orders Only GENERIC EXTERNAL DATA DEPARTMENT Provider, Generic External Data 08/24/2024 Travel 08/07/[address] [address] Louise Carrero RN Pt status Check 08/04/2024 Orders Only GENERIC EXTERNAL DATA DEPARTMENT Provider, Generic External Data 07/23/2024 Travel 07/19/[address] [address] Bhargavi Llanes MD chart prep 07/17/2024 Patient Outreach [address] [phone] Bhargavi Llanes MD Pre-visit Planning (SDOH screening was completed on 06/07/2024) 07/07/2024 Orders Only [facility] [address] [place] [address] Brooke Jett MD 07/07/2024 Population Health Risk Score [facility] [address] [phone] Provider Population Health Generic 06/27/2024 Orders Only [address] [address] Natasha Horowitz CNM Abnormal endometrial ultrasound (Primary Dx); Abnormal uterine bleeding (AUB); Cyst of left ovary 06/14/[address] [address] Bhargavi Llanes MD Chart Prep 06/13/2024 Travel 06/08/2024 Orders Only [address] [address] Natasha Horowitz CNM Abnormal uterine bleeding (AUB) (Primary Dx); Acquired hypothyroidism 06/07/2024 Patient Outreach [address] [address] Bhargavi Llanes MD Pre-visit Planning (SDOH Screening [...] Packs/Day Years Used Date Smoking Tobacco: Former Passive Smoke Exposure: Past Tobacco Cessation:Counseling Given: Not Answered Alcohol Use Standard Drinks/Week Comments Never 0 (1 standard drink = 0.6 oz pur e alcohol) Depression Answer Date Recorded Patient Health Questionnaire-9 Score 0 08/31/2024 Patient Health Questionnaire-9 Score 0 08/31/2024 Last PHQ-9: Questionnaire Data Not on file 0 08/31/2024 Housing Stability Answer Date Recorded What is [...] t he electric, gas, oil or water [employer] threatened to shut off services in your home? No 06/07/2024 Depression Answer Date Recorded Patient Health Questionnaire-2 Score 0 08/31/2024 Internet Access Answer Date Recorded Internet Access [...] Sign Reading Time Taken Comments Blood Pressure 130/88 08/31/2024 11:11 AM EDT Pulse 90 08/31/2024 11:11 AM EDT Temperature 36.3 ??C (97.3 ??F) 08/31/2024 11:11 AM E DT Respiratory Rate 20 08/31/2024 11:11 AM EDT Oxygen Saturation 95% 08/31/2024 11:11 AM EDT Inhaled Oxygen Concentration - - Weight 81.2 kg (179 lb) 08/31/2024 11:11 AM EDT Height 157.5 cm (5' 2 ) 08/31/2024 11:11 AM EDT Body Mass Index 32.74 08/31/2024 11:11 AM EDT Plan of Treatment Upcoming Encounters Date Type Department Care Team (Late st Contact Info) Description 10/19/2024 1:30 PM EDT Office Visit [facility] OPTOMETRY [address] [place] [address] Elvin, Marlene, OD [address] [place] [address] Health Maintenance Due Date Last Done Comments CT Colonography 1971 FIT DNA/Cologuard 1970 FIT 1970 FOBT 1970 Lipid Panel 1970 Sigmoidoscopy 1970 Zoster Vaccines (1 of 2) 2021 Mammogram 12/10/2023 12/09/2021, 11/24, 12/13/2017 COVID-19 Vaccine ( season) 2023 Influenza Vaccine (#1) 2023 9, 03/09/2016, 02/13/2015, Additional history exists SDOH Screening 06/07/2025 06/07/2024 Alcohol/Substance Use Screening 08/31/2025 08/31/2024 Depression Screening 08/31/2025 08/31/2024, 09/01/19 Tobacco Screening 08/31/2025 08/31/2024 Colonoscopy 04/27/2028 04/27/2023 Colorectal Cancer Screening 04/27/2028 [...] Procedure Name Priority Date/Time Associated Diagnosis Comments HEMOGLOBIN A1C Routine 08/31/2024 12:21 PM EDT Screening for diabetes mellitus HEMATOXYLIN AND EOSIN STAIN Routine 08/29/2024 11:16 [...] Recently Relevant to Health Maintenance Results * Hemoglobin A1c (08/31/2024 12:21 PM EDT) Hemoglobin A1c 5.6 <6.0 % [facility] Comment:Hemoglobin A1C Refer ence Range Adults: 4.8 - 6.0 % Non diabetic: < 6.0 % Goal: < 7.0 %Additional Action Suggested: > 8.0 %Note: Hemoglobin A1c results are invalid for patients with abnormal amounts of HbF. Blood transfusions may impact the HbA1c concentration in the patient sample. Estimated Average Glucose 114 mg/dL [facility] Comment:eAG = Estimated ave rage glucose which is %A1C expressed asaverage glucose, using the formula of the Q4M-ZmaoxnhVjazfyj Glucose study (ADAG), Diabetes Care, Vol.31,#8,Nov. 2007 Blood Venous blood specimen / Unknown 08/31/2024 12:21 PM EDT 08/31/2024 12:58 PM EDT us Bhargavi Llanes MD LAB BLOOD ORDERABLES Final Resul t [facility] [address] [place] [phone] * Hematoxylin and Eosin Stain (08/29/2024 11:16 AM EDT) 08/29/2024 11:1 6 AM EDT 08/29/2024 1:52 PM EDT Narrative [facility] - 08/30/2024 12:24 PM EDT ----- ------- Name: LoveZari escudero ?Age/Sex: 54/F ? : 1970 Unit#: [id number] ?? Attend Dr: Nick Higgins MD ?Re08/29/24 ?Status: DEP REF ? Location: HO.LNP ?Disch: ? ----- ------- SPEC : [id number] ? RECD: 08/29/24 ? STATUS: ??SOUT ? REQ NUM: [id number] ? MUNIRA: 08/29/24 ? SUBM DR: Nick Higgins MD ? [...] Copies To: ?? Bhargavi Llanes MD ?? [facility] ?? [address] ?? [place] [address] ?? [phone] ?? Nick Higgins MD ?? [facility] Women's Services ?? [address] [facility] [address] ?? [place] [address] ?? [phone] ----- ------- Signed (signature on file) Sonal Juliet 08/30/24 1224 ? ----- ------- ? END OF REPORT ? us Generic External Data Provider LAB BLOOD ORDERAB LES Final Result [facility] [address] [place] [phone] * Chlamydia/N. Gonorrhoeae RNA, TMA, Urogenitial (08/29/2024 10:08 AM EDT) [facility] CT PCR NOT DETECTED Not Detect. [facility] Comment:A not detected test result [...] psychologicalconsequences. NG PCR NOT DETECTED Not Detect. [facility] Comment:A not detected test result [...] AM EDT 08/29/2024 2:07 PM EDT Narrative [facility] - 08/29/2024 4:33 PM EDT Vaginal us Generic External Data Provider LAB MICROBIOLOGY - GENERAL ORDERABLES Final Result Performing Organization Address [facility]/State/[facility] Co de Phone Number [facility] [address] [place] [phone] * CT Abdomen Pelvis w/ Contrast (08/04/2024 12:27 PM EDT) Anatomical Region Laterality Modality Body, Pelvis, Abdomen Computed T omography 08/04/2024 12:2 7 PM EDT Narrative 08/04/2024 1:00 PM EDT ? [facility] ?[address] ?[place] [address] ? CT Scan Report ? Signed ? Patient: Love,Zari ?MR#: [id number] ?? [id number] ? : 1970 ?Acct:[id number] ? Age/Sex: 54 / F ?ADM Date: 04//25 ? Loc: HO.ED ? Attending Dr: ? Ordering Physician: Adeel Olmos MD ?? Date of Service: 08/04/24 ?? Procedure(s): CT abdomen pelvis w IV con ?? Accession Number(s): [id number] ? cc: Bhargavi Llanes MD; Adeel Olmos MD ? Report Number: ?? [id number]: Total DLP = ??546.00 mGy-cm ?? EXAMINATION: [...] DD/ 1227 ? TD/TT: 08/04/24 1240 ? Work Over Rig Operator: ? Procedure Note Donotcarlinterpreter, Image - 08/04/[address] [address] [address] Scan Report Signed Patient: Zari AlemanMR#: [id number] : 1970Acct:[id number] Age/Sex: 54 / FADM Date: 08/04/24 Loc: HO.ED Attending Dr: Ordering Physician: Adeel Olmos MD Date of Service: 08/04/24 Procedure(s): CT abdomen pelvis w IV con Accession Number(s): [id number] cc: Bhargavi Llanes MD; Adeel Olmos MD Report Number: [id number]: Total DLP = 546.00 mGy-cm EXAMINATION: CT [...] 08/04/24 1257 DD/ 1227 TD/TT: 08/04/24 1240 Work Over Rig Operator: [facility] External Provider IMG CT PROCEDURES Final Result * (ABNORMAL) CBC auto differential (08/04/2024 8:43 AM EDT) White Blood Count 12.1(H) 4.8 - 10.8 X10*3/uL [facility] Red Blood Count 4.66 4.20 - 5.50 X10*6/uL [facility] Hemoglobin 12.7 12.0 - 16.0 g/dl [facility] Hematocrit 37.8 37.0 - 47.0 % [facility] Mean Corpuscular Volume 81.1 80.0 - 98.0 fL [facility] Mean Corpuscular Hemoglobin 27.3 27.0 - 33.0 pg [facility] Mean Corpuscular HGB Conc 33.6 31.0 - 35.0 g/dl [facility] Red Cell Distribution Width 15.2 11.0 - 16.0 % [facility] Platelet Count 308 160 - 400 X10*3/uL [facility] Mean Platelet Volume 9.5 9.4 - 12.3 fL [facility] Neutrophils Percent Auto 75.1(H) 45 - 73 % [facility] Imm Gran Pct Auto 0.3 0.0 - 0.4 % [facility] Lymphocytes Percent Auto 19.3(L) 20 - 40 % [facility] Monocytes Percent Auto 4.7 2 - 11 % [facility] Eosinophils Percent Auto 0.4 0 - 4 % [facility] Basophils Percent Auto 0.2 0 - 2 % [facility] NRBC Pct Auto 0.0 0.0 - 0.2 /100WBC [facility] Neutrophils Absolute Auto 9.1(H) 2.0 - 8.3 x10*3/uL [facility] Imm Gran Abs Auto 0.04(H) 0.00 - 0.03 X10*3/uL [facility] Lymphocytes Absolute Auto 2.3 1.2 - 4.9 X10*3/uL [facility] Monocytes Absolute Auto 0.6 0.1 - 1.2 X10*3/uL [facility] Eosinophils Absolute Auto 0.1 0.0 - 0.4 X10*3/uL [facility] Basophils Absolute Auto 0.0 0.0 - 0.2 X10*3/uL [facility] NRBC Abs Auto 0.000 0.0 - 0.012 X10*3/uL [facility] 08/04/2024 8:43 AM EDT 08/04/2024 8:47 AM EDT us Generic External Data Provider LAB BLOOD ORDERAB LES Final Result Performing Organization Address City/[facility]/ZIP Co de Phone Number [facility] [address] [place] [phone] * Lipase (08/04/2024 8:43 AM EDT) Lipase 20 8 - 78 U/L [facility] 08/04/2024 8:43 AM EDT 08/04/2024 8:47 AM EDT Generic External Data Provider LAB BLOOD ORDERAB LES Final Result Performing Organization Address [facility]/ZIP Co de Phone Number [facility] [address] [place] [phone] * (ABNORMAL) Comprehensive Metabolic Panel (08/04/2024 8:43 AM EDT) Sodium 138 135 - 145 mmol/L [facility] Potassium 3.7 3.3 - 5.1 mmol/L [facility] Chloride 106 96 - 108 mmol/L [facility] Carbon Dioxide 25 22 - 29 mmol/L [facility] Anion Gap 11(L) 12 - 20 [facility] Urea Nitrogen (BUN) 12 9 - 16 mg/dL [facility] Creatinine, Serum 0.79 0.5 - 1.4 mg/dL [facility] Creatinine Clr Calc Pharmacy 91.6 [facility] Comment:Provided height and weight: 172.72 cm,80.5 kg.eGFR (calculated from the MDRD study equation) and eCrCl(calculated from the Cockcroft-Gault equation) are based ondifferent parameters and may not yield comparable results.If eCrCl result is absurd, please check patient'sheight/weight. Estimated Glomerular Filt Rate >60 [facility] Comment:Chronic Kidney Disea se: Estimated GFR < 60 mL/min/1.83o9Lueyor Kidney Disease: Estimated GFR < 15 mL/min/1.73m2 Glucose 175(H) 60 - 115 mg/dL [facility] Calcium 9.7 8.4 - 10.2 mg/dL [facility] Bilirubin, Total 1.2(H) 0.0 - 1.0 mg/dL [facility] Aspartate Amino Transferase 40(H) 5 - 31 U/L [facility] Alanine Aminotransferase 79(H) 0 - 31 U/L [facility] Total Protein 8.0 6.5 - 8.0 g/dL [facility] Albumin Level 4.1 3.5 - 5.0 g/dL [facility] Alkaline Phosphatase 93 39 - 117 U/L [facility] 08/04/2024 8:43 AM EDT 08/04/2024 8:47 AM EDT us Generic External Data Provider LAB BLOOD ORDERAB LES Final Result Performing Organization Address [facility]/ZIP Co de Phone Number [facility] [address] [place] [phone] * (ABNORMAL) TSH W/Reflex to FT4 (07/10/2024 10:10 AM EDT) TSH reflex Free T4 71.73(H) 0.32 - 4.0 uIU/mL [facility] Blood Venous blood specimen / Unknown 07/10/2024 10:10 AM EDT 07/10/2024 12:59 PM EDT us Natasha STEVE LAB BLOOD ORDERABLES Lidya l Result [facility] [address] [place] [phone] * US Pelvis Transvaginal (06/27/2024 3:38 PM EST) Anatomical Region Laterality Modality Pelvis Ultrasound 06/27/2024 3:38 PM EST Narrative 06/27/2024 4:30 PM EST ? [facility] ?[address] ?[place] [address] ? Ultrasound Report ? Signed ? Patient: Love,Zari ?MR#: [id number] ?? [id number] ? : 1970 ?Acct:[id number] ? Age/Sex: 54 / F ?ADM Date: 06/27/24 ? Loc: HO.US ? Attending Dr: Natasha Horowitz CNM ? Ordering Physician: NATASHA HOROWITZ CNM ?? Date of Service: 06/27/24 ?? Procedure(s): US pelvic and transvaginal ?? Accession Number(s): [id number] ? cc: NATASHA HOROWITZ CNM; Bhargavi Llanes [...] signed by Jose Schwartz MD in OV> ?03/04/25 1627 ? DD/ 1538 ? TD/TT: 06/27/24 1556 ? Work Over Rig Operator: MSM ? Procedure Note Meryl Arechiga - 06/27/2024 [place] [address] Ultrasound Report Signed Patient: Zari AlemanMR#: [id number] : 1970Acct:[id number] Age/Sex: 54 / FADM Date: 06/27/24 Loc: HO.US Attending Dr: Natasha Horowitz CNM Ordering Physician: NATASHA HOROWITZ CNM Date of Service: 06/27/24 Procedure(s): US pelvic and transvaginal Accession Number(s): [id number] cc: NATASHA HOROWITZ CNM; Bhargavi Llanes MD [...] 06/27/24 1627 DD/ 1538 TD/TT: 06/27/24 1556 Work Over Rig Operator: MIKE Natasha Horowitz CNM IMG US PROCEDURES Final R esult * HPV DNA, Low/High Risk (05/30/2024 10:25 AM EST) HPV High Risk Negative Negative [facility] HPV Genotype 16 Negative Negative [facility] HPV Genotype 18 Negative Negative [facility] Comment:HPV testing performe d at [facility] (CLIA#[id number]), [address] [place] [phone].Testing for HPV was performed using the Bill [...] 05/31/2024 9:15 AM EST us Natasha Horowitz [facility] LAB BLOOD ORDERABLES Lidya monae Result [facility] [address] [place] [phone] * Pap Smear (05/30/2024 10:25 AM EST) Swab Cervix uteri structure / Unknown 05/30/2024 10:25 AM EST 05/31/2024 9:15 AM EST Narrative [facility] - 06/08/2024 1:10 PM EST ----- ------- Name: Zari Aleman ?Age/Sex: 54/F ? : 1970 Unit#: [id number] ?? Attend Dr: NATASHA HOROWITZ CNM ?Re05/30/24 ?Status: DEP REF ? Location: HO.HHCLNP ? Disch: ? ----- ------- SPEC : [id number] ? RECD: 05/31/24 ? STATUS: ??SOUT ? REQ NUM: [id number] ? MUNIRA: 05/30/24 ? SUBM DR: NATASHA [...] STEVE LAB CYTOLOGY ORDERABLES F inal Result [facility] [address] [place] [phone] * Hm Colonoscopy (04/27/2023 10:30 AM EST) Colonoscopy Normal Normal Narrative Jenifer, Ana - 04/27/2023 10:30 AM EST See external [...] C ANTIBODY NON-REACT STEVE NON-REACT STEVE [facility] INDEX 0.01 <1.00 [facility] Comment: ?? HCV antibody was non-reactive. There is no laboratory ?? evidence of HCV infection. ?? In most cases, no further action is required. However, if recent HCV exposure is suspected, a test for HCV RNA (test code 70778) is suggested. ?? For additional information please refer to http://education.Kippt.Kewego/faq/KEM17d6 (This link is being provided for informational/ educational purposes only.) ?? 05/02/2020 9:36 AM EST Bhargavi Llanes MD HISTORICAL/NON ORDERABLE LABS Fi nal Result [facility] [address] * HIV 1/2 ANTIGEN/ANTIBODY,FOURTH GENERATION W/RFL (05/02/2020 9:36 AM EST) HIV-1/2 ANTIGEN AND ANTIBODIES, 4TH GENERATION W/ REFLEX NON-REACT STEVE NON-REACT STEVE [facility] Comment: HIV-1 antigen and [...] ? For additional information please refer to http://Gozent.ReTargeter/faq/QTB995 (This link is being provided for informational/ educational purposes only.) ? The performance of this assay has not been clinically validated in patients less than 2 years old. ?? 05/02/2020 9:36 AM EST Bhargavi Llanes MD LAB BLOOD ORDERABLES Final Resul t Performing Organization Address City/State/ZIP Co mi Phone Number [facility] [address] from Last 3 Months or Most Recently Relevant to Health Maintenance Insurance [facility] ST[facility] Care Teams Health Information Tech Relationship Specialty Start Date End Date Bhargavi Llanes MD [address] [place] [address] PCP - General Family Medicine 11/21/18
--- OUTSIDE RECORDS SUMMARY | 2024-08-31 13:38 | XMS_ITS | Encounter Summary ---
Author Organization [employer] Address [address] [place] [address] Care Team Providers Care Skin Care Consultant Name Role Phone Bhargavi Llanes MD Primary Care Provider [phone] Encounter Details Date Type Department Care Team (Latest Contact Info) Description 08/31/2024 Travel Social History Tobacco Use Types Packs/Day Years Used Date Smoking Tobacco: Former Passive Smoke Exposure: Past Alcohol Use Standard Drinks/Week Comments Never 0 [...] Description 10/19/2024 1:30 PM EDT Office Visit [facility] [address] [place] [address] Marlene Oconnor, OD [address] [place] [address] documented as of this encounter Visit Diagnoses Not on filedocumented in this encounter Additional Health Concerns Assessment Noted Time PHQ-9 Depression Total Score: 0 09/01/19 25 11:14 AM EDT documented as of this encounter Care Teams Skin Care Consultant Relationship Specialty Start Date End Date Bhargavi Llanes MD [address] [place] [address] PCP - General Family Medicine 11/21/18 documented as of this encounter
--- OUTSIDE RECORDS SUMMARY | 2024-08-31 13:38 | XMS_ITS | Encounter Summary ---
Author Organization [employer] Address [address] [place] [address] Care Team Providers Care Gis Software Developer Name Role Phone Bhargavi Llanes MD Primary Care Provider [phone] Reason for Visit * Reason Comments Sick Onsite [facility] F/U DX: Diverticulitis large intestine, Thickened endometrium, Gallstones. Pt scheduled to have a follow up with [facility] DIVIDER OPERATOR on 08/29 Encounter Details Date Type Department Care Team (Latest Contact Info) Description 08/31/2024 11:15 AM EDT Office Visit [facility] [address] [place], [place] [phone] Bhargavi Llanes MD [address] [place], [place] [phone] Diverticulitis (Primary Dx); Abnormal uterine bleeding (AUB); Cyst of left ovary; Class 1 obesity due to excess calories with serious comorbidity and body mass index (BMI) of 32.0 to 32.9 in adult; Screening for lipid disorders; Screening for diabetes mellitus Social History Tobacco Use Types Packs/Day Years [...] Mass Index 32.74 08/31/2024 11:11 AM EDT documented in this encounter Miscellaneous Notes * Assessment & Plan Note - Bhargavi Llanes MD - 08/31/2024 6:32 AM EDTAssociated Problem(s): Ovarian cyst - left complex ovarian cyst - repeat US ordered by DIVIDER OPERATOR documented in this encounter Plan of Treatment Upcoming Encounters Date Type Department Care Team (Late st Contact Info) Description 10/19/2024 1:30 PM EDT Office Visit [facility] OPTOMETRY [address] [place], [place] [phone] Elvin, Marlene, OD [address] [place] [address] Scheduled Orders Name Type Priority Associated Diagnoses Orde r Schedule Comprehensive Metabolic Panel Lab Routine Screening for lipid disorders Expected: 08/31/2024 (Approximate), Expires: 08/31/2025 Lipid Panel with Reflex to Direct LDL Lab Routine Screening for lipid disorders Expected: 08/31/2024 (Approximate), Expires: 08/31/2025 documented as of this encounter Procedures Procedure Name Priority Date/Time Associated Diagnosis Comments HEMOGLOBIN A1C Routine 08/31/2024 12:21 PM EDT Screening for diabetes mellitus documented in this encounter Results * Hemoglobin A1c (08/31/2024 12:21 PM EDT) Hemoglobin A1c 5.6 <6.0 % [facility] Comment:Hemoglobin A1C Refer ence Range Adults: 4.8 - 6.0 % Non diabetic: < 6.0 % Goal: < 7.0 %Additional Action Suggested: > 8.0 %Note: Hemoglobin A1c results are invalid for patients with abnormal amounts of HbF. Blood transfusions may impact the HbA1c concentration in the patient sample. Estimated Average Glucose 114 mg/dL [facility] Comment:eAG = Estimated ave rage glucose which is %A1C expressed asaverage glucose, using the formula of the T6N-HyeapzaRubqmtq Glucose study (ADAG), Diabetes Care, Vol.31,#8,Nov. 2007 Blood Venous blood specimen / Unknown 08/31/2024 12:21 PM EDT 08/31/2024 12:58 PM EDT us Bhargavi Llanes MD LAB BLOOD ORDERABLES Final Resul t [facility] [address] [place] [phone] [phone] documented in this encounter Visit Diagnoses Diagnosis Diverticulitis- Primary Diverticulitis of colon (without mention of hemorrhage) Abnormal uterine bleeding (AUB) Cyst of left ovary Other and unspecified ovarian cyst Class 1 obesity due to excess calories with serious comorbidity and body mass index (BMI) of 32.0 to 32.9 in adult Screening for lipid disorders Screening for diabetes mellitus documented in this encounter Additional Health Concerns Assessment Noted Time PHQ-9 Depression Total Score: 0 09/01/19 25 11:14 AM EDT documented as of this encounter Care Teams Gis Software Developer Relationship Specialty Start Date End Date Bhargavi Llanes MD [address] [place] [phone] PCP - General Family Medicine 11/21/18 documented as of this encounter
--- OUTSIDE RECORDS SUMMARY | 2024-08-31 13:38 | XMS_ITS | Encounter Summary ---
Author Organization [employer] Address [address] [place] [address] Care Team Providers Care Highway Patrol Pilot Name Role Phone Bhargavi Llanes MD Primary Care Provider [phone] Encounter Details Date Type Department Care Team (Late st Contact Info) Description 07/07/2024 Orders Only [facility] PEDS [address] [place], [place] [phone] Provider, MD Brooke Social History Tobacco Use [...] Description 10/19/2024 1:30 PM EDT Office Visit [facility] OPTOMETRY [address] [place], [place] [phone] Elvin, Marlene, OD [address] [place] [address] documented as of this encounter Procedures Procedure Name Priority Date/Time Associated Diagnosis Comments HM COLONOSCOPY Routine 04/27/2023 10:30 AM EST documented in this encounter Results * Hm Colonoscopy (04/27/2023 10:30 AM EST) Colonoscopy Normal Normal Narrative Jenifer, Ana - 04/27/2023 10:30 AM EST See external hospital admission note on 04/27/2023 Historical Provider [facility] MAINTENA[facility]CE Edited Result - Final documented in this encounter Visit Diagnoses Not on filedocumented in this encounter Care Teams Highway Patrol Pilot Relationship Specialty Start Date End Date Bhargavi Llanes MD [address] [place], [place] [phone] PCP - General Family Medicine 11/21/18 documented as of this encounter
--- OUTSIDE RECORDS SUMMARY | 2024-08-31 13:38 | XMS_ITS | Encounter Summary ---
Author Organization [employer] Address [address] [place] [address] Care Team Providers Care Business Development Engineer Name Role Phone Bhargavi Llanes MD Primary Care Provider [phone] Reason for Visit * Reason Onset Date Comments Chart Prep 08/30/2024 Encounter Details Date Type Department Care Team ([facility] st Contact Info) Description 08/30/2024 Telephone [facility] MEDICINE [address] [place], [place] [phone] Bhargavi Llanes MD [address] [place], [place] [phone] Chart Prep Social History Tobacco Use Types [...] Description 10/19/2024 1:30 PM EDT Office Visit [facility] OPTOMETRY [address] [place] [address] Elvin, Marlene, OD [address] [place] [address] documented as of this encounter Visit Diagnoses Not on filedocumented in this encounter Care Teams Business Development Engineer Relationship Specialty Start Date End Date Bhargavi Llanes MD [address] [place] [address] PCP - General Family Medicine 11/21/18 documented as of this encounter
--- OUTSIDE RECORDS SUMMARY | 2024-08-31 13:38 | XMS_ITS | Encounter Summary ---
Author Organization [employer] Address [address] [place] [address] Care Team Providers Care Mechanical Technician Name Role Phone Bhargavi Llanes MD Primary Care Provider [phone] Encounter Details Date Type Department Care Team [...] Description 10/19/2024 1:30 PM EDT Office Visit [facility] OPTOMETRY [address] [place] [address] Elvin, Marlene, OD [address] [place] [address] documented as of this encounter Procedures Procedure Name Priority Date/Time Associated Diagnosis Comments HEMATOXYLIN AND EOSIN STAIN Routine 08/29/2024 11:16 AM EDT CHLAMYDIA/N. GONORRHOEAE RNA, TMA, UROGENITAL Routine 08/29/2024 10:08 AM EDT documented in this encounter Results * Hematoxylin and Eosin Stain (08/29/2024 11:16 AM EDT) 08/29/2024 11:1 6 AM EDT 08/29/2024 1:52 PM EDT [facility] - 08/30/2024 12:24 PM EDT ----- ------- Name: Zari Aleman ?Age/Sex: 54/F ? : 1970 Unit#: [id number] ?? Attend Dr: Nick Higgins MD ?Re08/29/24 ?Status: DEP REF ? Location: HO.LNP ?Disch: ? ----- ------- SPEC : [id number] ? RECD: 08/29/24 ? STATUS: ??SOUT ? REQ NUM: [id number] ? MUNIRA: 08/29/246 ? SUBM DR: Nick [...] Copies To: ?? Bhargavi Llanes MD ?? [facility] ?? [address] ?? [place] [id number] ?? [phone] ?? Nick Higgins MD ?? [facility] [place] [facility] ?? [address] ?? [place] [address] ?? [phone] ----- ------- Signed (signature on file) Sonal [place] 08/30/24 1224 ? ----- ------- ? END OF REPORT ? us Generic External Data Provider LAB BLOOD ORDERAB LES Final Result [facility] [address] [place] [address] [phone] * Chlamydia/N. Gonorrhoeae RNA, TMA, Urogenitial (08/29/2024 10:08 AM EDT) CT PCR NOT DETECTED Not Detect. [facility] Comment:A not detected test result [...] psychologicalconsequences. NG PCR NOT DETECTED Not Detect. [facility] Comment:A not detected test result [...] AM EDT 08/29/2024 2:07 PM EDT Narrative [facility] - 08/29/2024 4:33 PM EDT Vaginal us Generic External Data Provider LAB MICROBIOLOGY - GENERAL ORDERABLES Final Result [facility] [address] [place] [address] [phone] documented in this encounter Visit Diagnoses Not on filedocumented in this encounter Care Teams Mechanical Technician Relationship Specialty Start Date End Date Bhargavi Llanes MD [address] [place] [id number] PCP - General Family Medicine 11/21/18 documented as of this encounter
== END 2024-08-31 12:19 | disposition home or self-care (01) ==
LOC: HO.HHCL 12:18
PROVIDERS: Visit Provider Family Medicine
DX: Z13.89 Encounter for screening for other disorder (principal)

== ENCOUNTER 2024-09-01 08:06 | Outpatient (REF) | payer MEDICAID, SELFPAY ==
--- OUTSIDE RECORDS SUMMARY | 2024-09-01 08:11 | XMS_ITS | Encounter Summary ---
Author Organization [employer] Address [address] [place] [address] Care Team Providers Care Snack Bar Cashier Name Role Phone Bhargavi Llanes MD Primary Care Provider [phone] Encounter Details Date Type Department Care Team [...] Description 10/19/2024 1:30 PM EDT Office Visit [facility] OPTOMETRY [address] [place] [address] Marlene Oconnor, OD [address] [place] [address] documented as of this encounter Visit Diagnoses Not on filedocumented in this encounter Additional Health Concerns Assessment Noted Time PHQ-9 Depression Total Score: 0 09/01/19 25 11:14 AM EDT documented as of this encounter Care Teams Snack Bar Cashier Relationship Specialty Start Date End Date Bhargavi Llanes MD [address] [place] [address] PCP - General Family Medicine 11/21/18 documented as of this encounter
--- OUTSIDE RECORDS SUMMARY | 2024-09-01 08:11 | XMS_ITS | Encounter Summary ---
Author Organization [email or web address] Address [address] [place] [address] Care Team Providers Care Tile Power Shear Operator Name Role Phone Bhargavi Llanes MD Primary Care Provider [phone] Reason for Visit * Reason Comments Sick Onsite [facility] DX: Diverticulitis large intestine, Thickened endometrium, Gallstones. Pt scheduled to have a follow up with [facility] on 08/29 Encounter Details Date Type Department Care Team (Latest Contact Info) Description 08/31/2024 11:15 AM EDT Office Visit [facility] [address], [place] [phone] Bhargavi Llanes MD [address], [place] [phone] Diverticulitis (Primary Dx); Abnormal uterine bleeding (AUB); Cyst of left ovary; Class 1 obesity due to excess calories with serious comorbidity and body mass index (BMI) of 32.0 to 32.9 in adult; Screening for lipid disorders; Screening for diabetes mellitus; Dietary counseling; Exercise counseling; Irritable bowel syndrome, unspecified type; Chronic idiopathic constipation; 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 She was grieving due to loss of her brother. Background: Our last encounter was 07/22/2023. She was recovering from diverticulitis, which is recurrent. She stated she had been following with [facility]. She had not been adherent to thyroid replacement. Interval history: Seen in the walk-in clinic for malodorous urine. Hx previous UTI. Rx TMP/SMX. Urine culture grew E.coli, hernandez-sensitive. Seen by Melinda Kennedy CNM, on 05/30/24 for naturopathic oncology provider visit. She reported pelvic pain and AUB. Mammo ordered. Cotest done. Referred to Urogyn for cystocele. Cotest double negative. Seen by Dr. Shah, [facility] for hypothyroidism. TSH 71.73 on 07/07/24. Poor adherence. Advised to improve adherence to levothyroxine 88 mcg daily. She has been concerned about weight gain. Pelvic US on 05/29/24 Small nabothian cysts. The uterus is unremarkable. The endometrium is slightly heterogeneous with cystic areas within. Bilateral ovarian calcifications with left ovarian to cyst versus one cyst with septation or hydrosalpinx. Suspect left pelvic venous congestion. Seen in [facility] ED on 08/04/24. CT abdomen pelvis for right lower quadrant pain. Impression: Diverticulitis, cholelithiasis, fatty liver, thickened endometrial stripe, stable 1.2 cm splenic artery aneurysm. Dx diverticulitis. Rx levofloxacin, metronidazole, morphine, ibuprofen, APAP, ondansetron. Seen by Dr. Higgins, [facility] on 08/29/24. Endometrial biopsy done for AUB. Repeat US ordered for complex ovarian cyst. 08/29/24 Endometrial biopsy - benign disordered proliferative endometrium with ectatic vessels and focal breakdown; no atypia or carcinoma. Today: She states her abdominal pain has resolved. She is taking Linaclotide and having regular BM. She has an upcoming GI appointment on 09/22/24. She states she had pelvic US today. Result pending. In regards to AUB, she is only spotting. Mammography tomorrow. Follow up with [facility] next week. She has improved adherence to thyroid replacement. She is going to see her offal baler on 09/20/24. Her major concern is her weight. She has gained significant amount of weight. She gained 13 lb since our last encounter. Her weight was 116 in 2019, despite her non-adherence to levothyroxine with high TSH. She quit smoking, and it accelerated weight gain. Her most recent TSH is therapeutic range. She is not used to carry the extra weight on her body. She is concerned because many of her family members had obesity, metabolic derangement, and cardiovascular diseases. She would like to try weightloss medications. Asthma is stable after she stopped smoking. Her depression is better. She states she is engaged in her temple and her son with autism has become more independent. Her is in remission from opioid addiction and working. She wants Shigrix. Review of Systems Constitutional: Negative for activity change, appetite change and fever. Respiratory: Negative for shortness of breath. Cardiovascular: Negative for chest pain. Objective Vitals: 08/31/24 1111 BP: 130/88 BP Location: Left arm Patient Position: Sitting BP Cuff Size: Adult Pulse: 90 Resp: 20 Temp: 97.3 ??F (36.3 ??C) TempSrc: Temporal SpO2: 95% Weight: 179 lb (81.2 kg) Height: 5' 2 (1.575 m) Physical Exam Constitutional: General: She is not in acute distress. Appearance: Normal appearance. She is not ill-appearing. HENT: Head: Normocephalic and atraumatic. Mouth/Throat: Mouth: Mucous membranes are moist. Eyes: Extraocular Movements: Extraocular movements intact. Pupils: Pupils are equal, round, and reactive to light. Cardiovascular: Rate and Rhythm: Normal rate and regular rhythm. Heart sounds: No murmur heard. Pulmonary: Effort: Pulmonary effort is normal. No respiratory distress. Breath sounds: Normal breath sounds. No wheezing or rhonchi. Skin: General: Skin is warm. Neurological: Mental Status: She is alert. Mental status is at baseline. Psychiatric: Mood and Affect: Mood normal. Results: Lab Results Component Value Date NA 139 08/31/2024 K 4.6 08/31/2024 CL 105 08/31/2024 CO2 25 08/31/2024 BUN 12 08/31/2024 CREATININE 0.70 08/31/2024 CRCLCALCPH 91.6 08/04/2024 EGFR >60 08/31/2024 GLUCOSE 77 08/31/2024 TOTALBILIRUB 0.5 08/31/2024 AST 95 (H) 08/31/2024 ALT 104 (H) 08/31/2024 TOTPROTEIN 7.4 08/31/2024 ALB 4.0 08/31/2024 ALP 80 08/31/2024 Lab Results Component Value Date WBC 12.1 (H) 08/04/2024 HGB 12.7 08/04/2024 HCT 37.8 08/04/2024 PLT 308 08/04/2024 MCV 81.1 08/04/2024 FIB-4 Calculation: 0.77 at 08/04/2024 8:43 AM Calculated from: SGOT/AST: 40 U/L at 08/04/2024 8:43 AM SGPT/ALT: 79 U/L at 08/04/2024 8:43 AM Platelets: 308 X10*3/uL at 08/04/2024 8:43 AM Age: 54 years Screenings: PHQ-2/9 Score: Patient Health Questionnaire-9 Score: 0 (08/31/2024 11:14 AM) Patient Health Questionnaire-2 Score: 0 (08/31/2024 11:14 AM) Thoughts that you would be better off or hurting yourself in some way: Not at all (08/31/2024 11:14 AM) KAR-7 Score: No data recorded Assessment/Plan Problem List Items Addressed This Visit 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 Free T4 1.15. Ordered by offal baler. - emphasized the importance of medication adherence Diverticulitis - Primary - recurrent - most recently in July 2024, less frequent for last 3 years - following with [facility], last seen in June 2023, upcoming appointment - last colonoscopy in Apr [address] Sanford. Hyperplastic polyps. Diverticular disease. Hemorrhoids. Recommended to repeat in 5 years. IBS (irritable bowel syndrome) - following with [facility] - s/p colonoscopy in April 2023 hyperplastic polyp - continue linaclotide 290 mcg daily - low FODMAP diet Prolapse of female pelvic organs - referred to UroGYN by Melinda Abnormal uterine bleeding (AUB) - following with [facility] - Pelvic US in May 2024, repeated today. Report pending. - Benign endometrial biopsy report on 08/29/24 Ovarian cyst - left complex ovarian cyst - repeat US ordered by COAL [facility] Chronic idiopathic constipation - continue Linaclotide - continue fiber-rich diet - continue thyroid replacement as prescribed Obesity - Continue working on lifestyle modifications. - Will try medication-assisted weight loss - Will try phentermine, then GLP1RA. - Generic advice as below. Tailor for your unique body, character, and specific condition. Dietary Recommendations: Fruits, vegetables, whole grains, protein foods, and fat-free or low-fat dairy products are healthychoices. Eat different types of protein foods in your diet. This can include seafood, lean meats, poultry, beans, peas, lentils, nuts, seeds, soy products, and eggs. Limit foods and beverages higher in added sugars, saturated fat, and sodium. Exercise Recommendations: At least 150 minutes of moderate-intensity physical activity per week, or an equivalent combinationof moderate- and vigorous-intensity activity Transaminitis - likely MASLD - check lab - Hep A and B immune - last CT scan in July 2024 showed hepatomegaly and cholelithiasis - evaluate with US Other Visit Diagnoses Screening for lipid disorders Relevant Orders Comprehensive Metabolic Panel (Completed) Lipid Panel with Reflex to Direct LDL (Completed) Screening for diabetes mellitus Relevant Orders Hemoglobin A1c (Completed) Dietary counseling Exercise counseling Allergies Allergen Reactions Metronidazole Nausea Tramadol Levofloxacin insomnia Current Outpatient Medications Medication Instructions albuterol 108 (90 Base) MCG/ACT inhaler 2 puffs, Inhalation, Every 4 hours PRN, Maximum 8 puffs perday D3 Super Strength 50 mcg, Oral, Daily famotidine (Pepcid) 40 MG tablet TAKE 1 TABLET BY MOUTH EVERY DAY NEEDED FOR HEARTBURN folic acid (Folvite) 800 MCG tablet 1 tablet, Oral, Nightly hydrocortisone (Anusol-HC) 2.5 % rectal cream APPLY RECTALLY DIRECTED TWICE DAILY FOR HEMORRHOIDS hydrocortisone (ANUSOL-HC) 25 mg, Rectal, 2 times daily Linzess 290 mcg, Oral, Every morning Mometasone Furoate (Asmanex HFA) 100 MCG/ACT aerosol 1 puff, Inhalation, 2 times daily pantoprazole (PROTONIX) 40 mg, Oral, 2 times daily phentermine 15 mg, Oral, Daily before breakfast Tirosint 88 mcg, Oral, Daily Follow-up: 2-3 mo or sooner if any problem arises. documented in this encounter Miscellaneous Notes * Assessment & Plan Note - Bhargavi Llanes MD - 09/01/2024 6:13 AM EDTAssociated Problem(s): Transaminitis - likely MASLD - check lab - Hep A and B immune - last CT scan in July 2024 showed hepatomegaly and cholelithiasis - evaluate with US * Assessment & Plan Note - Bhargavi Llanes MD - 09/01/2024 6:12 AM EDTAssociated Problem(s): Obesity - Continue working on lifestyle modifications. - Will try medication-assisted weight loss - Will try phentermine, then GLP1RA. - Generic advice as below. Tailor for your unique body, character, and specific condition. Dietary Recommendations: Fruits, vegetables, whole grains, protein foods, and fat-free or low-fat dairy products are healthychoices. Eat different types of protein foods in your diet. This can include seafood, lean meats, poultry, beans, peas, lentils, nuts, seeds, soy products, and eggs. Limit foods and beverages higher in added sugars, saturated fat, and sodium. Exercise Recommendations: At least 150 minutes of moderate-intensity physical activity per week, or an equivalent combinationof moderate- and vigorous-intensity activity * Assessment & Plan Note - Bhargavi Llanes MD - 09/01/2024 6:10 AM EDTAssociated Problem(s): IBS (irritable bowel syndrome) - following with [facility] - s/p colonoscopy in April 2023 hyperplastic polyp - continue linaclotide 290 mcg daily - low FODMAP diet * Assessment & Plan Note - Bhargavi Llanes MD - 09/01/2024 6:10 AM EDTAssociated Problem(s): Chronic idiopathic constipation - continue Linaclotide - continue fiber-rich diet - continue thyroid replacement as prescribed * Assessment & Plan Note - Bhargavi Llanes MD - 09/01/2024 6:09 AM EDTAssociated Problem(s): Prolapse of female pelvic organs - referred to UroGYN by Melinda * Assessment & Plan Note - Bhargavi Llanes MD - 09/01/2024 6:09 AM EDTAssociated Problem(s): Abnormal uterine bleeding (AUB) - following with [facility] - Pelvic US in May 2024, repeated today. Report pending. 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 Free T4 1.15. Ordered by offal baler. - emphasized the importance of medication adherence * Assessment & Plan Note - Bhargavi Llanes MD - 09/01/2024 6:04 AM EDTAssociated Problem(s): Diverticulitis - recurrent - most recently in July 2024, less frequent for last 3 years - following with [facility], last seen in June 2023, upcoming appointment - last colonoscopy in Apr [address] Sanford. Hyperplastic polyps. Diverticular disease. Hemorrhoids. Recommended to repeat in 5 years. * Assessment & Plan Note - Bhargavi Llanes MD - 08/31/2024 6:32 AM EDTAssociated Problem(s): Ovarian cyst - left complex ovarian cyst - repeat US ordered by [facility] documented in this encounter Plan of Treatment Upcoming Encounters Date Type Department Care Team (Late st Contact Info) Description 10/19/2024 1:30 PM EDT Office Visit [facility] [address] [place] [address] ElvinMarlene, OD [address] [place] [address] documented as of this encounter Procedures Procedure Name Priority Date/Time Associated Diagnosis Comments LIPID PANEL WITH REFLEX TO DIRECT LDL Routine 08/31/2024 12:21 PM EDT Screening for lipid disorders HEMOGLOBIN A1C Routine 08/31/2024 12:21 PM EDT Screening for diabetes mellitus COMPREHENSIVE METABOLIC PANEL Routine 08/31/2024 12:21 PM EDT Screening for lipid disorders documented in this encounter Results * Hemoglobin A1c (08/31/2024 12:21 PM EDT) Hemoglobin A1c 5.6 <6.0 % [facility] Comment:Hemoglobin A1C Refer ence Range Adults: 4.8 - 6.0 % Non diabetic: < 6.0 % Goal: < 7.0 %Additional Action Suggested: > 8.0 %Note: Hemoglobin A1c results are invalid for patients with abnormal amounts of HbF. Blood transfusions may impact the HbA1c concentration in the patient sample. Estimated Average Glucose 114 mg/dL [facility] Comment:eAG = Estimated ave rage glucose which is %A1C expressed asaverage glucose, using the formula of the N6V-MicxihlTlvdpyw Glucose study (ADAG), Diabetes Care, Vol.31,#8,Nov. 2007 Blood Venous blood specimen / Unknown 08/31/2024 12:21 PM EDT 08/31/2024 12:58 PM EDT Bhargavi Llanes MD LAB BLOOD ORDERABLES Final Resul t [facility] [address] [place] [phone] * (ABNORMAL) Lipid Panel with Reflex to Direct LDL (08/31/2024 12:21 PM EDT) Triglycerides 271(H) <150 mg/dL [facility] Comment:Desirable Triglyceri de: less than 150 mg/dLBorderline High Triglyceride 150-199 mg/dLHigh Triglyceride: 200-499 mg/dLVery High Triglyceride: greater than or equal to 5OO mg/dL Cholesterol 234(H) <200 mg/dL [facility] Comment:Desirable Cholestero l: less than 200 mg/dLBorderline High Cholesterol: 200-239 mg/dLHigh Cholesterol: greater than 239 mg/dL LDL Cholesterol Calculated 137(H) <100 mg/dL [facility] Comment:Desirable LDL: less than 100 mg/dLNear Optimal/Above Optimal LDL: 110- 129 mg/dLBorderline High LDL: 130-159 mg/dLHigh LDL: 160-189 mg/dLVery High LDL: greater than or equal to 190 mg/dL HDL Cholesterol 43 >40 mg/dL [facility] Comment:Desirable HDL: great er than 40 mg/dL Note: This HDL assay may give artificially low results in patients with liver disease. Blood 08/31/2024 12:2 1 PM EDT 08/31/2024 12:58 PM EDT Bhargavi Llanes MD LAB BLOOD ORDERABLES Final Resul t Performing Organization Address City/[facility] [address]/ZIP Co de Phone Number [facility] [address] [place] [phone] * (ABNORMAL) Comprehensive Metabolic Panel (08/31/2024 12:21 PM EDT) Sodium 139 135 - 145 mmol/L [facility] Potassium 4.6 3.3 - 5.1 mmol/L [facility] Chloride 105 96 - 108 mmol/L [facility] Carbon Dioxide 25 22 - 29 mmol/L [facility] Anion Gap 14 12 - 20 [facility] Urea Nitrogen (BUN) 12 9 - 16 mg/dL [facility] Creatinine, Serum 0.70 0.5 - 1.4 mg/dL [facility] Estimated Glomerular Filt Rate >60 [facility] Comment:Chronic Kidney Disea se: Estimated GFR < 60 mL/min/[id number] Kidney Disease: Estimated GFR < 15 mL/min/1.73m2 Glucose 77 60 - 115 mg/dL [facility] Calcium 9.3 8.4 - 10.2 mg/dL [facility] Bilirubin, Total 0.5 0.0 - 1.0 mg/dL [facility] Aspartate Amino Transferase 95(H) 5 - 31 U/L [facility] Alanine Aminotransferase 104(H) 0 - 31 U/L [facility] Total Protein 7.4 6.5 - 8.0 g/dL [facility] Albumin Level 4.0 3.5 - 5.0 g/dL [facility] Alkaline Phosphatase 80 39 - 117 U/L [facility] Blood Venous blood specimen / Unknown 08/31/2024 12:21 PM EDT 08/31/2024 12:58 PM EDT us Bhargavi Llanes MD LAB BLOOD ORDERABLES Final Resul t Performing Organization Address City/[facility] [address]/ZIP Co de Phone Number [facility] [address] [place] [address] [phone] documented in this encounter Visit Diagnoses Diagnosis Diverticulitis- Primary Diverticulitis of colon (without mention of hemorrhage) Abnormal uterine bleeding (AUB) Cyst of left ovary Other and unspecified ovarian cyst Class 1 obesity due to excess calories with serious comorbidity and body mass index (BMI) of 32.0 to 32.9 in adult Screening for lipid disorders Screening for diabetes mellitus Dietary counseling Dietary surveillance and counseling Exercise counseling Irritable bowel syndrome, unspecified type Chronic idiopathic constipation Unspecified constipation 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
--- OUTSIDE RECORDS SUMMARY | 2024-09-01 08:11 | XMS_ITS | Clinical Summary ---
Author Organization [employer] Address [address] [place] [address] Care Team Providers Care Airline Pilot/First Officer Name Role Phone Bhargavi Llanes MD Primary Care Provider [phone] Allergies Active Allergy Reactions Criticality Noted Date [...] breakfast. 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 - Will try medication-assisted weight loss - Will try phentermine, then GLP1RA. - Generic advice as below. Tailor for your unique body, character, and specific condition. Dietary Recommendations: Fruits, vegetables, whole grains, protein foods, and fat-free or low-fat dairy products are healthy choices. Eat different types of protein foods in your diet. This can include seafood, lean meats, poultry, beans, peas, lentils, nuts, seeds, soy products, and eggs. Limit foods and beverages higher in added sugars, saturated fat, and sodium. Exercise Recommendations: At least 150 minutes of moderate-intensity physical activity per week, or an equivalent combination of moderate- and vigorous-intensity activity Transaminitis 09/01/2024 Assessment & Plan (09/01/2024 6:14 AM EDT): - likely MASLD - check lab - Hep A and B immune - last CT scan in July 2024 showed hepatomegaly and cholelithiasis - evaluate with US Ovarian cyst 08/31/2024 Assessment & Plan (08/31/2024 6:32 AM EDT): - left complex ovarian cyst - repeat US ordered by REGIONAL SALES ENGINEER Prolapse of female pelvic organs 07/23/2024 Assessment & Plan (09/01/2024 6:09 AM EDT): - referred to UroGYN by Natasha Abnormal uterine bleeding (AUB) 07/23/2024 Assessment & Plan (09/01/2024 6:09 AM EDT): - following with [facility] - Pelvic US in May 2024, repeated today. Report pending. - Benign endometrial biopsy report on 08/29/24 GERD (gastroesophageal reflux disease) Assessment & Plan (07/22/2023 7:23 PM EDT): - continue pantoprazole 40 mg bid and famotidine 40 mg daily prn IBS (irritable bowel syndrome) 07/22/2023 Assessment & Plan (09/01/2024 6:10 AM EDT): - following with [facility] - s/p colonoscopy in April 2023 hyperplastic polyp - continue linaclotide 290 mcg daily - low FODMAP diet Assessment & Plan (07/22/2023 7:23 PM EDT): - following with [facility] - s/p colonoscopy [...] continue working on lifestyle modifications Diverticulitis 10/28/2022 Assessment & Plan (09/01/2024 6:04 AM EDT): - recurrent - most recently in July 2024, less frequent for last 3 years - following with [facility], last seen in June 2023, upcoming appointment - last colonoscopy in Apr [address] Sanford. Hyperplastic polyps. Diverticular disease. Hemorrhoids. Recommended to repeat in 5 years. 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 Free T4 1.15. Ordered by studio set up worker. - emphasized the importance of medication adherence Assessment & Plan (07/22/2023 7:24 PM EDT): [...] 08/31/2024 11:15 AM EDT Office Visit [facility] [address] [place] [phone] Bhargavi Llanes MD Diverticulitis (Primary Dx); Abnormal uterine bleeding (AUB); Cyst of left ovary; Class 1 obesity due to excess calories with serious comorbidity and body mass index (BMI) of 32.0 to 32.9 in adult; Screening for lipid disorders; Screening for diabetes mellitus; Dietary counseling; Exercise counseling; Irritable bowel syndrome, unspecified type; Chronic idiopathic constipation; 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; Midline cystocele; Transaminitis 08/31/2024 Orders Only [address] [address] Bhargavi Llanes MD Transaminitis (Primary Dx); Fatty liver; Hepatomegaly; Calculus of gallbladder without cholecystitis without obstruction 08/31/2024 Orders Only [facility] External Provider, [facility] 08/31/2024 Travel 08/30/[address] [address] Bhargavi Llanes MD Chart Prep 08/29/2024 Orders Only GENERIC EXTERNAL DATA DEPARTMENT Provider, [facility] External Data 08/24/2024 Travel 08/07/[address] [address] Louise Carrero RN Pt status Check 08/04/2024 Orders Only GENERIC EXTERNAL DATA DEPARTMENT Provider, [facility] External Data 07/23/2024 Travel 07/19/[address] [address] Bhargavi Llanes MD chart prep 07/17/2024 Patient Outreach [address] [address] Bhargavi Llanes MD Pre-visit Planning (SDOH screening was completed on 06/07/2024) 07/07/2024 Orders Only [facility] [address] [place] [address] Brooke Jett MD 07/07/2024 Population Health Risk Score [facility] ([facility] Department [address] [place] [phone] Provider, Population Health Generic 06/27/2024 Orders Only [address] [address] Natasha Horowitz CNM Abnormal endometrial ultrasound (Primary Dx); Abnormal uterine bleeding (AUB); Cyst of left ovary 06/14/[address] [address] Bhargavi Llanes MD Chart Prep 06/13/2024 Travel 06/08/2024 Orders Only [address] [address] Natasha Horowitz CNM Abnormal uterine bleeding (AUB) (Primary Dx); Acquired hypothyroidism 06/07/2024 Patient Outreach [address] [address] Bhargavi Llanes MD Pre-visit Planning (SDOH Screening [...] Description 10/19/2024 1:30 PM EDT Office Visit [facility] OPTOMETRY [address] [place] [address] Marlene Oconnor, OD [address] [place] [address] Health Maintenance Due Date Last Done Comments CT Colonography 1970 FIT DNA/Cologuard 1970 FIT 1970 FOBT 1970 Sigmoidoscopy 1970 Zoster Vaccines (1 of 2) 2021 Mammogram 12/10/2023 12/09/2021, 11/24, 12/13/2017 COVID-19 Vaccine ( season) 2023 Influenza Vaccine (#1) 2023 9, 03/09/2016, 02/13/2015, Additional history exists SDOH Screening 06/07/2025 06/07/2024 Alcohol/Substance Use Screening 08/31/2025 08/31/2024 Depression Screening 08/31/2025 08/31/2024, 09/01/19 25 Tobacco Screening 09/01/2025 09/01/2024 Colonoscopy 04/27/2028 04/27/2023 Colorectal Cancer Screening 04/27/2028 DTaP/Tdap/Td Vaccines (3 - Td or Tdap) 08/23/2028 08/23/2018, 10/06/2011, 07/22/2004 Cervical Cancer Screening 05/30/2029 HPV/Cotest 05/30/2029 05/30/2024, 03/30/2018 Pap Smear 05/30/2029 05/30/2024 Lipid Panel 08/31/2029 08/31/2024 RSV Patients and Patients Aged 60 years or older (1 - 1-dose 75+ series) 2046 Hepatitis A Vaccines Completed 11/26/2017, 07/30/19 05 Hepatitis B Vaccines Completed 11/26/2017, 09/02/2004, 07/29/2004 [...] Date/Time Associated Diagnosis Comments US PELVIS TRANSVAGINAL Routine 08/31/2024 4:00 PM EDT HEMOGLOBIN A1C Routine 08/31/2024 12:21 PM EDT Screening for diabetes mellitus LIPID PANEL WITH REFLEX TO DIRECT LDL Routine 08/31/2024 12:21 PM EDT Screening for lipid disorders COMPREHENSIVE METABOLIC PANEL Routine 08/31/2024 12:21 PM EDT Screening for lipid disorders HEMATOXYLIN AND EOSIN STAIN Routine 08/29/2024 11:16 [...] Health Maintenance Results * US Pelvis Transvaginal (08/31/2024 4:00 PM EDT) Only the most recent of2 resultswithin the time period is included. Anatomical Region Laterality Modality Pelvis Ultrasound 08/31/2024 4:00 PM EDT Narrative 08/31/2024 4:01 PM EDT ? [facility] ?[address] ?[place] [address] ? Ultrasound Report ? Signed ? Patient: Love,Zari ?MR#: [id number] ?? [id number] ? : 1970 ?Acct:[id number] ? Age/Sex: 54 / F ?ADM Date: 05/08/25 ? Loc: HO.US ? Attending Dr: Nick Higgins MD ? Ordering Physician: Nick Higgins MD ?? Date of Service: 08/31/24 ?? Procedure(s): US pelvic and transvaginal ?? Accession Number(s): [id number] ? cc: Bhargavi Llanes MD; Nick Higgins MD ? CLINICAL HISTORY: N83.299 - Other ovarian cyst, unspecified side ? US pelvis transabdominal and transvaginal with color Doppler ? Comparison: US/SR - US PELVIC AND TRANSVAGINAL - 06/27/24 15:37 EST ?? HI/SR - CT ABDOMEN PELVIS W IV CON - 06/18/23 17:27 EST ? Findings: ?? Transabdominal scanning performed for overall anatomy. Transvaginal ?? scanning performed for additional detail. ? LMP: Unknown ? Retroverted uterus, normal size and echotexture, measuring 8.6 x 4.3 x 6.3 ?? cm. ?? Well defined endometrium, measuring 16 mm in thickness. Abnormally ?? thickened endometrium with cystic changes. ? The right ovary measures, 2.6 x 1.5 x 1.8 cm. Hypoechoic avascular lesion ?? probable dermoid measuring 7 x 5 x 4 mm. ?? The left ovary measures, 3.4 x 2.6 x 3.2 cm. Probable functional cyst ?? measuring 2.7 x 1.7 x 1.5 ?? No adnexal masses or fluid collections. Dilated left pelvic vessels ?? consider pelvic venous congestion syndrome. ?? No free fluid ? Impression: ?? 1. Retroverted uterus . ?? 2. Thickened endometrium with cystic changes differentials include ?? endometrial polyp, hyperplasia or metaplasia/dysplasia ?? 3. Suspect ovarian dermoid or atypical hemorrhagic cyst on the right and ?? functional cyst on the left. ?? 4. Consider pelvic venous congestion syndrome on the left in the ?? appropriate clinical setting ? This document has been electronically signed by: Duc Chavira MD on ?? 08/31/2024 16:00:39 ? Dictated By: ?Duc Chavira MD ? Signed By: ?<Electronically signed by Duc Chavira MD in OV> ?08/31/24 1601 ? DD/ 1600 ? TD/TT: 08/31/24 1600 ? Fire Safety Inspector: ? Procedure Note Meryl Arechiga - 08/31/[address] [address] Ultrasound Report Signed Patient: Zari AlemanMR#: [id number] : 1970Acct:[id number] Age/Sex: 54 / FADM Date: 08/31/24 Loc: HO.US Attending Dr: Nick Higgins MD Ordering Physician: Nick Higgins MD Date of Service: 08/31/24 Procedure(s): US pelvic and transvaginal Accession Number(s): [id number] cc: Bhargavi Llanes MD; Nick Higgins MD CLINICAL HISTORY: N83.299 - Other ovarian cyst, unspecified side US pelvis transabdominal and transvaginal with color Doppler Comparison: US/SR - US PELVIC AND TRANSVAGINAL - 06/27/24 15:37 EST HI/SR - CT ABDOMEN PELVIS W IV CON - 06/18/23 17:27 EST Findings: Transabdominal scanning performed for overall anatomy. Transvaginal scanning performed for additional detail. LMP: Unknown Retroverted uterus, normal size and echotexture, measuring 8.6 x 4.3 x 6.3 cm. Well defined endometrium, measuring 16 mm in thickness. Abnormally thickened endometrium with cystic changes. The right ovary measures, 2.6 x 1.5 x 1.8 cm. Hypoechoic avascular lesion probable dermoid measuring 7 x 5 x 4 mm. The left ovary measures, 3.4 x 2.6 x 3.2 cm. Probable functional cyst measuring 2.7 x 1.7 x 1.5 No adnexal masses or fluid collections. Dilated left pelvic vessels consider pelvic venous congestion syndrome. No free fluid Impression: 1. Retroverted uterus . 2. Thickened endometrium with cystic changes differentials include endometrial polyp, hyperplasia or metaplasia/dysplasia 3. Suspect ovarian dermoid or atypical hemorrhagic cyst on the right and functional cyst on the left. 4. Consider pelvic venous congestion syndrome on the left in the appropriate clinical setting This document has been electronically signed by: Duc Chavira MD on 08/31/2024 16:00:39 Dictated By: Duc Chavira MD Signed By: <Electronically signed by Duc Chavira MD in OV> 08/31/24 1601 DD/ 1600 TD/TT: 08/31/24 1600 Fire Safety Inspector: [facility] External Provider IMG US PROCEDURES Edited Result - Final * (ABNORMAL) Lipid Panel with Reflex to Direct LDL (08/31/2024 12:21 PM EDT) Triglycerides 271(H) <150 mg/dL [facility] Comment:Desirable Triglyceri de: less than 150 mg/dLBorderline High Triglyceride 150-199 mg/dLHigh Triglyceride: 200-499 mg/dLVery High Triglyceride: greater than or equal to 5OO mg/dL Cholesterol 234(H) <200 mg/dL [facility] Comment:Desirable Cholestero l: less than 200 mg/dLBorderline High Cholesterol: 200-239 mg/dLHigh Cholesterol: greater than 239 mg/dL LDL Cholesterol Calculated 137(H) <100 mg/dL [facility] Comment:Desirable LDL: less than 100 mg/dLNear Optimal/Above Optimal LDL: 110- 129 mg/dLBorderline High LDL: 130-159 mg/dLHigh LDL: 160-189 mg/dLVery High LDL: greater than or equal to 190 mg/dL HDL Cholesterol 43 >40 mg/dL [facility] Comment:Desirable HDL: great er than 40 mg/dL Note: This HDL assay may give artificially low results in patients with liver disease. Blood 08/31/2024 12:2 1 PM EDT 08/31/2024 12:58 PM EDT us Bhargavi Llanes MD LAB BLOOD ORDERABLES Final Resul t [facility] [address] [place] [phone] * Hemoglobin A1c (08/31/2024 12:21 PM EDT) Hemoglobin A1c 5.6 <6.0 % [facility] Comment:Hemoglobin A1C Refer ence Range Adults: 4.8 - 6.0 % Non diabetic: < 6.0 % Goal: < 7.0 %Additional Action Suggested: > 8.0 %Note: Hemoglobin A1c results are invalid for patients with abnormal amounts of HbF. Blood transfusions may impact the HbA1c concentration in the patient sample. Estimated Average Glucose 114 mg/dL [facility] Comment:eAG = Estimated ave rage glucose which is %A1C expressed asaverage glucose, using the formula of the P2E-MooiypgAflpqkw Glucose study (ADAG), Diabetes Care, Vol.31,#8,Nov. 2007 Blood Venous blood specimen / Unknown 08/31/2024 12:21 PM EDT 08/31/2024 12:58 PM EDT us Bhargavi Llanes MD LAB BLOOD ORDERABLES Final Resul t [facility] [address] [place] [address] [phone] * (ABNORMAL) Comprehensive Metabolic Panel (08/31/2024 12:21 PM EDT) Only the most recent of2 resultswithin the time period is included. Sodium 139 135 - 145 mmol/L [facility] Potassium 4.6 3.3 - 5.1 mmol/L [facility] Chloride 105 96 - 108 mmol/L [facility] Carbon Dioxide 25 22 - 29 mmol/L [facility] Anion Gap 14 12 - 20 [facility] Urea Nitrogen (BUN) 12 9 - 16 mg/dL [facility] Creatinine, Serum 0.70 0.5 - 1.4 mg/dL [facility] Estimated Glomerular Filt Rate >60 [facility] Comment:Chronic Kidney Disea se: Estimated GFR < 60 mL/min/1.35n6Bheudg Kidney Disease: Estimated GFR < 15 mL/min/1.73m2 Glucose 77 60 - 115 mg/dL [facility] Calcium 9.3 8.4 - 10.2 mg/dL [facility] Bilirubin, Total 0.5 0.0 - 1.0 mg/dL [facility] Aspartate Amino Transferase 95(H) 5 - 31 U/L [facility] Alanine Aminotransferase 104(H) 0 - 31 U/L [facility] Total Protein 7.4 6.5 - 8.0 g/dL [facility] Albumin Level 4.0 3.5 - 5.0 g/dL [facility] Alkaline Phosphatase 80 39 - 117 U/L [facility] Blood Venous blood specimen / Unknown 08/31/2024 12:21 PM EDT 08/31/2024 12:58 PM EDT us Bhargavi Llanes MD LAB BLOOD ORDERABLES Final Resul t [facility] [address] [place] [address] [phone] * Hematoxylin and Eosin Stain (08/29/2024 11:16 AM EDT) 08/29/2024 11:1 6 AM EDT 08/29/2024 1:52 PM EDT Narrative [facility] - 08/30/2024 12:24 PM EDT ----- ------- Name: Lvoe,Zari ?Age/Sex: 54/F ? : 1970 Unit#: [id number] ?? Attend Dr: Nick Higgins MD ?Re08/29/24 ?Status: DEP REF ? Location: HO.LNP ?Disch: ? ----- ------- SPEC : [id number] ? RECD: 08/29/24 ? STATUS: ??SOUT ? REQ NUM: [id number] ? MUNIRA: 08/29/24 ? SUBM DR: Nick [...] Copies To: ?? Bhargavi Llanes MD ?? [facility] ?? [address] ?? [place] [address] ?? [phone] ?? Nick Higgins MD ?? [facility] ?? [address] ?? [place] [address] ?? [phone] ----- ------- Signed (signature on file) Sonal Brohman 08/30/24 1224 ? ----- ------- ? END OF REPORT ? us Generic External Data Provider LAB BLOOD ORDERAB LES Final Result [facility] [address] [place] [phone] * Chlamydia/N. Gonorrhoeae RNA, TMA, Urogenitial (08/29/2024 10:08 AM EDT) [facility] CT PCR NOT DETECTED Not Detect. [facility] Comment:A not detected test result does [...] psychologicalconsequences. NG PCR NOT DETECTED Not Detect. [facility] Comment:A not detected test result does [...] AM EDT 08/29/2024 2:07 PM EDT Narrative [facility] - 08/29/2024 4:33 PM EDT Vaginal us Generic External Data Provider LAB MICROBIOLOGY - GENERAL ORDERABLES Final Result Performing Organization Address City/State/[facility] Co de Phone Number [facility] [address] [place] [phone] * CT Abdomen Pelvis w/ Contrast (08/04/2024 12:27 PM EDT) Anatomical Region Laterality Modality Body, Pelvis, Abdomen Computed T omography 08/04/2024 12:2 7 PM EDT Narrative 08/04/2024 1:00 PM EDT ? [facility] ?[address] ?[place] [address] ? CT Scan Report ? Signed ? Patient: Love,Zari ?MR#: [id number] ?? [id number] ? : 1970 ?Acct:[id number] ? Age/Sex: 54 / F ?ADM Date: 04/11/25 ? Loc: HO.ED ? Attending Dr: ? Ordering Physician: Adeel Olmos MD ?? Date of Service: 08/04/24 ?? Procedure(s): CT abdomen pelvis w IV con ?? Accession Number(s): [id number] ? cc: Bhargavi Llanes MD; Adeel Olmos MD ? Report Number: ?? [id number]: Total DLP = ??546.00 mGy-cm ?? EXAMINATION: [...] ? Signed By: ?<Electronically signed by Roger aGleana MD in OV> ?08/04/24 1257 ? DD/ 1227 ? TD/TT: 08/04/24 1240 ? Fire Safety Inspector: ? Procedure Note Donotcarminater, Image - 08/04/[address] [address] [address] Scan Report Signed Patient: Zari AlemanMR#: [id number] : 1970Acct:[id number] Age/Sex: 54 / FADM Date: 08/04/24 Loc: HO.ED Attending Dr: Ordering Physician: Adeel Olmos MD Date of Service: 08/04/24 Procedure(s): CT abdomen pelvis w IV con Accession Number(s): [id number] cc: Bhargavi Llanes MD; Adeel Olmos MD Report Number: [id number]: Total DLP = 546.00 mGy-cm EXAMINATION: CT [...] MD Signed By: <Electronically signed by Roger Glaeana MD in OV> 08/04/24 1257 DD/ 1227 TD/TT: 08/04/24 1240 Fire Safety Inspector: [facility] External Provider IMG CT PROCEDURES Final Result * (ABNORMAL) CBC auto differential (08/04/2024 8:43 AM EDT) White Blood Count 12.1(H) 4.8 - 10.8 X10*3/uL [facility] Red Blood Count 4.66 4.20 - 5.50 X10*6/uL [facility] Hemoglobin 12.7 12.0 - 16.0 g/dl [facility] Hematocrit 37.8 37.0 - 47.0 % [facility] Mean Corpuscular Volume 81.1 80.0 - 98.0 fL [facility] Mean Corpuscular Hemoglobin 27.3 27.0 - 33.0 pg [facility] Mean Corpuscular HGB Conc 33.6 31.0 - 35.0 g/dl [facility] Red Cell Distribution Width 15.2 11.0 - 16.0 % [facility] Platelet Count 308 160 - 400 X10*3/uL [facility] Mean Platelet Volume 9.5 9.4 - 12.3 fL [facility] Neutrophils Percent Auto 75.1(H) 45 - 73 % [facility] Imm Gran Pct Auto 0.3 0.0 - 0.4 % [facility] Lymphocytes Percent Auto 19.3(L) 20 - 40 % [facility] Monocytes Percent Auto 4.7 2 - 11 % [facility] Eosinophils Percent Auto 0.4 0 - 4 % [facility] Basophils Percent Auto 0.2 0 - 2 % [facility] NRBC Pct Auto 0.0 0.0 - 0.2 /100WBC [facility] Neutrophils Absolute Auto 9.1(H) 2.0 - 8.3 x10*3/uL [facility] Imm Gran Abs Auto 0.04(H) 0.00 - 0.03 X10*3/uL [facility] Lymphocytes Absolute Auto 2.3 1.2 - 4.9 X10*3/uL [facility] Monocytes Absolute Auto 0.6 0.1 - 1.2 X10*3/uL [facility] Eosinophils Absolute Auto 0.1 0.0 - 0.4 X10*3/uL [facility] Basophils Absolute Auto 0.0 0.0 - 0.2 X10*3/uL [facility] NRBC Abs Auto 0.000 0.0 - 0.012 X10*3/uL [facility] 08/04/2024 8:43 AM EDT 08/04/2024 8:47 AM EDT us Generic External Data Provider LAB BLOOD ORDERAB LES Final Result Performing Organization Address [facility] Co de Phone Number [facility] [address] [place] [phone] * Lipase (08/04/2024 8:43 AM EDT) Pathologist [facility] Lipase 20 8 - 78 U/L [facility] 08/04/2024 8:43 AM EDT 08/04/2024 8:47 AM EDT us [facility] External Data Provider LAB BLOOD ORDERAB LES Final Result Performing Organization Address [facility] de Phone Number [facility] [address] [place] [phone] * (ABNORMAL) TSH W/Reflex to FT4 (07/10/2024 10:10 AM EDT) [facility] TSH reflex Free T4 71.73(H) 0.32 - 4.0 uIU/mL [facility] Blood Venous blood specimen / Unknown 07/10/2024 10:10 AM EDT 07/10/2024 12:59 PM EDT us Natasha STEVE LAB BLOOD ORDERABLES Lidya l Result Performing Organization Address [facility] Co de Phone Number [facility] [address] [place] [phone] * HPV DNA, Low/High Risk (05/30/2024 10:25 AM EST) Pathologist [facility] HPV High Risk Negative Negative [facility] HPV Genotype 16 Negative Negative [facility] HPV Genotype 18 Negative Negative [facility] Comment:HPV testing performe d at [facility] (CLIA#[id number]), [address] [place] [phone].Testing for HPV was performed using the Bill [...] 05/31/2024 9:15 AM EST us Natasha Horowitz [facility] LAB BLOOD ORDERABLES Lidya monae Result [facility] [address] [place] [address] [phone] * Pap Smear (05/30/2024 10:25 AM EST) Swab Cervix uteri structure / Unknown 05/30/2024 10:25 AM EST 05/31/2024 9:15 AM EST Narrative [facility] - 06/08/2024 1:10 PM EST ----- ------- Name: Zari Aleman ?Age/Sex: 54/F ? : 1970 Unit#: [id number] ?? Attend Dr: NATASHA HOROWITZ CNM ?Re05/30/24 ?Status: DEP REF ? Location: HO.HHCLNP ? Disch: ? ----- ------- SPEC : [id number] ? RECD: 05/31/24 ? STATUS: ??SOUT ? REQ NUM: [id number] ? MUNIRA: 05/30/24 ? SUBM DR: NATASHA [...] STEVE LAB CYTOLOGY ORDERABLES F inal Result [facility] [address] [place] [phone] * Hm Colonoscopy (04/27/2023 10:30 AM [...] a test for HCV RNA (test code 33579) is suggested. ?? For additional information please refer to http://education.Notehall/faq/YBC89r9 (This link is being provided for informational/ educational purposes only.) ?? 05/02/2020 9:36 AM EST Bhargavi Llanes MD HISTORICAL/NON ORDERABLE LABS Fi nal Result [facility] [address] * HIV 1/2 ANTIGEN/ANTIBODY,FOURTH GENERATION W/RFL [...] ? For additional information please refer to http://education.Notehall/faq/SSM333 (This link is being provided for informational/ educational purposes only.) ? The performance of this assay has not been clinically validated in patients less than 2 years old. ?? 05/02/2020 9:36 AM EST us Bhargavi Llanes MD LAB BLOOD ORDERABLES Final Resul t Performing Organization Address City/State/[facility] Co n[place] Phone Number [facility] Anywhere [address] from Last 3 Months or Most Recently Relevant to Health Maintenance Insurance [facility] Care Teams Airline Pilot/First Officer Relationship Specialty Start Date End Date Bhargavi Llanes MD [address] [facility] [place] [address] PCP - General Family Medicine 11/21/18
--- OUTSIDE RECORDS SUMMARY | 2024-09-01 08:11 | XMS_ITS | Encounter Summary ---
Author Organization [employer] Address [address] 7t [place] [address] Care Team Providers Care Inspector Weights And Measures Name Role Phone Bhargavi Llanes MD Primary Care Provider [phone] Encounter Details Date Type Department Care Team (Late st Contact Info) Description 07/07/2024 Orders Only [facility] MED & PEDS [address] [place], [place] [phone] Provider, MD Brooke Social History Tobacco Use [...] Description 10/19/2024 1:30 PM EDT Office Visit [facility] OPTOMETRY [address] [place], [place] [phone] Elvin, Marlene, OD [address] [place] [address] documented as of this encounter Procedures Procedure Name Priority Date/Time Associated Diagnosis Comments HM COLONOSCOPY Routine 04/27/2023 10:30 AM EST documented in this encounter Results * Hm Colonoscopy (04/27/2023 10:30 AM EST) Colonoscopy Normal Normal Narrative Jenifer, Ana - 04/27/2023 10:30 AM EST See external hospital admission note on 04/27/2023 Historical Provider [facility]IN[facility] Edited Result - Final documented in this encounter Visit Diagnoses Not on filedocumented in this encounter Care Teams Inspector Weights And Measures Relationship Specialty Start Date End Date Bhargavi Llanes MD [address] [place], [place] [phone] PCP - General Family Medicine 11/21/18 documented as of this encounter
--- OUTSIDE RECORDS SUMMARY | 2024-09-01 08:11 | XMS_ITS | Encounter Summary ---
Author Organization [employer] Address [address] [facility] 7t [place] [address] Care Team Providers Care Flooring Machine Operator Name Role Phone Bhargavi Llanes MD Primary Care Provider [phone] Encounter Details Date Type Department Care Team (Late st Contact Info) Description 07/28/2023 Orders Only [facility] MEDICINE [address] [place] [address] Bhargavi Llanes MD [address] [place] [address] Social History Tobacco Use Types Packs/Day Years [...] Description 10/19/2024 1:30 PM EDT Office Visit [facility] OPTOMETRY [address] [place] [address] Marlene Oconnor, OD [address] [place] [address] documented as of this encounter Visit Diagnoses Not on filedocumented in this encounter Care Teams Flooring Machine Operator Relationship Specialty Start Date End Date Bhargavi Llanes MD 230 [place] [address] PCP - General Family Medicine 11/21/18 documented as of this encounter
--- OUTSIDE RECORDS SUMMARY | 2024-09-01 08:12 | XMS_ITS | Encounter Summary ---
Author Organization [employer] Address [address] [facility] [facility] [address] [address] 7t [place] [address] Care Team Providers Care Rotary Drier Name Role Phone Bhargavi Llanes MD Primary Care Provider [phone] Reason for Referral * Imaging (Routine) - Pending Review Specialty Diagnoses / Procedures Referred By Contortiz salinas Referred To Contact Radiology Diagnoses Transaminitis Fatty liver Hepatomegaly Calculus of gallbladder without cholecystitis without obstruction Procedures US Abdomen Comp w elastography Bhargavi Llanes MD [address] [place] [address] Phone: tel: fax: Referral ID Status Reason Start Date Expiration Date V isits Requested Visits Authorized [id number] Pending Review 08/31/2024 08/31/2025 1 1 Encounter Details Date Type Department Care Team (Late st Contact Info) Description 08/31/2024 Orders Only [facility] MEDICINE [address] [place] [address] Bhargavi Llanes MD [address] [place], [place] [phone] Transaminitis (Primary Dx); Fatty liver; Hepatomegaly; Calculus of gallbladder without cholecystitis without obstruction Social History Tobacco Use Types Packs/Day Years [...] Office Visit [facility] OPTOMETRY [address] [place] [address] Elvin, Marlene, OD [address] [place] [address] Scheduled Orders Name Type Priority Associated Diagnoses Orde r Schedule Hepatitis B surface antigen, EIA Lab Routine Transaminitis Expected: 08/31/2024 (Approximate), Expires: 08/31/2025 HIV-1/2 Antigen and Antibodies, Fourth Generation, with Reflexes Lab Routine Transaminitis Expected: 08/31/2024 (Approximate), Expires: 08/31/2025 Hepatitis C Antibody with Reflex to HCV, RNA, Quantitative, Real-Time PCR Lab Routine Transaminitis Expected: 08/31/2024, Expires: 08/31/2025 US Abdomen Comp w elastography Imaging Routine Transaminitis Fatty liver Hepatomegaly Calculus of gallbladder without cholecystitis without obstruction Expected: 08/31/2024, Expires: 08/31/2025 documented as of this encounter Visit Diagnoses Diagnosis Transaminitis- Primary Nonspecific elevation of levels of transaminase or lactic acid dehydrogenase (LDH) Fatty liver Other chronic nonalcoholic liver disease Hepatomegaly Calculus of gallbladder without cholecystitis without obstruction documented in this encounter Additional Health Concerns Assessment Noted Time PHQ-9 Depression Total Score: 0 09/01/19 25 11:14 AM EDT documented as of this encounter Care Teams Rotary Drier Relationship Specialty Start Date End Date Bhargavi Llanes MD [address] [place] [address] PCP - General Family Medicine 11/21/18 documented as of this encounter
--- OUTSIDE RECORDS SUMMARY | 2024-09-01 08:12 | XMS_ITS | Encounter Summary ---
Author Organization [employer] Address [address] [place] [address] Care Team Providers Care Line Person Name Role Phone Bhargavi Llanes MD Primary Care Provider [phone] Encounter Details Date Type Department Care Team (Late st Contact Info) Description 08/31/2024 Orders Only [facility] External Provider, [facility] Social History Tobacco Use Types Packs/Day Years [...] Description 10/19/2024 1:30 PM EDT Office Visit [facility] OPTOMETRY [address] [place] [address] Elvin, Marlene, OD [address] [place] [address] documented as of this encounter Procedures Procedure Name Priority Date/Time Associated Diagnosis Comments US PELVIS TRANSVAGINAL Routine 08/31/2024 4:00 PM EDT documented in this encounter Results * US Pelvis Transvaginal (08/31/2024 4:00 PM EDT) Anatomical Region Laterality Modality Pelvis Ultrasound 08/31/2024 4:00 PM EDT Narrative 08/31/2024 4:01 PM EDT ? [facility] ?[address] ?[place] [address] ? Ultrasound Report ? Signed ? Patient: Love,Zari ?MR#: [id number] ?? [id number] ? : 1970 ?Acct:[id number] ? Age/Sex: 54 / F ?ADM Date: 05/08/25 ? Loc: HO.US ? Attending Dr: Nick Higgins MD ? Ordering Physician: Nick Higgins MD ?? Date of Service: 08/31/24 ?? Procedure(s): US pelvic and transvaginal ?? Accession Number(s): [id number] ? cc: Bhargavi Llanes MD; Nick Higgins MD ? CLINICAL HISTORY: N83.299 - Other ovarian cyst, unspecified side ? US pelvis transabdominal and transvaginal with color Doppler ? Comparison: US/SR - US PELVIC AND TRANSVAGINAL - 06/27/24 15:37 EST ?? CO/SR - CT ABDOMEN PELVIS W IV CON [...] DD/ 1600 ? TD/TT: 08/31/24 1600 ? Stratigraphy Teacher: ? Procedure Note Meryl Arechiga - 08/31/[address] [address] Ultrasound Report Signed Patient: Zari AlemanMR#: [id number] : 1970Acct:[id number] Age/Sex: 54 / FADM Date: 08/31/24 Loc: HO.US Attending Dr: Nick Higgins MD Ordering Physician: Nick Higgins MD Date of Service: 08/31/24 Procedure(s): US pelvic and transvaginal Accession Number(s): [id number] cc: Bhargavi Llanes MD; Nick Higgins MD CLINICAL HISTORY: N83.299 - Other ovarian cyst, unspecified side US pelvis transabdominal and transvaginal with color Doppler Comparison: US/SR - US PELVIC AND TRANSVAGINAL - 06/27/24 15:37 EST CO/SR - CT ABDOMEN PELVIS W IV CON [...] 08/31/24 1601 DD/ 1600 TD/TT: 08/31/24 1600 Stratigraphy Teacher: us [facility] External Provider IMG US PROCEDURES Edited Result - Final documented in this encounter Visit Diagnoses Not on filedocumented in this encounter Additional Health Concerns Assessment Noted Time PHQ-9 Depression Total Score: 0 09/01/19 25 11:14 AM EDT documented as of this encounter Care Teams Line Person Relationship Specialty Start Date End Date Bhargavi Llanes MD 230 [place] [address] PCP - General Family Medicine 11/21/18 documented as of this encounter
--- OUTSIDE RECORDS SUMMARY | 2024-09-01 08:12 | XMS_ITS | Encounter Summary ---
Author Organization [employer] Address [address] [facility] 7[address] [place] [address] Care Team Providers Care Cloud Consultant Name Role Phone Bhargavi Llanes MD Primary Care Provider [phone] Encounter Details Date Type Department Care Team [...] [facility] OPTOMETRY [address] [place] [address] Elvin, Marlene, OD [address] [place] [address] documented as of this encounter Procedures Procedure Name Priority Date/Time Associated Diagnosis Comments HEMATOXYLIN AND EOSIN STAIN Routine 08/29/2024 11:16 AM EDT CHLAMYDIA/N. GONORRHOEAE RNA, TMA, UROGENITAL Routine 08/29/2024 10:08 AM EDT documented in this encounter Results * Hematoxylin and Eosin Stain (08/29/2024 11:16 AM EDT) 08/29/2024 11:1 6 AM EDT 08/29/2024 1:52 PM EDT [facility] - 08/30/2024 12:24 PM EDT ----- ------- Name: Zari Aleman ?Age/Sex: 54/F ? : 1970 Unit#: [id number] ?? Attend Dr: Nick Higgins MD ?Re08/29/24 ?Status: DEP REF ? Location: HO.LNP ?Disch: ? ----- ------- SPEC : [id number] ? RECD: 08/29/24 ? STATUS: ??SOUT ? REQ NUM: [id number] ? MUNIRA: 08/29/246 ? SUBM DR: Nick [...] Copies To: ?? Bhargavi Llanes MD ?? [facility] ?? [address] [facility] ?? [place] [address] ?? [phone] ?? Nick Higgins MD ?? [facility] ?? [address] [facility] [address] ?? [place] [address] ?? [phone] ----- ------- Signed (signature on file) Sonal Leonore 08/30/24 1224 ? ----- ------- ? END OF REPORT ? us Generic External Data Provider LAB BLOOD ORDERAB LES Final Result [facility] [address] [place] [address] [phone] * Chlamydia/N. Gonorrhoeae RNA, TMA, Urogenitial (08/29/2024 10:08 AM EDT) CT PCR NOT DETECTED Not Detect. [facility] Comment:A not detected test result does [...] psychologicalconsequences. NG PCR NOT DETECTED Not Detect. [facility] Comment:A not detected test result does [...] AM EDT 08/29/2024 2:07 PM EDT Narrative [facility] - 08/29/2024 4:33 PM EDT Vaginal us Generic External Data Provider LAB MICROBIOLOGY - GENERAL ORDERABLES Final Result [facility] [address] [place] [address] [phone] documented in this encounter Visit Diagnoses Not on filedocumented in this encounter Care Teams Cloud Consultant Relationship Specialty Start Date End Date Bhargavi Llanes MD [address] [place] [address] PCP - General Family Medicine 11/21/18 documented as of this encounter
--- OUTSIDE RECORDS SUMMARY | 2024-09-01 08:12 | XMS_ITS | Encounter Summary ---
Author Organization [employer] Address [address] 7[address] [place] [address] Care Team Providers Care Envelope Fold Operator Name Role Phone Bhargavi Llanes MD Primary Care Provider [phone] Reason for Visit * Reason Onset Date Comments Chart Prep 08/30/2024 Encounter Details Date Type Department Care Team ([facility] st Contact Info) Description 08/30/2024 Telephone [facility] MEDICINE [address] [place], [place] [phone] Bhargavi Llanes MD [address] [place], [place] [phone] Chart Prep Social History Tobacco Use Types [...] Visit [facility] OPTOMETRY [address] [place] [address] Elvin, Marlene, OD [address] [place] [address] documented as of this encounter Visit Diagnoses Not on filedocumented in this encounter Care Teams Envelope Fold Operator Relationship Specialty Start Date End Date Bhargavi Llanes MD [address] [place] [address] PCP - General Family Medicine 11/21/18 documented as of this encounter
== END 2024-09-01 08:07 | disposition home or self-care (01) ==
LOC: HO.MAMMO 08:06
PROVIDERS: PCP Family Medicine; Visit Provider Advanced Practice Midwife
DX: Z12.31 Encounter for screening mammogram for malignant neoplasm of breast (principal)
CPT/HCPCS: 77063; 77067

== ENCOUNTER → 2024-09-01 09:00 | Outpatient (BNV) | payer MEDICAID, SELFPAY | PROVIDERS: PCP Family Medicine; Visit Provider Internal Medicine | DX: Z12.31 Encounter for screening mammogram for malignant neoplasm of breast (principal) | CPT/HCPCS: 77063; 77067 ==

== ENCOUNTER → 2024-09-04 07:57 | Outpatient (BNVA) | payer MEDICAID, SELFPAY | PROVIDERS: PCP Family Medicine; Visit Provider Obstetrics & Gynecology ==

== ENCOUNTER 2024-09-04 09:10 | Outpatient (REF) | payer MEDICAID, SELFPAY ==
--- OUTSIDE RECORDS SUMMARY | 2024-09-04 09:18 | XMS_ITS | Encounter Summary ---
Author Organization [employer] Address [address] [facility] [address] 7t [place] [address] Care Team Providers Care Complaint Specialist Name Role Phone Bhargavi Llanes MD Primary Care Provider [phone] Encounter Details Date Type Department Care Team [...] Description 10/19/2024 1:30 PM EDT Office Visit [facility] OPTOMETRY [address] [place] [address] Marlene Oconnor, OD 230 [place] [address] documented as of this encounter Visit Diagnoses Not on filedocumented in this encounter Additional Health Concerns Assessment Noted Time PHQ-9 Depression Total Score: 0 09/01/19 25 11:14 AM EDT documented as of this encounter Care Teams Complaint Specialist Relationship Specialty Start Date End Date Bhargavi Llanes MD [address] [place] [address] PCP - General Family Medicine 11/21/18 documented as of this encounter
--- OUTSIDE RECORDS SUMMARY | 2024-09-04 09:18 | XMS_ITS | Encounter Summary ---
Author Organization [employer] Address [address] [place] [address] Care Team Providers Care Buffer Chrome Name Role Phone Bhargavi Llanes MD Primary Care Provider [phone] Encounter Details Date Type Department Care Team (Late st Contact Info) Description 07/07/2024 Orders Only [facility] CH[facility] MED & PEDS [address] [place], [place] [phone] Provider, MD Brooke Social History Tobacco Use [...] Description 10/19/2024 1:30 PM EDT Office Visit [facility] OPTOMETRY [address] [place], [place] [phone] Elvin, Marlene, OD [address] [place] [address] documented as of this encounter Procedures Procedure Name Priority Date/Time Associated Diagnosis Comments HM COLONOSCOPY Routine 04/27/2023 10:30 AM EST documented in this encounter Results * Hm Colonoscopy (04/27/2023 10:30 AM EST) Colonoscopy Normal Normal Narrative Jenifer, Ana - 04/27/2023 10:30 AM EST See external hospital admission note on 04/27/2023 Historical Provider [facility] Edited Result - Final documented in this encounter Visit Diagnoses Not on filedocumented in this encounter Care Teams Buffer Chrome Relationship Specialty Start Date End Date Bhargavi Llanes MD [address] [place], [place] [phone] PCP - General Family Medicine 11/21/18 documented as of this encounter
--- OUTSIDE RECORDS SUMMARY | 2024-09-04 09:19 | XMS_ITS | Encounter Summary ---
Author Organization [employer] Address [address] [facility] [address] [place] [address] Care Team Providers Care Contracts Administrator Name Role Phone Bhargavi Llanes MD Primary Care Provider [phone] Reason for Referral * Imaging (Routine) - Authorized Specialty Diagnoses / Procedures Referred By Contac t Referred To Contact Radiology Diagnoses Transaminitis Fatty liver Hepatomegaly Calculus of gallbladder without cholecystitis without obstruction Procedures US Abdomen Comp w elastography Bhargavi Llanes MD [address] [place] [address] Phone: tel: fax: [address] Phone: tel: fax: Referral ID Status Reason Start Date Expiration Date V isits Requested Visits Authorized [id number] Authorized 08/31/2024 08/31/2025 1 1 Encounter Details Date Type Department Care Team (Late st Contact Info) Description 08/31/[address] [facility] MEDICINE [address] [place] [phone] Bhargavi Llanes MD [address] [place], [place] [phone] Transaminitis (Primary Dx); Fatty liver; Hepatomegaly; Calculus [...] Description 10/19/2024 1:30 PM EDT Office Visit [facility] OPTOMETRY [address] [place], [place] [phone] Elvin, Marlene, OD [address] [place] [address] Scheduled Orders Name Type Priority Associated Diagnoses [...] documented as of this encounter Care Teams Contracts Administrator Relationship Specialty Start Date End Date Bhargavi Llanes MD [address] [place] [address] PCP - General Family Medicine 11/21/18 documented as of this encounter
--- OUTSIDE RECORDS SUMMARY | 2024-09-04 09:19 | XMS_ITS | Encounter Summary ---
Author Organization [employer] Address [address] [facility] [address] [address] [place] [address] Care Team Providers Care Hand Tube Winder Name Role Phone hBargavi Llanes MD Primary Care Provider [phone] Reason for Visit * Reason Onset Date Comments Chart Prep 08/30/2024 Encounter Details Date Type Department Care Team ([facility] st Contact Info) Description 08/30/2024 Telephone [facility] MEDICINE [address] [place], [place] [phone] Bhargavi Llanes MD [address] [place], [place] [phone] Chart Prep Social History Tobacco Use Types [...] 10/19/2024 1:30 PM EDT Office Visit [facility] OPTOMETRY [address] [place] [address] Elvin, Marlene, OD [address] [place] [address] documented as of this encounter Visit Diagnoses Not on filedocumented in this encounter Care Teams Hand Tube Winder Relationship Specialty Start Date End Date Bhargavi Llanes MD [address] [place] [address] PCP - General Family Medicine 11/21/18 documented as of this encounter
--- OUTSIDE RECORDS SUMMARY | 2024-09-04 09:19 | XMS_ITS | Clinical Summary ---
Author Organization [employer] Address [address] [place] [address] Care Team Providers Care Cost Clerk Name Role Phone Bhargavi Llanes MD Primary Care Provider [phone] Allergies Active Allergy Reactions Criticality Noted Date [...] ovarian cyst - repeat US ordered by POLITICAL SCIENCE CHAIR Prolapse of female pelvic organs 07/23/2024 Assessment & Plan (09/01/2024 6:09 AM EDT): - referred to UroGYN by Natasha Abnormal uterine bleeding (AUB) 07/23/2024 Assessment & Plan (09/01/2024 6:09 AM EDT): - following with [facility] POLITICAL SCIENCE CHAIR - Pelvic US in May 2024, repeated today. Report pending. - Benign endometrial biopsy report on 08/29/24 GERD (gastroesophageal reflux disease) Assessment & Plan (07/22/2023 7:23 PM EDT): - continue pantoprazole 40 mg bid and famotidine 40 mg daily prn IBS (irritable bowel syndrome) 07/22/2023 Assessment & Plan (09/01/2024 6:10 AM EDT): - [facility] for last 3 years - following with [facility] GI, last seen in June 2023, upcoming appointment - last colonoscopy in Apr [address] Sanford. Hyperplastic polyps. Diverticular disease. Hemorrhoids. Recommended to repeat in 5 years. 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 Free T4 1.15. Ordered by car repairman. - emphasized the importance of medication adherence [...] Encounters Date Type Department Care Team Description 09/01/2024 Telephone [facility] MEDICINE [address] [place] [address] Louise Carrero, RN Results 08/31/2024 11:15 AM EDT Office Visit [facility] MEDICINE [address] [place] [address] Bhargavi Llanes MD Diverticulitis (Primary Dx); Abnormal [...] thyroiditis; Midline cystocele; Transaminitis 08/31/2024 Orders Only [address] [address] Bhargavi Llanes MD Transaminitis (Primary Dx); Fatty liver; Hepatomegaly; Calculus of gallbladder without cholecystitis without obstruction 08/31/2024 Orders Only [facility] External Provider, [facility] 08/31/2024 Travel 08/30/[address] [address] Bhargavi Llanes MD Chart Prep 08/29/2024 Orders Only GENERIC EXTERNAL DATA DEPARTMENT Provider, [facility] External Data 08/24/2024 Travel 08/07/[address] [address] Louise Carrero RN Pt status Check 08/04/2024 Orders Only GENERIC EXTERNAL DATA DEPARTMENT Provider, [facility] External Data 07/23/2024 Travel 07/19/[address] [address] Bhargavi Llanes MD chart prep 07/17/2024 Patient Outreach [address] [address] Bhargavi Llanes MD Pre-visit Planning (SDOH screening was completed on 06/07/2024) 07/07/2024 Orders Only [facility] [address] [place] [address] Brooke Jett MD 07/07/2024 Population Health Risk Score [facility] (C3) Department [address] [place] [phone] Provider, Population Health Generic 06/27/2024 Orders Only [address] [address] Natasha Horowitz CNM Abnormal endometrial ultrasound (Primary Dx); Abnormal uterine bleeding (AUB); Cyst of left ovary 06/14/[address] [address] Bhargavi Llanes MD Chart Prep 06/13/2024 Travel 06/08/2024 Orders Only [address] [address] Natasha Horowitz CNM Abnormal uterine bleeding (AUB) (Primary Dx); Acquired hypothyroidism 06/07/2024 Patient Outreach [address] [address] Bhargavi Llanes MD Pre-visit Planning (SDOH Screening [...] 1:30 PM EDT Office Visit [facility] OPTOMETRY [address] [place] [address] Marlene Oconnor, OD [address] [place] [address] Health Maintenance Due Date Last Done Comments CT Colonography 1970 FIT DNA/Cologuard 1970 FIT 1970 FOBT 1970 Sigmoidoscopy 1970 Zoster Vaccines (1 of 2) 2021 Mammogram 12/10/2023 12/09/2021, 11/24, 12/13/2017 COVID-19 Vaccine ( - 2023- season) 2023 Influenza Vaccine (#1) 2023 9, 03/09/2016, 02/13/2015, Additional history exists SDOH Screening 06/07/2025 06/07/2024 Alcohol/Substance Use Screening 08/31/2025 08/31/2024 Depression Screening 08/31/2025 08/31/2024, 09/01/19 Tobacco Screening 09/01/2025 09/01/2024 Colonoscopy 04/27/2028 04/27/2023 [...] EDT Narrative 08/31/2024 4:01 PM EDT ? [facility] ?[address] ?[place] [address] ? Ultrasound Report ? Signed ? Patient: Love,Zari ?MR#: [id number] ?? [id number] ? : 1970 ?Acct:[id number] ? Age/Sex: 54 / F ?ADM Date: 05/08/25 ? Loc: HO.US ? Attending Dr: Nick Higgins MD ? Ordering Physician: Nick Higgins MD ?? Date of Service: 08/31/24 ?? Procedure(s): US pelvic and transvaginal ?? Accession Number(s): [id number] ? cc: Bhargavi Llanes MD; Nick Higgins MD ? CLINICAL HISTORY: N83.299 - Other ovarian cyst, unspecified side ? US pelvis transabdominal and transvaginal with color Doppler ? Comparison: US/SR - US PELVIC AND TRANSVAGINAL - 06/27/24 15:37 EST ?? OH/SR - CT ABDOMEN PELVIS W IV CON [...] DD/ 1600 ? TD/TT: 08/31/24 1600 ? Data Entry Technician: ? Procedure Note Meryl Arechiga - 08/31/[address] [place] [address] Ultrasound Report Signed Patient: Zari Aleman#: [id number] : 1970Acct:[id number] Age/Sex: 54 / FADM Date: 08/31/24 Loc: HO.US Attending Dr: Nick Higgins MD Ordering Physician: Nick Higgins MD Date of Service: 08/31/24 Procedure(s): US pelvic and transvaginal Accession Number(s): [id number] cc: Bhargavi Llanes MD; Nick Higgins MD CLINICAL HISTORY: N83.299 - Other ovarian cyst, unspecified side US pelvis transabdominal and transvaginal with color Doppler Comparison: US/SR - US PELVIC AND TRANSVAGINAL - 06/27/24 15:37 EST [place]/SR - CT ABDOMEN PELVIS W IV CON [...] 08/31/24 1601 DD/ 1600 TD/TT: 08/31/24 1600 Data Entry Technician: [facility] External Provider IMG US PROCEDURES Edited Result - Final * (ABNORMAL) Lipid Panel with Reflex to Direct LDL (08/31/2024 12:21 PM EDT) Triglycerides 271(H) <150 mg/dL [facility] Comment:Desirable Triglyceri de: less than 150 mg/dLBorderline High Triglyceride 150-199 mg/dLHigh Triglyceride: 200-499 mg/dLVery High Triglyceride: greater than or equal to 5OO mg/dL Cholesterol 234(H) <200 mg/dL [facility] Comment:Desirable Cholestero l: less than 200 mg/dLBorderline High Cholesterol: 200-239 mg/dLHigh Cholesterol: greater than 239 mg/dL LDL Cholesterol Calculated 137(H) <100 mg/dL [facility] Comment:Desirable LDL: less than 100 mg/dLNear Optimal/Above Optimal LDL: 110- 129 mg/dLBorderline High LDL: 130-159 mg/dLHigh LDL: 160-189 mg/dLVery High LDL: greater than or equal to 190 mg/dL HDL Cholesterol 43 >40 mg/dL [facility] Comment:Desirable HDL: great er than 40 mg/dL Note: This HDL assay may give artificially low results in patients with liver disease. Blood 08/31/2024 12:2 1 PM EDT 08/31/2024 12:58 PM EDT Bhargavi Llanes MD LAB BLOOD ORDERABLES Final Resul t [facility] [address] [place] [address] [phone] * Hemoglobin A1c (08/31/2024 12:21 PM EDT) Hemoglobin A1c 5.6 <6.0 % [facility] Comment:Hemoglobin A1C Refer ence Range Adults: 4.8 - 6.0 % Non diabetic: < 6.0 % Goal: < 7.0 %Additional Action Suggested: > 8.0 %Note: Hemoglobin A1c results are invalid for patients with abnormal amounts of HbF. Blood transfusions may impact the HbA1c concentration in the patient sample. Estimated Average Glucose 114 mg/dL [facility] Comment:eAG = Estimated ave rage glucose which is %A1C expressed asaverage glucose, using the formula of the [id number] Glucose study (ADAG), Diabetes Care, Vol.31,#8,Nov. 2007 Blood Venous blood specimen / Unknown 08/31/2024 12:21 PM EDT 08/31/2024 12:58 PM EDT us Bhargavi Llanes MD LAB BLOOD ORDERABLES Final Resul t [facility] [address] [place] [address] [phone] * (ABNORMAL) Comprehensive Metabolic Panel (08/31/2024 12:21 PM EDT) Only the most recent of2 resultswithin the time period is included. Sodium 139 135 - 145 mmol/L [facility] Potassium 4.6 3.3 - 5.1 mmol/L [facility] Chloride 105 96 - 108 mmol/L [facility] Carbon Dioxide 25 22 - 29 mmol/L [facility] Anion Gap 14 12 - 20 [facility] Urea Nitrogen (BUN) 12 9 - 16 mg/dL [facility] Creatinine, Serum 0.70 0.5 - 1.4 mg/dL [facility] Estimated Glomerular Filt Rate >60 [facility] Comment:Chronic Kidney Disea se: Estimated GFR < 60 mL/min/[id number] Kidney Disease: Estimated GFR < 15 mL/min/1.73m2 Glucose 77 60 - 115 mg/dL [facility] Calcium 9.3 8.4 - 10.2 mg/dL [facility] Bilirubin, Total 0.5 0.0 - 1.0 mg/dL [facility] Aspartate Amino Transferase 95(H) 5 - 31 U/L [facility] Alanine Aminotransferase 104(H) 0 - 31 U/L [facility] Total Protein 7.4 6.5 - 8.0 g/dL [facility] Albumin Level 4.0 3.5 - 5.0 g/dL [facility] Alkaline Phosphatase 80 39 - 117 U/L [facility] Blood Venous blood specimen / Unknown 08/31/2024 12:21 PM EDT 08/31/2024 12:58 PM EDT us Bhargavi Llanes MD LAB BLOOD ORDERABLES Final Resul t [facility] [address] [place] [address] [phone] * Hematoxylin and Eosin Stain (08/29/2024 11:16 AM EDT) 08/29/2024 11:1 6 AM EDT 08/29/2024 1:52 PM EDT Narrative [facility] - 08/30/2024 12:24 PM EDT ----- ------- Name: Love,Zari ?Age/Sex: 54/F ? : 1970 Unit#: [id number] ?? Attend Dr: Nick Higgins MD ?Re08/29/24 ?Status: DEP REF ? Location: HO.LNP ?Disch: ? ----- ------- SPEC : [id number] ? RECD: 08/29/24 ? STATUS: ??SOUT ? REQ NUM: [id number] ? MUNIRA: 08/29/24 ? SUBM DR: Nick [...] in toto in a cassette labeled A. CEDIsrael Copies To: ?? Bhargavi Llanes MD ?? [facility] ?? [address] ?? [place] [address] ?? [phone] ?? Nick Higgins MD ?? [facility] Women[facility] Services ?? [address] ?? [place] [address] ?? [phone] ----- ------- Signed (signature on file) Sonal Juliet 08/30/24 1224 ? ----- ------- ? END OF REPORT ? Generic External Data Provider LAB BLOOD ORDERAB LES Final Result [facility] [address] [facility] [address] [phone] * Chlamydia/N. Gonorrhoeae RNA, TMA, Urogenitial (08/29/2024 10:08 AM EDT) [facility] CT PCR NOT DETECTED Not Detect. [facility] Comment:A not detected test result [...] psychologicalconsequences. NG PCR NOT DETECTED Not Detect. [facility] Comment:A not detected test result [...] AM EDT 08/29/2024 2:07 PM EDT Narrative [facility] - 08/29/2024 4:33 PM EDT Vaginal us Generic External Data Provider LAB MICROBIOLOGY - GENERAL ORDERABLES Final Result Performing Organization Address City/State/[facility] Co de Phone Number [facility] [address] [place] [phone] * CT Abdomen Pelvis w/ Contrast (08/04/2024 12:27 PM EDT) Anatomical Region Laterality Modality Body, Pelvis, Abdomen Computed T omography 08/04/2024 12:2 7 PM EDT Narrative 08/04/2024 1:00 PM EDT ? [facility] ?[address] ?[place] [address] ? CT Scan Report ? Signed ? Patient: Love,Zari ?MR#: [id number] ?? [id number] ? : 1970 ?Acct:[id number] ? Age/Sex: 54 / F ?ADM Date: 08/04/24 ? Loc: HO.ED ? Attending Dr: ? Ordering Physician: Adeel Olmos MD ?? Date of Service: 08/04/24 ?? Procedure(s): CT abdomen pelvis w IV con ?? Accession Number(s): [id number] ? cc: Bhargavi Llanes MD; Adeel Olmos MD ? Report Number: ?? [id number]: Total DLP = ??546.00 mGy-cm ?? EXAMINATION: [...] DD/ 1227 ? TD/TT: 08/04/24 1240 ? Data Entry Technician: ? Procedure Note Donotuseinterpreter, Image - 08/04/[address] [place] [address] [address] Scan Report Signed Patient: Zari AlemanMR#: [id number] : 1970Acct:[id number] Age/Sex: 54 / FADM Date: 08/04/24 Loc: HO.ED Attending Dr: Ordering Physician: Adeel Olmos MD Date of Service: 08/04/24 Procedure(s): CT abdomen pelvis w IV con Accession Number(s): [id number] cc: Bhargavi Llanes MD; Adeel Olmos MD Report Number: [id number]: Total DLP = 546.00 mGy-cm EXAMINATION: CT [...] 08/04/24 1257 DD/ 1227 TD/TT: 08/04/24 1240 Data Entry Technician: [facility] External Provider IMG CT PROCEDURES Final Result * (ABNORMAL) CBC auto differential (08/04/2024 8:43 AM EDT) White Blood Count 12.1(H) 4.8 - 10.8 X10*3/uL [facility] Red Blood Count 4.66 4.20 - 5.50 X10*6/uL [facility] Hemoglobin 12.7 12.0 - 16.0 g/dl [facility] Hematocrit 37.8 37.0 - 47.0 % [facility] Mean Corpuscular Volume 81.1 80.0 - 98.0 fL [facility] Mean Corpuscular Hemoglobin 27.3 27.0 - 33.0 pg [facility] Mean Corpuscular HGB Conc 33.6 31.0 - 35.0 g/dl [facility] Red Cell Distribution Width 15.2 11.0 - 16.0 % [facility] Platelet Count 308 160 - 400 X10*3/uL [facility] Mean Platelet Volume 9.5 9.4 - 12.3 fL [facility] Neutrophils Percent Auto 75.1(H) 45 - 73 % [facility] Imm Gran Pct Auto 0.3 0.0 - 0.4 % [facility] Lymphocytes Percent Auto 19.3(L) 20 - 40 % [facility] Monocytes Percent Auto 4.7 2 - 11 % [facility] Eosinophils Percent Auto 0.4 0 - 4 % [facility] Basophils Percent Auto 0.2 0 - 2 % [facility] NRBC Pct Auto 0.0 0.0 - 0.2 /100WBC [facility] Neutrophils Absolute Auto 9.1(H) 2.0 - 8.3 x10*3/uL [facility] Imm Gran Abs Auto 0.04(H) 0.00 - 0.03 X10*3/uL [facility] Lymphocytes Absolute Auto 2.3 1.2 - 4.9 X10*3/uL [facility] Monocytes Absolute Auto 0.6 0.1 - 1.2 X10*3/uL [facility] Eosinophils Absolute Auto 0.1 0.0 - 0.4 X10*3/uL [facility] Basophils Absolute Auto 0.0 0.0 - 0.2 X10*3/uL [facility] NRBC Abs Auto 0.000 0.0 - 0.012 X10*3/uL [facility] 08/04/2024 8:43 AM EDT 08/04/2024 8:47 AM EDT us Generic External Data Provider LAB BLOOD ORDERAB LES Final Result [facility] [address] [place] [phone] * Lipase (08/04/2024 8:43 AM EDT) Lipase 20 8 - 78 U/L [facility] 08/04/2024 8:43 AM EDT 08/04/2024 8:47 AM EDT us Generic External Data Provider LAB BLOOD ORDERAB LES Final Result Performing Organization Address [facility]/ZIP Co de Phone Number [facility] [address] [place] [phone] * (ABNORMAL) TSH W/Reflex to FT4 (07/10/2024 10:10 AM EDT) TSH reflex Free T4 71.73(H) 0.32 - 4.0 uIU/mL [facility] Blood Venous blood specimen / Unknown 07/10/2024 10:10 AM EDT 07/10/2024 12:59 PM EDT us Natasha STEVE LAB BLOOD ORDERABLES Lidya l Result Performing Organization Address City/[facility]/ZIP Co de Phone Number [facility] [address] [place] [phone] * HPV DNA, Low/High Risk (05/30/2024 10:25 AM EST) HPV High Risk Negative Negative [facility] HPV Genotype 16 Negative Negative [facility] HPV Genotype 18 Negative Negative [facility] Comment:HPV testing performe d at [facility] (CLIA#[id number]), [address] [place] [phone].Testing for HPV was performed using the NoDaysOff GERI 6800system. The presence of HPV in [...] 05/31/2024 9:15 AM EST us Natasha Horowitz [facility] LAB BLOOD ORDERABLES Lidya monae Result [facility] [address] [place] [phone] * Pap Smear (05/30/2024 10:25 AM EST) Swab Cervix uteri structure / Unknown 05/30/2024 10:25 AM EST 05/31/2024 9:15 AM EST Narrative [facility] - 06/08/2024 1:10 PM EST ----- ------- Name: Zari Aleman ?Age/Sex: 54/F ? : 1970 Unit#: [id number] ?? Attend Dr: NATASHA HOROWITZ CNM ?Re05/30/24 ?Status: DEP REF ? Location: HO.HHCLNP ? Disch: ? ----- ------- SPEC : [id number] ? RECD: 05/31/24 ? STATUS: ??SOUT ? REQ NUM: [id number] ? MUNIRA: 05/30/24 ? SUBM DR: NATASHA [...] CNM LAB CYTOLOGY ORDERABLES F inal Result [facility] [address] [place] [address] [phone] * Hm Colonoscopy (04/27/2023 10:30 AM EST) [...] C ANTIBODY NON-REACT STEVE NON-REACT STEVE [facility] INDEX 0.01 <1.00 [facility] Comment: ?? HCV antibody was non-reactive. There is no laboratory ?? evidence of HCV infection. ?? In most cases, no further action is required. However, if recent HCV exposure is suspected, a test for HCV RNA (test code 14220) is suggested. ?? For additional information please refer to http://education.[employer]/faq/LQI27k3 (This link is being provided for informational/ educational purposes only.) ?? 05/02/2020 9:36 AM EST Bhargavi Llanes MD HISTORICAL/NON ORDERABLE LABS Fi nal Result [facility] [address] * HIV 1/2 ANTIGEN/ANTIBODY,FOURTH GENERATION W/RFL (05/02/2020 9:36 AM EST) HIV-1/2 ANTIGEN AND ANTIBODIES, 4TH GENERATION W/ REFLEX NON-REACT STEVE NON-REACT STEVE [facility] Comment: HIV-1 antigen and [...] ? For additional information please refer to http://education.[employer]/faq/MFU291 (This link is being provided for informational/ educational purposes only.) ? The performance of this assay has not been clinically validated in patients less than 2 years old. ?? 05/02/2020 9:36 AM EST Bhargavi Llanes MD LAB BLOOD ORDERABLES Final Resul t Performing Organization Address City/State/[facility] Co pa Phone Number [facility] [address] from Last 3 Months or Most Recently Relevant to Health Maintenance Insurance [facility] Care Teams Cost Clerk Relationship Specialty Start Date End Date Bhargavi Llanes MD [address] [place] [address] PCP - General Family Medicine 11/21/18
--- OUTSIDE RECORDS SUMMARY | 2024-09-04 09:19 | XMS_ITS | Encounter Summary ---
Author Organization [employer] Address [address] [facility] [address] [place] [address] Care Team Providers Care Special Machine Operator Name Role Phone Bhargavi Llanes MD Primary Care Provider [phone] Encounter Details Date Type Department Care Team (Late st Contact Info) Description 07/28/2023 Orders Only [facility] MEDICINE [address] [place] [address] Bhargavi Llanes MD [address] [place] [address] Social History Tobacco Use Types Packs/Day Years [...] Description 10/19/2024 1:30 PM EDT Office Visit [facility] OPTOMETRY [address] [place] [address] Marlene Oconnor, OD [address] [place] [address] documented as of this encounter Visit Diagnoses Not on filedocumented in this encounter Care Teams Special Machine Operator Relationship Specialty Start Date End Date Bhargavi Llanes MD [address] [place] [address] PCP - General Family Medicine 11/21/18 documented as of this encounter
--- OUTSIDE RECORDS SUMMARY | 2024-09-04 09:19 | XMS_ITS | Encounter Summary ---
Author Organization [employer] Address [address] [place] [address] Care Team Providers Care Catalyst Manufacturing Operator Name Role Phone Bhargavi Llanes MD Primary Care Provider [phone] Encounter Details Date Type Department Care Team (Late st Contact Info) Description 08/31/2024 Orders Only [facility] External Provider, [facility] Social History Tobacco Use Types Packs/Day Years [...] PM EDT Office Visit [facility] OPTOMETRY [address] [place] [address] Elvin, Marlene, OD [address] [place] [address] documented as of this encounter Procedures Procedure Name Priority Date/Time Associated Diagnosis Comments US PELVIS TRANSVAGINAL Routine 08/31/2024 4:00 PM EDT documented in this encounter Results * US Pelvis Transvaginal (08/31/2024 4:00 PM EDT) Anatomical Region Laterality Modality Pelvis Ultrasound 08/31/2024 4:00 PM EDT Narrative 08/31/2024 4:01 PM EDT ? [facility] ?[address] ?[place] [address] ? Ultrasound Report ? Signed ? Patient: Love,Zari ?MR#: [id number] ?? [id number] ? : 1970 ?Acct:[id number] ? Age/Sex: 54 / F ?ADM Date: 05/08/25 ? Loc: HO.US ? Attending Dr: Nick Higgins MD ? Ordering Physician: Nick Higgins MD ?? Date of Service: 08/31/24 ?? Procedure(s): US pelvic and transvaginal ?? Accession Number(s): [id number] ? cc: Bhargavi Llanes MD; Nick Higgins MD ? CLINICAL HISTORY: N83.299 - Other ovarian cyst, unspecified side ? US pelvis transabdominal and transvaginal with color Doppler ? Comparison: US/SR - US PELVIC AND TRANSVAGINAL - 06/27/24 15:37 EST ?? ME/SR - CT ABDOMEN PELVIS W IV CON [...] DD/ 1600 ? TD/TT: 08/31/24 1600 ? Flanging Operator: ? Procedure Note Meryl Arechiga - 08/31/[address] [address] Ultrasound Report Signed Patient: Zari AlemanMR#: [id number] : 1970Acct:[id number] Age/Sex: 54 / FADM Date: 08/31/24 Loc: HO.US Attending Dr: Nick Higgins MD Ordering Physician: Nick Higgins MD Date of Service: 08/31/24 Procedure(s): US pelvic and transvaginal Accession Number(s): [id number] cc: Bhargavi Llanes MD; Nick Higgins MD CLINICAL HISTORY: N83.299 - Other ovarian cyst, unspecified side US pelvis transabdominal and transvaginal with color Doppler Comparison: US/SR - US PELVIC AND TRANSVAGINAL - 06/27/24 15:37 EST ME/SR - CT ABDOMEN PELVIS W IV CON [...] 08/31/24 1601 DD/ 1600 TD/TT: 08/31/24 1600 Flanging Operator: us [facility] External Provider IMG US PROCEDURES Edited Result - Final documented in this encounter Visit Diagnoses Not on filedocumented in this encounter Additional Health Concerns Assessment Noted Time PHQ-9 Depression Total Score: 0 09/01/19 25 11:14 AM EDT documented as of this encounter Care Teams Catalyst Manufacturing Operator Relationship Specialty Start Date End Date Bhargavi Llanes MD [address] [place] [address] PCP - General Family Medicine 11/21/18 documented as of this encounter
--- OUTSIDE RECORDS SUMMARY | 2024-09-04 09:19 | XMS_ITS | Encounter Summary ---
Author Organization [email or web address] Address [facility] [address] [place] [address] Care Team Providers Care Orthodontic Assistant Name Role Phone Bhargavi Llanes MD Primary Care Provider [phone] Reason for Visit * Reason Onset Date Comments Results 09/01/2024 Encounter Details Date Type Department Care Team ([facility] st Contact Info) Description 09/01/2024 Telephone [facility] MEDICINE [address] [place], [place] [phone] Louise Carrero RN Results Social History Tobacco Use Types Packs/Day Years [...] encounter Miscellaneous Notes * Telephone Encounter - Louise Carrero RN - 09/01/2024 8:57 AM EDT TC placed to pt to inform of lab results below showing elevated cholesterol and triglyceride levels. Pt also informed of elevated liver enzymes. Pt instructed to work on lifestyle changes including diet modification and increased exercise as tolerated. Pt agreeable to having additional labs drawn at the [facility] lab within the next week and will await call for abdominal US to be done to check on the li oralia. Pt to call back as needed ----- Message from Bhargavi Llanes MD sent at 08/31/2024 6:59 PM EDT ----- Please inform patient that her cholesterol and triglyceride are high. She does not need a medication yet. Her liver enzymes are elevated. These results are suggestive of fatty liver and metabolic abnormality. Please ask her to do additional lab. Abdominal US will be ordered to check her liver. Her last CT scan showed gallstone, which may be contributing it as well. Please encourage patient to work on lifestyle modification. Thank you. documented in this encounter Plan of Treatment Upcoming Encounters Date Type Department Care Team (Late st Contact Info) Description 10/19/2024 1:30 PM EDT Office Visit [facility] OPTOMETRY [address] [place] [address] Marlene Oconnor, OD [address] [place] [address] documented as of this encounter Visit Diagnoses Not on filedocumented in this encounter Additional Health Concerns Assessment Noted Time PHQ-9 Depression Total Score: 0 09/01/19 25 11:14 AM EDT documented as of this encounter Care Teams Orthodontic Assistant Relationship Specialty Start Date End Date Bhargavi Llanes MD [address] [place] [address] PCP - General Family Medicine 11/21/18 documented as of this encounter
--- OUTSIDE RECORDS SUMMARY | 2024-09-04 09:19 | XMS_ITS | Encounter Summary ---
Author Organization [employer] Address [address] [facility] [address] [place] [address] Care Team Providers Care Platform Material Handler Manager Name Role Phone Bhargavi Llanes MD Primary Care Provider [phone] Reason for Visit * Reason Comments Sick Onsite [facility] ED F/U DX: Diverticulitis large intestine, Thickened endometrium, Gallstones. Pt scheduled to have a follow up with [facility] on 08/29 Encounter Details Date Type Department Care Team (Latest Contact Info) Description 08/31/2024 11:15 AM EDT Office Visit [facility] MEDICINE [address] [place], [place] [phone] Bhargavi Llanes MD [address] [place], [place] [phone] Diverticulitis (Primary Dx); Abnormal uterine bleeding (AUB); [...] She stated she had been following with [facility]. She had not been adherent to thyroid replacement. Interval history: Seen in the walk-in clinic for malodorous urine. Hx previous UTI. Rx TMP/SMX. Urine culture grew E.coli, hernandez-sensitive. Seen by Melinda Kennedy CNM, on 05/30/24 for hop worker visit. She reported pelvic pain and AUB. Mammo ordered. Cotest done. Referred to Urogyn for cystocele. Cotest double negative. Seen by Dr. Shah, [facility] Endo for hypothyroidism. TSH 71.73 on 07/07/24. [...] Suspect left pelvic venous congestion. Seen in [facility] ED on 08/04/24. CT abdomen pelvis for right lower quadrant pain. Impression: Diverticulitis, cholelithiasis, fatty liver, thickened endometrial stripe, stable 1.2 cm splenic artery aneurysm. Dx diverticulitis. Rx levofloxacin, metronidazole, morphine, ibuprofen, APAP, ondansetron. Seen by Dr. Higgins, [facility] on 08/29/24. Endometrial biopsy done for AUB. [...] only spotting. Mammography tomorrow. Follow up with [facility] next week. She has improved adherence to thyroid replacement. She is going to see her clothing trades workers on 09/20/24. Her major concern is her [...] She states she is engaged in her yazidi and her son with autism has become [...] on 08/31/24. Free T4 1.15. Ordered by clothing trades workers. - emphasized the importance of medication adherence Diverticulitis - Primary - recurrent - most recently in July 2024, less frequent for last 3 years - following with [facility], last seen in June 2023, upcoming appointment - last colonoscopy in Apr [address] Sanford. Hyperplastic polyps. Diverticular disease. Hemorrhoids. Recommended to repeat in 5 years. IBS (irritable bowel syndrome) - following with [facility] - s/p colonoscopy in April 2023 hyperplastic polyp - continue linaclotide 290 mcg daily - low FODMAP diet Prolapse of female pelvic organs - referred to UroGYN by Melinda Abnormal uterine bleeding (AUB) - following with [facility] - Pelvic US in May 2024, repeated today. Report pending. - Benign endometrial biopsy report on 08/29/24 Ovarian cyst - left complex ovarian cyst - repeat US ordered by [facility] Chronic idiopathic constipation - continue Linaclotide - [...] IBS (irritable bowel syndrome) - following with [facility] - s/p colonoscopy in April 2023 [...] Abnormal uterine bleeding (AUB) - following with [facility] - Pelvic US in May 2024, repeated today. Report pending. 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 Free T4 1.15. Ordered by clothing trades workers. - emphasized the importance of medication adherence * Assessment & Plan Note - Bhargavi Llanes MD - 09/01/2024 6:04 AM EDTAssociated Problem(s): Diverticulitis - recurrent - most recently in July 2024, less frequent for last 3 years - following with [facility], last seen in June 2023, upcoming appointment - last colonoscopy in Apr [address] Sanford. Hyperplastic polyps. Diverticular disease. Hemorrhoids. Recommended to repeat in 5 years. * Assessment & Plan Note - Bhargavi Llanes MD - 08/31/2024 6:32 AM EDTAssociated Problem(s): Ovarian cyst - left complex ovarian cyst - repeat US ordered by [facility] documented in this encounter Plan of Treatment Upcoming Encounters Date Type Department Care Team (Late st Contact Info) Description 10/19/2024 1:30 PM EDT Office Visit [facility] OPTOMETRY [address] [place] [address] ElvinMarlene, OD [address] [place] [address] documented as of this encounter Procedures Procedure [...] PM EDT) Hemoglobin A1c 5.6 <6.0 % [facility] Comment:Hemoglobin A1C Refer ence Range Adults: 4.8 - 6.0 % Non diabetic: < 6.0 % Goal: < 7.0 %Additional Action Suggested: > 8.0 %Note: Hemoglobin A1c results are invalid for patients with abnormal amounts of HbF. Blood transfusions may impact the HbA1c concentration in the patient sample. Estimated Average Glucose 114 mg/dL [facility] Comment:eAG = Estimated ave rage glucose which is %A1C expressed asaverage glucose, using the formula of the Q2L-EgnkkixTarpwqd Glucose study (ADAG), Diabetes Care, Vol.31,#8,Nov. 2007 Blood Venous blood specimen / Unknown 08/31/2024 12:21 PM EDT 08/31/2024 12:58 PM EDT Bhargavi Llanes MD LAB BLOOD ORDERABLES Final Resul t [facility] [address] [place] [phone] * (ABNORMAL) Lipid Panel with Reflex to Direct LDL (08/31/2024 12:21 PM EDT) Triglycerides 271(H) <150 mg/dL [facility] Comment:Desirable Triglyceri de: less than 150 mg/dLBorderline High Triglyceride 150-199 mg/dLHigh Triglyceride: 200-499 mg/dLVery High Triglyceride: greater than or equal to 5OO mg/dL Cholesterol 234(H) <200 mg/dL [facility] Comment:Desirable Cholestero l: less than 200 mg/dLBorderline High Cholesterol: 200-239 mg/dLHigh Cholesterol: greater than 239 mg/dL LDL Cholesterol Calculated 137(H) <100 mg/dL [facility] Comment:Desirable LDL: less than 100 mg/dLNear Optimal/Above Optimal LDL: 110- 129 mg/dLBorderline High LDL: 130-159 mg/dLHigh LDL: 160-189 mg/dLVery High LDL: greater than or equal to 190 mg/dL HDL Cholesterol 43 >40 mg/dL [facility] Comment:Desirable HDL: great er than 40 mg/dL Note: This HDL assay may give artificially low results in patients with liver disease. Blood 08/31/2024 12:2 1 PM EDT 08/31/2024 12:58 PM EDT Bhargavi Llanes MD LAB BLOOD ORDERABLES Final Resul t Performing Organization Address City/[facility]/ZIP Co de Phone Number [facility] [address] [place] [phone] [phone] * (ABNORMAL) Comprehensive Metabolic Panel (08/31/2024 12:21 PM EDT) Sodium 139 135 - 145 mmol/L [facility] Potassium 4.6 3.3 - 5.1 mmol/L [facility] Chloride 105 96 - 108 mmol/L [facility] Carbon Dioxide 25 22 - 29 mmol/L [facility] Anion Gap 14 12 - 20 [facility] Urea Nitrogen (BUN) 12 9 - 16 mg/dL [facility] Creatinine, Serum 0.70 0.5 - 1.4 mg/dL [facility] Estimated Glomerular Filt Rate >60 [facility] Comment:Chronic Kidney Disea se: Estimated GFR < 60 mL/min/[id number] Kidney Disease: Estimated GFR < 15 mL/min/1.73m2 Glucose 77 60 - 115 mg/dL [facility] Calcium 9.3 8.4 - 10.2 mg/dL [facility] Bilirubin, Total 0.5 0.0 - 1.0 mg/dL [facility] Aspartate Amino Transferase 95(H) 5 - 31 U/L [facility] Alanine Aminotransferase 104(H) 0 - 31 U/L [facility] Total Protein 7.4 6.5 - 8.0 g/dL [facility] Albumin Level 4.0 3.5 - 5.0 g/dL [facility] Alkaline Phosphatase 80 39 - 117 U/L [facility] Blood Venous blood specimen / Unknown 08/31/2024 12:21 PM EDT 08/31/2024 12:58 PM EDT us Bhargavi Llanes MD LAB BLOOD ORDERABLES Final Resul t Performing Organization Address City/[facility]/ZIP Co de Phone Number [facility] [address] [place] [phone] documented in this encounter Visit Diagnoses [...] documented as of this encounter Care Teams Platform Material Handler Manager Relationship Specialty Start Date End Date Bhargavi Llanes MD [address] [place] [phone] PCP - General Family Medicine 11/21/18 documented as of this encounter
[2024-09-05 08:10] LABS: HBsAGNum1 0.17 S/CO (0.00-0.99); HIV AB/AG Nonreactive (Nonreactive); HIV Num 1 0.06 S/CO (0.00-0.99); Hepatitis B Surface Antigen Negative (Negative); ~HepC Num1 0.19 S/CO (0.00-0.79); ~Hepatitis C Antibody Nonreactive (Nonreactive)
== END 2024-09-04 09:11 | disposition home or self-care (01) ==
LOC: HO.10HDL 09:10
PROVIDERS: Visit Provider Family Medicine
DX: R74.01 Elevation of levels of liver transaminase levels (principal)
CPT/HCPCS: 36415; 86803; 87340; 87389

== ENCOUNTER 2024-09-04 09:17 | Emergency (ER) | payer MEDICAID, SELFPAY ==
--- NOTE | ~2024-09-04 | CT_ITS ---
EXAMINATION: CT ABDOMEN AND PELVIS WITH CONTRAST CLINICAL INFORMATION: Left lower quadrant abdominal pain. COMPARISON: 08/04/2024 Pelvic ultrasound 08/31/2024. TECHNIQUE: Multidetector volumetric images were obtained from the superior aspect of the liver through the pubic symphysis following administration 85 mL of Omnipaque 350 intravenous contrast. Sagittal and coronal reformatted images were obtained on the technologist's workstation. Oral contrast: No This CT examination was performed using dose optimization techniques as appropriate, variously including the following: *Automated exposure control *Adjustment of mA and/or kV according to patient size (this includes techniques or standardized protocols for targeted exams where dose is matched to indication/reason for exam; i.e. extremities or head) *Use of iterative reconstruction technique FINDINGS: LUNG BASES: Lung bases are clear. The heart size is normal. Normal GE junction. LIVER, GALLBLADDER, AND BILIARY TREE: The liver is enlarged, and there is diffuse fatty infiltration. Normal contour. No suspicious focal lesion identified. The gallbladder is distended, with dependent calcified intraluminal gallstones. No wall thickening, pericholecystic fluid, or pericholecystic inflammatory change. PANCREAS: Unremarkable. SPLEEN: Unremarkable. ADRENAL GLANDS: Unremarkable. KIDNEYS AND URETERS: The kidneys are normal in size, shape, and attenuation. No hydronephrosis, hydroureter, or calculi seen. No perinephric stranding. BLADDER: Unremarkable. GASTROINTESTINAL TRACT: There is an inflamed epiploic appendage in the left lower quadrant at the junction of the sigmoid and descending colon (series 3, image 50). There is extensive diverticulosis of the entire colon, most significant in the sigmoid region. No additional regions of inflammation or wall thickening. Previously seen diverticulitis at the proximal transverse colon has resolved. No rectal abnormality. Normal appendix is visualized. Small bowel is normal in caliber and course. No small bowel abnormalities. Stomach, and duodenum have a normal appearance. ABDOMINAL WALL: No significant hernia is appreciated. LYMPH NODES: Normal. VASCULAR: 1.2 x 1.2 cm peripherally calcified splenic artery aneurysm in the hilum of the spleen, stable. There is a smaller abutting 1.0 cm splenic artery aneurysm. Mild calcific atheromatous disease without additional aneurysm seen. No evidence of venous thrombosis. PELVIC VISCERA: Retroverted uterus. Thickening of the endometrium, measuring up to 2.1 cm, abnormal in a postmenopausal patient. Refer to the recent pelvic ultrasound 08/31/2024. There are small bilateral ovarian cysts, larger on the right measuring 2.3 cm. There are cervical nabothian cysts. OSSEOUS STRUCTURES: Unremarkable. CT/CT abdomen pelvis w IV con IMPRESSION: 1. Acute epiploic appendagitis at the junction of the descending and sigmoid colon. 2. Previously seen acute diverticulitis at the proximal transverse colon level has resolved. 3. Cholelithiasis. 4. Enlargement diffuse fatty infiltration of the liver. No suspicious liver lesion. 5. Thickened endometrial stripe at 2.1 cm, abnormal in a postmenopausal patient. Refer to the recent pelvic ultrasound 08/31/2024. 6. Stable 1.2 cm splenic artery aneurysm. 7. Additional ancillary findings as discussed in the body of the report. Electronically signed by: Roger Galeana MD 09/04/2024 11:03 AM EDT
[2024-09-04 09:24] VITALS: BP 145/91; PULSE 84; RESP 16; TEMP 36.2; O2SAT 99; BMI 32.3
--- NOTE | 2024-09-04 10:04 | ED_ITS ---
HPI - Abdominal Pain General Chief Complaint: Abdominal Pain Stated Complaint: Diverticulitis Flare-up Time Seen by Provider: 09/04/24 09:46 History of Present Illness HPI narrative: Patient is a 54-year-old female presents today with having abdominal pain worse over the left lower abdomen. Has a history of diverticulitis in the past never had any surgery done. No fever no chills. Had some nausea earlier she took some Zofran which she had. Patient denies any blood in his stool. Denies any pain on urination. Related Data Home Medications ?Medication ?Instructions ?Recorded ?Confirmed nabumetone 500 mg tablet 500 mg PO BID PRN pain 08/28/21 04/22/23 topiramate 25 mg tablet 25 mg PO BEDTIME 03/17/22 04/22/23 valacyclovir 1 gram tablet 1,000 mg PO DAILY 05/06/22 07/11/24 albuterol sulfate 90 mcg/actuation 2 puff inhalation Q4H PRN wheezing 07/11/24 07/11/24 aerosol inhaler (Ventolin HFA) phentermine 15 mg capsule 15 mg PO DAILY 09/04/24 Previous Rx's ?Medication ?Instructions ?Recorded cholecalciferol (vitamin D3) 50 50 mcg PO DAILY 30 days #30 caps 08/25/21 mcg (2,000 unit) capsule hydrocortisone 2.5 % topical cream 1 appl MI BID hemorrhoids #30 grams 08/18/22 with perineal applicator (Proctosol HC) pantoprazole 40 mg tablet,delayed 40 mg PO BID 30 days #60 tabs 07/08/23 release (Protonix) famotidine 40 mg tablet 40 mg PO DAILY PRN for heartburn 05/29/24 #30 tabs levothyroxine 88 mcg tablet 88 mcg PO DAILY #30 tabs 07/12/24 linaclotide 290 mcg capsule 290 mcg PO QAM #30 caps 07/12/24 (Linzess) acetaminophen 500 mg tablet 1,000 mg (2 x 500 mg) PO Q6H PRN 08/04/24 (Tylenol Extra Strength) fever or pain #20 tabs ibuprofen 400 mg tablet 400 mg PO TID PRN fever or pain 08/04/24 #30 tabs ondansetron 4 mg disintegrating 4 mg PO Q6-8H PRN nausea and 08/04/24 tablet vomiting #14 tabs ibuprofen 400 mg tablet 400 mg PO Q6H PRN pain #20 tabs 09/04/24 Allergies Allergy/AdvReac Type Severity Reaction Status Date / Time tramadol [TRAMADOL] Allergy Intermediate VOMITING, Verified 09/04/24 09:26 ? nausea Review of Systems Review of Systems Positive left-sided abdominal pain Yes all other systems are reviewed and are negative COUNTS INCLUDE 234 BEDS AT THE [facility] Past Medical History Medical History GERD (gastroesophageal reflux disease) Vitamin D deficiency Multinodular goiter Jeevan's disease Hypothyroidism Diverticulitis Surgical History History of esophagogastroduodenoscopy (EGD) H/O colonoscopy Hx of hemorrhoidectomy Hx of lumpectomy H/O tubal ligation Family History Family History Father Heart disease Mother Diabetes mellitus HTN (hypertension) Brother Diabetes mellitus Sister High cholesterol Sister Jeevan's disease Social History Social History Household Members: Spouse and Children Alcohol intake: never Patient Tobacco Use Status: Former Tobacco user Tobacco use type: Cigarette Cigarettes Per Day: 3 Physical Exam ED Vital Signs: Vital Signs - 24 hr 09/04/24 09:24 Temperature 97.2 F Pulse Rate 84 Respiratory Rate 16 Blood Pressure 145/91 H Pulse Oximetry 99 Oxygen Delivery Method Room Air BMI result Body Mass Index 32.3 Appearance: Alert. Oriented X3. No acute distress. Eyes: Pupils equal, round and reactive to light. ENT: Pharynx normal. Neck: Normal inspection. Neck supple. No lymph nodes noted. No crepitus CVS: Normal heart rate and rhythm. Pulses normal. Normal S1 and S2 Respiratory: No respiratory distress. Breath sounds normal. No Wheezing. No rales Abdomen: Soft left lower quadrant tenderness no rebound or guarding. No rigidity. No distention. good BS x4 Skin: Skin warm and dry. Normal skin color. Normal skin turgor. Extremities: No lower extremity edema. Neurovascular intact to all extremities. No Lacerations. No Rash Neuro: Oriented X 3. No motor deficit. No sensory deficit. Moving all extermities. No slurred speech Medical Decision Making Medical Decision Making [facility] Narrative: Positive left-sided abdominal pain. Patient has a previous history of diverticulitis. In no acute distress. Patient's white count is normal. Kidney function is normal. LFTs minimally elevated. More consistent with fatty liver. Patient is urine showed no signs of infection. CT scan of the abdomen pelvis was positive for having epiploic appendagitis. No evidence for diverticulitis. Will have patient take Motrin rest follow-up on an outpatient basis. In stable condition. Differential Diagnosis Differential Diagnoses: The differential diagnosis associated with the presentation includes Diverticulitis, kidney stone, UTI, pyelonephritis Admission/Observation Consideration of admission/observation: Escalation of care including admission/observation considered Lab Data [facility] Lab Attestation statement: I reviewed the patient's lab results. 09/04/24 10:02 09/04/24 10:02 Labs: Lab Results 09/04/24 Range/Units 10:02 WBC 8.2 (4.8-10.8) X10*3/uL RBC 4.80 (4.20-5.50) X10*6/uL Hgb 13.1 (12.0-16.0) g/dl Hct 40.4 (37.0-47.0) % MCV 84.2 (80.0-98.0) fL MCH 27.3 (27.0-33.0) pg MCHC 32.4 (31.0-35.0) g/dl RDW 14.2 (11.0-16.0) % Plt Count 350 (160-400) X10*3/uL MPV 9.6 (9.4-12.3) fL Immature Gran % (Auto) 0.2 (0.0-0.4) % Neut % (Auto) 54.5 (45-73) % Lymph % (Auto) 35.7 (20-40) % [place] % (Auto) 7.4 (2-11) % Eos % (Auto) 1.7 (0-4) % Baso % (Auto) 0.5 (0-2) % Lymph # (Auto) 2.9 (1.2-4.9) X10*3/uL [place] # (Auto) 0.6 (0.1-1.2) X10*3/uL Eos # (Auto) 0.1 (0.0-0.4) X10*3/uL Baso # (Auto) 0.0 (0.0-0.2) X10*3/uL Abs Immat Gran (auto) 0.02 (0.00-0.03) X10*3/uL Absolute Neuts (auto) 4.5 (2.0-8.3) x10*3/uL Absolute Nucleated RBC 0.000 (0.0-0.012) X10*3/uL Nucleated RBC % (auto) 0.0 (0.0-0.2) /100WBC Sodium 138 (135-145) mmol/L Potassium 3.9 (3.3-5.1) mmol/L Chloride 107 (96-108) mmol/L Carbon Dioxide 23 (22-29) mmol/L Anion Gap 12 (12-20) BUN 8 L (9-16) mg/dL Creatinine 0.72 (0.5-1.4) mg/dL Estim Creat Clear Calc 88.6 Estimated GFR > 60 Random Glucose 83 (60-115) mg/dL Calcium 9.4 (8.4-10.2) mg/dL Total Bilirubin 0.6 (0.0-1.0) mg/dL AST 101 H (5-31) U/L ALT 106 H (0-31) U/L Alkaline Phosphatase 85 (39-117) U/L Total Protein 7.7 (6.5-8.0) g/dL Albumin 4.0 (3.5-5.0) g/dL Urine Color Yellow Urine Appearance Clear Urine pH 5.5 (5.0-9.0) Ur Specific [place] 1.015 (1.005-1.025) Urine Protein Negative (Neg-Trace) mg/dL Urine Glucose (UA) Negative (Negative) mg/dL Urine Ketones Negative (Negative) mg/dL Urine Blood Moderate (2+) H (Negative) Urine Nitrite Negative (Negative) Ur Leukocyte Esterase Negative (Negative) Urine RBC 11-20 H (0-2) /HPF Urine WBC 0-5 (0-5) /HPF Ur Squamous Epith Cells 0-2 (0-2) /HPF Urine Bacteria None Seen (None Seen) Hyaline Casts 0-2 (0-2) /LPF Independent Interpretation I performed an independent interpretation of an: CT Scan (No gross obstruction noted) Radiology Impression Discussion of test interpretation with radiology: I have reviewed the radiologist's reading. Social Determinants Patient?s care significantly limited by Social Determinants of Health including: Problems related to primary support group Medications Administered Discontinued Medications Generic Name Dose Route Start Last Admin Trade Name Freq PRN Reason Stop Dose Admin Hydromorphone HCl 0.5 mg 09/04/24 10:03 09/04/24 10:14 Hydromorphone Hcl 0.5 Mg/0.5 Ml Syringe IVPUSH 09/04/24 10:04 0.5 mg ONCE ONE Administration Protocol Sodium Chloride 1,000 mls @ 999 mls/hr 09/04/24 10:15 09/04/24 11:28 Ns IV 09/04/24 11:15 Infused .Q1H1M AGUILA Infusion Iohexol 100 ml 09/04/24 10:51 09/04/24 10:51 Iohexol 350 Mg/Ml 100 Ml Infus..Btl IV 09/04/24 10:52 85 ml ONCE ONE Administration Discharge Plan Discharge Clinical Impression: Epiploic appendagitis Patient Disposition: Home, Self-Care Instructions: Epiploic Appendagitis (ED) Prescriptions: New ibuprofen 400 mg tablet 400 mg PO Q6H PRN (Reason: pain) Qty: 20 0RF No Action famotidine 40 mg tablet 40 mg PO DAILY PRN (Reason: for heartburn) Qty: 30 3RF levothyroxine 88 mcg tablet 88 mcg PO DAILY Qty: 30 5RF Linzess 290 mcg capsule 290 mcg PO QAM Qty: 30 6RF acetaminophen [Tylenol Extra Strength] 500 mg tablet 1,000 mg PO Q6H PRN (Reason: fever or pain) Qty: 20 0RF ibuprofen 400 mg tablet 400 mg PO TID PRN (Reason: fever or pain) Qty: 30 0RF ondansetron 4 mg tablet,disintegrating 4 mg PO Q6-8H PRN (Reason: nausea and vomiting) Qty: 14 0RF cholecalciferol (vitamin D3) 50 mcg (2,000 unit) capsule 50 mcg PO DAILY 30 Days Qty: 30 11RF hydrocortisone [Proctosol HC] 2.5 % cream with perineal applicator 1 appl MI BID Qty: 30 6RF Rx Instructions: BE SURE TO INCLUDE RECTAL APPICATOR!! nabumetone 500 mg tablet 500 mg PO BID PRN (Reason: pain) topiramate 25 mg tablet 25 mg PO BEDTIME valacyclovir 1 gram tablet 1,000 mg PO DAILY pantoprazole [Protonix] 40 mg tablet,delayed release (DR/EC) 40 mg PO BID 30 Days Qty: 60 6RF phentermine 15 mg capsule 15 mg PO DAILY Rx Instructions: must administer 2 hours after breakfast albuterol sulfate [Ventolin HFA] 90 mcg/actuation HFA aerosol inhaler 2 puff inhalation Q4H PRN (Reason: wheezing) Referrals: Bhargavi Llanes MD [Primary Care Provider] - 09/07/24 Print Language: Bengali
[2024-09-04 10:08] LABS: MANUAL DIFF FLAG NO
--- OUTSIDE RECORDS SUMMARY | 2024-09-04 10:08 | XMS_ITS | Encounter Summary ---
Author Organization [employer] Address [address] [place] [address] Care Team Providers Care Greek Professor Name Role Phone Bhargavi Llanes MD Primary Care Provider [phone] Encounter Details Date Type Department Care Team [...] Description 10/19/2024 1:30 PM EDT Office Visit [facility] OPTOMETRY [address] [place] [address] Marlene Oconnor, OD [address] [place] [address] documented as of this encounter Visit Diagnoses Not on filedocumented in this encounter Additional Health Concerns Assessment Noted Time PHQ-9 Depression Total Score: 0 09/01/19 25 11:14 AM EDT documented as of this encounter Care Teams Greek Professor Relationship Specialty Start Date End Date Bhargavi Llanes MD [address] [place] [address] PCP - General Family Medicine 11/21/18 documented as of this encounter
--- OUTSIDE RECORDS SUMMARY | 2024-09-04 10:08 | XMS_ITS | Encounter Summary ---
Author Organization [employer] Address [address] [place] [address] Care Team Providers Care Billet Heater Operator Name Role Phone Bhargavi Llanes MD Primary Care Provider [phone] Encounter Details Date Type Department Care Team (Late st Contact Info) Description 07/07/2024 Orders Only [facility] [address] [place], [place] [phone] Provider, MD Brooke Social History Tobacco Use [...] [facility] OPT[facility] [address] [place], [place] [phone] Elvin, Marlene, OD [address] [place] [address] documented as of this encounter Procedures Procedure Name Priority Date/Time Associated Diagnosis Comments HM COLONOSCOPY Routine 04/27/2023 10:30 AM EST documented in this encounter Results * Hm Colonoscopy (04/27/2023 10:30 AM EST) Colonoscopy Normal Normal Narrative Jenifer, Ana - 04/27/2023 10:30 AM EST See external hospital admission note on 04/27/2023 Historical Provider [facility] Edited Result - Final documented in this encounter Visit Diagnoses Not on filedocumented in this encounter Care Teams Billet Heater Operator Relationship Specialty Start Date End Date Bhargavi Llanes MD [address] [place], [place] [phone] PCP - General Family Medicine 11/21/18 documented as of this encounter
--- OUTSIDE RECORDS SUMMARY | 2024-09-04 10:09 | XMS_ITS | Clinical Summary ---
Author Organization [employer] Address [address] [place] [address] Care Team Providers Care Business Services Vice President Name Role Phone Bhargavi Llanes MD Primary Care Provider [phone] Allergies Active Allergy Reactions Criticality Noted Date [...] ovarian cyst - repeat US ordered by [employer] E[employer]ECTS DES[employer]ER Prolapse of female pelvic organs 07/23/2024 Assessment & Plan (09/01/2024 6:09 AM EDT): - referred to UroGYN by Natasha Abnormal uterine bleeding (AUB) 07/23/2024 Assessment & Plan (09/01/2024 6:09 AM EDT): - following with [facility] - Pelvic US in May 2024, repeated today. Report pending. - Benign endometrial biopsy report on 08/29/24 GERD (gastroesophageal reflux disease) Assessment & Plan (07/22/2023 7:23 PM EDT): - continue pantoprazole 40 mg bid and famotidine 40 mg daily prn IBS (irritable bowel syndrome) 07/22/2023 Assessment & Plan (09/01/2024 6:10 AM EDT): - following with [facility] - s/p colonoscopy in April 2023 hyperplastic polyp - continue linaclotide 290 mcg daily - low FODMAP diet Assessment & Plan (07/22/2023 7:23 PM EDT): - following with [facility] - s/p colonoscopy in April 2023 [...] for last 3 years - following with [facility], last seen in June 2023, upcoming appointment - last colonoscopy in Apr [address] Sanford. Hyperplastic polyps. Diverticular disease. Hemorrhoids. Recommended to repeat in 5 years. 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 Free T4 1.15. Ordered by cable swager. - emphasized the importance of medication adherence [...] Type Department Care Team Description 09/01/2024 Telephone [facility] [address] [place] [address] Louise Carrero, RN Results 08/31/2024 11:15 AM EDT Office Visit [facility] [address] [place] [address] Bhargavi Llanes MD Diverticulitis (Primary Dx); Abnormal [...] thyroiditis; Midline cystocele; Transaminitis 08/31/2024 Orders Only [address] [address] Bhargavi Llanes MD Transaminitis (Primary Dx); Fatty liver; Hepatomegaly; Calculus of gallbladder without cholecystitis without obstruction 08/31/2024 Orders Only [facility] External Provider, [facility] 08/31/2024 Travel 08/30/[address] [address] Bhargavi Llanes MD Chart Prep 08/29/2024 Orders Only GENERIC EXTERNAL DATA DEPARTMENT Provider, [facility] External Data 08/24/2024 Travel 08/07/[address] [address] Louise Carrero RN Pt status Check 08/04/2024 Orders Only GENERIC EXTERNAL DATA DEPARTMENT Provider, [facility] External Data 07/23/2024 Travel 07/19/[address] [address] Bhargavi Llanes MD chart prep 07/17/2024 Patient Outreach [address] [address] Bhargavi Llanes MD Pre-visit Planning (SDOH screening was completed on 06/07/2024) 07/07/2024 Orders Only [facility] [address] [place] [address] Brooke Jett MD 07/07/2024 Population Health Risk Score [facility] (C[facility]) Department [address] [place] [phone] Provider, Population Health Generic 06/27/2024 Orders Only [address] [address] Natasha Horowitz CNM Abnormal endometrial ultrasound (Primary Dx); Abnormal uterine bleeding (AUB); Cyst of left ovary 06/14/[address] [address] Bhargavi Llanes MD Chart Prep 06/13/2024 Travel 06/08/2024 Orders Only [address] [address] Natasha Horowitz CNM Abnormal uterine bleeding (AUB) (Primary Dx); Acquired hypothyroidism 06/07/2024 Patient Outreach [address] [address] Bhargavi Llanes MD Pre-visit Planning (SDOH Screening [...] [facility] [address] [place] [address] Marlene Oconnor, OD [address] [place] [address] Health Maintenance Due Date Last Done Comments [...] EDT Narrative 08/31/2024 4:01 PM EDT ? [facility] ?[address] ?[place] [address] ? Ultrasound Report ? Signed ? Patient: Love,Zari ?MR#: [id number] ?? [id number] ? : 1970 ?Acct:[id number] ? Age/Sex: 54 / F ?ADM Date: 05/08/25 ? Loc: HO.US ? Attending Dr: Nick Higgins MD ? Ordering Physician: Nick Higgins MD ?? Date of Service: 08/31/24 ?? Procedure(s): US pelvic and transvaginal ?? Accession Number(s): [id number] ? cc: Bhargavi Llanes MD; Nick Higgins MD ? CLINICAL HISTORY: N83.299 - Other ovarian cyst, unspecified side ? US pelvis transabdominal and transvaginal with color Doppler ? Comparison: US/SR - US PELVIC AND TRANSVAGINAL - 06/27/24 15:37 EST ?? [place]/SR - CT ABDOMEN PELVIS W IV CON [...] DD/ 1600 ? TD/TT: 08/31/24 1600 ? Facility Administrator: ? Procedure Note Meryl Arechiga - 08/31/20[address] [place] [address] Ultrasound Report Signed Patient: Zari Aleman#: [id number] : 1970Acct:[id number] Age/Sex: 54 / FADM Date: 08/31/24 Loc: HO.US Attending Dr: Nick Higgins MD Ordering Physician: Nick Higgins MD Date of Service: 08/31/24 Procedure(s): US pelvic and transvaginal Accession Number(s): [id number] cc: Bhargavi Llanes MD; Nick Higgins MD CLINICAL HISTORY: N83.299 - Other ovarian cyst, unspecified side US pelvis transabdominal and transvaginal with color Doppler Comparison: US/SR - US PELVIC AND TRANSVAGINAL - 06/27/24 15:37 EST [place]/SR - CT ABDOMEN PELVIS W IV CON [...] 08/31/24 1601 DD/ 1600 TD/TT: 08/31/24 1600 Facility Administrator: [facility] External Provider IMG US PROCEDURES Edited Result - Final * (ABNORMAL) Lipid Panel with Reflex to Direct LDL (08/31/2024 12:21 PM EDT) Triglycerides 271(H) <150 mg/dL [facility] Comment:Desirable Triglyceri de: less than 150 mg/dLBorderline High Triglyceride 150-199 mg/dLHigh Triglyceride: 200-499 mg/dLVery High Triglyceride: greater than or equal to 5OO mg/dL Cholesterol 234(H) <200 mg/dL [facility] Comment:Desirable Cholestero l: less than 200 mg/dLBorderline High Cholesterol: 200-239 mg/dLHigh Cholesterol: greater than 239 mg/dL LDL Cholesterol Calculated 137(H) <100 mg/dL [facility] Comment:Desirable LDL: less than 100 mg/dLNear Optimal/Above Optimal LDL: 110- 129 mg/dLBorderline High LDL: 130-159 mg/dLHigh LDL: 160-189 mg/dLVery High LDL: greater than or equal to 190 mg/dL HDL Cholesterol 43 >40 mg/dL [facility] Comment:Desirable HDL: great er than 40 mg/dL Note: This HDL assay may give artificially low results in patients with liver disease. Blood 08/31/2024 12:2 1 PM EDT 08/31/2024 12:58 PM EDT Bhargavi Llanes MD LAB BLOOD ORDERABLES Final Resul t [facility] [address] [place] [address] [phone] * Hemoglobin A1c (08/31/2024 12:21 PM EDT) Hemoglobin A1c 5.6 <6.0 % [facility] Comment:Hemoglobin A1C Refer ence Range Adults: 4.8 - 6.0 % Non diabetic: < 6.0 % Goal: < 7.0 %Additional Action Suggested: > 8.0 %Note: Hemoglobin A1c results are invalid for patients with abnormal amounts of HbF. Blood transfusions may impact the HbA1c concentration in the patient sample. Estimated Average Glucose 114 mg/dL [facility] Comment:eAG = Estimated ave rage glucose which is %A1C expressed asaverage glucose, using the formula of the Q0K-RueblsyHzrjbse Glucose study (ADAG), Diabetes Care, Vol.31,#8,Nov. 2007 Blood Venous blood specimen / Unknown 08/31/2024 12:21 PM EDT 08/31/2024 12:58 PM EDT us Bhargavi Llanes MD LAB BLOOD ORDERABLES Final Resul t [facility] [address] [place] [address] [phone] * (ABNORMAL) Comprehensive Metabolic Panel (08/31/2024 12:21 PM EDT) Only the most recent of2 resultswithin the time period is included. Sodium 139 135 - 145 mmol/L [facility] Potassium 4.6 3.3 - 5.1 mmol/L [facility] Chloride 105 96 - 108 mmol/L [facility] Carbon Dioxide 25 22 - 29 mmol/L [facility] Anion Gap 14 12 - 20 [facility] Urea Nitrogen (BUN) 12 9 - 16 mg/dL [facility] Creatinine, Serum 0.70 0.5 - 1.4 mg/dL [facility] Estimated Glomerular Filt Rate >60 [facility] Comment:Chronic Kidney Disea se: Estimated GFR < 60 mL/min/1.60z1Omttqs Kidney Disease: Estimated GFR < 15 mL/min/1.73m2 Glucose 77 60 - 115 mg/dL [facility] Calcium 9.3 8.4 - 10.2 mg/dL [facility] Bilirubin, Total 0.5 0.0 - 1.0 mg/dL [facility] Aspartate Amino Transferase 95(H) 5 - 31 U/L [facility] Alanine Aminotransferase 104(H) 0 - 31 U/L [facility] Total Protein 7.4 6.5 - 8.0 g/dL [facility] Albumin Level 4.0 3.5 - 5.0 g/dL [facility] Alkaline Phosphatase 80 39 - 117 U/L [facility] Blood Venous blood specimen / Unknown 08/31/2024 12:21 PM EDT 08/31/2024 12:58 PM EDT us Bhargavi Llanes MD LAB BLOOD ORDERABLES Final Resul t [facility] [address] [place] [address] [phone] * Hematoxylin and Eosin Stain (08/29/2024 11:16 AM EDT) 08/29/2024 11:1 6 AM EDT 08/29/2024 1:52 PM EDT Narrative [facility] - 08/30/2024 12:24 PM EDT ----- ------- Name: Love,Zari ?Age/Sex: 54/F ? : 1970 Unit#: [id number] ?? Attend Dr: Nick Higgins MD ?Re08/29/24 ?Status: DEP REF ? Location: HO.LNP ?Disch: ? ----- ------- SPEC : [id number] ? RECD: 08/29/24 ? STATUS: ??SOUT ? REQ NUM: [id number] ? MUNIRA: 08/29/24 ? SUBM DR: Nick [...] Copies To: ?? Bhargavi Llanes MD ?? [facility] ?? [address] ?? [place] [address] ?? [phone] ?? Nick Higgins MD ?? [facility] ?? [address] ?? [place] [address] ?? [phone] ----- ------- Signed (signature on file) Sonal Juliet 08/30/24 1224 ? ----- ------- ? END OF REPORT ? Generic External Data Provider LAB BLOOD ORDERAB LES Final Result [facility] [address] [place] [address] [phone] * Chlamydia/N. Gonorrhoeae RNA, TMA, Urogenitial (08/29/2024 10:08 AM EDT) [facility] CT PCR NOT DETECTED Not Detect. [facility] Comment:A not detected test result [...] psychologicalconsequences. NG PCR NOT DETECTED Not Detect. [facility] Comment:A not detected test result [...] AM EDT 08/29/2024 2:07 PM EDT Narrative [facility] - 08/29/2024 4:33 PM EDT Vaginal us Generic External Data Provider LAB MICROBIOLOGY - GENERAL ORDERABLES Final Result Performing Organization Address City/State/[facility] Co de Phone Number [facility] [address] [place] [phone] * CT Abdomen Pelvis w/ Contrast (08/04/2024 12:27 PM EDT) Anatomical Region Laterality Modality Body, Pelvis, Abdomen Computed T omography 08/04/2024 12:2 7 PM EDT Narrative 08/04/2024 1:00 PM EDT ? [facility] ?[address] ?[place] [address] ? CT Scan Report ? Signed ? Patient: Love,Zari ?MR#: [id number] ?? [id number] ? : 1970 ?Acct:[id number] ? Age/Sex: 54 / F ?ADM Date: 08/04/24 ? Loc: HO.ED ? Attending Dr: ? Ordering Physician: Adeel Olmso MD ?? Date of Service: 08/04/24 ?? Procedure(s): CT abdomen pelvis w IV con ?? Accession Number(s): [id number] ? cc: Bhargavi Llanes MD; Adeel Olmos MD ? Report Number: ?? [id number]: Total DLP = ??546.00 mGy-cm ?? EXAMINATION: [...] DD/ 1227 ? TD/TT: 08/04/24 1240 ? Facility Administrator: ? Procedure Note Donotuseinterpreter, Image - 08/04/[address] [place] [address] [address] Scan Report Signed Patient: Zari AlemanMR#: [id number] : 1970Acct:[id number] Age/Sex: 54 / FADM Date: 08/04/24 Loc: HO.ED Attending Dr: Ordering Physician: Adeel Olmos MD Date of Service: 08/04/24 Procedure(s): CT abdomen pelvis w IV con Accession Number(s): [id number] cc: Bhargavi Llanes MD; Adeel Olmos MD Report Number: [id number]: Total DLP = 546.00 mGy-cm EXAMINATION: CT [...] 08/04/24 1257 DD/ 1227 TD/TT: 08/04/24 1240 Facility Administrator: [facility] External Provider IMG CT PROCEDURES Final Result * (ABNORMAL) CBC auto differential (08/04/2024 8:43 AM EDT) White Blood Count 12.1(H) 4.8 - 10.8 X10*3/uL [facility] Red Blood Count 4.66 4.20 - 5.50 X10*6/uL [facility] Hemoglobin 12.7 12.0 - 16.0 g/dl [facility] Hematocrit 37.8 37.0 - 47.0 % [facility] Mean Corpuscular Volume 81.1 80.0 - 98.0 fL [facility] Mean Corpuscular Hemoglobin 27.3 27.0 - 33.0 pg [facility] Mean Corpuscular HGB Conc 33.6 31.0 - 35.0 g/dl [facility] Red Cell Distribution Width 15.2 11.0 - 16.0 % [facility] Platelet Count 308 160 - 400 X10*3/uL [facility] Mean Platelet Volume 9.5 9.4 - 12.3 fL [facility] Neutrophils Percent Auto 75.1(H) 45 - 73 % [facility] Imm Gran Pct Auto 0.3 0.0 - 0.4 % [facility] Lymphocytes Percent Auto 19.3(L) 20 - 40 % [facility] Monocytes Percent Auto 4.7 2 - 11 % [facility] Eosinophils Percent Auto 0.4 0 - 4 % [facility] Basophils Percent Auto 0.2 0 - 2 % [facility] NRBC Pct Auto 0.0 0.0 - 0.2 /100WBC [facility] Neutrophils Absolute Auto 9.1(H) 2.0 - 8.3 x10*3/uL [facility] Imm Gran Abs Auto 0.04(H) 0.00 - 0.03 X10*3/uL [facility] Lymphocytes Absolute Auto 2.3 1.2 - 4.9 X10*3/uL [facility] Monocytes Absolute Auto 0.6 0.1 - 1.2 X10*3/uL [facility] Eosinophils Absolute Auto 0.1 0.0 - 0.4 X10*3/uL [facility] Basophils Absolute Auto 0.0 0.0 - 0.2 X10*3/uL [facility] NRBC Abs Auto 0.000 0.0 - 0.012 X10*3/uL [facility] 08/04/2024 8:43 AM EDT 08/04/2024 8:47 AM EDT us Generic External Data Provider LAB BLOOD ORDERAB LES Final Result [facility] [address] [place] [phone] * Lipase (08/04/2024 8:43 AM EDT) Lipase 20 8 - 78 U/L [facility] 08/04/2024 8:43 AM EDT 08/04/2024 8:47 AM EDT us Generic External Data Provider LAB BLOOD ORDERAB LES Final Result Performing Organization Address [facility]/ZIP Co de Phone Number [facility] [address] [place] [phone] * (ABNORMAL) TSH W/Reflex to FT4 (07/10/2024 10:10 AM EDT) TSH reflex Free T4 71.73(H) 0.32 - 4.0 uIU/mL [facility] Blood Venous blood specimen / Unknown 07/10/2024 10:10 AM EDT 07/10/2024 12:59 PM EDT us Natasha STEVE LAB BLOOD ORDERABLES Lidya l Result Performing Organization Address City/[facility]/ZIP Co de Phone Number [facility] [address] [place] [phone] * HPV DNA, Low/High Risk (05/30/2024 10:25 AM EST) HPV High Risk Negative Negative [facility] HPV Genotype 16 Negative Negative [facility] HPV Genotype 18 Negative Negative [facility] Comment:HPV testing performe d at [facility] (CLIA#[id number]), [address] [place] [phone].Testing for HPV was performed using the [employer] GERI 6800system. The presence of HPV in [...] 05/31/2024 9:15 AM EST us Natasha Horowitz [facility] LAB BLOOD ORDERABLES Lidya monae Result [facility] [address] [place] [phone] * Pap Smear (05/30/2024 10:25 AM EST) Swab Cervix uteri structure / Unknown 05/30/2024 10:25 AM EST 05/31/2024 9:15 AM EST Narrative [facility] - 06/08/2024 1:10 PM EST ----- ------- Name: Zari Aleman ?Age/Sex: 54/F ? : 1970 Unit#: [id number] ?? Attend Dr: NATASHA HOROWITZ CNM ?Re05/30/24 ?Status: DEP REF ? Location: HO.HHCLNP ? Disch: ? ----- ------- SPEC : [id number] ? RECD: 05/31/24 ? STATUS: ??SOUT ? REQ NUM: [id number] ? MUNIRA: 05/30/24 ? SUBM DR: NATASHA [...] CNM LAB CYTOLOGY ORDERABLES F inal Result [facility] [address] [place] [address] [phone] * Hm Colonoscopy (04/27/2023 10:30 AM EST) [...] HEPATITIS C ANTIBODY NON-REACT STEVE NON-REACT STEVE [facility] INDEX 0.01 <1.00 [facility] Comment: ?? HCV antibody was non-reactive. There is no laboratory ?? evidence of HCV infection. ?? In most cases, no further action is required. However, if recent HCV exposure is suspected, a test for HCV RNA (test code 78083) is suggested. ?? For additional information please refer to http://education.[employer]/faq/LOJ75p8 (This link is being provided for informational/ educational purposes only.) ?? 05/02/2020 9:36 AM EST Bhargavi Llanes MD HISTORICAL/NON ORDERABLE LABS Fi nal Result [facility] [address] * HIV 1/2 ANTIGEN/ANTIBODY,FOURTH GENERATION W/RFL (05/02/2020 9:36 AM EST) HIV-1/2 ANTIGEN AND ANTIBODIES, 4TH GENERATION W/ REFLEX NON-REACT STEVE NON-REACT STEVE [facility] Comment: HIV-1 antigen and HIV-1/HIV-2 [...] ? For additional information please refer to http://education.[employer]/faq/RSP776 (This link is being provided for informational/ educational purposes only.) ? The performance of this assay has not been clinically validated in patients less than 2 years old. ?? 05/02/2020 9:36 AM EST Bhargavi Llanes MD LAB BLOOD ORDERABLES Final Resul t Performing Organization Address City/State/[facility] Co ma Phone Number [facility] [address] from Last 3 Months or Most Recently Relevant to Health Maintenance Insurance [facility] ST[facility] Care Teams Business Services Vice President Relationship Specialty Start Date End Date Bhargavi Llanes MD [address] [place] [address] PCP - General Family Medicine 11/21/18
--- OUTSIDE RECORDS SUMMARY | 2024-09-04 10:09 | XMS_ITS | Encounter Summary ---
Author Organization [employer] Address [address] [place] [address] Care Team Providers Care Geospatial Specialist Name Role Phone Bhargavi Llanes MD Primary Care Provider Encounter Details Date Type Department Care Team (Late st Contact Info) Description 08/31/2024 Orders Only [facility] External Provider, [facility] Social History Tobacco Use Types Packs/Day [...] Description 10/19/2024 1:30 PM EDT Office Visit [facility] [address] [place] [address] Elvin, Marlene, OD [address] [place] [address] documented as of this encounter Procedures Procedure Name Priority Date/Time Associated Diagnosis Comments US PELVIS TRANSVAGINAL Routine 08/31/2024 4:00 PM EDT documented in this encounter Results * US Pelvis Transvaginal (08/31/2024 4:00 PM EDT) Anatomical Region Laterality Modality Pelvis Ultrasound 08/31/2024 4:00 PM EDT Narrative 08/31/2024 4:01 PM EDT ? [facility] ?[address] ?[place] [address] ? Ultrasound Report ? Signed ? Patient: Love,Zari ?MR#: [id number] ?? [id number] ? : 1970 ?Acct:[id number] ? Age/Sex: 54 / F ?ADM Date: 05/08/25 ? Loc: HO.US ? Attending Dr: Nick Higgins MD ? Ordering Physician: Nick Higgins MD ?? Date of Service: 08/31/24 ?? Procedure(s): US pelvic and transvaginal ?? Accession Number(s): [id number] ? cc: Bhargavi Llanes MD; Nick Higgins MD ? CLINICAL HISTORY: N83.299 - Other ovarian cyst, unspecified side ? US pelvis transabdominal and transvaginal with color Doppler ? Comparison: US/SR - US PELVIC AND TRANSVAGINAL - 06/27/24 15:37 EST ?? [place]/SR - CT ABDOMEN PELVIS W IV CON [...] This document has been electronically signed by: Dcu Chavira MD on ?? 08/31/2024 16:00:39 ? Dictated By: ?Duc Chavira MD ? Signed By: ?<Electronically signed by Duc Chavira MD in OV> ?08/31/24 1601 ? DD/ 1600 ? TD/TT: 08/31/24 1600 ? Tip Cutter: ? Procedure Note Meryl Arechiga - 08/31/[address] [address] Ultrasound Report Signed Patient: Zari AlemanMR#: [id number] : 1970Acct:[id number] Age/Sex: 54 / FADM Date: 08/31/24 Loc: HO.US Attending Dr: Nick Higgins MD Ordering Physician: Nick Higgins MD Date of Service: 08/31/24 Procedure(s): US pelvic and transvaginal Accession Number(s): [id number] cc: Bhargavi Llanes MD; Nick Higgins MD CLINICAL HISTORY: N83.299 - Other ovarian cyst, unspecified side US pelvis transabdominal and transvaginal with color Doppler Comparison: US/SR - US PELVIC AND TRANSVAGINAL - 06/27/24 15:37 EST [place]/SR - CT ABDOMEN PELVIS W IV CON [...] 08/31/24 1601 DD/ 1600 TD/TT: 08/31/24 1600 Tip Cutter: us [facility] External Provider IMG US PROCEDURES Edited Result - Final documented in this encounter Visit Diagnoses Not on filedocumented in this encounter Additional Health Concerns Assessment Noted Time PHQ-9 Depression Total Score: 0 09/01/19 25 11:14 AM EDT documented as of this encounter Care Teams Geospatial Specialist Relationship Specialty Start Date End Date Bhargavi Llanes MD [address] [place] [address] PCP - General Family Medicine 11/21/18 documented as of this encounter
--- OUTSIDE RECORDS SUMMARY | 2024-09-04 10:09 | XMS_ITS | Encounter Summary ---
Author Organization [employer] Address [address] [place] [address] Care Team Providers Care Senior Shipping Clerk Name Role Phone Bhargavi Llanes MD Primary Care Provider [phone] Reason for Visit * Reason Comments Sick Onsite [facility] ED F/U DX: Diverticulitis large intestine, Thickened endometrium, Gallstones. Pt scheduled to have a follow up with [facility] NEUROLOGY EPILEPSY PHYSICIAN on 08/29 Encounter Details Date Type Department Care Team (Latest Contact Info) Description 08/31/2024 11:15 AM EDT Office Visit [facility] [address] [place], [place] [phone] Bhargavi Llanes MD [address] [place], [place] [phone] Diverticulitis (Primary Dx); Abnormal uterine bleeding (AUB); [...] She stated she had been following with [facility] GI. She had not been adherent to thyroid replacement. Interval history: Seen in the walk-in clinic for malodorous urine. Hx previous UTI. Rx TMP/SMX. Urine culture grew E.coli, hernandez-sensitive. 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 She reported pelvic pain and AUB. Mammo ordered. Cotest done. Referred to Urogyn for cystocele. Cotest double negative. Seen by Dr. Shah, [facility] Endo for hypothyroidism. TSH 71.73 on 07/07/24. [...] Suspect left pelvic venous congestion. Seen in [facility] ED on 08/04/24. CT abdomen pelvis for right lower quadrant pain. Impression: Diverticulitis, cholelithiasis, fatty liver, thickened endometrial stripe, stable 1.2 cm splenic artery aneurysm. Dx diverticulitis. Rx levofloxacin, metronidazole, morphine, ibuprofen, APAP, ondansetron. Seen by Dr. Higgins, [facility] NEUROLOGY EPILEPSY PHYSICIAN on 08/29/24. Endometrial biopsy done for AUB. [...] only spotting. Mammography tomorrow. Follow up with NEUROLOGY EPILEPSY PHYSICIAN next week. She has improved adherence to thyroid replacement. She is going to see her mechanical handyman on 09/20/24. Her major concern is her [...] She states she is engaged in her quaker and her son with autism has become [...] on 08/31/24. Free T4 1.15. Ordered by mechanical handyman. - emphasized the importance of medication adherence Diverticulitis - Primary - recurrent - most recently in July 2024, less frequent for last 3 years - following with [facility] GI, last seen in June 2023, upcoming appointment - last colonoscopy in Apr [address] Sanford. Hyperplastic polyps. Diverticular disease. Hemorrhoids. Recommended to repeat in 5 years. IBS (irritable bowel syndrome) - following with [facility] GI - s/p colonoscopy in April 2023 hyperplastic polyp - continue linaclotide 290 mcg daily - low FODMAP diet Prolapse of female pelvic organs - referred to UroGYN by Melinda Abnormal uterine bleeding (AUB) - following with [facility] NEUROLOGY EPILEPSY PHYSICIAN - Pelvic US in May 2024, repeated today. Report pending. - Benign endometrial biopsy report on 08/29/24 Ovarian cyst - left complex ovarian cyst - repeat US ordered by NEUROLOGY EPILEPSY PHYSICIAN Chronic idiopathic constipation - continue Linaclotide - [...] IBS (irritable bowel syndrome) - following with [facility] GI - s/p colonoscopy in April 2023 [...] Abnormal uterine bleeding (AUB) - following with [facility] NEUROLOGY EPILEPSY PHYSICIAN - Pelvic US in May 2024, repeated today. Report pending. 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 Free T4 1.15. Ordered by mechanical handyman. - emphasized the importance of medication adherence * Assessment & Plan Note - Bhargavi Llanes MD - 09/01/2024 6:04 AM EDTAssociated Problem(s): Diverticulitis - recurrent - most recently in July 2024, less frequent for last 3 years - following with [facility], last seen in June 2023, upcoming appointment - last colonoscopy in Apr [address] Sanford. Hyperplastic polyps. Diverticular disease. Hemorrhoids. Recommended to repeat in 5 years. * Assessment & Plan Note - Bhargavi Llanes MD - 08/31/2024 6:32 AM EDTAssociated Problem(s): Ovarian cyst - left complex ovarian cyst - repeat US ordered by NEUROLOGY EPILEPSY PHYSICIAN documented in this encounter Plan of Treatment Upcoming Encounters Date Type Department Care Team (Late st Contact Info) Description 10/19/2024 1:30 PM EDT Office Visit [facility] OPTOM[facility] [address] [place] [address] ElvinMarlene, OD [address] [place] [address] documented as of this encounter Procedures Procedure [...] PM EDT) Hemoglobin A1c 5.6 <6.0 % [facility] Comment:Hemoglobin A1C Refer ence Range Adults: 4.8 - 6.0 % Non diabetic: < 6.0 % Goal: < 7.0 %Additional Action Suggested: > 8.0 %Note: Hemoglobin A1c results are invalid for patients with abnormal amounts of HbF. Blood transfusions may impact the HbA1c concentration in the patient sample. Estimated Average Glucose 114 mg/dL [facility] Comment:eAG = Estimated ave rage glucose which is %A1C expressed asaverage glucose, using the formula of the I5B-YbucmaoKzceaqy Glucose study (ADAG), Diabetes Care, Vol.31,#8,Nov. 2007 Blood Venous blood specimen / Unknown 08/31/2024 12:21 PM EDT 08/31/2024 12:58 PM EDT Bhargavi Llanes MD LAB BLOOD ORDERABLES Final Resul t [facility] [address] [place] [phone] * (ABNORMAL) Lipid Panel with Reflex to Direct LDL (08/31/2024 12:21 PM EDT) Triglycerides 271(H) <150 mg/dL [facility] Comment:Desirable Triglyceri de: less than 150 mg/dLBorderline High Triglyceride 150-199 mg/dLHigh Triglyceride: 200-499 mg/dLVery High Triglyceride: greater than or equal to 5OO mg/dL Cholesterol 234(H) <200 mg/dL [facility] Comment:Desirable Cholestero l: less than 200 mg/dLBorderline High Cholesterol: 200-239 mg/dLHigh Cholesterol: greater than 239 mg/dL LDL Cholesterol Calculated 137(H) <100 mg/dL [facility] Comment:Desirable LDL: less than 100 mg/dLNear Optimal/Above Optimal LDL: 110- 129 mg/dLBorderline High LDL: 130-159 mg/dLHigh LDL: 160-189 mg/dLVery High LDL: greater than or equal to 190 mg/dL HDL Cholesterol 43 >40 mg/dL [facility] Comment:Desirable HDL: great er than 40 mg/dL Note: This HDL assay may give artificially low results in patients with liver disease. Blood 08/31/2024 12:2 1 PM EDT 08/31/2024 12:58 PM EDT Bhargavi Llanes MD LAB BLOOD ORDERABLES Final Resul t Performing Organization Address City/[facility]/ZIP Co de Phone Number [facility] [address] [place] [phone] [phone] * (ABNORMAL) Comprehensive Metabolic Panel (08/31/2024 12:21 PM EDT) Sodium 139 135 - 145 mmol/L [facility] Potassium 4.6 3.3 - 5.1 mmol/L [facility] Chloride 105 96 - 108 mmol/L [facility] Carbon Dioxide 25 22 - 29 mmol/L [facility] Anion Gap 14 12 - 20 [facility] Urea Nitrogen (BUN) 12 9 - 16 mg/dL [facility] Creatinine, Serum 0.70 0.5 - 1.4 mg/dL [facility] Estimated Glomerular Filt Rate >60 [facility] Comment:Chronic Kidney Disea se: Estimated GFR < 60 mL/min/1.52t5Zzoroi Kidney Disease: Estimated GFR < 15 mL/min/1.73m2 Glucose 77 60 - 115 mg/dL [facility] Calcium 9.3 8.4 - 10.2 mg/dL [facility] Bilirubin, Total 0.5 0.0 - 1.0 mg/dL [facility] Aspartate Amino Transferase 95(H) 5 - 31 U/L [facility] Alanine Aminotransferase 104(H) 0 - 31 U/L [facility] Total Protein 7.4 6.5 - 8.0 g/dL [facility] Albumin Level 4.0 3.5 - 5.0 g/dL [facility] Alkaline Phosphatase 80 39 - 117 U/L [facility] Blood Venous blood specimen / Unknown 08/31/2024 12:21 PM EDT 08/31/2024 12:58 PM EDT us Bhargavi Llanes MD LAB BLOOD ORDERABLES Final Resul t Performing Organization Address City/[facility]/ZIP Co de Phone Number [facility] [address] [place] [phone] [phone] documented in this encounter Visit Diagnoses [...] documented as of this encounter Care Teams Senior Shipping Clerk Relationship Specialty Start Date End Date Bhargavi Llanes MD [address] [place] [phone] PCP - General Family Medicine 11/21/18 documented as of this encounter
--- OUTSIDE RECORDS SUMMARY | 2024-09-04 10:09 | XMS_ITS | Encounter Summary ---
Author Organization [employer] Address [address] [facility] 7t [place] [address] Care Team Providers Care Occupational Health Manager Name Role Phone Bhargavi Llanes MD Primary Care Provider [phone] Reason for Referral * Imaging (Routine) - Authorized Specialty Diagnoses / Procedures Referred By Contac t Referred To Contact Radiology Diagnoses Transaminitis Fatty liver Hepatomegaly Calculus of gallbladder without cholecystitis without obstruction Procedures US Abdomen Comp w elastography Bhargavi Llanes MD [address] [place] [address] Phone: tel: fax: [address] Phone: tel: fax: Referral ID Status Reason Start Date Expiration Date V isits Requested Visits Authorized [id number] Authorized 08/31/2024 08/31/2025 1 1 Encounter Details Date Type Department Care Team (Late st Contact Info) Description 08/31/2024 Orders Only [facility] [address] [place] [address] [phone] Bhargavi Llanes MD [address] [place], [place] [phone] Transaminitis (Primary Dx); Fatty liver; Hepatomegaly; Calculus [...] Description 10/19/2024 1:30 PM EDT Office Visit [facility] OPT[facility]ET[facility] [address] [place], [place] [phone] Elvin, Marlene, OD [address] [place] [address] Scheduled Orders Name Type Priority Associated Diagnoses [...] documented as of this encounter Care Teams Occupational Health Manager Relationship Specialty Start Date End Date Bhargavi Llanes MD [address] [place] [address] PCP - General Family Medicine 11/21/18 documented as of this encounter
--- OUTSIDE RECORDS SUMMARY | 2024-09-04 10:09 | XMS_ITS | Encounter Summary ---
Author Organization [employer] Address [address] [facility] 7t [place] [address] Care Team Providers Care Industrial Sales Representative Name Role Phone Bhargavi Llanes MD Primary Care Provider [phone] Encounter Details Date Type Department Care Team (Late st Contact Info) Description 07/28/[address] [facility] [address] [place] [address] Bhargavi Llanes MD [address] [place] [address] Social History Tobacco Use Types Packs/Day Years [...] Description 10/19/2024 1:30 PM EDT Office Visit [facility] OPTOMETRY [address] [place] [address] Marlene Oconnor, OD [address] [place] [address] documented as of this encounter Visit Diagnoses Not on filedocumented in this encounter Care Teams Industrial Sales Representative Relationship Specialty Start Date End Date Bhargavi Llanes MD [address] [place] [address] PCP - General Family Medicine 11/21/18 documented as of this encounter
--- OUTSIDE RECORDS SUMMARY | 2024-09-04 10:09 | XMS_ITS | Encounter Summary ---
Author Organization [employer] Address [address] [facility] [place] [address] Care Team Providers Care Fig Caprifier Name Role Phone Bhargavi Llanes MD Primary Care Provider [phone] Reason for Visit * Reason Onset Date Comments Results 09/01/2024 Encounter Details Date Type Department Care Team ([facility] st Contact Info) Description 09/01/2024 Telephone [facility] MEDICINE [address] [place], [place] [phone] Louise Carrero RN Results Social History Tobacco [...] to having additional labs drawn at the [facility] lab within the next week and will [...] Description 10/19/2024 1:30 PM EDT Office Visit [facility] OPTOMETRY [address] [place] [address] Marlene Oconnor, OD [address] [place] [address] documented as of this encounter Visit Diagnoses Not on filedocumented in this encounter Additional Health Concerns Assessment Noted Time PHQ-9 Depression Total Score: 0 09/01/19 25 11:14 AM EDT documented as of this encounter Care Teams Fig Caprifier Relationship Specialty Start Date End Date Bhargavi Llanes MD [address] [place] [address] PCP - General Family Medicine 11/21/18 documented as of this encounter
--- OUTSIDE RECORDS SUMMARY | 2024-09-04 10:09 | XMS_ITS | Encounter Summary ---
Author Organization [employer] Address [address] [place] [address] Care Team Providers Care Tailor Men'S Ready To Wear Name Role Phone Bhargavi Llanes MD Primary Care Provider [phone] Reason for Visit * Reason Onset Date Comments Chart Prep 08/30/2024 Encounter Details Date Type Department Care Team ([facility] st Contact Info) Description 08/30/2024 Telephone [facility] MED[facility]INE [address] [place], [place] [phone] Bhargavi Llanes MD [address] [place], [place] [phone] Chart Prep Social History Tobacco Use Types [...] Description 10/19/2024 1:30 PM EDT Office Visit [facility] OPTOMETRY [address] [place] [address] Elvin, Marlene, OD [address] [place] [address] documented as of this encounter Visit Diagnoses Not on filedocumented in this encounter Care Teams Tailor Men'S Ready To Wear Relationship Specialty Start Date End Date Bhargavi Llanes MD [address] [place] [address] PCP - General Family Medicine 11/21/18 documented as of this encounter
[2024-09-04 10:10] LABS: Appearance Urine Clear; Color Urine Yellow; Glucose Urine UA Negative (Negative); Leukocyte Esterase Urine Negative (Negative); Nitrite Urine Negative (Negative); PH 5.5 (5.0-9.0); Specific Gravity - Urine 1.015 (1.005-1.025); UMIC TRIGGER UACC YES; Urine Blood Moderate (2+) (Negative); Urine Ketones Negative (Negative); Urine Protein Negative (Neg-Trace)
[2024-09-04 10:12] LABS: Basophils Percent Auto 0.5 % (0-2); Eosinophils Absolute Auto 0.1 X10*3/uL (0.0-0.4); Eosinophils Percent Auto 1.7 % (0-4); Hematocrit 40.4 % (37.0-47.0); Hemoglobin 13.1 g/dl (12.0-16.0); Imm Gran Abs Auto 0.02 X10*3/uL (0.00-0.03); Imm Gran Pct Auto 0.2 % (0.0-0.4); Lymphocytes Absolute Auto 2.9 X10*3/uL (1.2-4.9); Lymphocytes Percent Auto 35.7 % (20-40); Mean Corpuscular HGB Conc 32.4 g/dl (31.0-35.0); Mean Corpuscular Hemoglobin 27.3 pg (27.0-33.0); Mean Corpuscular Volume 84.2 fL (80.0-98.0); Mean Platelet Volume 9.6 fL (9.4-12.3); Monocytes Absolute Auto 0.6 X10*3/uL (0.1-1.2); Monocytes Percent Auto 7.4 % (2-11); Neutrophils Absolute Auto 4.5 x10*3/uL (2.0-8.3); Neutrophils Percent Auto 54.5 % (45-73); Platelet Count 350 X10*3/uL (160-400); Red Cell Distribution Width 14.2 % (11.0-16.0); White Blood Count 8.2 X10*3/uL (4.8-10.8)
[2024-09-04 10:13] LABS: Bacteria Urine None Seen (None Seen); Hyaline Casts Urine 0-2 /LPF (0-2); Squamous Epithelial Cell Urine 0-2 /HPF (0-2); WBC Urine 0-5 /HPF (0-5)
[2024-09-04] MEDS: 0.9 % Sodium Chloride 1,000 ML 999 ML IV (10:14)
[2024-09-04] MEDS: HYDROmorphone HCl 0.5 MG/0.5 ML SYRINGE IVPUSH (10:14)
[2024-09-04 10:30] LABS: Alanine Aminotransferase 106 U/L (0-31); Alkaline Phosphatase 85 U/L (39-117); Anion Gap 12 (12-20); Aspartate Amino Transferase 101 U/L (5-31); Bilirubin Total 0.6 mg/dL (0.0-1.0); Blood Urea Nitrogen 8 mg/dL (9-16); Calcium 9.4 mg/dL (8.4-10.2); Carbon Dioxide 23 mmol/L (22-29); Chloride 107 mmol/L (96-108); Creatinine Clr Calc Pharmacy 88.6; Estimated Glomerular Filt Rate > 60; Glucose Random 83 mg/dL (60-115); Potassium 3.9 mmol/L (3.3-5.1); Sodium 138 mmol/L (135-145); Total Protein 7.7 g/dL (6.5-8.0)
[2024-09-04] MEDS: iohexoL 350 MG/ML 100 ML INFUS..BTL IV (10:51)
[2024-09-04 12:36] VITALS: BP 145/91; PULSE 84; RESP 16; TEMP 36.2; O2SAT 99
== END 2024-09-04 12:36 | disposition home or self-care (01) ==
PROVIDERS: Emergency Provider Emergency Medicine Emergency Medical Services; PCP Family Medicine
DX: K63.89 Other specified diseases of intestine (principal); R10.32 Left lower quadrant pain; E03.9 Hypothyroidism, unspecified; Z87.891 Personal history of nicotine dependence; Z79.899 Other long term (current) drug therapy
CPT/HCPCS: 36415; 74177; 80053; 81001; 85025; 96361; 96374; 99283; 99284; J1171; Q9967

== ENCOUNTER → 2024-09-04 10:03 | Outpatient (BNV) | payer MEDICAID, SELFPAY | PROVIDERS: Emergency Provider Emergency Medicine Emergency Medical Services; PCP Family Medicine; Visit Provider Radiology Diagnostic Radiology | DX: K38.8 Other specified diseases of appendix (principal); K80.20 Calculus of gallbladder without cholecystitis without obstruction; I72.8 Aneurysm of other specified arteries | CPT/HCPCS: 74177 ==

== ENCOUNTER → 2024-09-09 16:34 | Outpatient (BNV) | payer MEDICAID, SELFPAY | PROVIDERS: PCP Family Medicine; Visit Provider Radiology Diagnostic Radiology | DX: N85.00 Endometrial hyperplasia, unspecified (principal); N83.201 Unspecified ovarian cyst, right side; N83.202 Unspecified ovarian cyst, left side | CPT/HCPCS: 72197 ==

== ENCOUNTER 2024-09-09 16:40 | Outpatient (REF) | payer MEDICAID, SELFPAY ==
--- NOTE | ~2024-09-09 | MR_ITS ---
CLINICAL HISTORY: N83.299 - Other ovarian cyst, unspecified side MRI of the pelvis without and with intravenous contrast. Comparisons: CT scans of the abdomen and pelvis dated 09/04/2024 an ultrasound of the abdomen and pelvis dated 08/31/2024. Findings: The endometrium is thickened measuring up to 1.9 cm in total thickness. The junctional zone is also mildly thickened measuring up to 7 mm in thickness. It is homogeneous. There are benign ovarian cysts bilaterally. The 1 on the right measures up to 1.2 cm in greatest diameter. The 1 on the left has a single septation and measures up to 3 cm in greatest diameter. The pelvic contents otherwise demonstrate no acute abnormalities. There is colonic diverticulosis. The bones and soft tissues are unremarkable. Impression: 1. Thickened endometrium and junctional zone likely representing hyperplasia. Endometrial neoplasm is not entirely excluded particularly if the patient is postmenopausal. Please correlate clinically. 2. Benign bilateral ovarian cysts. This document has been electronically signed by: Hayes Esparza MD on 09/11/2024 09:47:38
[2024-09-09] MEDS: gadobutroL 10 ML VIAL IVPUSH (17:40)
== END 2024-09-09 16:41 | disposition home or self-care (01) ==
LOC: HO.MRI 16:40
PROVIDERS: PCP Family Medicine; Visit Provider Obstetrics & Gynecology
DX: N83.299 Other ovarian cyst, unspecified side (principal)
CPT/HCPCS: 72197; A9585

== ENCOUNTER 2024-09-20 08:16 | Outpatient (AMB) | payer MEDICAID, SELFPAY ==
--- NOTE | 2024-09-20 08:25 | MHC.OFFVIS ---
Vital Signs 09/20/24 08:27 Height 5 ft 2 in Weight 173 lb 15.115 oz BMI 31.8 BP 100/72 Blood Pressure Location Rt brachial Position Sitting Pulse 102 H Pulse Source Pulse Oximeter Pulse Oximetry (%) 97 Oxygen Delivery Method Room Air Intake Visit Reasons: Hyperthyroidism Intake Note: Patient present today for Hypothyroidism follow up visit. 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 nausea Medication List - Last Reconciled 09/20/24 by Valerio Shah MD acetaminophen (Tylenol Extra Strength) 1,000 mg (2 x 500 mg) PO Q6H PRN albuterol sulfate 90 mcg/actuation (Ventolin HFA) 2 puffs inhalation Q4H PRN cholecalciferol (vitamin D3) 50 mcg PO DAILY 30 days famotidine 40 mg PO DAILY PRN hydrocortisone 2.5% (Proctosol HC) 1 appl AL BID ibuprofen 400 mg PO TID PRN ibuprofen 400 mg PO Q6H PRN levothyroxine 88 mcg PO DAILY linaclotide (Linzess) 290 mcg PO QAM nabumetone 500 mg PO BID PRN ondansetron 4 mg PO Q6-8H PRN pantoprazole 40 mg PO BID phentermine 15 mg PO DAILY topiramate 25 mg PO BEDTIME valacyclovir 1,000 mg PO DAILY HPI Comments Details: 54 YO Female with a PMHx 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 She has a history of Jeevan's disease based on TG antibodies being elevated in the past. She remains on Tirosint 88 mcg PO daily and takes this correctly. She has consistently been poorly compliant with her medication and has wavered from overreplaced with suppressed TSH to underreplaced with elevated TSH. Most recent TSH was 23.55 08/20/2021. She does admit to poor compliance at this time. She does report fatigue, hair loss and dry skin. She had an US of the thyroid completed 09/07/2019 which revealed multiple subcentimeter nodules within the L lobe. Images of this US were independently reviewed and these represent pseudonodules and area of heterogeneity, consistent with Jeevan's disease. No true nodules identified. Thyroid US: 09/07/2019 Right Thyroid Lobe: 1.3 x 0.7 x 0.5 cm, volume 0.2 mL. Previously 1.8 x 0.3 x 0.4 cm, volume 0.1 mL. Parenchyma: The gland echotexture is homogeneous. Thyroid vascularity is normal. Left Thyroid Lobe: 2.6 x 0.6 x 1.0 cm, volume 0.8 mL. Previously 1.4 x 0.4 x 0.3 cm, volume 0.9 mL. Parenchyma: The gland echotexture is homogeneous. Thyroid vascularity is normal. Isthmus: 0.2 cm in maximum AP dimension. Previously 0.1 cm. RIGHT THYROID LOBE: No nodules. ISTHMUS: No nodules. LEFT THYROID LOBE: There are 2 tiny nodules seen. 1. Location: Upper pole medial. Size: 0.3 x 0.1 x 0.2 cm. Previous: Not documented. Nodule characteristics: Cyst 2. Location: Upper pole central. Size: 0.3 x 0.2 x 0.4 cm. Previous: Not documented. Nodule characteristics: Circumscribed, mild hypoechoic, no calcifications or color flow. NODES: No lymphadenopathy is seen in the tissue surrounding the thyroid gland. Labs: Laboratory Tests 06/19/21 08/20/21 10:05 07:45 25-OH Vitamin D Total 11.1 TSH 23.55 H Free T4 0.66 L Currently on levothyroxine 88 mcg. Claims compliant [facility] Medical History GERD (gastroesophageal reflux disease) Vitamin D deficiency Multinodular goiter Jeevan's disease Hypothyroidism Diverticulitis Surgical History History of esophagogastroduodenoscopy (EGD) H/O colonoscopy Hx of hemorrhoidectomy Hx of lumpectomy H/O tubal ligation Family History Father Heart disease Mother Diabetes mellitus HTN (hypertension) Brother Diabetes mellitus Sister High cholesterol Sister Jeevan's disease Social History Household Members: Spouse and Children Alcohol intake: never Patient Tobacco Use Status: Former Tobacco user Tobacco use type: Cigarette Cigarettes Per Day: 3 Physical Exam Vital Signs: Last Vital Signs Pulse 102 H 09/20/24 08:27 BP 100/72 09/20/24 08:27 Pulse Ox 97 09/20/24 08:27 Oxygen Delivery Method Room Air 09/20/24 08:27 BMI result Body Mass Index 31.8 Const Other: Thyroid gland is normal size weighs about 15 g. There are no thyroid nodules palpated. Reflexes are slow and delayed Assessment & Plan Assessment & Plan (1) Hypothyroidism: Code(s): E03.9 - Hypothyroidism, unspecified Category: Medical Qualifiers: Hypothyroidism type: due to Jeevan's thyroiditis Qualified Code(s): E03.8 - Other specified hypothyroidism; E06.3 - Autoimmune thyroiditis Plan: This is a 53-year-old female followed by endocrinology for management hypothyroidism due to Jeevan's thyroiditis. She is currently on levothyroxine 88 mcg. She is clinically and biochemically euthyroid . Plan is to continue the current treatment. At this point, patient returned to the care of her primary care provider returned back to endocrinology as needed Coding Level of Care Code Est Pt Level 3 (44487) Diagnoses Hypothyroidism due to Jeevan's thyroiditis E03.8; E06.3 Hypothyroidism type: due to Jeevan's thyroiditis
[2024-09-20 08:27] VITALS: BP 100/72; PULSE 102; O2SAT 97; BMI 31.8
--- OUTSIDE RECORDS SUMMARY | 2024-09-20 08:29 | XMS_ITS ---
Author Organization [facility] Address [address] [place] [address] Care Team Providers Care Business Strategy Manager Name Role Phone Bhargavi Llanes MD Primary Care Provider [phone] Radha Thakur RN Unavailable [phone] Catie Gardiner Unavailable CM Complex Status:Outreach In Progress (Enrolling) Start date:09/05/2024 Enrollment reason:ADT Feed Overview ED- Pt went to [facility] on 09/04/24. Case Team Name Relationship Phone Radha Thakur RN(Responsible Staff) Registered Nurse [phone] Continued Care and Services Coordination
== END 2024-09-20 08:39 | disposition home or self-care (01) ==
LOC: HO.ENCR 08:17
PROVIDERS: PCP Family Medicine; Visit Provider Internal Medicine Endocrinology, Diabetes & Metabolism
DX: E03.8 Other specified hypothyroidism (principal); E06.3 Autoimmune thyroiditis
CPT/HCPCS: 99213

== ENCOUNTER → 2024-09-20 08:16 | Outpatient (BNVA) | payer MEDICAID, SELFPAY | PROVIDERS: PCP Family Medicine; Visit Provider Internal Medicine Endocrinology, Diabetes & Metabolism | DX: K59.04 Chronic idiopathic constipation (principal); K21.9 Gastro-esophageal reflux disease without esophagitis; E03.8 Other specified hypothyroidism; E06.3 Autoimmune thyroiditis | CPT/HCPCS: 99212 ==

== ENCOUNTER 2024-09-20 08:44 | Outpatient (AMB) | payer MEDICAID, SELFPAY ==
--- NOTE | 2024-09-20 09:09 | MHC.OFFVIS ---
Intake Visit Reasons: Follow up medication Intake Note: Patient yearly follow up for medication refill Linzess Patient cc: constipation with bloody stool. Denies any other GI issues. 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 nausea HPI HPI Follow up medication: Details: Assessment & Plan (1) Family history of polyps in the colon: Comment: mother Code(s): Z83.71 - Family history of colonic polyps (2) Chronic idiopathic constipation: Code(s): K59.04 - Chronic idiopathic constipation (3) GERD (gastroesophageal reflux disease): Code(s): K21.9 - Gastro-esophageal reflux disease without esophagitis (4) Bleeding hemorrhoids: Code(s): K64.9 - Unspecified hemorrhoids (5) Diverticulitis: Code(s): K57.92 - Diverticulitis of intestine, part unspecified, without perforation or abscess without bleeding Plan She is agreeable to a 5 year follow-up. The procedure was well tolerated. The results were explained and the patient is agreeable to the follow-up interval as stated. The bowel pattern has returned to normal. Education was provided to tell any 1st degree relatives about their findings to be sure that they are screened by age 45. Educated that they will be put on a recall list when it is time for their repeat scope but should they move out of state or away from the hospital they will need to remember along with their primary to repeat the procedure in a timely fashion to avoid any adverse complications. She developed left-sided abdominal pain with rectal bleeding shortly after the procedure. She presented to the ER and they did find an inflamed diverticulum on CT scan she was treated with Augmentin for diverticulitis. However, the pain did not immediately subside and persisted for almost a month! She was only treated with the 1 course of antibiotics. Now she is having pain postprandially in the left lower quadrant. I will re treat with flagyl/leva and write out for her to also take a probiotic and a fiber supplement. She continues on her Linzess 290 micro g, pantoprazole 40 mg twice a day and famotidine as needed for breakthrough. ROV 3 weeks. Medications: New metronidazole 500 mg PO TID 14 days 42 tabs 0RF levofloxacin 500 mg PO DAILY 14 tabs 0RF K57.92 - Diverticulitis of intestine, part unspecified, without perforation or abscess without bleeding Refilled pantoprazole (Protonix) 40 mg PO BID 30 days 60 tabs 6RF K21.9 - Gastro-esophageal reflux disease without esophagitis linaclotide (Linzess) 290 mcg PO QAM 30 days 30 caps 6RF K59.04 - Chronic idiopathic constipation famotidine 40 mg PO DAILY PRN 30 tabs 3RF for heartburn K21.9 - Gastro-esophageal reflux disease without esophagitis TODAYS VISIT She continues on her Linzess 290 micro g, pantoprazole 40 mg twice a day and famotidine as needed for breakthrough. She is now on phentermine for wt loss and her CIC is harder to control. With discussion, she was not drinking enough to offset her medication and the dehydrating effect of the phentermine and the hydrolysis effects of fat utilization. I have asked her to attend to this before we consider additional constipation medications, as I do not want to over drive her colon when she really does not have enough water to allow the bowels to effectively work. She is getting plenty of fiber on her new diet so this is not effective. If this is not effective then she can call me. Apparently now she is taking occasional milk of magnesia which is fine. ROV 6 mos. PFSH Medical History (Updated 09/20/24 @ 09:12 by GEE Marshall) H. pylori duodenitis Pre-op examination GERD (gastroesophageal reflux disease) Vitamin D deficiency Multinodular goiter Jeevan's disease Hypothyroidism Diverticulitis Surgical History History of esophagogastroduodenoscopy (EGD) H/O colonoscopy Hx of hemorrhoidectomy Hx of lumpectomy H/O tubal ligation Family History Father Heart disease Mother Diabetes mellitus HTN (hypertension) Brother Diabetes mellitus Sister High cholesterol Sister Jeevan's disease Social History Household Members: Spouse and Children Alcohol intake: never Patient Tobacco Use Status: Former Tobacco user Tobacco use type: Cigarette Cigarettes Per Day: 3 Review of Systems Const Denies fatigue, Denies fever(s), Denies night sweats, Denies poor appetite and Denies weight loss ENT Reports Normal hearing present, Denies dental pain, Denies dysphagia, Denies hearing loss, Denies mouth pain, Denies odynophagia, Denies throat swelling, Denies tongue swelling and Reports other (Dentition adequate) Card Reports no additional complaints Resp Reports no additional complaints GI Details: Denies abdominal pain, Denies melena, Denies bloating, Denies hematochezia, Reports constipation, Denies GI cramping, Denies dysphagia, Denies excessive flatus, Denies early satiety, Reports heartburn, Denies diarrhea, Denies nausea, Denies odynophagia, Denies vomiting and Denies hematemesis Skin/Breast Denies pruritus, Denies lesions, Denies rash and Denies jaundice Neuro Reports Normal hearing present and Denies Abnormal speech present Endo Denies fatigue Aller/Immun Denies throat swelling and Denies tongue swelling Physical Exam Const General: cooperative, no acute distress, well developed and well groomed Nutritional Appearance: well nourished and obese Orientation/consciousness: oriented to person, oriented to place and oriented to time Limitations: No language barrier HEENT Head: Yes normocephalic and Yes atraumatic Eyes General: appearance normal, both eyes and all related structures Pupils: Equal, round and reactive pupils present Neck Neck: Yes normal visual inspection and Yes no lymphadenopathy Thyroid: Thyroid normal Resp Effort & Inspection: normal respiratory effort and able to speak in complete sentences Auscultation: clear to auscultation bilaterally Cardio Rate: regular rate Rhythm: regular rhythm Heart sounds: Normal, physiologic split S2 sound present Peripheral pulses: radial pulses present and posterior tibial pulses present GI Inspection: No distended, No Abdominal panniculus present and Yes obesity Palpation (GI): Soft to palpation, nontender, no guarding, not rigid and No hepatosplenomegaly present Percussion: Yes normal to percussion Auscultation: normal bowel sounds Rectal Exam - Female: deferred Skin General skin exam: no rashes or lesions noted, turgor normal, skin not dry, no jaundice, No spider nevi and no striae Rashes: no rashes Nails: normal Neuro General: oriented to person, oriented to place and oriented to time Cranial nerves: Yes Equal, round and reactive pupils present and Yes Normal hearing present Speech: No Abnormal speech present Extrem General: Yes normal to inspection, No clubbing, No cyanosis and No edema Psych Appearance: grossly normal and well kempt Mental Status: mental status grossly normal Speech and movement: Normal speech and movement present Affect: normal affect Attitude: cooperative Thought process: Normal thought process present and not confabulating Thought content: Normal thought content present Insight: Good insight present (Psych) Judgement: Good judgement present (Psych) Assessment & Plan Assessment & Plan (1) Chronic idiopathic constipation: Code(s): K59.04 - Chronic idiopathic constipation Category: Medical (2) GERD (gastroesophageal reflux disease): Code(s): K21.9 - Gastro-esophageal reflux disease without esophagitis Category: Medical Plan She continues on her Linzess 290 micro g, pantoprazole 40 mg twice a day and famotidine as needed for breakthrough. She is now on phentermine for wt loss and her CIC is harder to control. With discussion, she was not drinking enough to offset her medication and the dehydrating effect of the phentermine and the hydrolysis effects of fat utilization. I have asked her to attend to this before we consider additional constipation medications, as I do not want to over drive her colon when she really does not have enough water to allow the bowels to effectively work. She is getting plenty of fiber on her new diet so this is not effective. If this is not effective then she can call me. Apparently now she is taking occasional milk of magnesia which is fine. ROV 6 mos. Medications: Refilled famotidine 40 mg PO DAILY PRN 30 tabs 3RF for heartburn K21.9 - Gastro-esophageal reflux disease without esophagitis linaclotide (Linzess) 290 mcg PO QAM 30 caps 6RF K59.04 - Chronic idiopathic constipation pantoprazole 40 mg PO BID 60 tabs 6RF K21.9 - Gastro-esophageal reflux disease without esophagitis Coding Level of Care Code Est Pt Level 3 (82916) Diagnoses Chronic idiopathic constipation K59.04 GERD (gastroesophageal reflux disease) K21.9
== END 2024-09-20 09:50 | disposition home or self-care (01) ==
LOC: HO.HGI 08:44
PROVIDERS: PCP Family Medicine; Visit Provider Nurse Practitioner
DX: K59.04 Chronic idiopathic constipation (principal); K21.9 Gastro-esophageal reflux disease without esophagitis
CPT/HCPCS: 99213

== ENCOUNTER 2024-09-22 10:53 | Day surgery (SDC) | payer MEDICAID, SELFPAY ==
--- OUTSIDE RECORDS SUMMARY | 2024-09-04 10:58 | XMS_ITS | Encounter Summary ---
Author Organization [employer] Address [address] [place] [address] Care Team Providers Care Vessel Liner Name Role Phone Bhargavi Llanes MD Primary Care Provider [phone] Reason for Visit * Reason Onset Date Comments Results 09/01/2024 Encounter Details Date Type Department Care Team ([facility] st Contact Info) Description 09/01/2024 Telephone [facility] MEDICINE [address] [place], [place] [phone] Louise Carrero RN Results Social History Tobacco [...] to having additional labs drawn at the [facility] lab within the next week and will [...] Description 10/19/2024 1:30 PM EDT Office Visit [facility] OPTOMETRY [address] [place] [address] Marlene Oconnor, OD [address] [place] [address] documented as of this encounter Visit Diagnoses Not on filedocumented in this encounter Additional Health Concerns Assessment Noted Time PHQ-9 Depression Total Score: 0 09/01/19 25 11:14 AM EDT documented as of this encounter Care Teams Vessel Liner Relationship Specialty Start Date End Date Bhargavi Llanes MD [address] [place] [address] PCP - General Family Medicine 11/21/18 documented as of this encounter
--- OUTSIDE RECORDS SUMMARY | 2024-09-04 10:58 | XMS_ITS | Encounter Summary ---
Author Organization [employer] Address [address] [place] [address] Care Team Providers Care Sports Doctor Name Role Phone Bhargavi Llanes MD Primary Care Provider Reason for Visit * Reason Onset Date Comments Chart Prep 08/30/2024 Encounter Details Date Type Department Care Team ([facility] st Contact Info) Description 08/30/2024 Telephone [facility] MEDICINE [address] [place], [place] [phone] Bhargavi Llanes MD [address] [place], [place] [phone] Chart Prep Social History Tobacco Use Types [...] Visit [facility] OPTOMETRY [address] [place] [address] Elvin, Marlene, OD [address] [place] [address] documented as of this encounter Visit Diagnoses Not on filedocumented in this encounter Care Teams Sports Doctor Relationship Specialty Start Date End Date Bhargavi Llanes MD [address] [place] [address] PCP - General Family Medicine 11/21/18 documented as of this encounter
--- OUTSIDE RECORDS SUMMARY | 2024-09-04 10:58 | XMS_ITS | Encounter Summary ---
Author Organization [employer] Address [address] [facility] [address] [place] [address] Care Team Providers Care Media Relations Intern Name Role Phone Bhargavi Llanes MD Primary Care Provider [phone] Encounter Details Date Type Department Care Team [...] 1:30 PM EDT Office Visit [facility] OPTOMETRY [address] [place] [address] Marlene Oconnor, OD [address] [place] [address] documented as of this encounter Visit Diagnoses Not on filedocumented in this encounter Additional Health Concerns Assessment Noted Time PHQ-9 Depression Total Score: 0 09/01/19 25 11:14 AM EDT documented as of this encounter Care Teams Media Relations Intern Relationship Specialty Start Date End Date Bhargavi Llanes MD [address] [place] [address] PCP - General Family Medicine 11/21/18 documented as of this encounter
--- OUTSIDE RECORDS SUMMARY | 2024-09-04 10:58 | XMS_ITS | Encounter Summary ---
Author Organization [employer] Address [address] [facility] [address] [address] [place] [address] Care Team Providers Care Water Analyst Name Role Phone Bhargavi Llanes MD Primary Care Provider [phone] Encounter Details Date Type Department Care Team (Late st Contact Info) Description 08/31/2024 Orders Only [facility] External Provider, [facility] Social History Tobacco Use Types Packs/Day Years [...] 1:30 PM EDT Office Visit [facility] OPTOMETRY [address] [place] [address] Elvin, Marlene, OD [address] [place] [address] documented as of this encounter Procedures Procedure Name Priority Date/Time Associated Diagnosis Comments US PELVIS TRANSVAGINAL Routine 08/31/2024 4:00 PM EDT documented in this encounter Results * US Pelvis Transvaginal (08/31/2024 4:00 PM EDT) Anatomical Region Laterality Modality Pelvis Ultrasound 08/31/2024 4:00 PM EDT Narrative 08/31/2024 4:01 PM EDT ? [facility] ?[address] ?[place] [address] ? Ultrasound Report ? Signed ? Patient: Love,Zari ?MR#: [id number] ?? [id number] ? : 1970 ?Acct:[id number] ? Age/Sex: 54 / F ?ADM Date: 05/08/25 ? Loc: HO.US ? Attending Dr: Nick Higgins MD ? Ordering Physician: Nick Higgins MD ?? Date of Service: 08/31/24 ?? Procedure(s): US pelvic and transvaginal ?? Accession Number(s): [id number] ? cc: Bhargavi Llanes MD; Nick Higgins [...] DD/ 1600 ? TD/TT: 08/31/24 1600 ? Card Lacer: ? Procedure Note Meryl Arechiga - 08/31/[address] [address] Ultrasound Report Signed Patient: Zari AlemanMR#: [id number] : 1970Acct:[id number] Age/Sex: 54 / FADM Date: 08/31/24 Loc: HO.US Attending Dr: Nick Higgins MD Ordering Physician: Nick Higgins MD Date of Service: 08/31/24 Procedure(s): US pelvic and transvaginal Accession Number(s): [id number] cc: Bhargavi Llanes MD; Nick Higgins MD [...] 08/31/24 1601 DD/ 1600 TD/TT: 08/31/24 1600 Card Lacer: us [facility] External Provider IMG US PROCEDURES Edited Result - Final documented in this encounter Visit Diagnoses Not on filedocumented in this encounter Additional Health Concerns Assessment Noted Time PHQ-9 Depression Total Score: 0 09/01/19 25 11:14 AM EDT documented as of this encounter Care Teams Water Analyst Relationship Specialty Start Date End Date Bhargavi Llanes MD [address] [place] [address] PCP - General Family Medicine 11/21/18 documented as of this encounter
--- OUTSIDE RECORDS SUMMARY | 2024-09-04 10:58 | XMS_ITS | Clinical Summary ---
Author Organization [employer] Address [address] [place] [address] Care Team Providers Care Infusion Rn Name Role Phone Bhargavi Llanes MD Primary Care Provider [phone] Allergies Active Allergy Reactions Criticality Noted Date [...] ovarian cyst - repeat US ordered by FOOD WRITER Prolapse of female pelvic organs 07/23/2024 Assessment & Plan (09/01/2024 6:09 AM EDT): - referred to UroGYN by Natasha Abnormal uterine bleeding (AUB) 07/23/2024 Assessment & Plan (09/01/2024 6:09 AM EDT): - following with [facility] FOOD WRITER - Pelvic US in May 2024, repeated today. Report pending. - Benign endometrial biopsy report on 08/29/24 GERD (gastroesophageal reflux disease) Assessment & Plan (07/22/2023 7:23 PM EDT): - continue pantoprazole 40 mg bid and famotidine 40 mg daily prn IBS (irritable bowel syndrome) 07/22/2023 Assessment & Plan (09/01/2024 6:10 AM EDT): - following with [facility] - s/p colonoscopy in April 2023 hyperplastic polyp - continue linaclotide 290 mcg daily - low FODMAP diet Assessment & Plan (07/22/2023 7:23 PM EDT): - following with [facility] - s/p colonoscopy in April 2023 [...] for last 3 years - following with [facility], last seen in June 2023, upcoming appointment - last colonoscopy in Apr [address] Sanford. Hyperplastic polyps. Diverticular disease. Hemorrhoids. Recommended to repeat in 5 years. 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 Free T4 1.15. Ordered by rn womens health. - emphasized the importance of medication adherence [...] Encounters Date Type Department Care Team Description 09/04/2024 Orders Only GENERIC EXTERNAL DATA DEPARTMENT Provider, Generic External Data 09/01/2024 Telephone [facility] [address] [place] [address] Louise Carrero RN Results 08/31/2024 11:15 AM EDT Office Visit [address] [address] Bhargavi Llanes MD Diverticulitis (Primary Dx); Abnormal [...] thyroiditis; Midline cystocele; Transaminitis 08/31/2024 Orders Only [address] [address] Bhargavi Llanes MD Transaminitis (Primary Dx); Fatty liver; Hepatomegaly; Calculus of gallbladder without cholecystitis without obstruction 08/31/2024 Orders Only [facility] External Provider, [facility] 08/31/2024 Travel 08/30/[address] [address] Bhargavi Llanes MD Chart Prep 08/29/2024 Orders Only GENERIC EXTERNAL DATA DEPARTMENT Provider, Generic External Data 08/24/2024 Travel 08/07/[address] [address] Louise Carrero RN Pt status Check 08/04/2024 Orders Only GENERIC EXTERNAL DATA DEPARTMENT Provider, Generic External Data 07/23/2024 Travel 07/19/[address] [address] Bhargavi Llanes MD chart prep 07/17/2024 Patient Outreach [address] [address] Bhargavi Llanes MD Pre-visit Planning (SDOH screening was completed on 06/07/2024) 07/07/2024 Orders Only [facility] [address] [place] [address] Brooke Jett MD 07/07/2024 Population Health Risk Score [facility] () Department [address] [place] [phone] Provider, Population Health Generic 06/27/2024 Orders Only [facility] [address] [place] [address] Natasha Horowitz CNM Abnormal endometrial ultrasound (Primary Dx); Abnormal uterine bleeding (AUB); Cyst of left ovary 06/14/2024 Telephone [facility] [address] [place] [address] Bhargavi Llanes MD Chart Prep 06/13/2024 Travel 06/08/2024 Orders Only [address] [address] Natasha Horowitz CNM Abnormal uterine bleeding (AUB) (Primary Dx); Acquired hypothyroidism 06/07/2024 Patient Outreach [address] [address] Bhargavi Llanes MD Pre-visit Planning (SDOH Screening [...] your housing situation today? I have yasmin trevin 06/07/[address] you li [...] Description 10/19/2024 1:30 PM EDT Office Visit [facility] [address] [place] [address] Elvin, Marlene, OD [address] [place] [address] Health Maintenance Due Date Last Done Comments CT Colonography 1970 FIT DNA/Cologuard 1970 FIT 1970 FOBT 1970 Sigmoidoscopy 1970 Zoster Vaccines (1 of 2) 2021 Mammogram 12/10/2023 12/09/2021, 11/24, 12/13/2017 COVID-19 Vaccine (2023- season) 2023 Influenza Vaccine (#1) 2023 9, [...] 2046 Hepatitis A Vaccines Completed 11/26/2017, 07/30/19 Hepatitis B Vaccines Completed 11/26/2017, 09/02/2004, 07/29/2004 [...] Procedure Name Priority Date/Time Associated Diagnosis Comments COMPREHENSIVE METABOLIC PANEL Routine 09/04/2024 10:02 AM EDT CBC WITH AUTO DIFFERENTIAL Routine 09/04/2024 10:02 AM EDT URINALYSIS, COMPLETE, WITH REFLEX TO CULTURE Routine 09/04/2024 10:02 AM EDT US PELVIS TRANSVAGINAL Routine 08/31/2024 4:00 PM [...] Relevant to Health Maintenance Results * (ABNORMAL) Urinalysis, Complete, with Reflex to Culture (09/04/2024 10:02 AM EDT) Color Urine Yellow [facility] Appearance Urine Clear [facility] PH 5.5 5.0 - 9.0 [facility] Glucose Urine UA Negative Negative mg/dL [facility] Urine Blood Moderate (2+)(A) Negative [facility] Specific Pruden - Urine 1.015 1.005 - 1.025 [facility] Urine Protein Negative Neg-Trace mg/dL [facility] Urine Ketones Negative Negative mg/dL [facility] Nitrite Urine Negative Negative [facility] Leukocyte Esterase Urine Negative Negative [facility] RBC Urine 11-20(A) 0 - 2 /HPF [facility] Urine WBC 0-5 0 - 5 /HPF [facility] Urine Squamous Epithelial Cell 0-2 0 - 2 /HPF [facility] Urine Bacteria None Seen None Seen [facility] Hyaline Casts, Urine 0-2 0 - 2 /LPF [facility] 09/04/2024 10:0 2 AM EDT 09/04/2024 10:05 AM EDT Narrative [facility] - 09/04/2024 10:13 AM EDT Urine, Clean Catch us Generic External Data Provider LAB URINE ORDERAB LES Final Result [facility] [address] [place] [phone] * CBC auto differential (09/04/2024 10:02 AM EDT) Only the most recent of2 resultswithin the time period is included. White Blood Count 8.2 4.8 - 10.8 X10*3/uL [facility] Red Blood Count 4.80 4.20 - 5.50 X10*6/uL [facility] Hemoglobin 13.1 12.0 - 16.0 g/dl [facility] Hematocrit 40.4 37.0 - 47.0 % [facility] Mean Corpuscular Volume 84.2 80.0 - 98.0 fL [facility] Mean Corpuscular Hemoglobin 27.3 27.0 - 33.0 pg [facility] Mean Corpuscular HGB Conc 32.4 31.0 - 35.0 g/dl [facility] Red Cell Distribution Width 14.2 11.0 - 16.0 % [facility] Platelet Count 350 160 - 400 X10*3/uL [facility] Mean Platelet Volume 9.6 9.4 - 12.3 fL [facility] Neutrophils Percent Auto 54.5 45 - 73 % [facility] Imm Gran Pct Auto 0.2 0.0 - 0.4 % [facility] Lymphocytes Percent Auto 35.7 20 - 40 % [facility] Monocytes Percent Auto 7.4 2 - 11 % [facility] Eosinophils Percent Auto 1.7 0 - 4 % [facility] Basophils Percent Auto 0.5 0 - 2 % [facility] NRBC Pct Auto 0.0 0.0 - 0.2 /100WBC [facility] Neutrophils Absolute Auto 4.5 2.0 - 8.3 x10*3/uL [facility] Imm Gran Abs Auto 0.02 0.00 - 0.03 X10*3/uL [facility] Lymphocytes Absolute Auto 2.9 1.2 - 4.9 X10*3/uL [facility] Monocytes Absolute Auto 0.6 0.1 - 1.2 X10*3/uL [facility] Eosinophils Absolute Auto 0.1 0.0 - 0.4 X10*3/uL [facility] Basophils Absolute Auto 0.0 0.0 - 0.2 X10*3/uL [facility] NRBC Abs Auto 0.000 0.0 - 0.012 X10*3/uL [facility] 09/04/2024 10:0 2 AM EDT 09/04/2024 10:07 AM EDT us Generic External Data Provider LAB BLOOD ORDERAB LES Final Result [facility] [address] [place] [address] [phone] * (ABNORMAL) Comprehensive Metabolic Panel (09/04/2024 10:02 AM EDT) Only the most recent of3 resultswithin the time period is included. Sodium 138 135 - 145 mmol/L [facility] Potassium 3.9 3.3 - 5.1 mmol/L [facility] Chloride 107 96 - 108 mmol/L [facility] Carbon Dioxide 23 22 - 29 mmol/L [facility] Anion Gap 12 12 - 20 [facility] Urea Nitrogen (BUN) 8(L) 9 - 16 mg/dL [facility] Creatinine, Serum 0.72 0.5 - 1.4 mg/dL [facility] Creatinine Clr Calc Pharmacy 88.6 [facility] Comment:Provided height and weight: 157.48 cm,80.2 kg.eGFR (calculated from the MDRD study equation) and eCrCl(calculated from the Cockcroft-Gault equation) are based ondifferent parameters and may not yield comparable results.If eCrCl result is absurd, please check patient'sheight/weight. Estimated Glomerular Filt Rate >60 [facility] Comment:Chronic Kidney Disea se: Estimated GFR < 60 mL/min/1.14t2Fjdbno Kidney Disease: Estimated GFR < 15 mL/min/1.73m2 Glucose 83 60 - 115 mg/dL [facility] Calcium 9.4 8.4 - 10.2 mg/dL [facility] Bilirubin, Total 0.6 0.0 - 1.0 mg/dL [facility] Aspartate Amino Transferase 101(H) 5 - 31 U/L [facility] Alanine Aminotransferase 106(H) 0 - 31 U/L [facility] Total Protein 7.7 6.5 - 8.0 g/dL [facility] Albumin Level 4.0 3.5 - 5.0 g/dL [facility] Alkaline Phosphatase 85 39 - 117 U/L [facility] 09/04/2024 10:0 2 AM EDT 09/04/2024 10:07 AM EDT us Generic External Data Provider LAB BLOOD ORDERAB LES Final Result [facility] [address] [place] [address] [phone] * US Pelvis Transvaginal (08/31/2024 4:00 PM EDT) Only the most recent of2 resultswithin the time period is included. Anatomical Region Laterality Modality Pelvis Ultrasound 08/31/2024 4:00 PM EDT Narrative 08/31/2024 4:01 PM EDT ? [facility] ?[address] ?[place] [address] ? Ultrasound Report ? Signed ? Patient: Love,Zari ?MR#: [id number] ?? [id number] ? : 1970 ?Acct:[id number] ? Age/Sex: 54 / F ?ADM Date: 08/31/24 ? Loc: HO.US ? Attending Dr: Nick Higgins MD ? Ordering Physician: Nick Higgins MD ?? Date of Service: 08/31/24 ?? Procedure(s): US pelvic and transvaginal ?? Accession Number(s): [id number] ? cc: Bhargavi Llanes MD; Nick Higgins [...] DD/ 1600 ? TD/TT: 08/31/24 1600 ? Supervisor Screen Printing: ? Procedure Note Liater, Image - 08/31/2024 [place] [address] Ultrasound Report Signed Patient: Zari AlemanMR#: [id number] : 1970Acct:[id number] Age/Sex: 54 / FADM Date: 08/31/24 Loc: HO.US Attending Dr: Nick Higgins MD Ordering Physician: Nick Higgins MD Date of Service: 08/31/24 Procedure(s): US pelvic and transvaginal Accession Number(s): [id number] cc: Bhargavi Llanes MD; Nick Higgins MD [...] 08/31/24 1601 DD/ 1600 TD/TT: 08/31/24 1600 Supervisor Screen Printing: us [facility] External Provider IMG US PROCEDURES Edited Result - Final * (ABNORMAL) Lipid Panel with Reflex to Direct LDL (08/31/2024 12:21 PM EDT) Triglycerides 271(H) <150 mg/dL [facility] Comment:Desirable Triglyceri de: less than 150 mg/dLBorderline High Triglyceride 150-199 mg/dLHigh Triglyceride: 200-499 mg/dLVery High Triglyceride: greater than or equal to 5OO mg/dL Cholesterol 234(H) <200 mg/dL [facility] Comment:Desirable Cholestero l: less than 200 mg/dLBorderline High Cholesterol: 200-239 mg/dLHigh Cholesterol: greater than 239 mg/dL LDL Cholesterol Calculated 137(H) <100 mg/dL [facility] Comment:Desirable LDL: less than 100 mg/dLNear Optimal/Above Optimal LDL: 110- 129 mg/dLBorderline High LDL: 130-159 mg/dLHigh LDL: 160-189 mg/dLVery High LDL: greater than or equal to 190 mg/dL HDL Cholesterol 43 >40 mg/dL [facility] Comment:Desirable HDL: great er than 40 mg/dL Note: This HDL assay may give artificially low results in patients with liver disease. Blood 08/31/2024 12:2 1 PM EDT 08/31/2024 12:58 PM EDT Bhargavi Llanes MD LAB BLOOD ORDERABLES Final Resul t Performing Organization Address [facility] Co de Phone Number [facility] [address] [place] [phone] * Hemoglobin A1c (08/31/2024 12:21 PM EDT) Hemoglobin A1c 5.6 <6.0 % [facility] Comment:Hemoglobin A1C Refer ence Range Adults: 4.8 - 6.0 % Non diabetic: < 6.0 % Goal: < 7.0 %Additional Action Suggested: > 8.0 %Note: Hemoglobin A1c results are invalid for patients with abnormal amounts of HbF. Blood transfusions may impact the HbA1c concentration in the patient sample. Estimated Average Glucose 114 mg/dL [facility] Comment:eAG = Estimated ave rage glucose which is %A1C expressed asaverage glucose, using the formula of the O1M-VthicmbCdbhkkl Glucose study (ADAG), Diabetes Care, Vol.31,#8,Nov. 2007 Blood Venous blood specimen / Unknown 08/31/2024 12:21 PM EDT 08/31/2024 12:58 PM EDT Bhargavi Llanes MD LAB BLOOD ORDERABLES Final Resul t Performing Organization Address [facility] Co de Phone Number [facility] [address] [place] [phone] * Hematoxylin and Eosin Stain (08/29/2024 11:16 AM EDT) 08/29/2024 11:1 6 AM EDT 08/29/2024 1:52 PM EDT Narrative [facility] - 08/30/2024 12:24 PM EDT ----- ------- Name: Zari Aleman ?Age/Sex: 54/F ? : 1970 Unit#: [id number] ?? Attend Dr: Nick Higgins MD ?Re08/29/24 ?Status: DEP REF ? Location: HO.LNP ?Disch: ? ----- ------- SPEC : [id number] ? RECD: 08/29/24 ? STATUS: ??SOUT ? REQ NUM: [id number] ? MUNIRA: 08/29/24-1116 ? SUBM DR: Nick Higgins MD ? [...] Copies To: ?? Bhargavi Llanes MD ?? [facility] ?? [address] [facility] ?? [place] [address] ?? [phone] ?? Nick Higgins MD ?? [facility] ?? [address] ?? [place] [address] ?? [phone] ----- ------- Signed (signature on file) Sonal Chung 08/30/24 1224 ? ----- ------- ? END OF REPORT ? us Generic External Data Provider LAB BLOOD ORDERAB LES Final Result Performing Organization Address City/State/[facility] Co de Phone Number [facility] [address] [place] [address] [phone] * Chlamydia/N. Gonorrhoeae RNA, TMA, Urogenitial (08/29/2024 10:08 AM EDT) CT PCR NOT DETECTED Not Detect. [facility] Comment:A not detected test result [...] psychologicalconsequences. NG PCR NOT DETECTED Not Detect. [facility] Comment:A not detected test result [...] AM EDT 08/29/2024 2:07 PM EDT Narrative [facility] - 08/29/2024 4:33 PM EDT Vaginal us Generic External Data Provider LAB MICROBIOLOGY - GENERAL ORDERABLES Final Result [facility] [address] [place] [address] [phone] * CT Abdomen Pelvis w/ Contrast (08/04/2024 12:27 PM EDT) Anatomical Region Laterality Modality Body, Pelvis, Abdomen Computed T omography 08/04/2024 12:2 7 PM EDT Narrative 08/04/2024 1:00 PM EDT ? [facility] ?[address] ?[place] [address] ? CT Scan Report ? Signed ? Patient: Love,Zari ?MR#: [id number] ?? [id number] ? : 1970 ?Acct:[id number] ? Age/Sex: 54 / F ?ADM Date: 08/04/24 ? Loc: HO.ED ? Attending Dr: ? Ordering Physician: Adeel Olmos MD ?? Date of Service: 08/04/24 ?? Procedure(s): CT abdomen pelvis w IV con ?? Accession Number(s): [id number] ? cc: Bhargavi Llanes MD; Adeel Olmos MD ? Report Number: ?? [id number]: Total DLP = ??546.00 mGy-cm ?? EXAMINATION: [...] DD/ 1227 ? TD/TT: 08/04/24 1240 ? Supervisor Screen Printing: ? Procedure Note Geni, Image - 08/04/[address] [place] [address] [address] Scan Report Signed Patient: Zari AlemanMR#: [id number] : 1970Acct:[id number] Age/Sex: 54 / FADM Date: 08/04/24 Loc: HO.ED Attending Dr: Ordering Physician: Adeel Olmos MD Date of Service: 08/04/24 Procedure(s): CT abdomen pelvis w IV con Accession Number(s): [id number] cc: Bhargavi Llanes MD; Adeel Olmos MD Report Number: [id number]: Total DLP = 546.00 mGy-cm EXAMINATION: CT [...] Roger Galeana MD 08/04/2024 12:57 PM EDT RP Workstation: [id number] Dictated By: Roger Galeana MD Signed By: <Electronically signed by Roger Galeana MD in OV> 08/04/24 1257 DD/ 1227 TD/TT: 08/04/24 1240 Supervisor Screen Printing: [facility] External Provider IMG CT PROCEDURES Final Result * Lipase (08/04/2024 8:43 AM EDT) Lipase 20 8 - 78 U/L [facility] 08/04/2024 8:43 AM EDT 08/04/2024 8:47 AM EDT Generic External Data Provider LAB BLOOD ORDERAB LES Final Result [facility] [address] [place] [phone] * (ABNORMAL) TSH W/Reflex to FT4 (07/10/2024 10:10 AM EDT) TSH reflex Free T4 71.73(H) 0.32 - 4.0 uIU/mL [facility] Blood Venous blood specimen / Unknown 07/10/2024 10:10 AM EDT 07/10/2024 12:59 PM EDT us Natasha Horowitz [facility] LAB BLOOD ORDERABLES Lidya l Result Performing Organization Address City/[facility]/ZIP Co de Phone Number [facility] [address] [place] [phone] * HPV DNA, Low/High Risk (05/30/2024 10:25 AM EST) HPV High Risk Negative Negative [facility] HPV Genotype 16 Negative Negative [facility] HPV Genotype 18 Negative Negative [facility] Comment:HPV testing performe d at [facility] (CLIA#[id number]), [address] [place] [address].Testing for HPV was performed using the [employer] GERI 6800system. The presence of HPV in [...] EST 05/31/2024 9:15 AM EST Natasha Horowitz [facility] LAB BLOOD ORDERABLES Lidya l Result Performing Organization Address [facility] Co de Phone Number [facility] [address] [place] [phone] * Pap Smear (05/30/2024 10:25 AM EST) Swab Cervix uteri structure / Unknown 05/30/2024 10:25 AM EST 05/31/2024 9:15 AM EST [facility] - 06/08/2024 1:10 PM EST ----- ------- Name: Zari Aleman ?Age/Sex: 54/F ? : 1970 Unit#: [id number] ?? Attend Dr: NATASHA HOROWITZ CNM ?Re05/30/24 ?Status: DEP REF ? Location: HO.HHCLNP ? Disch: ? ----- ------- SPEC : [id number] ? RECD: 05/31/24 ? STATUS: ??SOUT ? REQ NUM: [id number] ? MUNIRA: 05/30/24-1024 ? SUBM DR: NATASHA OHROWITZ CNM ? ENTERED: ??05/31/24 ?SP TYPE: Pap [...] END OF REPORT ? us Natasha Horowitz [facility] LAB CYTOLOGY ORDERABLES F inal Result [facility] [address] [place] [address] [phone] * Colonoscopy (04/27/2023 10:30 AM EST) Colonoscopy Normal Normal Narrative Ana Burgess - 04/27/2023 10:30 AM EST See external hospital admission note on 04/27/2023 Historical Provider [facility] MAINTE[facility]CE Edited Result - Final * Mammography [...] HEPATITIS C ANTIBODY NON-REACT STEVE NON-REACT STEVE [facility] INDEX 0.01 <1.00 [facility] Comment: ?? HCV antibody was non-reactive. There is no laboratory ?? evidence of HCV infection. ?? In most cases, no further action is required. However, if recent HCV exposure is suspected, a test for HCV RNA (test code 07749) is suggested. ?? For additional information please refer to http://education.iPeen.[employer]/faq/UQP75l1 (This link is being provided for informational/ educational purposes only.) ?? 05/02/2020 9:36 AM EST Bhargavi Llanes MD HISTORICAL/NON ORDERABLE LABS Fi nal Result [facility] [address] * HIV 1/2 ANTIGEN/ANTIBODY,FOURTH GENERATION W/RFL (05/02/2020 9:36 AM EST) HIV-1/2 ANTIGEN AND ANTIBODIES, 4TH GENERATION W/ REFLEX NON-REACT STEVE NON-REACT STEVE [facility] Comment: HIV-1 antigen and HIV-1/HIV-2 [...] ? For additional information please refer to http://education.Carezone.com/faq/BVZ747 (This link is being provided for informational/ educational purposes only.) ? The performance of this assay has not been clinically validated in patients less than 2 years old. ?? 05/02/2020 9:36 AM EST us Bhargavi Llanes MD LAB BLOOD ORDERABLES Final Resul t [facility] [address] from Last 3 Months or Most Recently Relevant to Health Maintenance Insurance [facility] [employer] Care Teams Infusion Rn Relationship Specialty Start Date End Date Bhargavi Llanes MD [address] [place] [address] [place] [address] PCP - General Family Medicine 11/21/18
--- OUTSIDE RECORDS SUMMARY | 2024-09-04 10:58 | XMS_ITS | Encounter Summary ---
Author Organization [employer] Address [address] [facility] [address] [place] [address] Care Team Providers Care Protective Signal Installer Name Role Phone Bhargavi Llanes MD Primary Care Provider [phone] Encounter Details Date Type Department Care Team (Late st Contact Info) Description 07/28/2023 Orders Only [facility] [address] [place] [address] Bhargavi Llanes MD [address] [place] [address] Social History Tobacco Use Types Packs/Day Years [...] Description 10/19/2024 1:30 PM EDT Office Visit [facility] OPTOMETRY [address] [place] [address] Marlene Oconnor, OD [address] [place] [address] documented as of this encounter Visit Diagnoses Not on filedocumented in this encounter Care Teams Protective Signal Installer Relationship Specialty Start Date End Date Bhargavi Llanes MD [address] [place] [address] PCP - General Family Medicine 11/21/18 documented as of this encounter
--- OUTSIDE RECORDS SUMMARY | 2024-09-04 10:58 | XMS_ITS | Encounter Summary ---
Author Organization [employer] Address [address] [facility] [address] [place] [address] Care Team Providers Care Assistant Front Desk Manager Name Role Phone Bhargavi Llanes MD Primary Care Provider [phone] Encounter Details Date Type Department Care Team (Late st Contact Info) Description 09/04/2024 Orders Only GENERIC EXTERNAL DATA [...] Visit [facility] [address] [place], [place] [phone] ElvinMarlene, OD [address] [place] [address] documented as of this encounter Procedures Procedure Name Priority Date/Time Associated Diagnosis Comments URINALYSIS, COMPLETE, WITH REFLEX TO CULTURE Routine 09/04/2024 10:02 AM EDT CBC WITH AUTO DIFFERENTIAL Routine 09/04/2024 10:02 AM EDT COMPREHENSIVE METABOLIC PANEL Routine 09/04/2024 10:02 AM EDT documented in this encounter Results * (ABNORMAL) Comprehensive Metabolic Panel (09/04/2024 10:02 AM EDT) Sodium 138 135 - 145 mmol/L [facility] Potassium 3.9 3.3 - 5.1 mmol/L [facility] Chloride 107 96 - 108 mmol/L [facility] Carbon Dioxide 23 22 - 29 mmol/L [facility] Anion Gap 12 12 - 20 [facility] Urea Nitrogen (BUN) 8(L) 9 - 16 mg/dL [facility] Creatinine, Serum 0.72 0.5 - 1.4 mg/dL [facility] Creatinine Clr Calc Pharmacy 88.6 [facility] Comment:Provided height and weight: 157.48 cm,80.2 kg.eGFR (calculated from the MDRD study equation) and eCrCl(calculated from the Cockcroft-Gault equation) are based ondifferent parameters and may not yield comparable results.If eCrCl result is absurd, please check patient'sheight/weight. Estimated Glomerular Filt Rate >60 [facility] Comment:Chronic Kidney Disea se: Estimated GFR < 60 mL/min/1.30i5Smahkd Kidney Disease: Estimated GFR < 15 mL/min/1.73m2 Glucose 83 60 - 115 mg/dL [facility] Calcium 9.4 8.4 - 10.2 mg/dL [facility] Bilirubin, Total 0.6 0.0 - 1.0 mg/dL [facility] Aspartate Amino Transferase 101(H) 5 - 31 U/L [facility] Alanine Aminotransferase 106(H) 0 - 31 U/L [facility] Total Protein 7.7 6.5 - 8.0 g/dL [facility] Albumin Level 4.0 3.5 - 5.0 g/dL [facility] Alkaline Phosphatase 85 39 - 117 U/L [facility] 09/04/2024 10:0 2 AM EDT 09/04/2024 10:07 AM EDT us Generic External Data Provider LAB BLOOD ORDERAB LES Final Result [facility] [address] [place] [phone] * CBC auto differential (09/04/2024 10:02 AM EDT) White Blood Count 8.2 4.8 - 10.8 X10*3/uL [facility] Red Blood Count 4.80 4.20 - 5.50 X10*6/uL [facility] Hemoglobin 13.1 12.0 - 16.0 g/dl [facility] Hematocrit 40.4 37.0 - 47.0 % [facility] Mean Corpuscular Volume 84.2 80.0 - 98.0 fL [facility] Mean Corpuscular Hemoglobin 27.3 27.0 - 33.0 pg [facility] Mean Corpuscular HGB Conc 32.4 31.0 - 35.0 g/dl [facility] Red Cell Distribution Width 14.2 11.0 - 16.0 % [facility] Platelet Count 350 160 - 400 X10*3/uL [facility] Mean Platelet Volume 9.6 9.4 - 12.3 fL [facility] Neutrophils Percent Auto 54.5 45 - 73 % [facility] Imm Gran Pct Auto 0.2 0.0 - 0.4 % [facility] Lymphocytes Percent Auto 35.7 20 - 40 % [facility] Monocytes Percent Auto 7.4 2 - 11 % [facility] Eosinophils Percent Auto 1.7 0 - 4 % [facility] Basophils Percent Auto 0.5 0 - 2 % [facility] NRBC Pct Auto 0.0 0.0 - 0.2 /100WBC [facility] Neutrophils Absolute Auto 4.5 2.0 - 8.3 x10*3/uL [facility] Imm Gran Abs Auto 0.02 0.00 - 0.03 X10*3/uL [facility] Lymphocytes Absolute Auto 2.9 1.2 - 4.9 X10*3/uL [facility] Monocytes Absolute Auto 0.6 0.1 - 1.2 X10*3/uL [facility] Eosinophils Absolute Auto 0.1 0.0 - 0.4 X10*3/uL [facility] Basophils Absolute Auto 0.0 0.0 - 0.2 X10*3/uL [facility] NRBC Abs Auto 0.000 0.0 - 0.012 X10*3/uL [facility] 09/04/2024 10:0 2 AM EDT 09/04/2024 10:07 AM EDT us Generic External Data Provider LAB BLOOD ORDERAB LES Final Result [facility] [address] [place] [phone] * (ABNORMAL) Urinalysis, Complete, with Reflex to Culture (09/04/2024 10:02 AM EDT) Color Urine Yellow [facility] Appearance Urine Clear [facility] PH 5.5 5.0 - 9.0 [facility] Glucose Urine UA Negative Negative mg/dL [facility] Urine Blood Moderate (2+)(A) Negative [facility] Specific [place] - Urine 1.015 1.005 - 1.025 [facility] Urine Protein Negative Neg-Trace mg/dL [facility] Urine Ketones Negative Negative mg/dL [facility] Nitrite Urine Negative Negative [facility] Leukocyte Esterase Urine Negative Negative [facility] RBC Urine 11-20(A) 0 - 2 /HPF [facility] Urine WBC 0-5 0 - 5 /HPF [facility] Urine Squamous Epithelial Cell 0-2 0 - 2 /HPF [facility] Urine Bacteria None Seen None Seen [facility] Hyaline Casts, Urine 0-2 0 - 2 /LPF [facility] 09/04/2024 10:0 2 AM EDT 09/04/2024 10:05 AM EDT Narrative [facility] - 09/04/2024 10:13 AM EDT Urine, Clean Catch us Generic External Data Provider LAB URINE ORDERAB LES Final Result [facility] [address] [place] [phone] documented in this encounter Visit Diagnoses Not on filedocumented in this encounter Additional Health Concerns Assessment Noted Time PHQ-9 Depression Total Score: 0 09/01/19 25 11:14 AM EDT documented as of this encounter Care Teams Assistant Front Desk Manager Relationship Specialty Start Date End Date Bhargavi Llanes MD [address] [place] [phone] PCP - General Family Medicine 11/21/18 documented as of this encounter
--- OUTSIDE RECORDS SUMMARY | 2024-09-04 10:58 | XMS_ITS | Encounter Summary ---
Author Organization [employer] Address 75 [facility] [address] [place] [address] Care Team Providers Care Filler Sifter Helper Name Role Phone Bhargavi Llanes MD Primary Care Provider [phone] Reason for Referral * Imaging (Routine) - Authorized Specialty Diagnoses / Procedures Referred By Contac t Referred To Contact Radiology Diagnoses Transaminitis Fatty liver Hepatomegaly Calculus of gallbladder without cholecystitis without obstruction Procedures US Abdomen Comp w elastography Bhargavi Llanes MD [address] [place] [address] Phone: tel: fax: [address] Phone: tel: fax: Referral ID Status Reason Start Date Expiration Date V isits Requested Visits Authorized [id number] Authorized 08/31/2024 08/31/2025 1 1 Encounter Details Date Type Department Care Team (Late st Contact Info) Description 08/31/2024 Orders Only [facility] [address] [place] [phone] Bhargavi Llanes MD [address] [place], [place] [phone] Transaminitis (Primary Dx); Fatty liver; Hepatomegaly; Calculus [...] Description 10/19/2024 1:30 PM EDT Office Visit [facility] [address] [place], [place] [phone] Elvin, Malrene, OD [address] [place] [address] Scheduled Orders Name Type Priority Associated Diagnoses [...] documented as of this encounter Care Teams Filler Sifter Helper Relationship Specialty Start Date End Date Bhargavi Llanes MD [address] [place] [phone] PCP - General Family Medicine 11/21/18 documented as of this encounter
--- OUTSIDE RECORDS SUMMARY | 2024-09-04 10:58 | XMS_ITS | Encounter Summary ---
Author Organization [employer] Address [address] [facility] [address] [place] [address] Care Team Providers Care Enameler Name Role Phone Bhargavi Llanes MD Primary Care Provider [phone] Reason for Visit * Reason Comments Sick Onsite [facility] ED F/U DX: Diverticulitis large intestine, Thickened endometrium, Gallstones. Pt scheduled to have a follow up with [facility] VASCULAR ULTRASOUND TECHNOLOGIST on 08/29 Encounter Details Date Type Department Care Team (Latest Contact Info) Description 08/31/2024 11:15 AM EDT Office Visit [facility] [address] [place], [place] [phone] Bhargavi Llanes MD [address] [place], [place] [phone] Diverticulitis (Primary Dx); Abnormal uterine bleeding (AUB); [...] She stated she had been following with [facility] GI. She had not been adherent to thyroid replacement. Interval history: Seen in the walk-in clinic for malodorous urine. Hx previous UTI. Rx TMP/SMX. Urine culture grew E.coli, hernandez-sensitive. Seen by Melinda Kennedy CNM, on 05/30/24 for instrument assembly supervisor visit. She reported pelvic pain and AUB. Mammo ordered. Cotest done. Referred to Urogyn for cystocele. Cotest double negative. Seen by Dr. Shah, [facility] Endo for hypothyroidism. TSH 71.73 on 07/07/24. [...] Suspect left pelvic venous congestion. Seen in [facility] ED on 08/04/24. CT abdomen pelvis for right lower quadrant pain. Impression: Diverticulitis, cholelithiasis, fatty liver, thickened endometrial stripe, stable 1.2 cm splenic artery aneurysm. Dx diverticulitis. Rx levofloxacin, metronidazole, morphine, ibuprofen, APAP, ondansetron. Seen by Dr. Higgins, [facility] VASCULAR ULTRASOUND TECHNOLOGIST on 08/29/24. Endometrial biopsy done for AUB. [...] only spotting. Mammography tomorrow. Follow up with VASCULAR ULTRASOUND TECHNOLOGIST next week. She has improved adherence to thyroid replacement. She is going to see her electric mule driver on 09/20/24. Her major concern is her [...] She states she is engaged in her anglican and her son with autism has become [...] on 08/31/24. Free T4 1.15. Ordered by electric mule driver. - emphasized the importance of medication adherence Diverticulitis - Primary - recurrent - most recently in July 2024, less frequent for last 3 years - following with [facility] GI, last seen in June 2023, upcoming appointment - last colonoscopy in Apr [address] Sanford. Hyperplastic polyps. Diverticular disease. Hemorrhoids. Recommended to repeat in 5 years. IBS (irritable bowel syndrome) - following with [facility] GI - s/p colonoscopy in April 2023 hyperplastic polyp - continue linaclotide 290 mcg daily - low FODMAP diet Prolapse of female pelvic organs - referred to UroGYN by Melinda Abnormal uterine bleeding (AUB) - following with [facility] VASCULAR ULTRASOUND TECHNOLOGIST - Pelvic US in May 2024, repeated today. Report pending. - Benign endometrial biopsy report on 08/29/24 Ovarian cyst - left complex ovarian cyst - repeat US ordered by VASCULAR ULTRASOUND TECHNOLOGIST Chronic idiopathic constipation - continue Linaclotide - [...] IBS (irritable bowel syndrome) - following with [facility] - s/p colonoscopy in April 2023 [...] Abnormal uterine bleeding (AUB) - following with [facility] VASCULAR ULTRASOUND TECHNOLOGIST - Pelvic US in May 2024, repeated today. Report pending. 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 Free T4 1.15. Ordered by electric mule driver. - emphasized the importance of medication adherence * Assessment & Plan Note - Bhargavi Llanes MD - 09/01/2024 6:04 AM EDTAssociated Problem(s): Diverticulitis - recurrent - most recently in July 2024, less frequent for last 3 years - following with [facility], last seen in June 2023, upcoming appointment - last colonoscopy in Apr [address] Sanford. Hyperplastic polyps. Diverticular disease. Hemorrhoids. Recommended to repeat in 5 years. * Assessment & Plan Note - Bhargavi Llanes MD - 08/31/2024 6:32 AM EDTAssociated Problem(s): Ovarian cyst - left complex ovarian cyst - repeat US ordered by VASCULAR ULTRASOUND TECHNOLOGIST documented in this encounter Plan of Treatment Upcoming Encounters Date Type Department Care Team (Late st Contact Info) Description 10/19/2024 1:30 PM EDT Office Visit [facility] [address] [place] [address] ElvinMarlene, OD [address] [place] [address] documented as of this encounter Procedures Procedure [...] PM EDT) Hemoglobin A1c 5.6 <6.0 % [facility] Comment:Hemoglobin A1C Refer ence Range Adults: 4.8 - 6.0 % Non diabetic: < 6.0 % Goal: < 7.0 %Additional Action Suggested: > 8.0 %Note: Hemoglobin A1c results are invalid for patients with abnormal amounts of HbF. Blood transfusions may impact the HbA1c concentration in the patient sample. Estimated Average Glucose 114 mg/dL [facility] Comment:eAG = Estimated ave rage glucose which is %A1C expressed asaverage glucose, using the formula of the [id number] Glucose study (ADAG), Diabetes Care, Vol.31,#8,Nov. 2007 Blood Venous blood specimen / Unknown 08/31/2024 12:21 PM EDT 08/31/2024 12:58 PM EDT Bhargavi Llanes MD LAB BLOOD ORDERABLES Final Resul t [facility] [address] [place] [phone] * (ABNORMAL) Lipid Panel with Reflex to Direct LDL (08/31/2024 12:21 PM EDT) Triglycerides 271(H) <150 mg/dL [facility] Comment:Desirable Triglyceri de: less than 150 mg/dLBorderline High Triglyceride 150-199 mg/dLHigh Triglyceride: 200-499 mg/dLVery High Triglyceride: greater than or equal to 5OO mg/dL Cholesterol 234(H) <200 mg/dL [facility] Comment:Desirable Cholestero l: less than 200 mg/dLBorderline High Cholesterol: 200-239 mg/dLHigh Cholesterol: greater than 239 mg/dL LDL Cholesterol Calculated 137(H) <100 mg/dL [facility] Comment:Desirable LDL: less than 100 mg/dLNear Optimal/Above Optimal LDL: 110- 129 mg/dLBorderline High LDL: 130-159 mg/dLHigh LDL: 160-189 mg/dLVery High LDL: greater than or equal to 190 mg/dL HDL Cholesterol 43 >40 mg/dL [facility] Comment:Desirable HDL: great er than 40 mg/dL Note: This HDL assay may give artificially low results in patients with liver disease. Blood 08/31/2024 12:2 1 PM EDT 08/31/2024 12:58 PM EDT Bhargavi Llanes MD LAB BLOOD ORDERABLES Final Resul t Performing Organization Address City/[facility]/ZIP Co de Phone Number [facility] [address] [place] [phone] * (ABNORMAL) Comprehensive Metabolic Panel (08/31/2024 12:21 PM EDT) Sodium 139 135 - 145 mmol/L [facility] Potassium 4.6 3.3 - 5.1 mmol/L [facility] Chloride 105 96 - 108 mmol/L [facility] Carbon Dioxide 25 22 - 29 mmol/L [facility] Anion Gap 14 12 - 20 [facility] Urea Nitrogen (BUN) 12 9 - 16 mg/dL [facility] Creatinine, Serum 0.70 0.5 - 1.4 mg/dL [facility] Estimated Glomerular Filt Rate >60 [facility] Comment:Chronic Kidney Disea se: Estimated GFR < 60 mL/min/[id number] Kidney Disease: Estimated GFR < 15 mL/min/1.73m2 Glucose 77 60 - 115 mg/dL [facility] Calcium 9.3 8.4 - 10.2 mg/dL [facility] Bilirubin, Total 0.5 0.0 - 1.0 mg/dL [facility] Aspartate Amino Transferase 95(H) 5 - 31 U/L [facility] Alanine Aminotransferase 104(H) 0 - 31 U/L [facility] Total Protein 7.4 6.5 - 8.0 g/dL [facility] Albumin Level 4.0 3.5 - 5.0 g/dL [facility] Alkaline Phosphatase 80 39 - 117 U/L [facility] Blood Venous blood specimen / Unknown 08/31/2024 12:21 PM EDT 08/31/2024 12:58 PM EDT us Bhargavi Llanes MD LAB BLOOD ORDERABLES Final Resul t Performing Organization Address City/[facility]/ZIP Co de Phone Number [facility] [address] [place] [address] [phone] documented in this encounter Visit Diagnoses [...] documented as of this encounter Care Teams Enameler Relationship Specialty Start Date End Date Bhargavi Llanes MD [address] [place] [phone] PCP - General Family Medicine 11/21/18 documented as of this encounter
--- OUTSIDE RECORDS SUMMARY | 2024-09-04 10:58 | XMS_ITS | Encounter Summary ---
Author Organization [employer] Address [address] [facility] [address] [place] [address] Care Team Providers Care Account Services Analyst Name Role Phone Bhargavi Llanes MD Primary Care Provider [phone] Encounter Details Date Type Department Care Team (Late st Contact Info) Description 07/07/2024 Orders Only [facility] [address] [place], [place] [phone] Provider, MD Brooke Social History Tobacco Use [...] Description 10/19/2024 1:30 PM EDT Office Visit [facility] [address] [place], [place] [phone] Elvin, Marlene, OD [address] [place] [address] documented as of this encounter Procedures Procedure [...] on filedocumented in this encounter Care Teams Account Services Analyst Relationship Specialty Start Date End Date Bhargavi Llanes MD [address] [place], [place] [phone] PCP - General Family Medicine 11/21/18 documented as of this encounter
[2024-09-20 10:33] VITALS: BMI 32.0
--- NOTE | 2024-09-21 09:23 | P.CONAN_ITS ---
HPI - Anesthesia Eval Consult details Narrative: 54yo F for D&C Hysteroscopy, possible myomectomy / polypectomy [facility] Active Problems Active Problems: All Active Problems Abnormal uterine bleeding (AUB) (Acute) Complex ovarian cyst (Acute) Abnormal ultrasound of endometrium (Acute) Diverticulitis (Acute) Decreased calculated GFR (Acute) Bleeding hemorrhoids (Acute) Family history of polyps in the colon (Acute) Chronic idiopathic constipation (Acute) GERD (gastroesophageal reflux disease) (Acute) Vitamin D deficiency (Acute) Hypothyroidism (Acute) Jeevan's disease (Acute) Multinodular goiter (Acute) Past Medical History Medical History (Updated 09/20/24 @ 09:12 by GEE Marshall) H. pylori duodenitis Pre-op examination GERD (gastroesophageal reflux disease) Vitamin D deficiency Multinodular goiter Jeevan's disease Hypothyroidism Diverticulitis Family History Family History Father Heart disease Mother Diabetes mellitus HTN (hypertension) Brother Diabetes mellitus Sister High cholesterol Sister Jeevan's disease Family history of problems with anesthesia: No Surgical History Surgical History History of esophagogastroduodenoscopy (EGD) H/O colonoscopy Hx of hemorrhoidectomy Hx of lumpectomy H/O tubal ligation History of Problems with Anesthesia: No Social History Social History Household Members: Spouse and Children Alcohol intake: never Patient Tobacco Use Status: Former Tobacco user Tobacco use type: Cigarette Cigarettes Per Day: 3 Meds Allergies Allergy/AdvReac Type Severity Reaction Status Date / Time tramadol [TRAMADOL] Allergy Intermediate VOMITING, Verified 09/20/24 09:08 ? nausea Home Medications ?Medication ?Instructions ?Recorded ?Confirmed ?Last Taken ?Type nabumetone 500 mg tablet 500 mg PO BID PRN pain 08/28/21 04/22/23 Unknown History topiramate 25 mg tablet 25 mg PO BEDTIME 03/17/22 04/22/23 Unknown History valacyclovir 1 gram tablet 1,000 mg PO DAILY 05/06/22 07/11/24 Unknown History albuterol sulfate 90 mcg/actuation 2 puff inhalation Q4H PRN wheezing 07/11/24 07/11/24 Unknown History aerosol inhaler (Ventolin HFA) phentermine 15 mg capsule 15 mg PO DAILY 09/04/24 Unknown History Exam Height,Weight and Vital Signs: Height 5 ft 2 in Weight 79.379 kg Assessment and Plan Assessment Anesthesia Assessment: Chart Reviewed Final Anesthetic Review Family History of Problems with Anesthesia: No History of Problems with Anesthesia: No
--- NOTE | 2024-09-22 10:40 | P.CONAN_ITS ---
[facility] Active Problems Active Problems: qAll Active Problems Abnormal uterine bleeding (AUB) (Acute) Complex ovarian cyst (Acute) Abnormal ultrasound of endometrium (Acute) Diverticulitis (Acute) Decreased calculated GFR (Acute) Bleeding hemorrhoids (Acute) Family history of polyps in the colon (Acute) Chronic idiopathic constipation (Acute) GERD (gastroesophageal reflux disease) (Acute) Vitamin D deficiency (Acute) Hypothyroidism (Acute) Jeevan's disease (Acute) Multinodular goiter (Acute) Past Medical History Medical History (Updated 09/20/24 @ 09:12 by GEE Marshall) H. pylori duodenitis Pre-op examination GERD (gastroesophageal reflux disease) Vitamin D deficiency Multinodular goiter Jeevan's disease Hypothyroidism Diverticulitis Family History Family History Father Heart disease Mother Diabetes mellitus HTN (hypertension) Brother Diabetes mellitus Sister High cholesterol Sister Jeevan's disease Family history of problems with anesthesia: No Surgical History Surgical History History of esophagogastroduodenoscopy (EGD) H/O colonoscopy Hx of hemorrhoidectomy Hx of lumpectomy H/O tubal ligation History of Problems with Anesthesia: No Social History Social History Household Members: Spouse and Children Alcohol intake: never Patient Tobacco Use Status: Former Tobacco user Tobacco use type: Cigarette Cigarettes Per Day: 3 Meds Allergies Allergy/AdvReac Type Severity Reaction Status Date / Time tramadol [TRAMADOL] Allergy Intermediate VOMITING, Verified 09/22/24 11:02 ? nausea Home Medications ?Medication ?Instructions ?Recorded ?Confirmed ?Last Taken ?Type nabumetone 500 mg tablet 500 mg PO BID PRN pain 08/28/21 09/22/24 Unknown History topiramate 25 mg tablet 25 mg PO BEDTIME 03/17/22 09/22/24 Unknown History valacyclovir 1 gram tablet 1,000 mg PO DAILY 05/06/22 09/22/24 Unknown History albuterol sulfate 90 mcg/actuation 2 puff inhalation Q4H PRN wheezing 07/11/24 09/22/24 Unknown History aerosol inhaler (Ventolin HFA) phentermine 15 mg capsule 15 mg PO DAILY 09/04/24 09/22/24 Unknown History Exam Height,Weight and Vital Signs: Height 5 ft 2 in Weight 79.379 kg Airway Mallampati Class: II TM Dist: >3cm Neck ROM: Full Heart: RRR Lungs: CTA Assessment and Plan Assessment Anesthesia Assessment: Anesthesia Plan Discussed Final Anesthetic Review Family History of Problems with Anesthesia: No History of Problems with Anesthesia: No NPO: Yes ASA Class: II Final Preanesthetic Review: Meds/Allgs Chart Reviewed, Consent Obtained/Reviewed and Anes Risks/Benef Reviewed Patient Risk: Low Procedure Risk: Low Anesthetic Plan Anesthetic Plan: GA Disposition: Standard PACU
[2024-09-22] MEDS: Lactated Ringers 1,000 ML 100 ML IVCONT (11:19)
[2024-09-22 11:20] VITALS: BP 132/81; PULSE 81; RESP 16; TEMP 36.7; O2SAT 99; BMI 31.7
[2024-09-22 11:24] LABS: UPreg QC Valid YES; Urine Pregnancy NEGATIVE (NEGATIVE)
--- NOTE | 2024-09-22 12:19 | MHC.SHP ---
Pre-Procedural Eval Section A - 24 Hr Update-Section A only Date of Service: 09/22/24 Section B - Complete if H&P > 30 days Chief Complaint: Other specified abnormal uterine and vaginal bleed Allergies: Allergies Allergy/AdvReac Type Severity Reaction Status Date / Time tramadol [TRAMADOL] Allergy Intermediate VOMITING, Verified 09/22/24 11:02 ? nausea Plan I have reviewed the history and physical and performed a pertinent physical examination on my patient. No changes have occurred unless specified. Time Spent With Patient Time: Total time managing care of this patient today ____ minutes.
--- NOTE | 2024-09-22 13:01 | PM.OP ---
Brief Operative Note Date of Service: 09/22/24 Pre-op diagnosis: Abnormal uterine bleeding, endometrial polyp by ultrasound Post-op diagnosis: same (Endometrial polyp) Procedure: Hysteroscopy D&C, Polypectomy Surgeon: Nick Higgins MD Anesthesia: GLMA Was an Design Sales Consultant used for this Procedure?: No Estimated blood loss (mL): 0 Pathology: other (Endometrial Scrapping. Polyp) Condition: stable Disposition: PACU
--- NOTE | 2024-09-22 13:02 | P.OP_ITS ---
Operative Note Operative Note Date of Service: 09/22/24 Narrative: Preop Diagnosis: AUB, Endometrial polyp by US Operation: Diagnostic Hysteroscopy, Dilataion & Curettage and polypectomy Post Op Diagnosis: Endometrial Polyp QBL: Minimal Anesthesia: GLMA Surgeon: Nick Higgins MD Predatory Hunter: None Complication: None Pathology: Endometrial Scrapings, Endometrial polyp Procedure: The patient was put in the dorsal lithotomy position, scrubbed, and draped in the usual manner. A sterile speculum was inserted in the patient's vagina. The anterior lip of the cervix was grasped with a single tooth tenaculum. The cervix was dilated up to 5 mm, then the scope was inserted in the patient's uterus. Inspection revealed endometrial polyp. The Myosure Reach device was used; it was introduced through the operative channel and polypectomy done with no complications. The scope was then taken out from the uterine cavity, sharp curettings was carried on with minimal to moderate amount of tissues retrieved. At the end of the procedure, all instruments were taken out of the patient uterine and vaginal cavity. The single tooth tenaculum was removed and homeostasis was assured using pressure,. The patient tolerated the procedure well and was transferred to the PACU in a stable condition.
[2024-09-22 13:04] VITALS: BP 122/78; PULSE 89; RESP 16; TEMP 36.2; O2SAT 96
[2024-09-22 13:09] VITALS: BP 111/73; PULSE 85; RESP 16; O2SAT 96
[2024-09-22 13:14] VITALS: BP 110/63; PULSE 74; RESP 16; O2SAT 96
[2024-09-22] MEDS: Ketorolac Tromethamine 15 MG/ML VIAL IVPUSH (13:15)
[2024-09-22] MEDS: Acetaminophen 1,000 MG/100 ML PIGGYBACK 400 MG IV (13:16)
[2024-09-22 13:19] VITALS: BP 105/65; PULSE 82; RESP 16; O2SAT 96
[2024-09-22 13:34] VITALS: BP 125/81; PULSE 71; RESP 18; TEMP 36.1; O2SAT 100
--- NOTE | 2024-09-22 13:37 | HO.POSTANES ---
Post Anesthesia Evaluation Post Anesthesia Evaluation Date of Service: 09/22/24 Vital Signs: Vital Signs Temp Pulse Resp BP Pulse Ox O2 Del Method 09/22/24 13:34 97 F 71 18 125/81 100 Room Air 09/22/24 13:19 82 16 105/65 96 Room Air 09/22/24 13:14 74 16 110/63 96 Room Air 09/22/24 13:09 85 16 111/73 96 Room Air 09/22/24 13:04 97.2 F 89 16 122/78 96 Room Air 09/22/24 11:20 98.1 F 81 16 132/81 99 Room Air Anesthesia: General LMA Mental Status: Awake Pain Control: Satisfactory Nausea/Vomiting: None Hydration: Adequate Anesthesia-Related Issues: No Anes. Related Issues
== END 2024-09-22 14:04 | disposition home or self-care (01) ==
PROVIDERS: PCP Family Medicine; Visit Provider Obstetrics & Gynecology
PROC: 0UDB8ZZ Extraction of Endometrium, Via Natural or Artificial Opening Endoscopic (ICD-10-PCS; CPT 58558; principal; 2024-09-22 12:30)
DX: N93.8 Other specified abnormal uterine and vaginal bleeding (principal); N84.0 Polyp of corpus uteri; N83.299 Other ovarian cyst, unspecified side; K21.9 Gastro-esophageal reflux disease without esophagitis; Z87.19 Personal history of other diseases of the digestive system; E55.9 Vitamin D deficiency, unspecified; E06.3 Autoimmune thyroiditis; E04.2 Nontoxic multinodular goiter; Z79.899 Other long term (current) drug therapy; Z88.8 Allergy status to other drugs, medicaments and biological substances; Z98.51 Tubal ligation status; Z87.891 Personal history of nicotine dependence
CPT/HCPCS: 58558; 81025; 88305; J0131; J1100; J1885; J2003; J2250; J2405; J2704; J3010

== ENCOUNTER → 2024-09-22 10:53 | Outpatient (BNV) | payer MEDICAID, SELFPAY | PROVIDERS: PCP Family Medicine; Visit Provider Obstetrics & Gynecology | DX: N84.0 Polyp of corpus uteri (principal); N93.9 Abnormal uterine and vaginal bleeding, unspecified | CPT/HCPCS: 58558 ==

== ENCOUNTER 2024-10-09 08:52 | Outpatient (AMB) | payer MEDICAID, SELFPAY ==
--- NOTE | 2024-10-09 08:52 | A.OFFVIS_ITS ---
Intake Visit Reasons: post op Allergies tramadol [TRAMADOL] Allergy (Intermediate, Verified 09/22/24 11:02) VOMITING, ? nausea HPI Comments Details: The patient is presenting post hysteroscopy D&C no complaints minimal vaginal bleeding no feverishness chills or abdominal pain. Intraoperative findings showed endometrial polyp which was excised but pathology turned out to be polypoid fragments of secretory endometrium with no evidence of a polyp The pathology showed the following: A. Endometrial polyp, biopsy: Polypoid fragments of secretory endometrium; negative for atypia, hyperplasia or malignancy. B. Endometrium, curettage: Fragments of secretory endometrium; negative for atypia, hyperplasia or malignancy 08/31/2024 pelvic ultrasound showed the following: Impression: 1. Retroverted uterus . 2. Thickened endometrium with cystic changes differentials include endometrial polyp, hyperplasia or metaplasia/dysplasia 3. Suspect ovarian dermoid or atypical hemorrhagic cyst on the right and functional cyst on the left. 4. Consider pelvic venous congestion syndrome on the left in the appropriate clinical setting 09/11/2024 pelvic MRI showed the following: Impression: 1. Thickened endometrium and junctional zone likely representing hyperplasia. Endometrial neoplasm is not entirely excluded particularly if the patient is postmenopausal. Please correlate clinically. 2. Benign bilateral ovarian cysts The remaining of the workup done showed the following: H&H 12.7/37.8 TSH elevated, the patient thyroid medication was increased and follow-up TSH on 08/31/2024 was within normal Last co testing in 06/20 was negative Mammogram done in 09/17 was BI-RADS 1 [facility] Medical History H. pylori duodenitis Pre-op examination GERD (gastroesophageal reflux disease) Vitamin D deficiency Multinodular goiter Jeevan's disease Hypothyroidism Diverticulitis Surgical History History of esophagogastroduodenoscopy (EGD) H/O colonoscopy Hx of hemorrhoidectomy Hx of lumpectomy H/O tubal ligation Family History Father Heart disease Mother Diabetes mellitus HTN (hypertension) Brother Diabetes mellitus Sister High cholesterol Sister Jeevan's disease Social History Household Members: Spouse and Children Alcohol intake: never Patient Tobacco Use Status: Former Tobacco user Tobacco use type: Cigarette Cigarettes Per Day: 3 Review of Systems Const All systems reviewed & are unremarkable except as noted in HPI and below Reports as per HPI and Reports no additional complaints GI Reports no additional complaints Reports no additional complaints Telehealth Telehealth [facility]health [facility] Location of provider rendering services: practice address Location of patient: address on file Patient Identification confirmed using: Name, : Yes Telehealth method: voice only Patient verbally consented to treatment: Yes Patient verbally consented to billing insurance company: Yes Patient informed of any privacy concerns related to visit: Yes Minutes spent on Phone/Video with Pt.: 8 Assessment & Plan Assessment & Plan (1) Abnormal uterine bleeding (AUB): Comment: Abnormal endometrium by ultrasound Code(s): N93.9 - Abnormal uterine and vaginal bleeding, unspecified Category: Medical Plan: Discussed with the patient the results of the work up done and options of treatment including but not limited to BCP's, cyclic Progesterone, Mirena IUD, endometrial ablation and hysterectomy. All pros, cons, risks and benefits of each option were discussed with the patient and the patient decided to go ahead with cyclic Provera, so a more detailed discussion re: Progesterone treatment including mechanism of action, benefits (regular menses, endometrial protection form unopposed estrogen and reduction in the risk of endometrial hyperplasia and/or cancer ...), risks (Thrombosis, mood changes, weight gain, breast soreness, ? increased breast ca, others). Instructions were given to use a back- up method for contraception since this is not a method control, take the medication 1 tablet daily starting day 15-24 and to schedule a 3 months follow- up appointment; patient verbalized understanding and agreed with the plan. (2) Complex ovarian cyst: Code(s): N83.299 - Other ovarian cyst, unspecified side Category: Medical Plan: Discussed with the patient pelvic MRI findings showing no evidence of any complex cyst . The patient was instructed to call if symptoms recur. All questions were answered the patient verbalized understanding. I spent a total of 20 minutes reviewing the chart, talking to the patient via phone and documenting in the medical record. Medications: New medroxyprogesterone (Provera) start Provera 1 tablet daily from day 15-24 cyclically every months, day 1 being 1st day of menses 10 mg PO DAILY 90 days 30 tabs 0RF Coding Level of Care Code Tele Est Pt Level 3 (23572) Diagnoses Abnormal uterine bleeding (AUB) N93.9 Complex ovarian cyst N83.299
--- OUTSIDE RECORDS SUMMARY | 2024-10-09 09:18 | XMS_ITS ---
Author Organization [employer] Address [address] [facility] [address] [place] [address] Care Team Providers Care Fiberglass Laminator Name Role Phone Bhargavi Llanes MD Primary Care Provider [phone] Radha Thakur RN Unavailable [phone] Catie Gardiner Unavailable CM Complex Status:Enrolled (Active) Start date:09/05/2024 Enrollment date:09/25/2024 Enrollment reason:ADT Feed Overview ED- Pt went [place] [facility] on 09[place]04[facility]. Case Team Name Relationship Phone Radha Thakur RN(Responsible Staff) Registered Nurse [phone] Continued Care and Services Coordination
== END 2024-10-09 09:48 | disposition home or self-care (01) ==
LOC: HO.HWS 08:52
PROVIDERS: PCP Family Medicine; Visit Provider Obstetrics & Gynecology
DX: N93.9 Abnormal uterine and vaginal bleeding, unspecified (principal); N83.299 Other ovarian cyst, unspecified side
CPT/HCPCS: 99213

== ENCOUNTER → 2024-10-09 08:52 | Outpatient (BNVA) | payer MEDICAID, SELFPAY | PROVIDERS: PCP Family Medicine; Visit Provider Obstetrics & Gynecology ==

== ENCOUNTER 2025-02-15 09:49 | Outpatient (REF) | payer MEDICAID, SELFPAY ==
--- NOTE | ~2025-02-15 | US_ITS ---
EXAMINATION: US ABDOMEN COMPLETE WITH LIVER ELASTOGRAPHY HISTORY: Transaminitis and hepatomegaly. Cholelithiasis. TECHNIQUE: Real-time grayscale ultrasound imaging of the abdomen was performed and images were reviewed. COMPARISON: Comparison is made with the prior examination dated 12/22/2017. FINDINGS: Liver: The right lobe of the liver measures 18.0 cm in size. The left lobe of the liver measures 11.8 cm in size. The liver demonstrates increased echotexture, consistent with steatosis. There is focal fatty sparing adjacent to the gallbladder. No focal mass or intrahepatic biliary ductal dilatation is identified. There is normal hepatopedal flow in the portal vein. Ultrasound elastography of the liver was performed with 10 separate measurements of the liver parenchyma with the patient in the supine position. Measurements were obtained approximately 2 cm below Holli's capsule and perpendicular to the capsule. The median shear wave velocity is 1.13 m/s. The interquartile range/median (IQR/median) is 0.20. Gallbladder and biliary tree: There is cholelithiasis. There is no wall thickening or pericholecystic fluid. There is no sonographic Navarro sign. The common bile duct is normal in caliber measuring 4 mm. Kidneys: The right kidney measures 9.6 cm in length. The left kidney measures 9.3 cm in length. The kidneys are unremarkable, without evidence of masses, hydronephrosis, or calculi. Pancreas: The pancreatic head, neck, and body are unremarkable. The pancreatic tail is obscured by bowel gas. Spleen: The spleen is normal in size and contour, measuring 11.3 cm in length. Abdominal aorta and inferior vena cava: The visualized portions of the abdominal aorta and inferior vena cava are normal in caliber. There is no free fluid in the abdomen. US/US abdomen comp w elastography IMPRESSION: 1. Mild hepatomegaly. Hepatic steatosis. 2. Cholelithiasis. The median shear wave velocity in the liver is 1.13 m/s, corresponding to a median liver stiffness of 3.9 kPa. The IQR/median value is 0.20. This is indicative of a quality data set. Findings are indicative of a normal elastography value with a low likelihood of severe fibrosis or cirrhosis. REFERENCE: Society of [employer] in Ultrasound Liver Stiffness Thresholds (2020): LIVER STIFFNESS THRESHOLDS: *Shear wave velocity less than 1.3 m/s (Liver Stiffness equal or less than 5 kPa): High probability of being normal. *Shear wave velocity less than 1.7 m/s (Liver Stiffness less than 9 kPa): In the absence of other known clinical signs, rules out compensated advanced chronic liver disease. *Shear wave velocity between 1.7-2.1 m/s (Liver Stiffness 9-13 kPa): Suggestive of compensated advanced chronic liver disease but need further test for confirmation. *Shear wave velocity between 2.1-2.4 m/s (Liver Stiffness 13-17 kPa): Rules in compensated advanced chronic liver disease. *Shear wave velocity greater than 2.4 m/s (Liver Stiffness over 17 kPa): Suggestive of clinically significant portal hypertension. QUALITY OF DATA SET: *IQR/Median value equal or less than 0.30 implies a quality data set. *IQR/Median value over 0.30 implies a poor quality data set. SIGNIFICANT CHANGE FROM PRIOR EXAM: Significant change if liver stiffness measurement is 10% or greater from prior exam. OTHER CONSIDERATIONS: The stage of liver fibrosis may be overestimated in the setting of acute hepatitis, liver inflammation, elevated liver function tests, hepatic vascular congestion, obstructive cholestasis, non-fasting state, and infiltrative diseases such as amyloidosis and lymphoma. In some patients with NAFLD, the liver stiffness thresholds for compensated advanced chronic liver disease may be lower. In causes other than viral hepatitis and NAFLD, liver stiffness thresholds are not well established. Electronically signed by: Valerio Lamas MD 02/15/2025 11:00 AM EDT
--- OUTSIDE RECORDS SUMMARY | 2025-02-15 11:16 | XMS_ITS | Encounter Summary ---
Author Organization [employer] Address [address] [facility] [address] [place] [address] Care Team Providers Care Decal Cutter Name Role Phone Bhargavi Llanes MD Primary Care Provider [phone] Radha Thakur RN Unavailable [phone] Catie Gardiner Unavailable Encounter Details Date Type Department Care Team (Late st Contact Info) Description 07/28/2023 Orders Only [facility] MED[facility]INE [address] [place], [place] [phone] Bhargavi Llanes MD [address] [place], [place] [phone] Social History Tobacco Use Types Packs/Day Years Used Date Smoking Tobacco: Former Cigarettes 0.5 30 1 2021 Comments Unknown Sex and Gender Information Value Date Recorded Sex Assigned at Female 02/23/2022 10:16 AM EDT Legal Sex Female 10:16 AM EDT Gender Identity Female 02/23/2022 10:16 AM EDT Sexual Orientation Straight 02/23/2022 10 :16 AM EDT documented as of this encounter Plan of Treatment Not on file documented as of this encounter Visit Diagnoses Not on filedocumented in this encounter Care Teams Decal Cutter Relationship Specialty Start Date End Date Bhargavi Llanes MD [address] [place], [place] [phone] PCP - General Family Medicine 11/21/18 Radha Thakur RN [address] [place] [phone] Grid CasterChanneler Runner 09/25/24 aCtie Gardiner 09/05/24 12/18/24 documented as of this encounter
--- OUTSIDE RECORDS SUMMARY | 2025-02-15 11:16 | XMS_ITS | Encounter Summary ---
Author Organization [employer] Address [address] [facility] [address] [place] [address] Care Team Providers Care Felling Bucking Supervisor Name Role Phone Bhargavi Llanes MD Primary Care Provider [phone] Radha Thakur RN Unavailable [phone] Catie Gardiner Unavailable Reason for Referral * Imaging (Routine) - Closed Specialty Diagnoses / Procedures Referred By Contac t Referred To Contact Radiology Diagnoses Transaminitis Fatty liver Hepatomegaly Calculus of gallbladder without cholecystitis without obstruction Procedures US Abdomen Comp w elastography Bhargavi Llanes MD [address] [place] [address] Phone: tel: fax: [address] Phone: tel: fax: Referral ID Status Reason Start Date Expiration Date Visits Re quested Visits Authorized [id number] Closed 08/31/2024 08/31/2025 1 1 Encounter Details Date Type Department Care Team (Late st Contact Info) Description 08/31/2024 Orders Only [facility] MED[facility]INE [address] [place], [place] [phone] Bhargavi Llanes MD [address] [place], [place] [phone] Transaminitis (Primary Dx); Fatty liver; Hepatomegaly; Calculus [...] AM EDT documented as of this encounter Functional Status * Over the past 2 weeks, how often have you been bothered by any of the following problems? Question Answer Date of Assessment Author Patient Health Questionnaire-2 Score 0 05/0 11/2024 11:14 AM EDT Natalya Wiley MA * Little interest or pleasure in doing things Answer Date of Assessment Author Not at all 08/31/2024 11:14 AM EDT Natalya Wiley MA * Feeling down, depressed, or hopeless Answer Date of Assessment Author Not at all 08/31/2024 11:14 AM EDT Natalya Wiely MA * Trouble falling or staying asleep, or sleeping too much Answer Date of Assessment Author Not at all 08/31/2024 11:14 AM EDT Natalya Wiley MA * Feeling tired or having little energy Answer Date of Assessment Author Not at all 08/31/2024 11:14 AM EDT Natalya Wiley MA * Poor appetite or overeating Answer Date of Assessment Author Not at all 08/31/2024 11:14 AM EDT Natalya Wiley MA * Feeling bad about yourself - or that you are a failure or have let yourself or your family down Answer Date of Assessment Author Not at all 08/31/2024 11:14 AM EDT Natalya Wiley MA * Trouble concentrating on things, such as reading the newspaper or watching television Answer Date of Assessment Author Not at all 08/31/2024 11:14 AM EDT Natalya Wiley MA * Moving or speaking so slowly that other people could have noticed? Or the opposite - being so fidgety or restless that you have been moving around a lot more than usual. Answer Date of Assessment Author Not at all 08/31/2024 11:14 AM GIOVANIT Natalya Wiley MA * Thoughts that you would be better off or hurting yourself in some way Answer Date of Assessment Author Not at all 08/31/2024 11:14 AM EDT Natalya Wiley MA * Patient Health Questionnaire-9 Score Answer Date of Assessment Author 0 08/31/2024 11:14 AM EDT Natalya Wiley MA documented as of this encounter Plan of Treatment Not on file documented as of this encounter Procedures Procedure Name Priority Date/Time Associated Diagnosis Comments US ABDOMEN COMPLETE WITH ELASTOGRAPHY Routine 02/15/2025 10:20 AM EDT Transaminitis Fatty liver Hepatomegaly Calculus of gallbladder without cholecystitis without obstruction HEPATITIS C AB W/REFL TO HCV RNA, QN, PCR Routine 09/04/2024 9:12 AM EDT Transaminitis HEPATITIS B SURFACE ANTIGEN, EIA Routine 09/04/2024 9:12 AM EDT Transaminitis HIV 1/2 ANTIGEN/ANTIBODY, FOURTH GENERATION W/RFL Routine 09/04/2024 9:12 AM EDT Transaminitis documented in this encounter Results * US Abdomen Comp w elastography (02/15/2025 10:20 AM EDT) Anatomical Region Laterality Modality Abdomen Ultrasound 02/15/2025 10:2 0 AM EDT Narrative 02/15/2025 11:03 AM EDT [place] [address] Ultrasound Report Signed Patient: Zari Aleman MR#: [id number] : 1970 Acct:[id number] Age/Sex: 54 / F ADM Date: 02/15/25 Loc: HO.US Attending Dr: Bhargavi Llanes MD Ordering Physician: Bhargavi Llanes MD Date of Service: 02/15/25 Procedure(s): US abdomen comp w elastography Accession Number(s): [id number] cc: Bhargavi Llanes MD Reason for Exam: Transaminitis and hepatomegaly. Cholelithiasis. EXAMINATION: US ABDOMEN COMPLETE WITH LIVER ELASTOGRAPHY HISTORY: Transaminitis and hepatomegaly. Cholelithiasis. TECHNIQUE: Real-time grayscale ultrasound imaging of the abdomen was performed and images were reviewed. COMPARISON: Comparison is made with the prior examination dated 12/22/2017. FINDINGS: Liver: The right lobe of the liver measures 18.0 cm in size. The left lobe of the liver measures 11.8 cm in size. The liver demonstrates increased echotexture, consistent with steatosis. There is focal fatty sparing adjacent to the gallbladder. No focal mass or intrahepatic biliary ductal dilatation is identified. There is normal hepatopedal flow in the portal vein. Ultrasound elastography of the liver was performed with 10 separate measurements of the liver parenchyma with the patient in the supine position. Measurements were obtained approximately 2 cm below Holli's capsule and perpendicular to the capsule. The median shear wave velocity is 1.13 m/s. The interquartile range/median (IQR/median) is 0.20. Gallbladder and biliary tree: There is cholelithiasis. There is no wall thickening or pericholecystic fluid. There is no sonographic Navarro sign. The common bile duct is normal in caliber measuring 4 mm. Kidneys: The right kidney measures 9.6 cm in length. The left kidney measures 9.3 cm in length. The kidneys are unremarkable, without evidence of masses, hydronephrosis, or calculi. Pancreas: The pancreatic head, neck, and body are unremarkable. The pancreatic tail is obscured by bowel gas. Spleen: The spleen is normal in size and contour, measuring 11.3 cm in length. Abdominal aorta and inferior vena cava: The visualized portions of the abdominal aorta and inferior vena cava are normal in caliber. There is no free fluid in the abdomen. US/US abdomen comp w elastography IMPRESSION: 1. Mild hepatomegaly. Hepatic steatosis. 2. Cholelithiasis. The median shear wave velocity in the liver is 1.13 m/s, corresponding to a median liver stiffness of 3.9 kPa. The IQR/median value is 0.20. This is indicative of a quality data set. Findings are indicative of a normal elastography value with a low likelihood of severe fibrosis or cirrhosis. REFERENCE: Society of [employer] in Ultrasound Liver Stiffness Thresholds (2020): LIVER STIFFNESS THRESHOLDS: *Shear wave velocity less than 1.3 m/s (Liver Stiffness equal or less than 5 kPa): High probability of being normal. *Shear wave velocity less than 1.7 m/s (Liver Stiffness less than 9 kPa): In the absence of other known clinical signs, rules out compensated advanced chronic liver disease. *Shear wave velocity between 1.7-2.1 m/s (Liver Stiffness 9-13 kPa): Suggestive of compensated advanced chronic liver disease but need further test for confirmation. *Shear wave velocity between 2.1-2.4 m/s (Liver Stiffness 13-17 kPa): Rules in compensated advanced chronic liver disease. *Shear wave velocity greater than 2.4 m/s (Liver Stiffness over 17 kPa): Suggestive of clinically significant portal hypertension. QUALITY OF DATA SET: *IQR/Median value equal or less than 0.30 implies a quality data set. *IQR/Median value over 0.30 implies a poor quality data set. SIGNIFICANT CHANGE FROM PRIOR EXAM: Significant change if liver stiffness measurement is 10% or greater from prior exam. OTHER CONSIDERATIONS: The stage of liver fibrosis may be overestimated in the setting of acute hepatitis, liver inflammation, elevated liver function tests, hepatic vascular congestion, obstructive cholestasis, non-fasting state, and infiltrative diseases such as amyloidosis and lymphoma. In some patients with NAFLD, the liver stiffness thresholds for compensated advanced chronic liver disease may be lower. In causes other than viral hepatitis and NAFLD, liver stiffness thresholds are not well established. Electronically signed by: Valerio Lamas MD 02/15/2025 11:00 AM EDT RP Dictated By: Valerio Lamas MD Signed By: <Electronically signed by aVlerio Lamas MD in [place]> 02/15/25 1100 DD/ 1020 TD/TT: 02/15/25 1039 Journal Box Inspector: Procedure Note Donotuseinterpreter, Image - 02/15/2025 [place] [address] Ultrasound Report Signed Patient: Zari Aleman#: [id number] : 1970Acct:[id number] Age/Sex: 54 / FADM Date: 02/15/25 Loc: HO.US Attending Dr: Bhargavi Llanes MD Ordering Physician: Bhargavi Llanes MD Date of Service: 02/15/25 Procedure(s): US abdomen comp w elastography Accession Number(s): [id number] cc: Bhargavi Llanes MD Reason for Exam: Transaminitis and hepatomegaly. Cholelithiasis. EXAMINATION: US ABDOMEN COMPLETE WITH LIVER ELASTOGRAPHY HISTORY: Transaminitis and hepatomegaly. Cholelithiasis. TECHNIQUE: Real-time grayscale ultrasound imaging of the abdomen was performed and images were reviewed. COMPARISON: Comparison is made with the prior examination dated 12/22/2017. FINDINGS: Liver: The right lobe of the liver measures 18.0 cm in size. The left lobe of the liver measures 11.8 cm in size. The liver demonstrates increased echotexture, consistent with steatosis. There is focal fatty sparing adjacent to the gallbladder. No focal mass or intrahepatic biliary ductal dilatation is identified. There is normal hepatopedal flow in the portal vein. Ultrasound elastography of the liver was performed with 10 separate measurements of the liver parenchyma with the patient in the supine position. Measurements were obtained approximately 2 cm below Holli's capsule and perpendicular to the capsule. The median shear wave velocity is 1.13 m/s. The interquartile range/median (IQR/median) is 0.20. Gallbladder and biliary tree: There is cholelithiasis. There is no wall thickening or pericholecystic fluid. There is no sonographic Navarro sign. The common bile duct is normal in caliber measuring 4 mm. Kidneys: The right kidney measures 9.6 cm in length. The left kidney measures 9.3 cm in length. The kidneys are unremarkable, without evidence of masses, hydronephrosis, or calculi. Pancreas: The pancreatic head, neck, and body are unremarkable. The pancreatic tail is obscured by bowel gas. Spleen: The spleen is normal in size and contour, measuring 11.3 cm in length. Abdominal aorta and inferior vena cava: The visualized portions of the abdominal aorta and inferior vena cava are normal in caliber. There is no free fluid in the abdomen. US/US abdomen comp w elastography IMPRESSION: 1. Mild hepatomegaly. Hepatic steatosis. 2. Cholelithiasis. The median shear wave velocity in the liver is 1.13 m/s, corresponding to a median liver stiffness of 3.9 kPa. The IQR/median value is 0.20. This is indicative of a quality data set. Findings are indicative of a normal elastography value with a low likelihood of severe fibrosis or cirrhosis. REFERENCE: Society of [employer] in Ultrasound Liver Stiffness Thresholds (2020): LIVER STIFFNESS THRESHOLDS: *Shear wave velocity less than 1.3 m/s (Liver Stiffness equal or less than 5 kPa): High probability of being normal. *Shear wave velocity less than 1.7 m/s (Liver Stiffness less than 9 kPa): In the absence of other known clinical signs, rules out compensated advanced chronic liver disease. *Shear wave velocity between 1.7-2.1 m/s (Liver Stiffness 9-13 kPa): Suggestive of compensated advanced chronic liver disease but need further test for confirmation. *Shear wave velocity between 2.1-2.4 m/s (Liver Stiffness 13-17 kPa): Rules in compensated advanced chronic liver disease. *Shear wave velocity greater than 2.4 m/s (Liver Stiffness over 17 kPa): Suggestive of clinically significant portal hypertension. QUALITY OF DATA SET: *IQR/Median value equal or less than 0.30 implies a quality data set. *IQR/Median value over 0.30 implies a poor quality data set. SIGNIFICANT CHANGE FROM PRIOR EXAM: Significant change if liver stiffness measurement is 10% or greater from prior exam. OTHER CONSIDERATIONS: The stage of liver fibrosis may be overestimated in the setting of acute hepatitis, liver inflammation, elevated liver function tests, hepatic vascular congestion, obstructive cholestasis, non-fasting state, and infiltrative diseases such as amyloidosis and lymphoma. In some patients with NAFLD, the liver stiffness thresholds for compensated advanced chronic liver disease may be lower. In causes other than viral hepatitis and NAFLD, liver stiffness thresholds are not well established. Electronically signed by: Valerio Lamas MD 02/15/2025 11:00 AM EDT Dictated By: Valerio Lamas MD Signed By: <Electronically signed by Valerio Lamas MD in [place]> 02/15/25 1100 DD/ 1020 TD/TT: 02/15/25 1039 Journal Box Inspector: Bhargavi Llanes MD IM US PROCEDURES Edited Result - Final * Hepatitis C Antibody with Reflex to HCV, RNA, Quantitative, Real-Time PCR (09/04/2024 9:12 AM EDT) Pathologist [facility] Hepatitis C Antibody Nonreactive Nonreactive [facility] Comment:Antibodies to HCV no t detected; does not exclude early acuteHCV infection. Blood Venous blood specimen / Unknown 09/04/2024 9:12 AM EDT 09/04/2024 12:14 PM EDT Bhargavi Llanes MD LAB BLOOD ORDERABLES Final Resul t [facility] [address] [place] [phone] * HIV-1/2 Antigen and Antibodies, Fourth Generation, with Reflexes (09/04/2024 9:12 AM EDT) HIV AB/AG Nonreactive Nonreactive [facility] Comment:HIV-1 p24 Ag and/or HIV-1/HIV-2 Ab not detected.A test result that is nonreactive does not exclude thepossibility of exposure to or infection with HIV-1 and/orHIV-2. Nonreactive results in this assay for individualswith prior exposure to HIV-1 and/or HIV-2 may be due toantigen and antibody levels that are below the limit ofdetection of this assay.The [employer] HIV Ag/Ab Combo assay result andsupplemental assay results should be interpreted inconjunction with the patient's clinical presentation,history and other laboratory results. If the results areinconsistent with clinical evidence, additional testing issuggested to confirm the result. Blood Venous blood specimen / Unknown 09/04/2024 9:12 AM EDT 09/04/2024 12:14 PM EDT Bhargavi Llanes MD LAB BLOOD ORDERABLES Final Resul t Performing Organization Address City/[facility]/ZIP Co de Phone Number [facility] [address] [place] [phone] * Hepatitis B surface antigen, EIA (09/04/2024 9:12 AM EDT) Hepatitis B Surface Ag Negative Negative [facility] Blood Venous blood specimen / Unknown 09/04/2024 9:12 AM EDT 09/04/2024 12:14 PM EDT Bhargavi Llanes MD LAB BLOOD ORDERABLES Final Resul t Performing Organization Address City/[facility]/ZIP Co de Phone Number [facility] [address] [place] [phone] documented in this encounter Visit Diagnoses Diagnosis Transaminitis- Primary Nonspecific elevation of levels of transaminase or lactic acid dehydrogenase (LDH) Fatty liver Other chronic nonalcoholic liver disease Hepatomegaly Calculus of gallbladder without cholecystitis without obstruction documented in this encounter Additional Health Concerns Assessment Noted Time PHQ-9 Depression Total Score: 0 09/01/19 25 11:14 AM EDT documented as of this encounter Care Teams Felling Bucking Supervisor Relationship Specialty Start Date End Date Bhargavi Llanes MD [address] [place] [address] PCP - General Family Medicine 11/21/18 Radha Thakur RN [address] [place] [address] Mainframe Systems AdministratorCulinary Worker 09/25/24 Catie Gardiner 09/05/24 12/18/24 documented as of this encounter
--- OUTSIDE RECORDS SUMMARY | 2025-02-15 11:16 | XMS_ITS | Clinical Summary ---
Author Organization [employer] Address [address] [facility] [address] [place] [address] Care Team Providers Care Ornament Stapler Name Role Phone Bhargavi Llanes MD Primary Care Provider Radha Thakur RN Unavailable [phone] Allergies Active Allergy Reactions Criticality Noted Date Comments Levofloxacin Low 07/22/2023 insomnia Metronidazole Nausea Medium 07/22/2023 Tramadol 05/30/2024 Medications D3 Super Strength 50 MCG (1999) capsule Take 50 mcg by mouth in the morning. 023 Active folic acid (Folvite) 800 MCG tablet Take 1 tablet by mouth at bed time. 021 Active hydrocortisone (Anusol-HC) 2.5 % rectal cream 023 Active Linzess 290 MCG capsule Take 290 mcg by mouth in the morning. 023 Active pantoprazole (ProtoNix) 40 MG EC tablet Take 40 mg by mouth in the morning and 40 mg in the evening. 023 Active albuterol 108 (90 Base) MCG/ACT inhaler Inhale 2 puffs every 4 (four) hours if needed for wheezing or shortness of breath. Maximum 8 puffs per day 18 g 3 024 Active hydrocortisone (Anusol-HC) 25 MG suppository Insert 1 suppository (25 mg) into the rectum 2 times daily. 24 suppository 024 Active Mometasone Furoate (Asmanex HFA) 100 MCG/ACT aerosol Inhale 1 puff 2 times daily. 13 g 11 024 Active famotidine (Pepcid) 40 MG tablet 025 Active phentermine 30 MG capsule TAKE 1 CAPSULE BY MOUTH BEFORE BREAKFAST 90 capsule 1 025 Active Tirosint 88 MCG capsule Take 1 capsule (88 mcg) by mouth Once per day. 90 capsule 3 025 Active levothyroxine (Synthroid) 88 MCG tabletIndicati ons:Hypothyroi dism due to Jeevan thyroiditis Take 1 tablet (88 mcg) by mouth before breakfast. 90 tablet 3 025 2025 Active Tirosint 88 MCG capsule Take 88 mcg by mouth Once per day. 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 Report pending. - Benign endometrial biopsy report on 08/29/24 GERD (gastroesophageal reflux disease) Assessment & Plan (07/22/2023 7:23 PM EDT): - continue pantoprazole 40 mg bid and famotidine 40 mg daily prn IBS (irritable bowel syndrome) 07/22/2023 Assessment & Plan (09/01/2024 6:10 AM EDT): - following with [facility] - s/p colonoscopy in April 2023 hyperplastic polyp - continue linaclotide 290 mcg daily - low FODMAP diet Assessment & Plan (07/22/2023 7:23 PM EDT): - following with [facility] - s/p colonoscopy in April 2023 [...] for last 3 years - following with [facility], last seen in June 2023, upcoming appointment - last colonoscopy in Apr [address] Sanford. Hyperplastic polyps. Diverticular disease. Hemorrhoids. Recommended to repeat in 5 years. 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 Free T4 1.15. Ordered by garbage truck helper. 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 12/26/2024 Patient Outreach [address] [address] Bhargavi Llanes MD Care Management (C3CM- f/u call) 12/18/2024 Patient Outreach [address] [address] Bhargavi Llanes MD Care Coordination (SDOH/graduate) 12/18/2024 Patient Outreach [address] [address] Bhargavi Llanes MD Care Management (C3CM- f/u call) 12/01/2024 Patient Outreach [address] [address] Bhargavi Llanes MD Care Management (C3CM- f/u call) 11/23/2024 Refill [facility] MEDICINE [address] [place] [phone] Bhargavi Llanes MD 11/21/2024 Patient Outreach [address] [address] Bhargavi Llanes MD Care Coordination (SDOH f/u) 11/21/2024 Patient Outreach [address] [address] Bhargavi Llanes MD Care Management (C3CM- f/u call) from Last 3 Months Immunizations Immunization Administration Dates Next Due Hep A, Adult [...] Date Recorded Patient Health Questionnaire-9 Score 0 09/25/2024 Patient Health Questionnaire-9 Score 0 09/25/2024 Last PHQ-9: Questionnaire Data Not on file 0 09/25/2024 Housing Stability Answer Date Recorded What is your housing situation today? I have yasmin zhong 06/07/[address] you li ve. Do you have problems with any of the following? None of the above 06/07/2024 Food Insecurity Answer Date Recorded Within the past 12 months, y ou worried that your food would run out before you got money to buy more: Often true 10/06/2024 Within the past 12 months,th e food you bought just didn't last and you didn't have enough money to get more: Often true Transportation Answer Date Recorded In the past 12 months, has l ack of transportation kept you from medical appts, meetings, work or from getting things needed for daily living? No 06/07/2024 Utilities Answer Date Recorded In the past 12 months, has t he electric, gas, oil or water company threatened to shut off services in your home? Yes 11/21/2024 Depression Answer Date Recorded Patient Health Questionnaire-2 Score 0 09/25/2024 Internet Access Answer Date Recorded Internet Access [...] 90 08/31/2024 11:11 AM EDT Temperature 36.3 C (97.3 F) 08/31/2024 11:11 AM EDT Respiratory Rate 20 08/31/2024 11:11 AM EDT Oxygen Saturation 95% 08/31/2024 11:11 AM EDT Inhaled Oxygen Concentration - - Weight 81.2 kg (179 lb) 08/31/2024 11:11 AM EDT Height 157.5 cm (5' 2 ) 08/31/2024 11:11 AM EDT Body Mass Index 32.74 08/31/2024 11:11 AM EDT Plan of Treatment Health Maintenance Due Date Last Done Comments CT Colonography 1971 FIT DNA/Cologuard 1971 FIT 1971 FOBT 1970 Sigmoidoscopy 1970 Zoster Vaccines (1 of 2) 2021 COVID-19 Vaccine (1 - season) 2024 Influenza Vaccine (#1) 2024 9, 03/09/2016, 02/13/2015, Additional history exists Alcohol/Substance Use Screening 08/31/2025 08/31/2024 Disability Screening 08/31/2025 08/31/2024 Tobacco Screening 09/01/2025 09/01/2024 Depression Screening 09/25/2025 09/25/2024, 09/26/19 25 SDOH Screening 10/06/2025 10/06/2024 Mammogram 09/01/2026 09/01/2024, 0809/2021, 12/05/2020, Additional history exists Colonoscopy 04/27/2028 04/27/2023 Colorectal Cancer Screening 04/27/2028 DTaP/Tdap/Td Vaccines (3 - Td or Tdap) 08/23/2028 08/23/2018, 10/06/2011, 07/22/2004 Cervical Cancer Screening 05/30/2029 HPV/Cotest 05/30/2029 05/30/2024, 03/30/2018 Pap Smear 05/30/2029 05/30/2024 Lipid Panel 08/31/2029 08/31/2024 RSV Patients and Patients Aged 60 years or older (1 - 1-dose 75+ series) 2046 Hepatitis A Vaccines Completed 11/26/2017, 07/30/19 05 Hepatitis B Vaccines Completed 11/26/2017, 09/02/2004, 07/29/2004 Pneumococcal Vaccine: 50+ Years Completed 07/22/2023, 08/06/2014 HIV Screening Completed 09/04/2024, 05/02/2020 Hepatitis C Screening Completed 09/04/2024, 021 HIB Vaccines Aged Out No longer eligi ble based on patient's age to complete this topic HPV Vaccines Aged Out No longer eligi ble based on patient's age to complete this topic IPV Vaccines Aged Out No longer eligi ble based on patient's age to complete this topic Meningococcal B Vaccine Aged Out No l onger eligible based on patient's age to complete [...] PCR Routine 09/04/2024 9:12 AM EDT Transaminitis HIV 1/2 ANTIGEN/ANTIBODY, FOURTH GENERATION W/RFL Routine 09/04/2024 9:12 AM EDT Transaminitis BI MAMMOGRAM SCREENING TOMOSYNTHESIS BILATERAL Routine 09/01/2024 8:10 AM EDT Breast cancer screening by mammogram LIPID PANEL WITH REFLEX TO DIRECT LDL Routine 08/31/2024 12:21 PM EDT Screening for lipid disorders HPV DNA, LOW/HIGH RISK Routine 05/30/2024 10:25 AM EST PAP SMEAR Routine 05/30/2024 10:25 AM EST Abnormal uterine bleeding (AUB) Routine cervical smear HM COLONOSCOPY Routine 04/27/2023 10:30 AM EST from Last 3 Months or Most Recently Relevant to Health Maintenance Results * US Abdomen Comp w elastography (02/15/2025 10:20 AM EDT) Anatomical Region Laterality Modality Abdomen Ultrasound 02/15/2025 10:2 0 AM EDT Narrative 02/15/2025 11:03 AM EDT [place] [address] Ultrasound Report Signed Patient: Zari Aleman MR#: [id number] : 1970 Acct:[id number] Age/Sex: 54 / F ADM Date: 02/15/25 Loc: HO.US Attending Dr: Bhargavi Llanes MD Ordering Physician: Bhargavi Llanes MD Date of Service: 02/15/25 Procedure(s): US abdomen comp w elastography Accession Number(s): [id number] cc: Bhargavi Llanes MD Reason for Exam: [...] 02/15/25 1100 DD/ 1020 TD/TT: 02/15/25 1039 Immigration Inspector: Procedure Note Donotuseinterpreter, Image - 02/15/[address] [address] Ultrasound Report Signed Patient: Sheng Aleman#: [id number] : 1970Acct:[id number] Age/Sex: 54 / FADM Date: 02/15/25 Loc: HO.US Attending Dr: Bhargavi Llanes MD Ordering Physician: Bhargavi Llanes MD Date of Service: 02/15/25 Procedure(s): US abdomen comp w elastography Accession Number(s): [id number] cc: Bhargavi Llanes MD Reason for Exam: [...] 02/15/25 1100 DD/ 1020 TD/TT: 02/15/25 1039 Immigration Inspector: us Bhargavi Llanes MD [facility] US PROCEDURES Edited Result - Final * Hepatitis C Antibody with Reflex to HCV, RNA, Quantitative, Real-Time PCR (09/04/2024 9:12 AM EDT) Hepatitis C Antibody Nonreactive Nonreactive [facility] Comment:Antibodies to HCV no t detected; does not exclude early acuteHCV infection. Blood Venous blood specimen / Unknown 09/04/2024 9:12 AM EDT 09/04/2024 12:14 PM EDT us Bhargavi Llanes MD LAB BLOOD ORDERABLES Final Resul t Performing Organization Address [facility] Co de Phone Number [facility] [address] [place] [address] [phone] * HIV-1/2 Antigen and Antibodies, Fourth Generation, with Reflexes (09/04/2024 9:12 AM EDT) [facility] HIV AB/AG Nonreactive Nonreactive [facility] Comment:HIV-1 p24 Ag and/or HIV-1/HIV-2 Ab not detected.A test result that is nonreactive does not exclude thepossibility of exposure to or infection with HIV-1 and/orHIV-2. Nonreactive results in this assay for individualswith prior exposure to HIV-1 and/or HIV-2 may be due toantigen and antibody levels that are below the limit ofdetection of this assay.The [employer] HIV Ag/Ab Combo assay result andsupplemental assay results should be interpreted inconjunction with the patient's clinical presentation,history and other laboratory results. If the results areinconsistent with clinical evidence, additional testing issuggested to confirm the result. Blood Venous blood specimen / Unknown 09/04/2024 9:12 AM EDT 09/04/2024 12:14 PM EDT us Bhargavi Llanes MD LAB BLOOD ORDERABLES Final Resul t Performing Organization Address City/[facility]/ZIP Co de Phone Number [facility] [address] [place] [address] [phone] * BI Mammogram Screening Tomosynthesis Bilateral (09/01/2024 8:10 AM EDT) Anatomical Region Laterality Modality Breast Bilateral Mammography 09/01/2024 8:10 AM EDT Narrative 09/09/2024 8:54 AM EDT [facility] [address] [place], [place] [address] Mammography Report Signed Patient: Zari Aleman MR#: [id number] : 1970 Acct:[id number] Age/Sex: 54 / F ADM Date: 09/01/24 Loc: HO.MAMMO Attending Dr: Natasha Horowitz CNM Ordering Physician: NATASHA HOROWITZ CNM Results: 1 Negative Date of Service: 09/01/24 Follow Up: 1 Year From Orig inal Mammogram Procedure(s): MM tomosynthesis screening BI Accession Number(s): [id number] cc: NATASHA HOROWITZ CNM; Bhargavi Llanes MD EXAMINATION: MM SCREENING DIGITAL BREAST TOMOSYNTHESIS, BILATERAL CLINICAL INFORMATION: Screening. Asymptomatic. COMPARISON: Mammography: Comparison is made with available priors TECHNIQUE: Digital breast mammography with tomosynthesis is performed in both the craniocaudal and mediolateral oblique views along with computer-aided detection (CAD). FINDINGS: The breasts are heterogeneously dense, which may obscure small masses (ACR BI-RADS breast composition Category c). There are no significant masses, abnormal calcifications, or other abnormalities. MM/MM tomosynthesis screening BI IMPRESSION: No mammographic evidence of malignancy. ASSESSMENT: BI-RADS BI-RADS 1 - Negative RECOMMENDATION: Routine annual mammography screening. 1 year F/U This examination should not preclude the clinical evaluation of a suspicious palpable abnormality. This patient's information was entered into a reminder system with a target due date for their next mammogram. Electronically signed by: Yarely Grover DO 09/09/2024 08:52 AM EDT Dictated By: Yarely Grover DO Signed By: <Electronically signed by Yarely Grover DO in OV> 09/09/24 0852 DD/ 0810 TD/TT: 09/01/24 0830 Immigration Inspector: Procedure Note Donrituinterpreter, Image - 09/11/2024 [place] [facility] [address] [place] [address] Mammography Report Signed Patient: Zari AlemanMR#: [id number] : 1970Acct:[id number] Age/Sex: 54 / FADM Date: 09/01/24 Loc: HO.MAMMO Attending Dr: Natasha Horowitz CNM Ordering Physician: NATASHA HOROWITZesults: 1 Negative Date of Service: 09/01/24Follow Up: 1 Year From Orig inal Mammogram Procedure(s): MM tomosynthesis screening BI Accession Number(s): [id number] cc: NATASHA HOROWITZ CNM; Bhargavi Llanes MD EXAMINATION: MM SCREENING DIGITAL BREAST TOMOSYNTHESIS, BILATERAL CLINICAL INFORMATION: Screening. Asymptomatic. COMPARISON: Mammography: Comparison is made with available priors TECHNIQUE: Digital breast mammography with tomosynthesis is performed in both the craniocaudal and mediolateral oblique views along with computer-aided detection (CAD). FINDINGS: The breasts are heterogeneously dense, which may obscure small masses (ACR BI-RADS breast composition Category c). There are no significant masses, abnormal calcifications, or other abnormalities. MM/MM tomosynthesis screening BI IMPRESSION: No mammographic evidence of malignancy. ASSESSMENT: BI-RADS BI-RADS 1 - Negative RECOMMENDATION: Routine annual mammography screening. 1 year F/U This examination should not preclude the clinical evaluation of a suspicious palpable abnormality. This patient's information was entered into a reminder system with a target due date for their next mammogram. Electronically signed by: Yarely Grover DO 09/09/2024 08:52 AM EDT Dictated By: Yarely Grover DO Signed By: <Electronically signed by Yarely Grover DO in OV> 09/09/24 0852 DD/ 0810 TD/TT: 09/01/24 0830 Immigration Inspector: Natasha Horowitz CNM [facility] BI PROCEDURES Edited Result - Final * (ABNORMAL) Lipid Panel with Reflex to Direct LDL (08/31/2024 12:21 PM EDT) Triglycerides 271(H) <150 mg/dL [facility] Comment:Desirable Triglyceri de: less than 150 mg/dLBorderline High Triglyceride 150-199 mg/dLHigh Triglyceride: 200-499 mg/dLVery High Triglyceride: greater than or equal to 5OO mg/dL Cholesterol 234(H) <200 mg/dL [facility] Comment:Desirable Cholestero l: less than 200 mg/dLBorderline High Cholesterol: 200-239 mg/dLHigh Cholesterol: greater than 239 mg/dL LDL Cholesterol Calculated 137(H) <100 mg/dL [facility] Comment:Desirable LDL: less than 100 mg/dLNear Optimal/Above Optimal LDL: 110- 129 mg/dLBorderline High LDL: 130-159 mg/dLHigh LDL: 160-189 mg/dLVery High LDL: greater than or equal to 190 mg/dL HDL Cholesterol 43 >40 mg/dL [facility] Comment:Desirable HDL: great er than 40 mg/dL Note: This HDL assay may give artificially low results in patients with liver disease. Blood 08/31/2024 12:2 1 PM EDT 08/31/2024 12:58 PM EDT us Bhargavi Llanes MD LAB BLOOD ORDERABLES Final Resul t [facility] [address] [place] [phone] * HPV DNA, Low/High Risk (05/30/2024 10:25 AM EST) HPV High Risk Negative Negative [facility] HPV Genotype 16 Negative Negative [facility] HPV Genotype 18 Negative Negative [facility] Comment:HPV testing performe d at [facility] (CLIA#[id number]), [address] [place] [address].Testing for HPV was performed using the [employer] GERI 6800system. The presence of HPV in [...] EST 05/31/2024 9:15 AM EST Natasha Horowitz CNM LAB BLOOD ORDERABLES Lidya letha Result [facility] [address] [place] [phone] * Pap Smear (05/30/2024 10:25 AM EST) Swab Cervix uteri structure / Unknown 05/30/2024 10:25 AM EST 05/31/2024 9:15 AM EST Narrative [facility] - 06/08/2024 1:10 PM EST ----- ------- Name: Zari Aleman Age/Sex: 54/F : 1970 Unit#: [id number] Attend Dr: NATASHA HOROWITZ CNM Re05/30/24 Status: DEP REF Location: HO.HHCLNP Disch: ----- ------- SPEC : [id number] RECD: 05/31/24 STATUS: ANGE MARTINEZ NUM: [id number] MUNIRA: 05/30/241025 [facility] DR: NATASHA HOROWITZ CNM ENTERED: 05/31/24 SP TYPE: Pap Smr OTHR DR: ORDERED: Pap Smear Interpretation Satisfactory for evaluation. Negative for intraepithelial lesion or malignancy. No endocervical cells seen. HPV High Risk: Negative HPV Genotyping 16: Negative HPV Genotyping 18: Negative Clinical Information LMP: Unknown date Previous PAP test: 2017, Unknown findings Material Received ThinPrep-Cervical ----- ------- Signed (signature on file) ABDIRAHMAN Vaughan (ASCP) 06/08/24 1310 ----- ------- END OF REPORT Natasha Horowitz CNM LAB CYTOLOGY ORDERABLES F inal Result [facility] [address] [place] [phone] * Hm Colonoscopy (04/27/2023 10:30 AM EST) Colonoscopy Normal Normal Narrative Ana Burgess - 04/27/2023 10:30 AM EST See external hospital admission note on 04/27/2023 Historical Provider HEALTH MAINTENANCE Edited Result - Final from Last 3 Months or Most Recently Relevant to Health Maintenance Insurance [address] [place] Care Teams Ornament Stapler Relationship Specialty Start Date End Date Bhargavi Llanes MD [address] [place] [phone] PCP - General Family Medicine 11/21/18 Radha Thakur RN [address] [place] [phone] Tattoo DesignerExhibit Display Representative 09/25/24
--- OUTSIDE RECORDS SUMMARY | 2025-02-15 11:16 | XMS_ITS | Encounter Summary ---
Author Organization [employer] Address [address] 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 (Primary Dx) Social History Tobacco Use Types Packs/Day Years [...] as of this encounter Plan of Treatment Scheduled Orders Name Type Priority Associated Diagnoses Orde r Schedule TSH with Reflex to Free T4 Lab Routine 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
--- OUTSIDE RECORDS SUMMARY | 2025-02-15 11:16 | XMS_ITS | Encounter Summary ---
Author Organization [employer] Address [address] [facility] [address] [place] [address] Care Team Providers Care Parking Patroller Name Role Phone Bhargavi Llanes MD Primary Care Provider [phone] Radha Thakur RN Unavailable [phone] Catie Gardiner Unavailable Encounter Details Date Type Department Care Team ([facility] st Contact Info) Description 07/07/2024 Orders Only [facility] [address] [place], [place] [phone] Provider, MD Brooke Social History Tobacco Use [...] hospital admission note on 04/27/2023 Historical Provider [facility] EM[facility]ENC[facility]PART[facility] Edited Result - Final documented in this encounter Visit Diagnoses Not on filedocumented in this encounter Care Teams Parking Patroller Relationship Specialty Start Date End Date Bhargavi Llanes MD [address] [place] [address] PCP - General Family Medicine 11/21/18 Radha Thakur, LUCY [address] [place] [address] Rn EmergencyElectronic Repair Troubleshooter 09/25/24 Catie Gardiner 09/05/24 12/18/24 documented as of this encounter
== END 2025-02-15 09:50 | disposition home or self-care (01) ==
LOC: HO.US 09:49
PROVIDERS: PCP Family Medicine; Visit Provider Family Medicine
DX: R74.01 Elevation of levels of liver transaminase levels (principal); K76.0 Fatty (change of) liver, not elsewhere classified; R16.0 Hepatomegaly, not elsewhere classified; K80.20 Calculus of gallbladder without cholecystitis without obstruction
CPT/HCPCS: 76700; 76981

== ENCOUNTER → 2025-02-15 09:53 | Outpatient (BNV) | payer MEDICAID, SELFPAY | PROVIDERS: PCP Family Medicine; Visit Provider Radiology Diagnostic Radiology | DX: R16.0 Hepatomegaly, not elsewhere classified (principal); K76.0 Fatty (change of) liver, not elsewhere classified; K80.20 Calculus of gallbladder without cholecystitis without obstruction | CPT/HCPCS: 76700 ==

== ENCOUNTER 2025-02-15 10:45 | Outpatient (REF) | payer MEDICAID, SELFPAY ==
[2025-02-15 14:30] LABS: Free T4 (Free Thyroxine) 0.83 ng/dL (0.71-1.85)
== END 2025-02-15 10:46 | disposition home or self-care (01) ==
LOC: HO.10HDL 10:45
PROVIDERS: Visit Provider Family Medicine
DX: E06.3 Autoimmune thyroiditis (principal)
CPT/HCPCS: 36415; 84439; 84443